=== PATIENT | female | born 1950 | race Caucasian/White ===

== ENCOUNTER 2016-04-26 07:40 | Outpatient (CLI) | payer MEDICARE, OTHER | END 2016-04-26 07:41 | disposition home or self-care (01) | DX: R07.89 Other chest pain (principal); M47.812 Spondylosis without myelopathy or radiculopathy, cervical region | CPT/HCPCS: 78306; A9503 ==

== ENCOUNTER 2016-05-29 10:11 | Outpatient (CLI) | payer MEDICARE, OTHER | END 2016-05-29 10:12 | disposition home or self-care (01) | DX: R19.7 Diarrhea, unspecified (principal) ==

== ENCOUNTER 2016-05-30 07:00 | Outpatient (CLI) | payer MEDICARE, OTHER | END 2016-05-30 07:01 | disposition home or self-care (01) | DX: R19.7 Diarrhea, unspecified (principal) ==

== ENCOUNTER 2016-06-13 08:33 | Outpatient (CLI) | payer MEDICARE, OTHER | END 2016-06-13 08:34 | disposition home or self-care (01) | DX: R55 Syncope and collapse (principal) ==

== ENCOUNTER 2016-06-29 07:10 | Outpatient (CLI) | payer MEDICARE, OTHER | END 2016-06-29 07:11 | disposition home or self-care (01) | DX: A04.7 Enterocolitis due to Clostridium difficile (principal) ==

== ENCOUNTER 2016-06-29 09:02 | Outpatient (CLI) | payer MEDICARE, OTHER | END 2016-06-29 09:03 | disposition home or self-care (01) | DX: R19.7 Diarrhea, unspecified (principal); E10.9 Type 1 diabetes mellitus without complications; E78.00 Pure hypercholesterolemia, unspecified; A04.7 Enterocolitis due to Clostridium difficile ==

== ENCOUNTER 2016-07-31 10:22 | Outpatient (CLI) | payer MEDICARE, OTHER | END 2016-07-31 10:23 | disposition home or self-care (01) | DX: E10.9 Type 1 diabetes mellitus without complications (principal) ==

== ENCOUNTER 2016-08-14 13:02 | Outpatient (CLI) | payer MEDICARE, OTHER | END 2016-08-14 13:03 | disposition home or self-care (01) | DX: N39.0 Urinary tract infection, site not specified (principal) ==

== ENCOUNTER 2016-11-09 10:55 | Outpatient (CLI) | payer MEDICARE, OTHER ==
[2016-11-09 19:03] LABS: CALCIUM 9.2 mg/dL (8.5-10.3); CREATININE 0.6 mg/dL (0.4-1.0); POTASSIUM 4.4 mmol/L (3.5-5.0)
[2016-11-09 19:15] LABS: HEMOGLOBIN A1C 0.75 g/dL
== END 2016-11-09 10:56 | disposition home or self-care (01) ==
LOC: LAB.F 10:55
PROVIDERS: ATTEND Internal Medicine
DX: E10.9 Type 1 diabetes mellitus without complications (principal)
CPT/HCPCS: 36415; 80048; 83036

== ENCOUNTER 2016-12-14 12:38 | Outpatient (CLI) | payer MEDICARE, OTHER ==
[2016-12-14 18:00] LABS: BILIRUBIN,URINE NEGATIVE (NEGATIVE)
== END 2016-12-14 12:39 | disposition home or self-care (01) ==
LOC: LAB.F 12:38
PROVIDERS: ATTEND Internal Medicine
DX: R30.0 Dysuria (principal)
CPT/HCPCS: 81001; 87086

== ENCOUNTER 2017-02-20 10:39 | Outpatient (CLI) | payer MEDICARE, OTHER ==
[2017-02-20 17:29] LABS: BASOPHILS % (AUTO) 0.5 %; EOSINOPHILS # (AUTO) 0.1 10^3/uL (0.0-0.7); HCT - HEMATOCRIT 41.3 % (37.0-47.0); HGB - HEMOGLOBIN 13.6 g/dL (12.0-16.0); LYMPHOCYTES # (AUTO) 0.9 10^3/uL (1.5-3.5); LYMPHOCYTES % (AUTO) 11.3 %; MEAN CORPUSCULAR HEMOGLOBIN 31.7 pg (27.0-31.0); MEAN CORPUSCULAR VOLUME 96.1 fL (81.0-99.0); MEAN PLATELET VOLUME 10.8 fL (7.9-10.8); MONOCYTES # (AUTO) 0.7 10^3/uL (0.0-1.0); MONOCYTES % (AUTO) 9.1 %; NEUTROPHILS # (AUTO) 5.9 10^3/uL (1.5-6.6); NEUTROPHILS % (AUTO) 78.1 %; NUCLEATED RED BLOOD CELLS AUTO 0.1 /100WBC; RED CELL DISTRIBUTION WIDTH 13.9 % (12.0-15.0); UNCORRECTED WHITE BLOOD COUNT 7.6 x10^3/uL; WHITE BLOOD COUNT 7.6 x10^3/uL (4.8-10.8)
[2017-02-20 17:54] LABS: BILIRUBIN,TOTAL 0.5 mg/dL (0.2-1.0); CALCIUM 9.3 mg/dL (8.5-10.3); CREATININE 0.7 mg/dL (0.4-1.0); POTASSIUM 4.3 mmol/L (3.5-5.0); TOTAL PROTEIN 6.9 g/dL (6.7-8.2)
== END 2017-02-20 10:40 | disposition home or self-care (01) ==
LOC: LAB.F 10:39
PROVIDERS: ATTEND Family Medicine
DX: R19.7 Diarrhea, unspecified (principal); A04.72 Enterocolitis due to Clostridium difficile, not specified as recurrent
CPT/HCPCS: 36415; 80053; 85025

== ENCOUNTER 2017-02-21 14:46 | Outpatient (CLI) | payer MEDICARE, OTHER ==
[2017-02-22 20:07] LABS: TEST RESULT REPORT
== END 2017-02-21 14:47 | disposition home or self-care (01) ==
LOC: LAB.R 14:46
PROVIDERS: ATTEND Family Medicine
DX: R19.7 Diarrhea, unspecified (principal); A04.72 Enterocolitis due to Clostridium difficile, not specified as recurrent
CPT/HCPCS: 81599; 83630; 87045; 87046; 87177; 87209; 87329; 87493; 89055

== ENCOUNTER 2017-02-27 08:00 | Outpatient (CLI) | payer MEDICARE, OTHER | END 2017-02-27 23:59 | disposition home or self-care (01) | LOC: LAB.R 08:00 | PROVIDERS: ATTEND Physician Assistant Medical | DX: Z12.11 Encounter for screening for malignant neoplasm of colon (principal) | CPT/HCPCS: 82270 ==

== ENCOUNTER 2017-05-15 08:05 | Outpatient (CLI) | payer MEDICARE, OTHER ==
[2017-05-15 10:44] LABS: ALBUMIN 3.8 g/dL (3.2-5.5); ALBUMIN/GLOBULIN RATIO 1.2 (1.0-2.2); ALKALINE PHOSPHATASE 54 IU/L (42-121); ALT ALANINE AMINOTRANSFERASE 12 IU/L (10-60); AST ASPARTATE AMINOTRANSFERASE 24 IU/L (10-42); BILIRUBIN,TOTAL 0.5 mg/dL (0.2-1.0); BUN - BLOOD UREA NITROGEN 18 mg/dL (6-20); CALCIUM 8.9 mg/dL (8.5-10.3); CARBON DIOXIDE - CO2 26 mmol/L (21-32); CHLORIDE 100 mmol/L (101-111); CREATININE 0.6 mg/dL (0.4-1.0); GFR - MDRD 100 (>89); SODIUM 138 mmol/L (135-145)
[2017-05-15 10:45] LABS: GLUCOSE 43 mg/dL (70-100)
== END 2017-05-15 08:06 | disposition home or self-care (01) ==
LOC: LAB.F 08:05
PROVIDERS: ATTEND Family Medicine
DX: R19.7 Diarrhea, unspecified (principal); E10.9 Type 1 diabetes mellitus without complications
CPT/HCPCS: 36415; 80053; 84443; 87493

== ENCOUNTER 2017-08-17 07:29 | Outpatient (CLI) | payer MEDICARE, OTHER ==
[2017-08-17 11:53] LABS: BASOPHILS % (AUTO) 0.4 %; EOSINOPHILS # (AUTO) 0.1 10^3/uL (0.0-0.7); EOSINOPHILS % (AUTO) 1.2 %; HGB - HEMOGLOBIN 13.9 g/dL (12.0-16.0); LYMPHOCYTES # (AUTO) 1.3 10^3/uL (1.5-3.5); LYMPHOCYTES % (AUTO) 11.4 %; MEAN CORPUSCULAR HEMOGLOBIN 30.9 pg (27.0-31.0); MEAN CORPUSCULAR HGB CONC 32.8 g/dL (32.0-36.0); MEAN CORPUSCULAR VOLUME 94.3 fL (81.0-99.0); MEAN PLATELET VOLUME 10.8 fL (7.9-10.8); MONOCYTES # (AUTO) 0.7 10^3/uL (0.0-1.0); MONOCYTES % (AUTO) 6.1 %; NEUTROPHILS # (AUTO) 9.4 10^3/uL (1.5-6.6); NEUTROPHILS % (AUTO) 80.9 %; PLT - PLATELET COUNT 229 10^3/uL (130-450); RED BLOOD COUNT 4.48 10^6/uL (4.20-5.40); RED CELL DISTRIBUTION WIDTH 14.7 % (12.0-15.0); WHITE BLOOD COUNT 11.6 x10^3/uL (4.8-10.8)
[2017-08-17 12:19] LABS: ALBUMIN 3.9 g/dL (3.2-5.5); ALBUMIN/GLOBULIN RATIO 1.3 (1.0-2.2); ALKALINE PHOSPHATASE 57 IU/L (42-121); ALT ALANINE AMINOTRANSFERASE 11 IU/L (10-60); AST ASPARTATE AMINOTRANSFERASE 22 IU/L (10-42); BILIRUBIN,TOTAL 0.7 mg/dL (0.2-1.0); BUN - BLOOD UREA NITROGEN 19 mg/dL (6-20); CALCIUM 8.7 mg/dL (8.5-10.3); CARBON DIOXIDE - CO2 28 mmol/L (21-32); CHLORIDE 99 mmol/L (101-111); CHOL/HDL RATIO 1.7 (<4.4); CHOLESTEROL 187 mg/dL; CREATININE 0.6 mg/dL (0.4-1.0); GFR - MDRD 100 (>89); GLUCOSE 189 mg/dL (70-100); HDL CHOLESTEROL 107 mg/dL; LDL CHOLESTEROL,CALCULATED 68 mg/dL; LDL/HDL RATIO 0.6 (<4.4); SODIUM 135 mmol/L (135-145); TOTAL PROTEIN 6.9 g/dL (6.7-8.2); VLDL CHOLESTEROL 12 mg/dL
[2017-08-17 13:20] LABS: HB2 TOTAL 15.3 g/dL; HEMOGLOBIN A1C 0.79 g/dL; HEMOGLOBIN A1C % 6.9 % (4.6-6.2)
== END 2017-08-17 07:30 | disposition home or self-care (01) ==
LOC: LAB.F 07:29
PROVIDERS: ATTEND Family Medicine
DX: E10.9 Type 1 diabetes mellitus without complications (principal); I10 Essential (primary) hypertension; E78.00 Pure hypercholesterolemia, unspecified; Z79.4 Long term (current) use of insulin
CPT/HCPCS: 36415; 80053; 80061; 83036; 83721; 84443; 85025

== ENCOUNTER 2017-10-02 09:23 | Outpatient (CLI) | payer MEDICARE, OTHER | END 2017-10-02 09:24 | disposition home or self-care (01) | LOC: LAB.F 09:23 | PROVIDERS: ATTEND Urology | DX: N30.00 Acute cystitis without hematuria (principal) | CPT/HCPCS: 87086 ==

== ENCOUNTER 2017-11-26 09:13 | Outpatient (CLI) | payer MEDICARE, OTHER ==
--- NOTE | 2017-11-26 14:47 | DEXA Report ---
Procedure Date: 11/26/2017 Accession Number: [id number] / [id number] Procedure: DEX - Dexa Spine and/or Hip CPT Code: FULL RESULT: EXAM: Dexa Spine and/or Hip DATE: 11/26/2017 9:47 AM CLINICAL HISTORY: ASYMPTOMATIC MENOPAUSAL STATE TECHNIQUE: Dual energy x-ray absorptiometry (DXA) was performed on a [employer] System. Regions measured are the AP Spine, femoral neck, and if needed forearm. COMPARISON: None. In accordance with the International Society for Clinical Densitometry (ISCD) guidelines, data from previous exams may be reanalyzed using current recommendations and techniques. This is done to allow a more accurate basis for comparison with the current study. FINDINGS: The data for the lumbar spine is as follows: BMD (g/cm/cm) T-SCORE Z-SCORE REGION L1 1.309 1.5 3.6 L2 1.431 1.9 4.0 L3 1.544 2.9 4.9 L4 1.435 2.0 4.0 TOTAL 1.436 2.1 4.2 NOTE: All evaluable vertebrae are used for classification The data for the hip is as follows: BMD (g/cm/cm) T-SCORE Z-SCORE REGION Neck 0.973 -0.5 1.4 TOTAL 0.996 -0.1 1.6 NOTE: The femoral neck or total proximal femur, whichever is lowest, is used for classification. DXA RESULTS SUMMARY: Spine SCAN DATE AGE BMD CHANGE VS CHANGE VS PREVIOUS PREVIOUS % 11[age]26/2017 [age] 1.436 -0.046* -3.1* 10[birth year]26/2015 [age] 1[age]482 * Denotes significant change at the 95% confidence level. Denotes dissimilar scan types or analysis methods. DXA RESULTS SUMMARY: Hip SCAN DATE AGE BMD CHANGE VS CHANGE VS PREVIOUS PREVIOUS % 11[age]26/2017 67.6 0.996 -0.062* -5.9* 10[birth year]26/2015 [age] 1.058 * Denotes significant change at the 95% confidence level. Denotes dissimilar scan types or analysis methods. IMPRESSION: THE WHO CLASSIFICATION BASED ON THE INTERNATIONAL REFERENCE STANDARD IS NORMAL. THE FRACTURE RISK IS NOT INCREASED. RECOMMENDATION: Patients with diagnosis of osteoporosis or osteopenia should have regular bone mineral density assessment. For those eligible for Medicare, routine testing is allowed once every 2 years. Testing frequency can be increased for patients who have rapidly progressing disease or for those who are receiving medical therapy to restore bone mass. COMMENT: World Health Organization (WHO) definitions for osteoporosis and osteopenia: NORMAL BMD: T-score at -1.0 or higher, fracture risk is low OSTEOPENIA BMD: T-score between -1.0 and -2.5, fracture risk is increased. OSTEOPOROSIS BMD: T-score at -2.5 or lower, fracture risk is high. National Osteoporosis Foundation recommends: 1. Obtain adequate dietary calcium (at least 1200 mg per day) and vitamin D (400-800 international units per day). 2. Participate, as appropriate, in regular weightbearing and muscle-strengthening exercise. 3. Avoid tobacco use and reduce alcohol and caffeine intake. 4. For more detailed information see the website at www.NOF.org.
== END 2017-11-26 09:14 | disposition home or self-care (01) ==
LOC: DI 09:13
PROVIDERS: ATTEND Internal Medicine
DX: M85.89 Other specified disorders of bone density and structure, multiple sites (principal); Z78.0 Asymptomatic menopausal state
CPT/HCPCS: 77080

== ENCOUNTER 2018-01-08 13:10 | Outpatient (CLI) | payer MEDICARE, OTHER | END 2018-01-08 13:11 | disposition home or self-care (01) | LOC: LAB.R 13:10 | PROVIDERS: ATTEND Family Medicine | DX: R35.0 Frequency of micturition (principal) | CPT/HCPCS: 87086 ==

== ENCOUNTER 2018-02-14 07:13 | Outpatient (CLI) | payer MEDICARE, OTHER ==
[2018-02-14 10:47] LABS: ALT ALANINE AMINOTRANSFERASE 16 IU/L (10-60); AST ASPARTATE AMINOTRANSFERASE 23 IU/L (10-42); BUN - BLOOD UREA NITROGEN 23 mg/dL (6-20); CALCIUM 9.1 mg/dL (8.5-10.3); CARBON DIOXIDE - CO2 27 mmol/L (21-32); CHLORIDE 101 mmol/L (101-111); CHOL/HDL RATIO 1.6 (<4.4); CHOLESTEROL 207 mg/dL; CREATININE 0.4 mg/dL (0.4-1.0); GFR - MDRD 159 (>89); GLUCOSE 219 mg/dL (70-100); HDL CHOLESTEROL 132 mg/dL; LDL CHOLESTEROL,CALCULATED 61 mg/dL; LDL/HDL RATIO 0.5 (<4.4); SODIUM 138 mmol/L (135-145); VLDL CHOLESTEROL 14 mg/dL
[2018-02-14 11:05] LABS: HB2 TOTAL 14.9 g/dL; HEMOGLOBIN A1C 0.97 g/dL; HEMOGLOBIN A1C % 8.1 % (4.6-6.2)
== END 2018-02-14 07:14 | disposition home or self-care (01) ==
LOC: LAB.F 07:13
PROVIDERS: ATTEND Internal Medicine
DX: E11.9 Type 2 diabetes mellitus without complications (principal); E78.00 Pure hypercholesterolemia, unspecified
CPT/HCPCS: 36415; 80048; 80061; 82043; 83036; 83721; 84450; 84460

== ENCOUNTER 2018-05-16 08:26 | Outpatient (CLI) | payer MEDICARE, OTHER ==
[2018-05-16 16:40] LABS: CALCIUM 8.9 mg/dL (8.5-10.3); CARBON DIOXIDE - CO2 26 mmol/L (21-32); CHLORIDE 100 mmol/L (101-111); GLUCOSE 205 mg/dL (70-100); SODIUM 136 mmol/L (135-145)
[2018-05-16 17:20] LABS: ALBUMIN 3.8 g/dL (3.2-5.5); ALBUMIN/GLOBULIN RATIO 1.3 (1.0-2.2); ALKALINE PHOSPHATASE 55 IU/L (42-121); ALT ALANINE AMINOTRANSFERASE 13 IU/L (10-60); AST ASPARTATE AMINOTRANSFERASE 20 IU/L (10-42); BUN - BLOOD UREA NITROGEN 19 mg/dL (6-20); CHOL/HDL RATIO 1.8 (<4.4); CHOLESTEROL 197 mg/dL; CREATININE 0.7 mg/dL (0.4-1.0); GFR - MDRD 83 (>89); HDL CHOLESTEROL 112 mg/dL; LDL CHOLESTEROL,CALCULATED 73 mg/dL; LDL/HDL RATIO 0.7 (<4.4); TOTAL PROTEIN 6.8 g/dL (6.7-8.2); VLDL CHOLESTEROL 12 mg/dL
[2018-05-16 18:25] LABS: CREATININE,URINE 421.5 mg/dL; MICROALBUM/CREATININE RATIO,UR 14.2 ug/mg (<30.0)
[2018-05-16 19:28] LABS: HB2 TOTAL 14.6 g/dL; HEMOGLOBIN A1C 0.69 g/dL; HEMOGLOBIN A1C % 6.5 % (4.6-6.2)
== END 2018-05-16 08:27 | disposition home or self-care (01) ==
LOC: LAB.F 08:26
PROVIDERS: ATTEND Internal Medicine
DX: E11.9 Type 2 diabetes mellitus without complications (principal); Z79.4 Long term (current) use of insulin
CPT/HCPCS: 36415; 80053; 80061; 82043; 82570; 83036; 83721

== ENCOUNTER 2018-11-15 07:32 | Outpatient (CLI) | payer MEDICARE, OTHER ==
[2018-11-15 08:27] LABS: BUN - BLOOD UREA NITROGEN 14 mg/dL (6-20); CARBON DIOXIDE - CO2 24 mmol/L (21-32); CHLORIDE 100 mmol/L (101-111); SODIUM 138 mmol/L (135-145)
[2018-11-15 08:28] LABS: ALBUMIN 3.9 g/dL (3.2-5.5); ALBUMIN/GLOBULIN RATIO 1.1 (1.0-2.2); ALKALINE PHOSPHATASE 61 IU/L (42-121); ALT ALANINE AMINOTRANSFERASE 13 IU/L (10-60); AST ASPARTATE AMINOTRANSFERASE 25 IU/L (10-42); CALCIUM 9.3 mg/dL (8.5-10.3); CREATININE 0.8 mg/dL (0.4-1.0); GFR - MDRD 71 (>89); GLUCOSE 244 mg/dL (70-100); TOTAL PROTEIN 7.4 g/dL (6.7-8.2); VLDL CHOLESTEROL 11 mg/dL
[2018-11-15 08:29] LABS: CHOL/HDL RATIO 1.7 (<4.4); CHOLESTEROL 221 mg/dL; HDL CHOLESTEROL 128 mg/dL
[2018-11-15 08:31] LABS: LDL CHOLESTEROL,CALCULATED 86 mg/dL; LDL/HDL RATIO 0.7 (<4.4)
[2018-11-15 09:06] LABS: HB2 TOTAL 16.3 g/dL
[2018-11-15 09:07] LABS: HEMOGLOBIN A1C 0.84 g/dL; HEMOGLOBIN A1C % 6.9 % (4.6-6.2)
== END 2018-11-15 07:33 | disposition home or self-care (01) ==
LOC: LAB 07:32
PROVIDERS: ATTEND Internal Medicine
DX: E11.9 Type 2 diabetes mellitus without complications (principal); Z79.4 Long term (current) use of insulin
CPT/HCPCS: 36415; 80053; 80061; 83036; 83721

== ENCOUNTER 2018-11-27 13:39 | Outpatient (CLI) | payer MEDICARE, OTHER ==
--- NOTE | 2018-11-28 08:35 | Mammography Report ---
Reason: SCREENING MAMMOGRAM NEC Procedure Date: 11/27/2018 Accession Number: [id number] / [id number] Procedure: ELIAS - Screening Mammo w/Art CPT Code: FULL RESULT: EXAM: Screening Mammo w/Art DATE: 11/27/2018 2:20 PM CLINICAL HISTORY: Screening encounter. History of nulliparity. TECHNIQUE: (B) - Bilateral CC, laterally exaggerated CC, MLO views were obtained. COMPARISON: 09/09/2015 through 03/09/2011. PARENCHYMAL PATTERN: (D) - The breast(s) demonstrate(s) heterogeneously dense fibroglandular parenchyma. FINDINGS: There are coarse typically benign calcifications. There are no suspicious masses, calcifications, or areas of distortion. IMPRESSION: Benign findings. BI-RADS category 2. RECOMMENDATION: (ANNUAL) - Recommend routine annual screening mammography. BI-RADS CATEGORY: (2) - Benign Findings. STANDARD QUALIFYING STATEMENTS: 1. This examination was not reviewed with the aid of Computer-Aided Detection (CAD). 2. A negative or benign imaging report should not preclude biopsy if clinically suspicious findings are present. 3. Dense breasts may obscure an underlying neoplasm. 4. This examination was reviewed with the aid of 3D breast imaging (tomosynthesis).
== END 2018-11-27 13:40 | disposition home or self-care (01) ==
LOC: DI 13:39
PROVIDERS: ATTEND Internal Medicine
DX: Z12.31 Encounter for screening mammogram for malignant neoplasm of breast (principal)
CPT/HCPCS: 77063; 77067

== ENCOUNTER 2019-01-24 08:00 | Outpatient (CLI) | payer MEDICARE, OTHER | END 2019-01-24 23:59 | disposition home or self-care (01) | LOC: LAB.R 08:00 | PROVIDERS: ATTEND Nurse Practitioner Family | DX: R19.7 Diarrhea, unspecified (principal) | CPT/HCPCS: 87493 ==

== ENCOUNTER 2019-11-14 12:45 | Outpatient (CLI) | payer MEDICARE, OTHER ==
[2019-11-14 13:22] LABS: ALBUMIN 3.8 g/dL (3.2-5.5); ALBUMIN/GLOBULIN RATIO 1.2 (1.0-2.2); BILIRUBIN,TOTAL 0.6 mg/dL (0.2-1.0); CALCIUM 9.2 mg/dL (8.5-10.3); CREATININE 0.7 mg/dL (0.4-1.0); TOTAL PROTEIN 7.1 g/dL (6.7-8.2)
== END 2019-11-14 12:46 | disposition home or self-care (01) ==
LOC: LAB 12:45
PROVIDERS: ATTEND Registered Nurse
DX: E11.9 Type 2 diabetes mellitus without complications (principal); Z79.4 Long term (current) use of insulin; I10 Essential (primary) hypertension; E78.00 Pure hypercholesterolemia, unspecified; G47.33 Obstructive sleep apnea (adult) (pediatric)
CPT/HCPCS: 36415; 80053

== ENCOUNTER 2020-02-09 10:16 | Outpatient (CLI) | payer MEDICARE, OTHER ==
[2020-02-09 10:55] LABS: CALCIUM 9.4 mg/dL (8.5-10.3); CREATININE 0.7 mg/dL (0.4-1.0)
[2020-02-09 13:10] LABS: HEMOGLOBIN A1c% 7.1 % (4.27-6.07)
== END 2020-02-09 10:17 | disposition home or self-care (01) ==
LOC: LAB 10:16
PROVIDERS: ATTEND Nurse Practitioner
DX: E10.65 Type 1 diabetes mellitus with hyperglycemia (principal); E10.22 Type 1 diabetes mellitus with diabetic chronic kidney disease
CPT/HCPCS: 36415; 80048; 83036

== ENCOUNTER 2020-06-02 07:00 | Outpatient (CLI) | payer MEDICARE, OTHER ==
[2020-06-02 11:05] LABS: BASOPHILS # (AUTO) 0.1 10^3/uL (0.0-0.1); BASOPHILS % (AUTO) 0.5 %; EOSINOPHILS # (AUTO) 0.1 10^3/uL (0.0-0.7); EOSINOPHILS % (AUTO) 1.4 %; HGB - HEMOGLOBIN 14.1 g/dL (12.0-16.0); LYMPHOCYTES # (AUTO) 1.5 10^3/uL (1.5-3.5); LYMPHOCYTES % (AUTO) 14.4 %; MEAN CORPUSCULAR HGB CONC 32.4 g/dL (32.0-36.0); MEAN CORPUSCULAR VOLUME 98.6 fL (81.0-99.0); MONOCYTES % (AUTO) 9.6 %; NEUTROPHILS # (AUTO) 7.5 10^3/uL (1.5-6.6); NEUTROPHILS % (AUTO) 73.7 %; PLT - PLATELET COUNT 285 10^3/uL (130-450); RED BLOOD COUNT 4.41 10^6/uL (4.20-5.40); RED CELL DISTRIBUTION WIDTH 14.5 % (12.0-15.0); WHITE BLOOD COUNT 10.1 x10^3/uL (4.8-10.8)
[2020-06-02 11:23] LABS: ALBUMIN/GLOBULIN RATIO 1.1 (1.0-2.2); ALKALINE PHOSPHATASE 104 IU/L (42-121); ALT ALANINE AMINOTRANSFERASE 14 IU/L (10-60); AST ASPARTATE AMINOTRANSFERASE 24 IU/L (10-42); BILIRUBIN,TOTAL 0.7 mg/dL (0.2-1.0); BUN - BLOOD UREA NITROGEN 27 mg/dL (6-20); CARBON DIOXIDE - CO2 27 mmol/L (21-32); CHLORIDE 101 mmol/L (101-111); CHOL/HDL RATIO 1.9 (<4.4); CHOLESTEROL 219 mg/dL; CREATININE 0.7 mg/dL (0.4-1.0); GLUCOSE 115 mg/dL (70-100); HDL CHOLESTEROL 114 mg/dL; LDL CHOLESTEROL,CALCULATED 91 mg/dL; LDL/HDL RATIO 0.8 (<4.4); TOTAL PROTEIN 7.5 g/dL (6.7-8.2); VLDL CHOLESTEROL 14 mg/dL
[2020-06-02 14:17] LABS: HEMOGLOBIN A1c% 6.6 % (4.27-6.07)
== END 2020-06-02 23:59 | disposition home or self-care (01) ==
LOC: LAB 07:00
PROVIDERS: ATTEND Internal Medicine
DX: I10 Essential (primary) hypertension (principal); E11.9 Type 2 diabetes mellitus without complications; G47.33 Obstructive sleep apnea (adult) (pediatric); E78.00 Pure hypercholesterolemia, unspecified; Z79.4 Long term (current) use of insulin
CPT/HCPCS: 36415; 80053; 80061; 82043; 83036; 83721; 84443; 85025

== ENCOUNTER 2020-08-26 15:42 | Emergency (ER) | payer MEDICARE, OTHER ==
[2020-08-26] MEDS ORDERED: IOPAMIDOL-300 100 ML VIAL ONE (15:51)
[2020-08-26] MEDS ORDERED: ONDANSETRON 4 MG/2 ML VIAL IVP STA (16:02)
[2020-08-26] MEDS ORDERED: HYDROmorphone 1 MG/ML CARPUJECT IVP STA (16:02)
--- NOTE | 2020-08-26 16:02 | ED Physician Documentation ---
PD HPI ABD PAIN - Stated complaint Stated Complaint: ABD PX - Chief complaint Chief Complaint: Abd Pain - History obtained from History obtained from: Patient - Additional information Additional information: 70-year-old woman with history of Diabetes, total hysterectomy, microscopic colitis who only takes occasional budesonide has had 5 days of right lower quadrant pain associated with vomiting and diarrhea. She is also had chills and weakness with it. She denies known fevers. Review of Systems Ten Systems: 10 systems reviewed and negative Constitutional: reports: Chills, Fatigue GI: reports: Abdominal Pain, Nausea, Diarrhea PD PAST MEDICAL HISTORY - Present Medications Home Medications: Ambulatory Orders Medication Instructions Recorded Confirmed Aspirin [Aspirin EC] 325 mg PO DAILY 08/26/20 08/26/20 Atorvastatin [Lipitor] 20 mg PO DAILY PM 08/26/20 08/26/20 Diltiazem HCl [Diltiazem 12Hr ER] 120 mg PO DAILY 08/26/20 08/26/20 Gabapentin [Neurontin] 100 mg PO BID 08/26/20 08/26/20 Insulin Glargine [Lantus Solostar] 10 unit SQ HS 08/26/20 08/26/20 Insulin Lispro [Humalog] 1 unit SQ TID 08/26/20 08/26/20 Lactobacillus Acidophilus 1 tab PO DAILY 08/26/20 08/26/20 [Probiotic Acidophilus] Losartan Potassium [Cozaar] 100 mg PO DAILY 08/26/20 08/26/20 Multivitamin 1 tab PO DAILY PM 08/26/20 08/26/20 PARoxetine [Paxil] 10 mg PO DAILY 08/26/20 08/26/20 - Allergies Allergies/Adverse Reactions: Allergies Allergy/AdvReac Type Severity Reaction Status Date / Time No Known Drug Allergies Allergy Verified 08/26/20 15:47 PD ED PE NORMAL - Vitals Vital signs reviewed: Yes - General General: Alert 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, No acute distress - HEENT HEENT: PERRL, EOMI - Neck Neck: Supple, no meningeal sign, No bony TTP - Cardiac Cardiac: RRR, No murmur - Respiratory Respiratory: No respiratory distress, Clear bilaterally - Abdomen Abdomen: Other (Mild tenderness in the right lower quadrant without surgical signs, no diffuse tenderness.) - Back Back: No CVA TTP, No spinal TTP - Derm Derm: Normal color, Warm and dry, Other (vitiligo) - Extremities Extremities: No edema, No calf tenderness / cord - Neuro Neuro: Alert 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, Normal speech Results - Vitals Vitals: Vital Signs - 24 hr 08/26/20 08/26/20 08/26/20 15:47 18:00 18:35 Temperature 36.8 C 37 C 37 C Heart Rate 87 79 71 Respiratory 16 16 16 Rate Blood Pressure 110/56 L 123/79 130/62 O2 Saturation 96 98 98 08/26/20 08/26/20 08/26/20 19:05 19:35 20:00 Temperature 36.9 C 37.0 C 36.3 C L Heart Rate 74 70 74 Respiratory 16 14 16 Rate Blood Pressure 120/70 116/60 115/70 O2 Saturation 96 95 95 Oxygen O2 Source Room air - Labs Labs: Laboratory Tests 08/26/20 08/26/20 08/26/20 16:18 16:18 17:54 WBC 17.0 H RBC 3.82 L Hgb 12.1 Hct 33.9 L MCV 88.7 MCH 31.7 H MCHC 35.7 RDW 14.1 Plt Count 136 MPV 12.9 H Neut # (Auto) 13.4 H Lymph # (Auto) 0.4 L [place] # (Auto) 2.5 H Eos # (Auto) 0.0 Baso # (Auto) 0.2 H Absolute Nucleated RBC 0.00 Band Neuts % (Manual) Not Reportable Abnorm Lymph % (Manual) Not Reportable Nucleated RBC % 0.0 Neutrophils # (Manual) Not Reportable Lymphocytes # (Manual) Not Reportable Monocytes # (Manual) Not Reportable Eosinophils # (Manual) Not Reportable Basophils # (Manual) Not Reportable Differential Comment MANUAL=AUTO DIFF Platelet Estimate NORMAL (130-450,000) Platelet Morphology 1+ GIANT PLATELETS RBC Morph Micro Appear NORMAL APPEARANCE Sodium 127 L Potassium 3.9 Chloride 91 L Carbon Dioxide 21 Anion Gap 15.0 H BUN 68 H Creatinine 2.4 H Estimated GFR (MDRD) 20 L Glucose 248 H Lactic Acid Calcium 8.5 Total Bilirubin 1.4 H AST 56 H ALT 30 Alkaline Phosphatase 147 H Total Protein 6.5 L Albumin 2.6 L Globulin 3.9 Albumin/Globulin Ratio 0.7 L Lipase 16 L Urine Color YELLOW Urine Clarity CLOUDY Urine pH 5.5 Ur Specific [place] 1.025 Urine Protein 30 H Urine Glucose (UA) 250 H Urine Ketones 15 H Urine Occult Blood SMALL H Urine Nitrite NEGATIVE Urine Bilirubin NEGATIVE Urine Urobilinogen 0.2 (NORMAL) Ur Leukocyte Esterase TRACE H Urine RBC 0-5 Urine WBC >25 H Ur Squamous Epith Cells FEW Squamous Urine Bacteria Moderate H Ur Microscopic Review INDICATED Urine Culture Comments INDICATED Nasal Adenovirus (PCR) Nasal B. parapertussis DNA (PCR) Nasal Coronavir 229E PCR Nasal Coronavir HKU1 PCR Nasal Coronavir NL63 PCR Nasal Coronavir OC43 PCR Nasal Enterovir/Rhinovir PCR Nasal Influenza B PCR Nasal Influenza A PCR Nasal Parainfluen 1 PCR Nasal Parainfluen 2 PCR Nasal Parainfluen 3 PCR Nasal Parainfluen 4 PCR Nasal RSV (PCR) Nasal B.pertussis DNA PCR Nasal C.pneumoniae (PCR) Jayson Human Metapneumo PCR Nasal M.pneumoniae (PCR) Nasal SARS-CoV-2 (PCR) 08/26/20 08/26/20 08/26/20 18:43 18:44 18:47 WBC RBC Hgb Hct MCV MCH MCHC RDW Plt Count MPV Neut # (Auto) Lymph # (Auto) [place] # (Auto) Eos # (Auto) Baso # (Auto) Absolute Nucleated RBC Band Neuts % (Manual) Abnorm Lymph % (Manual) Nucleated RBC % Neutrophils # (Manual) Lymphocytes # (Manual) Monocytes # (Manual) Eosinophils # (Manual) Basophils # (Manual) Differential Comment Platelet Estimate Platelet Morphology RBC Morph Micro Appear Sodium 129 L Potassium 4.1 Chloride 95 L Carbon Dioxide 21 Anion Gap 13.0 BUN 62 H Creatinine 2.3 H Estimated GFR (MDRD) 21 L Glucose 251 H Lactic Acid 0.6 Calcium 8.2 L Total Bilirubin 1.2 H AST 43 H ALT 29 Alkaline Phosphatase 138 H Total Protein 5.9 L Albumin 2.4 L Globulin 3.5 Albumin/Globulin Ratio 0.7 L Lipase Urine Color Urine Clarity Urine pH Ur Specific [place] Urine Protein Urine Glucose (UA) Urine Ketones Urine Occult Blood Urine Nitrite Urine Bilirubin Urine Urobilinogen Ur Leukocyte Esterase Urine RBC Urine WBC Ur Squamous Epith Cells Urine Bacteria Ur Microscopic Review Urine Culture Comments Nasal Adenovirus (PCR) NOT DETECTED Nasal B. parapertussis DNA (PCR) NOT DETECTED Nasal Coronavir 229E PCR NOT DETECTED Nasal Coronavir HKU1 PCR NOT DETECTED Nasal Coronavir NL63 PCR NOT DETECTED Nasal Coronavir OC43 PCR NOT DETECTED Nasal Enterovir/Rhinovir PCR NOT DETECTED Nasal Influenza B PCR NOT DETECTED Nasal Influenza A PCR NOT DETECTED Nasal Parainfluen 1 PCR NOT DETECTED Nasal Parainfluen 2 PCR NOT DETECTED Nasal Parainfluen 3 PCR NOT DETECTED Nasal Parainfluen 4 PCR NOT DETECTED Nasal RSV (PCR) NOT DETECTED Nasal B.pertussis DNA PCR NOT DETECTED Nasal C.pneumoniae (PCR) NOT DETECTED Jayson Human Metapneumo PCR NOT DETECTED Nasal M.pneumoniae (PCR) NOT DETECTED Nasal SARS-CoV-2 (PCR) NOT DETECTED - Rads (name of study) CT KUB Radiology: EMP read contemporaneously (Right mid ureteral calculus 7mm, nonobstructing right nephrolith) PD MEDICAL DECISION MAKING - ED course ED course: 70-year-old woman with history of diabetes who presents with right lower quadrant pain and chills. She is found to have acute kidney injury, today her creatinine is 2.4, her usual is 0.7. It is a prerenal pattern with significant hyponatremia at 127, her usual sodium level is right around 140. CT shows an obstructing ureterolith on the right and an infected appearing urine. Blood cultures were drawn and she was administered cefepime. [facility] was called for transfer she will need urologic consultation. After a little over an hour's delay we were notified that [facility] did not have a bed, after discussion with the patient [facility] was called at 8 PM for potential transfer. Accepted to [facility] by Dr. Moses at about 8:20 PM. She requests we speak with the urologist prior to transport and I did discuss the case with Marc Berg, the urologist on-call and requests that we keep her n.p.o. and plans to do retrieval with stent tomorrow Departure - Departure Disposition: 02 Transfer Acute Care Hosp Clinical Impression: Pyelonephritis, Ureterolithiasis, DIDI (acute kidney injury) Condition: Serious
[2020-08-26 16:34] LABS: BASOPHILS # (AUTO) 0.2 10^3/uL (0.0-0.1); BASOPHILS % (AUTO) 0.9 %; EOSINOPHILS % (AUTO) 0.1 %; HCT - HEMATOCRIT 33.9 % (37.0-47.0); HGB - HEMOGLOBIN 12.1 g/dL (12.0-16.0); LYMPHOCYTES # (AUTO) 0.4 10^3/uL (1.5-3.5); LYMPHOCYTES % (AUTO) 2.6 %; MEAN CORPUSCULAR HEMOGLOBIN 31.7 pg (27.0-31.0); MEAN CORPUSCULAR HGB CONC 35.7 g/dL (32.0-36.0); MEAN CORPUSCULAR VOLUME 88.7 fL (81.0-99.0); MEAN PLATELET VOLUME 12.9 fL (7.9-10.8); MONOCYTES # (AUTO) 2.5 10^3/uL (0.0-1.0); MONOCYTES % (AUTO) 14.9 %; NEUTROPHILS # (AUTO) 13.4 10^3/uL (1.5-6.6); PLT - PLATELET COUNT 136 10^3/uL (130-450); RED BLOOD COUNT 3.82 10^6/uL (4.20-5.40); RED CELL DISTRIBUTION WIDTH 14.1 % (12.0-15.0)
[2020-08-26 16:46] LABS: ALBUMIN 2.6 g/dL (3.2-5.5); ALBUMIN/GLOBULIN RATIO 0.7 (1.0-2.2); BILIRUBIN,TOTAL 1.4 mg/dL (0.2-1.0); CALCIUM 8.5 mg/dL (8.5-10.3); CREATININE 2.4 mg/dL (0.4-1.0); POTASSIUM 3.9 mmol/L (3.5-5.0); TOTAL PROTEIN 6.5 g/dL (6.7-8.2)
[2020-08-26] MEDS ORDERED: SODIUM CHLORIDE 0.9% 1,000 ML IV STA ×2 (16:56)
[2020-08-26 17:17] LABS: DIFFERENTIAL COMMENT MANUAL=AUTO DIFF; PLATELET ESTIMATE, MANUAL NORMAL (130-450,000) (NORMAL); PLATELET MORPHOLOGY 1+ GIANT PLATELETS (NORMAL); RBC MORPHOLOGY (MULTIPLE) NORMAL APPEARANCE (NORMAL)
--- NOTE | 2020-08-26 17:38 | CT Report ---
PROCEDURE: Abdomen/Pelvis WO INDICATIONS: abdominal pain with arf TECHNIQUE: Noncontrast 5 mm thick sections acquired from the diaphragms to the symphysis. 5 mm coronal and sagi ttal reformats were then performed. For radiation dose reduction, the following was used: automated exposure control, adjustment of mA and/or kV according to patient size. COMPARISON: None. FINDINGS: Image quality: Excellent. ABDOMEN: Lung bases: Lung bases are clear. Heart size is normal. Solid organs: Liver and spleen are normal in size. Gallbladder is within normal limits on noncontra st imaging Pancreas is normal in contours. Calcification within the pancreatic body/tail junction. No adrenal nodules. Right kidney is enlarged and demonstrates mild surrounding fat stranding. Left ki dney is normal in size. There is a nonobstructing 3 mm calculus within the inferior pole right kidney . No left nephrolithiasis. Mild right hydronephrosis and proximal right ureteral dilatation. Within t he right mid ureter, there is a 7 mm diameter calculus. No left hydronephrosis nor left ureteral dila tation/calcification. Peritoneum and bowel: Small hiatal hernia. Unenhanced bowel loops demonstrate normal wall thickness and caliber. No free fluid or air. Nodes and vessels: No retroperitoneal or mesenteric adenopathy by size criteria. Aorta and inferior vena cava are normal in caliber. Miscellaneous: No ventral hernias. PELVIS: Genitourinary: Urinary bladder is decompressed. Miscellaneous: No inguinal hernias or adenopathy. Bones: No suspicious bony lesions. No vertebral body compression fractures. IMPRESSION: 1. Right mid ureteral calculus causing mild right hydronephrosis. 2. No obstructing right inferior pole renal calculus. Reviewed by: Scar Monson MD on 08/26/2020 5:37 PM PDT Approved by: Scar Monson MD on 08/26/2020 5:37 PM PDT Station ID: [id number]
[2020-08-26 18:15] LABS: GLUCOSE, URINE (UA) 250 mg/dL (NEGATIVE); KETONES,URINE (UA) 15 mg/dL (NEGATIVE); LEUKOCYTE ESTERASE, URINE TRACE (NEGATIVE); NITRITE,URINE NEGATIVE (NEGATIVE); OCCULT BLOOD,URINE SMALL (NEGATIVE); PH,URINE 5.5 PH (5.0-7.5); PROTEIN,URINE 30 mg/dL (NEGATIVE); UROBILINOGEN,URINE 0.2 (NORMAL) E.U./dL (NORMAL)
[2020-08-26 18:16] LABS: CLARITY,URINE CLOUDY (CLEAR)
[2020-08-26 18:23] LABS: BILIRUBIN,URINE NEGATIVE (NEGATIVE); ICTOTEST,URINE NEGATIVE
[2020-08-26 18:26] LABS: BACTERIA,URINE Moderate /HPF (None Seen); RBC,URINE 0-5 /HPF (0-5); SQUAMOUS EPITHELIAL CELL,UR FEW Squamous (<= Few); WBC,URINE >25 /HPF (0-5)
[2020-08-26] MEDS ORDERED: CEFEPIME 2 GM in SODIUM CHLORIDE 0.9% MINIBAG 100 ML IV STA (18:35)
[2020-08-26 19:08] LABS: ALBUMIN 2.4 g/dL (3.2-5.5); ALBUMIN/GLOBULIN RATIO 0.7 (1.0-2.2); BILIRUBIN,TOTAL 1.2 mg/dL (0.2-1.0); CALCIUM 8.2 mg/dL (8.5-10.3); CREATININE 2.3 mg/dL (0.4-1.0); POTASSIUM 4.1 mmol/L (3.5-5.0); TOTAL PROTEIN 5.9 g/dL (6.7-8.2)
[2020-08-26 19:47] LABS: B. PARAPERTUSSIS- RESP PCR PAN NOT DETECTED; B. PERTUSSIS- RESP PCR PANEL NOT DETECTED; C. PNEUMONIAE- RESP PCR PANEL NOT DETECTED; CORONAVIRUS 229E-RESP PCR NOT DETECTED; CORONAVIRUS HKU1-RESP PCR NOT DETECTED; CORONAVIRUS NL63-RESP PCR NOT DETECTED; CORONAVIRUS OC43-RESP PCR NOT DETECTED; HUMAN METAPNEUMOVIRUS NOT DETECTED; INFLUENZA A- RESP PCR PANEL NOT DETECTED; INFLUENZA B - RESP PCR PANEL NOT DETECTED; M. PNEUMONIAE- RESP PCR PANEL NOT DETECTED; PARAINFLUENZA VIRUS 1 NOT DETECTED; PARAINFLUENZA VIRUS 2 NOT DETECTED; PARAINFLUENZA VIRUS 3 NOT DETECTED; PARAINFLUENZA VIRUS 4 NOT DETECTED; RHINOVIRUS/ENTEROVIRUS NOT DETECTED; RSV- RESP PCR PANEL NOT DETECTED; SARS-CoV-2 -RESP PCR PANEL NOT DETECTED
[2020-08-26 21:33] VITALS: BP 139/72
== END 2020-08-26 22:13 | disposition short-term general hospital (02) ==
LOC: ED 15:42
DX: N17.9 Acute kidney failure, unspecified (principal); N13.2 Hydronephrosis with renal and ureteral calculous obstruction; E87.1 Hypo-osmolality and hyponatremia; Z20.822 Contact with and (suspected) exposure to COVID-19
CPT/HCPCS: 36415; 74176; 80053; 81001; 83605; 83690; 85025; 87040; 87086; 87150; 87181; 87631; 96365; 96375; 99283; 99284; J1170; 0202U; 81003

== ENCOUNTER 2020-08-26 21:57 | Outpatient (CLI) | payer MEDICARE, OTHER | END 2020-08-26 21:58 | disposition short-term general hospital (02) | LOC: EMS 21:57 | PROVIDERS: ATTEND Emergency Medicine | DX: N20.1 Calculus of ureter (principal) | CPT/HCPCS: A0425; A0428 ==

== ENCOUNTER 2020-10-12 08:31 | Outpatient (CLI) | payer MEDICARE, OTHER ==
[2020-10-12 09:07] LABS: BUN - BLOOD UREA NITROGEN 22 mg/dL (6-20); CALCIUM 9.1 mg/dL (8.5-10.3); CARBON DIOXIDE - CO2 22 mmol/L (21-32); CHLORIDE 99 mmol/L (101-111); CHOL/HDL RATIO 2.2 (<4.4); CHOLESTEROL 195 mg/dL; CREATININE 1.1 mg/dL (0.4-1.0); GFR - MDRD 49 (>89); GLUCOSE 276 mg/dL (70-100); HDL CHOLESTEROL 87 mg/dL; LDL CHOLESTEROL,CALCULATED 94 mg/dL; LDL/HDL RATIO 1.1 (<4.4); POTASSIUM 5.1 mmol/L (3.5-5.0); SODIUM 133 mmol/L (135-145); TRIGLYCERIDES 70 mg/dL; VLDL CHOLESTEROL 14 mg/dL
[2020-10-12 09:10] LABS: CREATININE,URINE 180.7 mg/dL; MICROALBUM/CREATININE RATIO,UR 360.3 ug/mg (<30.0); MICROALBUMIN,URINE 65.1 mg/dL (0-300.0)
[2020-10-12 09:37] LABS: ESTIMATED AVERAGE GLUCOSE 169 mg/dL (70-100); HEMOGLOBIN A1c% 7.5 % (4.27-6.07)
== END 2020-10-12 08:32 | disposition home or self-care (01) ==
LOC: LAB 08:31
PROVIDERS: ATTEND Nurse Practitioner
DX: E10.65 Type 1 diabetes mellitus with hyperglycemia (principal)
CPT/HCPCS: 36415; 80048; 80061; 82043; 82570; 83036; 83721

== ENCOUNTER 2020-11-30 14:46 | Outpatient (CLI) | payer MEDICARE, OTHER ==
--- NOTE | 2020-11-30 16:00 | Ultrasound Report ---
PROCEDURE: Retroperitoneal INDICATIONS: RIGHT URETERAL CALCULUS TECHNIQUE: Real-time scanning was performed of the retroperitoneal organs, with image documentation. COMPARISON: CT abdomen and pelvis without contrast dated 08/26/2020. FINDINGS: Kidneys: Kidneys are normal in size. Right kidney measures 9.9 cm long; left kidney measures 10.3 c m long. Right renal cortical thickness is 1.6 cm; left renal cortical thickness is 2.0 cm. No left- sided solid masses, hydronephrosis, or nephrolithiasis. There is a 4 mm inferior pole echogenic focu s in the right kidney compatible with previously seen nonobstructive renal stone. There is no right-s ided hydronephrosis. Suggestion of mild inferior right renal caliectasis. No dilatation of the right renal pelvis. No suspicious right-sided renal mass lesions. Urinary bladder: Urinary bladder is incompletely distended at the time of examination. Prevoid bladde r volume measured 46 mL with post void residual volume of 3 mL. Bilateral ureteral jets were visualiz ed. Miscellaneous: No free abdominal fluid. IMPRESSION: 1. Interval resolution of previously seen right-sided hydroureteronephrosis with minimal persistent c aliectasis of the right inferior pole. There is a nonobstructing 4 mm inferior right renal calculus. 2. Normal appearance of the left kidney. 3. Incompletely distended urinary bladder. No definite abnormality seen. Reviewed by: Tha Krishna MD on 11/30/2020 3:58 PM PDT Approved by: Tha Krishna MD on 11/30/2020 3:58 PM PDT Station ID: [id number]
== END 2020-11-30 14:47 | disposition home or self-care (01) ==
LOC: DI 14:46
PROVIDERS: ATTEND Urology
DX: N20.0 Calculus of kidney (principal); N28.89 Other specified disorders of kidney and ureter

== ENCOUNTER 2020-12-09 12:59 | Outpatient (CLI) | payer MEDICARE, OTHER ==
--- NOTE | 2020-12-10 13:11 | Mammography Report ---
BILATERAL DIGITAL SCREENING MAMMOGRAM 3D/2D: 12/09/2020 CLINICAL: Routine screening. Comparison is made to exams dated: 11/27/2018 mammogram, 09/09/2015 mammogram, 05/09/2014 mammogram, mammogram, and 03/09/2011 mammogram - [facility]. The tissue of both breas ts is heterogeneously dense. This may lower the sensitivity of mammography. There is a stable benign mass in the left breast. There also are stable benign calcifications in bot h breasts. No significant masses, calcifications, or other findings are seen in either breast. There has been no significant interval change. IMPRESSION: BENIGN There is no mammographic evidence of malignancy. A 1 year screening mammogram is recommended. This exam was interpreted at Station ID: [id number]. NOTE: For mammograms, a report in lay terms will be sent to the patient. Approximately 15% of breast malignancies will not be visualized mammographically. In the management of a palpable breast mass, a negative mammogram must not discourage biopsy of a clinically suspicious lesion. Electronically Signed By: Johnnie Mcintyre M.D. ddp/penrad:12/09/2020 13:53:42 ACR BI-RADS Category 2: Benign Finding(s) 3342F PARENCHYMAL PATTERN: (D) - The breast(s) demonstrate(s) heterogeneously dense fibroglandular daniella catherine. BI-RADS CATEGORY: (2) - 2 RECOMMENDATION: (ANNUAL) - Recommend routine annual screening mammography. [id number] 1 year screening LATERALITY: (B)
== END 2020-12-09 13:00 | disposition home or self-care (01) ==
LOC: DI 12:59
DX: Z12.31 Encounter for screening mammogram for malignant neoplasm of breast (principal)

== ENCOUNTER 2021-01-27 13:03 | Outpatient (CLI) | payer MEDICARE, OTHER ==
[2021-01-27 13:27] LABS: CALCIUM 9.1 mg/dL (8.5-10.3); POTASSIUM 4.1 mmol/L (3.5-5.0)
[2021-01-27 13:28] LABS: ESTIMATED AVERAGE GLUCOSE 160 mg/dL (70-100); HEMOGLOBIN A1c% 7.2 % (4.27-6.07)
== END 2021-01-27 13:04 | disposition home or self-care (01) ==
LOC: LAB 13:03
PROVIDERS: ATTEND Nurse Practitioner
DX: E10.65 Type 1 diabetes mellitus with hyperglycemia (principal)
CPT/HCPCS: 36415; 80048; 83036

== ENCOUNTER 2021-03-04 02:45 | Outpatient (CLI) | payer MEDICARE, OTHER | END 2021-03-04 02:46 | disposition critical access hospital (66) | LOC: EMS 02:45 | DX: R55 Syncope and collapse (principal); R07.89 Other chest pain | CPT/HCPCS: A0425; A0427 ==

== ENCOUNTER 2021-03-04 03:03 | Inpatient (IN) | payer MEDICARE, OTHER ==
[2021-03-04] MEDS ORDERED: SODIUM CHLORIDE 0.9% 1,000 ML IV STA (03:13)
--- NOTE | 2021-03-04 03:17 | ED Physician Documentation ---
History of Present Illness - Stated complaint Stated Complaint: SYNCOPE - Chief complaint Chief Complaint: General - History obtained from History obtained from: Patient, EMS - Additonal information Additional information: Patient is brought to the emergency department for chief complaint of syncopal episode and fall. The patient states she is frequently lightheaded, and thinks she fainted last week after getting up. Patient thinks she has been drinking enough water, but she is not sure. She states that tonight, she went to get up from the bed, she thinks to go to the bathroom. Patient does not remember falling, but medics state that patient's told them the patient collapsed shortly after getting up. She fell to the ground and patient states that when she awakened, she had a pain in her left lateral chest which medics state has moved toward the patient's back. Medics state that patient's told him the patient was unconscious for about 1 minute. She has been alert and oriented in route. Blood sugar was around 200 per medics. The patient denies feeling sick recently. No chest pain prior to the incident. Patient states she has not felt short of breath anymore than usual. She has a chronic cough which is unchanged. The patient is a smoker. She denies any formal diagnosis of COPD previously, but medics do note that the patient's oxygen saturation was right around 90% when they picked her up. Patient denies pain anywhere else and does not feel as though she was injured in any other way. No other complaints at this time. Review of Systems Ten Systems: 10 systems reviewed and negative Constitutional: reports: Reviewed and negative Eyes: reports: Reviewed and negative Ears: reports: Reviewed and negative Nose: reports: Reviewed and negative Throat: reports: Reviewed and negative Cardiac: reports: Chest pain / pressure Respiratory: reports: Dyspnea, Cough GI: reports: Reviewed and negative : reports: Reviewed and negative Skin: reports: Reviewed and negative Musculoskeletal: reports: Reviewed and negative Neurologic: reports: Syncope. 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 - Present Medications Home Medications: Ambulatory Orders Medication Instructions Recorded Confirmed Aspirin [Aspirin EC] 325 mg PO DAILY 08/26/20 08/26/20 Atorvastatin [Lipitor] 20 mg PO DAILY PM 08/26/20 08/26/20 Diltiazem HCl [Diltiazem 12Hr ER] 120 mg PO DAILY 08/26/20 08/26/20 Gabapentin [Neurontin] 100 mg PO BID 08/26/20 08/26/20 Insulin Glargine [Lantus Solostar] 10 unit SQ HS 08/26/20 08/26/20 Insulin Lispro [Humalog] 1 unit SQ TID 08/26/20 08/26/20 Lactobacillus Acidophilus 1 tab PO DAILY 08/26/20 08/26/20 [Probiotic Acidophilus] Losartan Potassium [Cozaar] 100 mg PO DAILY 08/26/20 08/26/20 Multivitamin 1 tab PO DAILY PM 08/26/20 08/26/20 PARoxetine [Paxil] 10 mg PO DAILY 08/26/20 08/26/20 - Allergies Allergies/Adverse Reactions: Allergies Allergy/AdvReac Type Severity Reaction Status Date / Time No Known Drug Allergies Allergy Verified 08/26/20 15:47 - Social History Does the pt smoke?: Yes Smoking Status: Current every day smoker Does the pt drink ETOH?: Yes Does the pt have substance abuse?: No PD ED PE NORMAL - Vitals Vital signs reviewed: Yes - General General: Alert 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, No acute distress, Well developed/nourished - HEENT HEENT: Atraumatic, PERRL, EOMI, Moist mucous membranes - Neck Neck: Supple, no meningeal sign - Cardiac Cardiac: RRR, No murmur, Strong equal pulses - Respiratory Respiratory: No respiratory distress, Clear bilaterally - Abdomen Abdomen: Soft, Non tender, Non distended - Derm Derm: Warm and dry - Extremities Extremities: No deformity - Neuro Neuro: Alert 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 - Psych Psych: Normal mood, Normal affect Results - Vitals Vitals: Vital Signs - 24 hr 03/04/21 03/04/21 03/04/21 03:07 03:30 03:53 Temperature 37.2 C Heart Rate 83 86 81 Respiratory 22 25 H 26 H Rate Blood Pressure 132/95 H 143/67 H 147/72 H O2 Saturation 98 100 100 03/04/21 03/04/21 03/04/21 04:00 04:10 04:35 Temperature 37.3 C Heart Rate 78 82 82 Respiratory 22 21 23 Rate Blood Pressure 129/73 123/72 144/64 H O2 Saturation 100 100 100 Oxygen O2 Source Nasal cannula Oxygen Flow Rate 2 - EKG (time done) 0322 Rate: Rate (enter#) (76) Rhythm: NSR Hiko: Normal Intervals: Normal RI QRS: Normal Ischemia: ST elevation c/w repol (Minimal) Compare to prior EKG: Old EKG unavailable Computer interpretation: Agree with computer - Labs Labs: Laboratory Tests 03/04/21 03/04/21 03/04/21 03:15 03:22 03:22 WBC 18.2 H RBC 3.77 L Hgb 12.0 Hct 36.5 L MCV 96.8 MCH 31.8 H MCHC 32.9 RDW 15.0 Plt Count 268 MPV 10.8 Neut # (Auto) 15.7 H Lymph # (Auto) 1.0 L [place] # (Auto) 1.2 H Eos # (Auto) 0.1 Baso # (Auto) 0.1 Absolute Nucleated RBC 0.00 Nucleated RBC % 0.0 PT INR Sodium 130 L Potassium 4.9 Chloride 94 L Carbon Dioxide 25 Anion Gap 11.0 BUN 18 Creatinine 0.9 Estimated GFR (MDRD) 62 L Glucose 272 H Calcium 8.6 Total Bilirubin 0.7 AST 32 ALT 12 Alkaline Phosphatase 80 Troponin I High Sens Total Protein 6.7 Albumin 3.6 Globulin 3.1 Albumin/Globulin Ratio 1.2 Lipase 24 Urine Color YELLOW Urine Clarity CLEAR Urine pH 5.5 Ur Specific [place] 1.025 Urine Protein NEGATIVE Urine Glucose (UA) 500 H Urine Ketones NEGATIVE Urine Occult Blood NEGATIVE Urine Nitrite NEGATIVE Urine Bilirubin NEGATIVE Urine Urobilinogen 0.2 (NORMAL) Ur Leukocyte Esterase NEGATIVE Ur Microscopic Review NOT INDICATED Urine Culture Comments NOT INDICATED 03/04/21 03/04/21 03:22 03:22 WBC RBC Hgb Hct MCV MCH MCHC RDW Plt Count MPV Neut # (Auto) Lymph # (Auto) [place] # (Auto) Eos # (Auto) Baso # (Auto) Absolute Nucleated RBC Nucleated RBC % PT 10.5 INR 0.9 Sodium Potassium Chloride Carbon Dioxide Anion Gap BUN Creatinine Estimated GFR (MDRD) Glucose Calcium Total Bilirubin AST ALT Alkaline Phosphatase Troponin I High Sens 11.6 Total Protein Albumin Globulin Albumin/Globulin Ratio Lipase Urine Color Urine Clarity Urine pH Ur Specific [place] Urine Protein Urine Glucose (UA) Urine Ketones Urine Occult Blood Urine Nitrite Urine Bilirubin Urine Urobilinogen Ur Leukocyte Esterase Ur Microscopic Review Urine Culture Comments - Rads (name of study) Chest x-ray Radiology: Final report received, EMP read indepedently, See rad report (Minimally displaced fractures of L ribs 4 through 6 posteriorly, with approximately 15% pneumothorax and subcutaneous air throughout the left chest and neck.) chest XR Radiology: Final report received, EMP read indepedently, See rad report (Interval placement of chest tube, with unchanged small pneumothorax) Procedures - Chest Tube (location) left other other Chest tube preparation: Consent obtained, Sterile prep and drape Chest tube location: Left, Intercostal space - enter (2), Other (Midclavicular line) Chest tube anesthesia: Lidocaine Chest tube size: 14 Chest tube return: Air Chest tube after care: Confirmed with xray, Pt tolerated well, Other (Chest tube valve box affixed with self-contained adhesive pads.) PD MEDICAL DECISION MAKING - ED course Complexity details: reviewed results, re-evaluated patient, considered differential, d/w patient ED course: The patient remained stable throughout her stay in the emergency department. She was initially placed on 100% oxygen after subcutaneous emphysema was detected on exam, as I did suspect a pneumothorax. X-ray confirmed this. Elijah stone was worked up with laboratory studies, and chest x-rays were performed and chest tube was placed as above. I discussed the case with Dr. Berkowitz, who excepted the patient for admission, given the paucity of transfer beds. Departure - Departure Disposition: [facility] DC/Xfer Clinical Impression: Multiple rib fractures Qualifiers: Encounter type: initial encounter Fracture type: closed Laterality: left Qualified Code(s): S22.42XA - Multiple fractures of ribs, left side, initial encounter for closed fracture Pneumothorax Qualifiers: Pneumothorax type: traumatic Encounter type: initial encounter Qualified Code(s): S27.0XXA - Traumatic pneumothorax, initial encounter Condition: Serious Discharge Date/Time: 03/04/21 06:00
[2021-03-04 03:27] LABS: BASOPHILS # (AUTO) 0.1 10^3/uL (0.0-0.1); BASOPHILS % (AUTO) 0.3 %; EOSINOPHILS # (AUTO) 0.1 10^3/uL (0.0-0.7); EOSINOPHILS % (AUTO) 0.3 %; HCT - HEMATOCRIT 36.5 % (37.0-47.0); LYMPHOCYTES % (AUTO) 5.6 %; MEAN CORPUSCULAR HEMOGLOBIN 31.8 pg (27.0-31.0); MEAN CORPUSCULAR HGB CONC 32.9 g/dL (32.0-36.0); MEAN CORPUSCULAR VOLUME 96.8 fL (81.0-99.0); MEAN PLATELET VOLUME 10.8 fL (7.9-10.8); MONOCYTES # (AUTO) 1.2 10^3/uL (0.0-1.0); MONOCYTES % (AUTO) 6.8 %; NEUTROPHILS # (AUTO) 15.7 10^3/uL (1.5-6.6); NEUTROPHILS % (AUTO) 86.5 %; PLT - PLATELET COUNT 268 10^3/uL (130-450); RED BLOOD COUNT 3.77 10^6/uL (4.20-5.40); WHITE BLOOD COUNT 18.2 x10^3/uL (4.8-10.8)
[2021-03-04 03:34] LABS: INR 0.9 (0.8-1.2); PT - PROTHROMBIN TIME 10.5 secs (9.9-12.6)
[2021-03-04] MEDS ORDERED: BUFFERED LIDOCAINE 10 ML SYRINGE IU ONE (03:34)
[2021-03-04] MEDS ORDERED: HYDROmorphone 1 MG/ML CARPUJECT IVP STA (03:37)
[2021-03-04 03:41] LABS: ALBUMIN 3.6 g/dL (3.2-5.5); ALBUMIN/GLOBULIN RATIO 1.2 (1.0-2.2); BILIRUBIN,TOTAL 0.7 mg/dL (0.2-1.0); CALCIUM 8.6 mg/dL (8.5-10.3); CREATININE 0.9 mg/dL (0.4-1.0); POTASSIUM 4.9 mmol/L (3.5-5.0); TOTAL PROTEIN 6.7 g/dL (6.7-8.2)
[2021-03-04 03:41] LABS: BILIRUBIN,URINE NEGATIVE (NEGATIVE); CLARITY,URINE CLEAR (CLEAR); GLUCOSE, URINE (UA) 500 mg/dL (NEGATIVE); KETONES,URINE (UA) NEGATIVE (NEGATIVE); LEUKOCYTE ESTERASE, URINE NEGATIVE (NEGATIVE); NITRITE,URINE NEGATIVE (NEGATIVE); OCCULT BLOOD,URINE NEGATIVE (NEGATIVE); PH,URINE 5.5 PH (5.0-7.5); PROTEIN,URINE NEGATIVE (NEGATIVE); UROBILINOGEN,URINE 0.2 (NORMAL) E.U./dL (NORMAL)
[2021-03-04] MEDS ORDERED: ONDANSETRON ODT 4 MG TABLET TL PRN (04:40)
[2021-03-04] MEDS ORDERED: ONDANSETRON 4 MG/2 ML VIAL IVP PRN (04:40)
[2021-03-04] MEDS ORDERED: SODIUM CHLORIDE FLUSH 0.9% 10 ML SYRINGE IVP PRN (04:40)
[2021-03-04 05:43] LABS: B. PARAPERTUSSIS- RESP PCR PAN NOT DETECTED; B. PERTUSSIS- RESP PCR PANEL NOT DETECTED; C. PNEUMONIAE- RESP PCR PANEL NOT DETECTED; CORONAVIRUS 229E-RESP PCR NOT DETECTED; CORONAVIRUS HKU1-RESP PCR NOT DETECTED; CORONAVIRUS NL63-RESP PCR NOT DETECTED; CORONAVIRUS OC43-RESP PCR NOT DETECTED; HUMAN METAPNEUMOVIRUS NOT DETECTED; INFLUENZA A- RESP PCR PANEL NOT DETECTED; INFLUENZA B - RESP PCR PANEL NOT DETECTED; M. PNEUMONIAE- RESP PCR PANEL NOT DETECTED; PARAINFLUENZA VIRUS 1 NOT DETECTED; PARAINFLUENZA VIRUS 2 NOT DETECTED; PARAINFLUENZA VIRUS 3 NOT DETECTED; PARAINFLUENZA VIRUS 4 NOT DETECTED; RHINOVIRUS/ENTEROVIRUS NOT DETECTED; RSV- RESP PCR PANEL NOT DETECTED; SARS-CoV-2 -RESP PCR PANEL NOT DETECTED
[2021-03-04] MEDS: INSULIN REGULAR HUMAN 300 UNIT/3 ML VIAL SUBQ SCH ×2 (06:30→13:10)
[2021-03-04] MEDS: HYDROmorphone 0.5 MG/0.5 ML SYRINGE IVP PRN ×2 (06:30→12:10)
[2021-03-04] MEDS: D5.45NS W/20 MEQ KCL 1,000 ML IV SCH ×2 (06:31→20:18)
--- NOTE | 2021-03-04 08:03 | XRAY Report ---
PROCEDURE: Chest 1 View X-Ray INDICATIONS: chest pain TECHNIQUE: One view of the chest was acquired. COMPARISON: None FINDINGS: Surgical changes and devices: None. Lungs and pleura: Small left pneumothorax. Patchy left basilar atelectasis. Mediastinum: Mediastinal contours appear normal. Heart size is normal. Bones and chest wall: Multiple displaced left rib fractures, including the fourth, fifth, and sixth r ibs. Subcutaneous emphysema. IMPRESSION: Multiple left rib fractures, small left pneumothorax, minimal left basilar atelectasis. Findings are concordant with preliminary interpretation provided by [facility]. Reviewed by: Jaun Garcia MD on 03/04/2021 8:01 AM PST Approved by: Jaun Garcia MD on 03/04/2021 8:01 AM PST Station ID: [id number]
--- NOTE | 2021-03-04 08:05 | XRAY Report ---
PROCEDURE: Chest 1 View X-Ray INDICATIONS: chest tube placement TECHNIQUE: One view of the chest was acquired. COMPARISON: Earlier on the same date FINDINGS: Surgical changes and devices: Small caliber thoracostomy tube has been placed since the previous stud y on the left. Lungs and pleura: Continued small left apical pneumothorax. Patchy left basilar atelectasis. Mediastinum: Mediastinal contours appear normal. Heart size is normal. Bones and chest wall: Multiple displaced left rib fractures, as before. Left chest subcutaneous emphy sema. IMPRESSION: Interval placement of left chest tube. Continued small left apical pneumothorax. Multiple displaced left rib fractures. Findings are concordant with preliminary interpretation provided by [facility]. Reviewed by: Jaun Garcia MD on 03/04/2021 8:03 AM PST Approved by: Jaun Garcia MD on 03/04/2021 8:03 AM PST Station ID: [id number]
--- NOTE | 2021-03-04 08:09 | HISTORY & PHYSICAL EXAMINATION ---
Chief Complaint - Chief Complaint Chief Complaint: fall and left chest wall pain History of Present Illness - Admitted From Admitted From:: ED - History Obtained From Records Reviewed: yes History obtained from: ER MD Exam Limitations: She currently is resting soundly. - History of Present Illness HPI Comment/Other: Ground level fall at home. She is . was present. 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 Meds/Allgy - Home Medications Home Medications: Ambulatory Orders Medication Instructions Recorded Confirmed Aspirin [Aspirin EC] 325 mg PO DAILY 08/26/20 08/26/20 Atorvastatin [Lipitor] 20 mg PO DAILY PM 08/26/20 08/26/20 Diltiazem HCl [Diltiazem 12Hr ER] 120 mg PO DAILY 08/26/20 08/26/20 Gabapentin [Neurontin] 100 mg PO BID 08/26/20 08/26/20 Insulin Glargine [Lantus Solostar] 10 unit SQ HS 08/26/20 08/26/20 Insulin Lispro [Humalog] 1 unit SQ TID 08/26/20 08/26/20 Lactobacillus Acidophilus 1 tab PO DAILY 08/26/20 08/26/20 [Probiotic Acidophilus] Losartan Potassium [Cozaar] 100 mg PO DAILY 08/26/20 08/26/20 Multivitamin 1 tab PO DAILY PM 08/26/20 08/26/20 PARoxetine [Paxil] 10 mg PO DAILY 08/26/20 08/26/20 - Allergies Allergies/Adverse Reactions: Allergies Allergy/AdvReac Type Severity Reaction Status Date / Time No Known Drug Allergies Allergy Verified 08/26/20 15:47 Review of Systems - Other Findings Other Findings: 10 pt ros as above otherwise unremarkable Exam - Vital Signs Reviewed Vital Signs: Yes Vital Signs: Vital Signs x48h Temp Pulse Pulse Resp BP BP Pulse Ox 03/04/21 06:12 37.6 C 79 18 145/72 H 96 03/04/21 05:00 79 21 131/64 H 100 03/04/21 04:35 37.3 C 82 23 144/64 H 100 03/04/21 04:10 82 21 123/72 100 03/04/21 04:00 78 22 129/73 100 03/04/21 03:53 81 26 H 147/72 H 100 03/04/21 03:30 86 25 H 143/67 H 100 03/04/21 03:07 37.2 C 83 22 132/95 H 98 - Physical Exam General Appearance: positive: No acute distress, Other (resting comfortably. taking good breaths) ENT: positive: No signs of dehydration Neck: positive: No JVD Respiratory: positive: No respiratory distress Cardiovascular: positive: Regular rate & rhythm Abdomen: positive: No distention Skin: positive: Other (sores bilateral buttock. inflammatory not ecchymosis) Conclusion/Plan - Problem List (1) Pneumothorax Conclusion/Plan: Multiple left rib fractures present. Some broken in 2 places putting her at significant pulmonary risk, ie flail chest. Discussed with ED MD ideally she should be transferred to higher level of care. ED MD did not think this would be possible given current bed situation. Plan admit [place]. Qualifiers: Pneumothorax type: traumatic Encounter type: initial encounter Qualified Code(s): S27.0XXA - Traumatic pneumothorax, initial encounter - Lab Results Fish Bones: 03/04/21 03:22 03/04/21 03:22
[2021-03-04] MEDS: ethyl alcohoL 62% SWAB AMPULE NAS SCH ×2 (11:09→20:22)
[2021-03-04] MEDS: GABAPENTIN 300 MG CAPSULE PO PRN ×2 (11:09→20:20)
[2021-03-04] MEDS: KETOROLAC 15 MG/ML VIAL IVP PRN ×2 (11:10→20:20)
[2021-03-04] MEDS: ACETAMINOPHEN 325 MG TABLET PO PRN ×3 (11:10→20:20)
[2021-03-04] MEDS: SODIUM CHLORIDE FLUSH 0.9% 10 ML SYRINGE IVP SCH ×3 (11:11→21:59)
[2021-03-04] MEDS: HYDROmorphone PCA 20MG/100ML IV PRN (12:54)
[2021-03-04] MEDS: ceFAZolin 2 GM in SODIUM CHLORIDE 0.9% 100ML 100 ML IV SCH ×2 (13:30→21:39)
[2021-03-04] MEDS: NICOTINE 14 MG PATCH TOP SCH (18:08)
[2021-03-04] MEDS: INSULIN ASPART 300 UNIT/3 ML PEN SUBQ SCH ×2 (18:14→20:32)
[2021-03-04] MEDS: FAMOTIDINE 20 MG TABLET PO SCH (20:19)
[2021-03-04] MEDS: ATORVASTATIN 40 MG TABLET PO SCH (20:19)
[2021-03-04] MEDS ORDERED: D5.45NS W/20 MEQ KCL 1,000 ML IV SCH (20:54)
[2021-03-04] MEDS ORDERED: INSULIN GLARGINE 300 UNIT/3 ML PEN SUBQ SCH (21:00)
[2021-03-04] MEDS: diltiaZEM 30 MG TABLET PO SCH ×2 (21:39→21:40)
[2021-03-05] MEDS: KETOROLAC 15 MG/ML VIAL IVP PRN ×3 (04:20→14:58)
[2021-03-05] MEDS: ACETAMINOPHEN 325 MG TABLET PO PRN ×3 (04:21→20:23)
[2021-03-05] MEDS: GABAPENTIN 300 MG CAPSULE PO PRN ×3 (04:21→20:23)
[2021-03-05] MEDS: ceFAZolin 2 GM in SODIUM CHLORIDE 0.9% 100ML 100 ML IV SCH ×3 (05:21→21:53)
[2021-03-05] MEDS: diltiaZEM 30 MG TABLET PO SCH ×2 (05:26→12:36)
[2021-03-05 06:54] LABS: HCT - HEMATOCRIT 34.8 % (37.0-47.0); HGB - HEMOGLOBIN 11.3 g/dL (12.0-16.0); MEAN CORPUSCULAR HEMOGLOBIN 31.7 pg (27.0-31.0); MEAN CORPUSCULAR HGB CONC 32.5 g/dL (32.0-36.0); MEAN CORPUSCULAR VOLUME 97.8 fL (81.0-99.0); MEAN PLATELET VOLUME 11.1 fL (7.9-10.8); RED BLOOD COUNT 3.56 10^6/uL (4.20-5.40); RED CELL DISTRIBUTION WIDTH 14.8 % (12.0-15.0); WHITE BLOOD COUNT 10.8 x10^3/uL (4.8-10.8)
[2021-03-05 07:03] LABS: CALCIUM 8.2 mg/dL (8.5-10.3); CREATININE 0.9 mg/dL (0.4-1.0); POTASSIUM 4.5 mmol/L (3.5-5.0)
[2021-03-05] MEDS: INSULIN ASPART 300 UNIT/3 ML PEN SUBQ SCH ×4 (08:23→20:30)
[2021-03-05] MEDS: INSULIN GLARGINE 300 UNIT/3 ML PEN SUBQ SCH ×2 (08:24→20:30)
--- NOTE | 2021-03-05 09:00 | PHARMACY PROGRESS NOTE ---
- Best Possible Medication History Admit Date and Time: 03/04/21 0440 Processed by: Pharmacy Medication History completed: Yes Patient Interview: Completed Secondary Source(s): Pharmacy records, Insurance records As the person ultimately responsible for medication therapy, providers are able to order a medication from an existing home medication list in [facility] via the "Reconcile Routine" prior to Confirmation of that medication by technician support engineer. Such practice is discouraged except when the physician, in their clinical judgment, deems that a medical need exists for a medication without regard to previous use.
[2021-03-05] MEDS: ethyl alcohoL 62% SWAB AMPULE NAS SCH ×2 (10:08→20:23)
[2021-03-05] MEDS: NICOTINE 14 MG PATCH TOP SCH (10:10)
[2021-03-05] MEDS: FAMOTIDINE 20 MG TABLET PO SCH ×2 (10:10→20:23)
[2021-03-05] MEDS: PARoxetine 10 MG TABLET PO SCH (10:11)
[2021-03-05] MEDS: oxyCODONE 5 MG TABLET PO PRN (12:37)
[2021-03-05] MEDS: SODIUM CHLORIDE FLUSH 0.9% 10 ML SYRINGE IVP SCH ×3 (12:37→23:09)
--- NOTE | 2021-03-05 13:52 | PROVIDER PROGRESS NOTE ---
Subjective - General Admit Date: 03/04/21 Procedure Date: 03/04/21 Post Op Days: 1 Procedure Performed: Left anteror chest 14 fr chest tube placed by ER physician - Review of Systems Wound/Incisions: positive: Dressing dry and intact Objective - Patient Data Reviewed Vital Signs: Yes Vital Signs: Vital Signs x48h Temp Pulse Resp BP BP Pulse Ox 03/05/21 13:21 62 10 L 140/61 H 97 03/05/21 12:58 14 03/05/21 12:36 128/102 H 03/05/21 12:00 80 21 128/102 H 96 03/05/21 11:57 37.2 C 03/05/21 11:00 72 17 141/74 H 92 03/05/21 10:00 67 20 133/66 H 97 03/05/21 09:00 18 03/05/21 08:00 37.3 C 56 L 16 143/72 H 96 Weight: Weight 03/03/21 03/04/21 03/05/21 23:59 23:59 23:59 Weight (kg) 59 kg Intake & Output: Intake and Output Totals x24h 03/03/21 03/04/21 03/05/21 23:59 23:59 23:59 Intake Total 3279.25 1115 Output Total 935 414 Balance 2344.25 701 - Lab Results Lab Results: 03/05/21 06:41 03/05/21 06:41 Other Lab Results: Lab Results x24hrs 03/05/21 03/05/21 Range/Units 06:41 06:41 WBC 10.8 (4.8-10.8) x10^3/uL RBC 3.56 L (4.20-5.40) 10^6/uL Hgb 11.3 L (12.0-16.0) g/dL Hct 34.8 L (37.0-47.0) % MCV 97.8 (81.0-99.0) fL MCH 31.7 H (27.0-31.0) pg MCHC 32.5 (32.0-36.0) g/dL RDW 14.8 (12.0-15.0) % Plt Count 194 (130-450) 10^3/uL MPV 11.1 H (7.9-10.8) fL Sodium 129 L (135-145) mmol/L Potassium 4.5 (3.5-5.0) mmol/L Chloride 98 L (101-111) mmol/L Carbon Dioxide 24 (21-32) mmol/L Anion Gap 7.0 (6-13) BUN 15 (6-20) mg/dL Creatinine 0.9 (0.4-1.0) mg/dL Estimated GFR (MDRD) 62 L (>89) Glucose 258 H (70-100) mg/dL Calcium 8.2 L (8.5-10.3) mg/dL - Current Medications Current Medications: Current Medications Generic Name Dose Route Start Last Admin Trade Name Freq PRN Reason Stop Dose Admin Acetaminophen 650 mg 03/04/21 04:40 03/05/21 10:11 Acetaminophen 325 Mg Tablet PO 650 mg Q4HR PRN Administration Pain 1 to 4 Alcohol 1 amp 03/04/21 10:00 03/05/21 10:08 Ethyl Alcohol 62% Swab Ampule BINDU 1 amp BID GENET Administration Atorvastatin Calcium 20 mg 03/04/21 21:00 03/04/21 20:19 Atorvastatin 40 Mg Tablet PO 20 mg QPM GENET Administration Famotidine 20 mg 03/04/21 21:00 03/05/21 10:10 Famotidine 20 Mg Tablet PO 20 mg BID GENET Administration Gabapentin 300 mg 03/04/21 04:47 03/05/21 12:37 Gabapentin 300 Mg Capsule PO 300 mg Q8HR PRN Administration PAIN Hydromorphone HCl 0.5 mg 03/04/21 04:40 03/04/21 12:10 Hydromorphone 0.5 Mg/0.5 Ml Syringe IVP 0.2 mg Q2H PRN Administration Pain 8 to 10 Hydromorphone HCl 0 mg 03/04/21 09:52 03/04/21 12:54 Hydromorphone Clinical Operations Leader 20mg/100ml IV 20 mg PRN PRN Administration PAIN 5-7 Protocol Cefazolin Sodium 2 gm/ Sodium 100 mls @ 200 mls/hr 03/04/21 13:30 03/05/21 05:51 Chloride IV Infused Q8HR GENET Infusion Insulin Glargine 6 unit 03/05/21 09:00 03/05/21 08:24 Insulin Glargine 300 Unit/3 Ml Pen SUBQ 6 unit DAILY GENET Administration Ketorolac Tromethamine 15 mg 03/04/21 09:54 03/05/21 04:20 Ketorolac 15 Mg/Ml Vial IVP 03/09/21 09:53 15 mg Q6HR PRN Administration PAIN Nicotine 1 patch 03/04/21 17:30 03/05/21 10:10 Nicotine 14 Mg Patch TOP 1 patch DAILY GENET Administration Oxycodone HCl 5 mg 03/04/21 04:40 03/05/21 12:37 Oxycodone 5 Mg Tablet PO 5 mg Q4HR PRN Administration Pain 5 to 7 Paroxetine HCl 10 mg 03/05/21 09:00 03/05/21 10:11 Paroxetine 10 Mg Tablet PO 10 mg DAILY GENET Administration Sodium Chloride 10 ml 03/04/21 09:00 03/05/21 12:37 Sodium Chloride Flush 0.9% 10 Ml Syringe IVP Not Given 0100,0900,1700 [facility] - Physical Exam Wound/Incisions: positive: Dressing dry and intact General Appearance: positive: No acute distress Respiratory: positive: No respiratory distress, Other (occasional cough) Cardiovascular: positive: Regular rate & rhythm Abdomen: positive: Non-tender, No distention. 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 Small anterior tube placed by ER for 15% PTX. Patient resting comfortably at present. Had a brief run of SVT last night and apparently given diltiazem. Blood sugars have beenelevated on current insulin dosing. Patient also has reddened area lateral to right labia, not fluctuant or tender. On Ancef. CXR today does not show any increase in PTX, but some increased haziness at left lung base suggests possible effusion/hemothorax. Plan: 1- Consult Hospitalist to assist with management of Diabetes and evaluate incident of SVT, need for antiarrhythmic 2- Continue current chest tube, follow CXR daily to watch for pleural effusion/hermilo 3- Ancef for prophylaxis with chest tube and also to treat possible soft tissue infection lateral to right labia 4- Physical therapy consult to assist with ambulation, evaluate need for home walker or other device to prevent falls 5- Follow H/H, serum chemistries daily
[2021-03-05] MEDS ORDERED: SODIUM CHLORIDE 0.9% 1,000 ML IV SCH (14:00)
[2021-03-05] MEDS ORDERED: diltiaZEM CD 120 MG CAPSULE PO SCH (14:00)
--- NOTE | 2021-03-05 14:20 | CONSULTATION NOTE ---
Referring Provider Name of Referring Provider:: Dr. Goetz Consult Date: 03/05/21 Chief Complaint - Chief Complaint Chief Complaint: fall History of Present Illness - Admitted From Admitted From:: ICU room 2302 - History Obtained From Records Reviewed: [employer] History obtained from: pt and [employer] Exam Limitations: no - History of Present Illness HPI Comment/Other: This is a 70-yrs old female with a past medical history of HTN, arrhythmia, COPD, DM2 who was already admitted at hospital ICU for evaluation of her fall. pt was found to have multiple left rib fractures, small left pneumothorax in her CXR. Medical team is consulted for medical management of insulin dependent diabetes and episode of SVT. Pt is comfortable resting at bed, no complaints now. she report drinking a cup of wine alcohol daily but she denies she has hx of alcohol withdrawal. she did report after she drink wine then she had the fall, also she report she was loss of Consciousness at the time. She report she had hx of arrhythmia on medication Cardizem. she report her last A1C was 7.2. She used Lantus for her long acting insulin and Humalog for short acting one before every meal. She denies chest pain, palpitation. she denies she has any symptoms on short term of SVT reported last night. 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 Meds/Allgy - Home Medications Home Medications: Ambulatory Orders Medication Instructions Recorded Confirmed Aspirin [Aspirin EC] 325 mg PO DAILY 08/26/20 03/04/21 Atorvastatin [Lipitor] 20 mg PO QPM 08/26/20 03/04/21 Diltiazem HCl [Diltiazem 12Hr ER] 120 mg PO DAILY 08/26/20 03/04/21 Insulin Glargine [Lantus Solostar] 6 unit SQ DAILY 08/26/20 03/05/21 Insulin Lispro [Humalog] 5 - 10 unit SQ TIDWM 08/26/20 03/05/21 Lactobacillus Acidophilus 1 tab PO DAILY 08/26/20 03/04/21 [Probiotic Acidophilus] Multivitamin 1 tab PO QPM 08/26/20 03/04/21 PARoxetine [Paxil] 10 mg PO DAILY 08/26/20 03/04/21 Gabapentin [Neurontin] 300 mg PO TID 03/04/21 03/04/21 Losartan [Cozaar] 50 mg PO DAILY 03/04/21 03/04/21 Insulin Glargine [Lantus Solostar] 5 unit SUBQ QPM 03/05/21 03/05/21 - Allergies Allergies/Adverse Reactions: Allergies Allergy/AdvReac Type Severity Reaction Status Date / Time Penicillins Allergy Unknown Verified 03/04/21 12:52 Sulfa (Sulfonamide Allergy Unknown Verified 03/04/21 12:52 Antibiotics) lisinopril AdvReac Unknown Verified 03/04/21 12:52 Review of Systems - Constitutional Constitutional: denies: Fever, Chills - Eyes Eyes: denies: Pain - Ears, Nose & Throat Ears, Nose & Throat: denies: Ear pain - Cardiovascular Cariovascular: reports: Syncope. denies: Palpitations, Chest pain - Respiratory Respiratory: denies: Cough, Sputum production, SOB at rest - Gastrointestinal Gastrointestinal: denies: Abdominal pain, Nausea, Vomiting - Genitourinary Genitourinary: denies: Dysuria - Musculoskeletal Musculoskeletal: denies: Muscle pain - Neurological Neurological: denies: Focal weakness, Numbness, Slurred speech Exam - Vital Signs Vital Signs: Vital Signs x48h Temp Pulse Resp BP BP Pulse Ox 03/05/21 13:21 62 10 L 140/61 H 97 03/05/21 12:58 14 03/05/21 12:36 128/102 H 03/05/21 12:00 80 21 128/102 H 96 03/05/21 11:57 37.2 C 03/05/21 11:00 72 17 141/74 H 92 03/05/21 10:00 67 20 133/66 H 97 03/05/21 09:00 18 03/05/21 08:00 37.3 C 56 L 16 143/72 H 96 - Physical Exam General Appearance: positive: No acute distress, Alert. negative: Lethargic Eyes Bilateral: positive: Normal inspection, PERRL, No lid inflammation ENT: positive: ENT inspection nml, No signs of dehydration. negative: Purulent nasal drainage Neck: positive: Nml inspection, Trachea midline. negative: Thyromegaly, Tracheal deviation Respiratory: positive: Chest non-tender, No respiratory distress, Other (mild reduced lung sound at left anterior middle lobe) Cardiovascular: positive: Regular rate & rhythm, No murmur. negative: Tachycardia, Bradycardia, Systolic murmur, Diastolic murmur Peripheral Pulses: positive: 2+ Abdomen: positive: Non-tender, Nml bowel sounds, No distention. negative: Tenderness Back: positive: Nml inspection Skin: positive: Warm, Dry. negative: Cyanosis, Diaphoresis Extremities: positive: Non-tender, Nml appearance Neurologic/Psychiatric: positive: Oriented x3, Sensation nml, Mood/affect nml. negative: Weakness, Sensory loss, Facial droop, Slurred/abnml speech, Depressed mood/affect Conclusion/Plan - Problem List (1) Uncontrolled diabetes mellitus Conclusion/Plan: pt has hyperglycemia, glucose level is around 250-270. she report her previous A1C was 7.2. we will hold IVF of D5 since pt ate and tolerated her diet, slightly increase her Lantus intake to 8 units from 5 units on night, keep day time Lantus, and keep slide scale, continue hypoglycemia protocol, [facility] glucose check, check A1C. (2) SVT (supraventricular tachycardia) Conclusion/Plan: pt had 17 beats SVT on last night but pt was asymptomatic. she denies chest pain or palpitation. now pt has no any distress with benign at examination. pt has hx of arrhythmia. order EKG, order tele monitor, resume home Cardizem DC (3) Multiple rib fractures Conclusion/Plan: pt had fall with multiple fractures and small left pneumothorax. surgeon is on the board, we will followup. continue pain control, and PT is consulted. Qualifiers: Encounter type: initial encounter Fracture type: closed Laterality: left Qualified Code(s): S22.42XA - Multiple fractures of ribs, left side, initial encounter for closed fracture (4) Syncope Conclusion/Plan: pt report syncope and loss of Consciousness when she had fall. she denies chest pain, and pt is already at hospital for two days. order ECHO, EKG, and tele monitor (5) Cellulitis Conclusion/Plan: pt has cellulitis on her groin area, nurse already took the picture. surgeon already assessed the lesion, and put antibiotics Ancef for pt. pt's WBC became normal arrange on today. pt had lower degree fever on yesterday, today pt has no fever. order probiotics, blood culture on today, continue antibiotics. (6) Alcohol abuse Conclusion/Plan: pt report she drink alcohol on daily base but she denies she had hx of alcohol withdrawal. add and vitamin B1. pt did not show alcohol withdrawal symptoms now. - Lab Results Fish Bones: 03/05/21 06:41 03/05/21 06:41
[2021-03-05 14:22] LABS: ESTIMATED AVERAGE GLUCOSE 148 mg/dL (70-100); HEMOGLOBIN A1c% 6.8 % (4.27-6.07)
[2021-03-05] MEDS ORDERED: ceFAZolin 1 GM VIAL ONE (14:31)
[2021-03-05] MEDS: SACCHAROMYCES BOULARDII 250 MG CAPSULE PO SCH ×2 (14:34→17:43)
[2021-03-05] MEDS: THIAMINE 100 MG TABLET PO SCH (15:40)
[2021-03-05] MEDS: HYDROmorphone PCA 20MG/100ML IV PRN (15:58)
--- NOTE | 2021-03-05 17:10 | XRAY Report ---
PROCEDURE: Chest 1 View X-Ray INDICATIONS: rib fractures, pneumothorax TECHNIQUE: One view of the chest was acquired. COMPARISON: 03/04/2021 FINDINGS: Surgical changes and devices: Left-sided stomach chest tube in good position. Lungs and pleura: Continued improvement of left apical pneumothorax now measures 1 cm to the thoracic apex. Mediastinum: Mediastinal contours appear normal. Heart size is normal. Bones and chest wall: No left-sided rib fractures remain unchanged. Right lung and pleural space jacqui r. IMPRESSION: Improving left pneumothorax status post left Heimlich chest tube placement. Stable left-sided rib fractures and subcutaneous chest wall soft tissue air Reviewed by: Preston Corea MD on 03/05/2021 4:09 PM [place] Approved by: Preston Corea MD on 03/05/2021 4:09 PM [facility] [[email or web address]] Station ID: [id number]
[2021-03-05] MEDS: diltiaZEM CD 120 MG CAPSULE PO SCH (18:48)
[2021-03-05] MEDS: ATORVASTATIN 40 MG TABLET PO SCH (20:23)
[2021-03-05] MEDS ORDERED: INSULIN GLARGINE 300 UNIT/3 ML PEN SUBQ SCH (21:00)
[2021-03-06] MEDS: ceFAZolin 2 GM in SODIUM CHLORIDE 0.9% 100ML 100 ML IV SCH ×3 (05:03→21:13)
[2021-03-06 05:30] LABS: BASOPHILS % (AUTO) 0.3 %; EOSINOPHILS # (AUTO) 0.2 10^3/uL (0.0-0.7); EOSINOPHILS % (AUTO) 1.6 %; HCT - HEMATOCRIT 33.4 % (37.0-47.0); HGB - HEMOGLOBIN 10.7 g/dL (12.0-16.0); LYMPHOCYTES % (AUTO) 10.7 %; MEAN CORPUSCULAR HEMOGLOBIN 31.4 pg (27.0-31.0); MEAN CORPUSCULAR VOLUME 97.9 fL (81.0-99.0); MEAN PLATELET VOLUME 11.8 fL (7.9-10.8); MONOCYTES # (AUTO) 1.1 10^3/uL (0.0-1.0); MONOCYTES % (AUTO) 11.7 %; NEUTROPHILS % (AUTO) 75.3 %; PLT - PLATELET COUNT 200 10^3/uL (130-450); RED BLOOD COUNT 3.41 10^6/uL (4.20-5.40); RED CELL DISTRIBUTION WIDTH 14.4 % (12.0-15.0); WHITE BLOOD COUNT 9.3 x10^3/uL (4.8-10.8)
[2021-03-06 05:40] LABS: CALCIUM 8.4 mg/dL (8.5-10.3); CREATININE 0.7 mg/dL (0.4-1.0); POTASSIUM 4.1 mmol/L (3.5-5.0)
[2021-03-06] MEDS ORDERED: PNEUMOCOCCAL 13-VALENT CONJ 0.5 ML SYRINGE IM ONE (07:05)
--- NOTE | 2021-03-06 07:47 | PROVIDER PROGRESS NOTE ---
Subjective - Prog Note Date Prog Note Date: 03/06/21 Prog Note Time: 07:44 - Subjective Subjective: We spoke a bit about her lightheadedness and syncope. She had been hospitalized for a kidney infection early this summer. With that hospitalization she was noted to be severely hypertensive so her losartan was increased from 50 mg to 100 mg. She got out of the hospital and she started having episodes of hypotension where her blood pressure would drop to 80. But then it would bounce back. So she stopped taking her blood pressure medicines completely. She then followed up with her primary care provider, Dr. Angel, who stated that she really needed to be on 50 mg a day and she went back to that. However, she still has days where her blood pressure will drop into the 80s systolic. She will get pretty lightheaded with that and almost pass out. She thinks that is what happened when she passed out this time. She just remembers getting flush ed, lightheaded, and that is all she remembers until she was in the emergency room. When she passed out she thinks she fell along the méndez wood railings of her bed. Current Medications - Current Medications Current Medications: Active Medications Acetaminophen (Acetaminophen 325 Mg Tablet) 650 mg PO Q4HR PRN PRN Reason: Pain 1 to 4 Last Admin: 03/05/21 20:23 Dose: 650 mg Documented by: Alcohol (Ethyl Alcohol 62% Swab Ampule) 1 amp BINDU BID [facility] Last Admin: 03/06/21 09:05 Dose: 1 amp Documented by: Atorvastatin Calcium (Atorvastatin 40 Mg Tablet) 20 mg PO QPM [facility] Last Admin: 03/05/21 20:23 Dose: 20 mg Documented by: Diltiazem HCl (Diltiazem Cd 120 Mg Capsule) 120 mg PO DAILY [facility] Last Admin: 03/06/21 08:42 Dose: 120 mg Documented by: Docusate Sodium (Docusate Sodium 250 Mg Capsule) 250 - 500 mg PO DAILY [facility] Last Admin: 03/06/21 08:42 Dose: Not Given Documented by: Enoxaparin Sodium (Enoxaparin 40 Mg/0.4 Ml Syringe) 40 mg SUBQ DAILY [facility] Last Admin: 03/06/21 09:04 Dose: 40 mg Documented by: Famotidine (Famotidine 20 Mg Tablet) 20 mg PO BID [facility] Last Admin: 03/06/21 08:42 Dose: 20 mg Documented by: Gabapentin (Gabapentin 300 Mg Capsule) 300 mg PO Q8HR PRN PRN Reason: PAIN Last Admin: 03/05/21 20:23 Dose: 300 mg Documented by: Hydromorphone HCl (Hydromorphone 0.5 Mg/0.5 Ml Syringe) 0.5 mg IVP Q2H PRN PRN Reason: Pain 8 to 10 Last Admin: 03/04/21 12:10 Dose: 0.2 mg Documented by: Hydromorphone HCl (Hydromorphone Talent Assistant 20mg/100ml) 0 mg IV PRN PRN; Protocol PRN Reason: PAIN 5-7 Last Admin: 03/05/21 15:58 Dose: 20 mg Documented by: Cefazolin Sodium 2 gm/ Sodium (Chloride) 100 mls @ 200 mls/hr IV Q8HR [facility] Last Infusion: 03/06/21 05:35 Dose: Infused Documented by: Insulin Aspart (Insulin Aspart 300 Unit/3 Ml Pen) 3 - 11 unit SUBQ 0800,1200,1700,2100 [facility]; Protocol Last Admin: 03/06/21 08:39 Dose: Not Given Documented by: Insulin Glargine (Insulin Glargine 300 Unit/3 Ml Pen) 6 unit SUBQ DAILY [facility] Last Admin: 03/06/21 09:03 Dose: 6 unit Documented by: Insulin Glargine (Insulin Glargine 300 Unit/3 Ml Pen) 5 unit SUBQ QPM [facility] Last Admin: 03/05/21 20:30 Dose: 5 unit Documented by: Ketorolac Tromethamine (Ketorolac 15 Mg/Ml Vial) 15 mg IVP Q6HR PRN PRN Reason: PAIN Stop: 03/09/21 09:53 Last Admin: 03/05/21 14:58 Dose: 15 mg Documented by: Nicotine (Nicotine 14 Mg Patch) 1 patch TOP DAILY [facility] Last Admin: 03/06/21 08:42 Dose: 1 patch Documented by: Ondansetron HCl (Ondansetron Odt 4 Mg Tablet) 4 mg TL Q6HR PRN PRN Reason: Nausea / Vomiting Ondansetron HCl (Ondansetron 4 Mg/2 Ml Vial) 4 mg IVP Q6HR PRN PRN Reason: Nausea / Vomiting Oxycodone HCl (Oxycodone 5 Mg Tablet) 5 mg PO Q4HR PRN PRN Reason: Pain 5 to 7 Last Admin: 03/05/21 12:37 Dose: 5 mg Documented by: Paroxetine HCl (Paroxetine 10 Mg Tablet) 10 mg PO DAILY [facility] Last Admin: 03/06/21 08:42 Dose: 10 mg Documented by: Polyethylene Glycol (Polyethylene Glycol 3350 17 Gm Packet) 17 gm PO DAILY [facility] Multivit/Folic Acid/Iron ( Vitamin Tablet) 1 tab PO DAILYWM [facility] Last Admin: 03/06/21 08:41 Dose: 1 tab Documented by: Saccharomyces Boulardii (Saccharomyces Boulardii 250 Mg Capsule) 250 mg PO BIDWM [facility] Last Admin: 03/06/21 08:41 Dose: 250 mg Documented by: Senna (Senna 8.6 Mg Tablet) 8.6 - 17.2 mg PO DAILY [facility] Sodium Chloride (Sodium Chloride Flush 0.9% 10 Ml Syringe) 10 ml IVP PRN PRN PRN Reason: NEEDED PER PROVIDER ORDERS Sodium Chloride (Sodium Chloride Flush 0.9% 10 Ml Syringe) 10 ml IVP 0100,0900,1700 [facility] Last Admin: 03/06/21 09:05 Dose: 10 ml Documented by: Thiamine HCl (Thiamine 100 Mg Tablet) 100 mg PO DAILY [facility] Last Admin: 03/06/21 08:41 Dose: 100 mg Documented by: Aspirin [Aspirin EC] 325 mg PO DAILY 08/26/20 Atorvastatin [Lipitor] 20 mg PO QPM 08/26/20 Diltiazem HCl [Diltiazem 12Hr ER] 120 mg PO DAILY 08/26/20 Insulin Glargine [Lantus Solostar] 6 unit SQ DAILY 08/26/20 Insulin Lispro [Humalog] 5 - 10 unit SQ TIDWM 08/26/20 Lactobacillus Acidophilus [Probiotic Acidophilus] 1 tab PO DAILY 08/26/20 Multivitamin 1 tab PO QPM 08/26/20 PARoxetine [Paxil] 10 mg PO DAILY 08/26/20 Gabapentin [Neurontin] 300 mg PO TID 03/04/21 Losartan [Cozaar] 50 mg PO DAILY 03/04/21 Insulin Glargine [Lantus Solostar] 5 unit SUBQ QPM 03/05/21 Objective - Vital Signs/Intake & Output Reviewed Vital Signs: Yes Vital Signs: Vital Signs x48h Temp Pulse Resp BP Pulse Ox 03/06/21 05:03 15 03/06/21 04:00 36.3 C L 69 17 138/79 H 93 03/06/21 03:05 16 03/06/21 00:33 15 03/06/21 00:00 37.0 C 68 15 144/67 H 95 Intake & Output: Intake & Output 03/03/21 03/04/21 03/05/21 03/06/21 23:59 23:59 23:59 23:59 Intake Total 3279.25 2319.5 782.5 Output Total 935 908 825 Balance 2344.25 1411.5 -42.5 - Objective General Appearance: positive: Alert, Mild distress (from her pain along her left ribs), Other (70-year-old female, sitting upright in chair, does not want to move very much, slow shallow respirations.) Eyes Bilateral: positive: PERRL, EOMI ENT: positive: No signs of dehydration Neck: positive: No JVD. negative: Stiff neck Respiratory: positive: Other (Goals both bases. Splinting shallow respiration. No subcutaneous bullae felt on skin. No cough.) Cardiovascular: positive: Regular rate & rhythm, Systolic murmur. negative: Gallop/S4, Friction rub Abdomen: positive: Non-tender, No organomegaly, Nml bowel sounds, No distention Skin: positive: Warm, Dry Extremities: positive: Full ROM, No pedal edema Neurologic/Psychiatric: positive: Oriented x3, CN's nml (2-12), Motor nml - Lab Results Fish Bones: 03/06/21 04:52 03/06/21 04:52 Other Labs: Lab Results x24hrs 03/06/21 03/06/21 03/05/21 Range/Units 04:52 04:52 06:41 WBC 9.3 (4.8-10.8) x10^3/uL RBC 3.41 L (4.20-5.40) 10^6/uL Hgb 10.7 L (12.0-16.0) g/dL Hct 33.4 L (37.0-47.0) % MCV 97.9 (81.0-99.0) fL MCH 31.4 H (27.0-31.0) pg MCHC 32.0 (32.0-36.0) g/dL RDW 14.4 (12.0-15.0) % Plt Count 200 (130-450) 10^3/uL MPV 11.8 H (7.9-10.8) fL Neut # (Auto) 7.0 H (1.5-6.6) 10^3/uL Lymph # (Auto) 1.0 L (1.5-3.5) 10^3/uL Jewell # (Auto) 1.1 H (0.0-1.0) 10^3/uL Eos # (Auto) 0.2 (0.0-0.7) 10^3/uL Baso # (Auto) 0.0 (0.0-0.1) 10^3/uL Absolute Nucleated RBC 0.00 x10^3/uL Nucleated RBC % 0.0 /100WBC Sodium 137 (135-145) mmol/L Potassium 4.1 (3.5-5.0) mmol/L Chloride 105 (101-111) mmol/L Carbon Dioxide 25 (21-32) mmol/L Anion Gap 7.0 (6-13) BUN 12 (6-20) mg/dL Creatinine 0.7 (0.4-1.0) mg/dL Estimated GFR (MDRD) 83 L (>89) Glucose 122 H (70-100) mg/dL Estimat Average Glucose 148 H (70-100) mg/dL Hemoglobin A1c % 6.8 H (4.27-6.07) % Calcium 8.4 L (8.5-10.3) mg/dL Assessment/Plan - Problem List (1) Uncontrolled diabetes mellitus Impression: pt had hyperglycemia, glucose level were around 250-270. she reported her previous A1C was 7.2. we stopped her D5 since she was eating well and slightly increased her pm Lantus intake to 8 units from 5 units , kept day time Lantus dose the same, and kept slide scale, continue hypoglycemia protocol, ACHS glucose check, check A1C. Yesterday glucose was 258, 242, 151, 169. This morning her glucose is 122 Plan: NO change of managment (2) SVT (supraventricular tachycardia) Conclusion/Plan: pt had 17 beats SVT on evening of 03/04 but pt was asymptomatic. she denied chest pain or palpitations. She has hx of arrhythmia for which she takes Cardizem. That was resumed. EKG was sinus and no acute ST changes Continued tele monitor (3) Multiple rib fractures Conclusion/Plan: pt had fall due to syncope with multiple fractures and small left pneumothorax. surgeon is on the board, we will followup. continue pain control, and PT is consulted. Qualifiers: Encounter type: initial encounter Fracture type: closed Laterality: left Qualified Code(s): S22.42XA - Multiple fractures of ribs, left side, initial encounter for closed fracture (4) Syncope Conclusion/Plan: pt reported syncope and loss of Consciousness when she fell. she denies chest pain, and pt has already at hospital for two days. we have ordered ECHO, EKG, and tele monitor (5) Cellulitis Conclusion/Plan: She was identified as having cellulitis in her groin. She was started on Ancef per general surgery. White cell count has responded by coming down to normal as of March 05. Low degree fever has not recurred since March 04. Probiotics were added March 06. Blood cultures ordered March 05 and those are pending. Plan: At this time no new changes in management (6) Alcohol abuse Conclusion/Plan: She drinks alcohol on a daily basis and denies a history of alcohol withdrawal in the past. vitamins, B1 were started March 05. So far she has not had any symptoms of withdrawal. We'll continue to monitor
--- NOTE | 2021-03-06 08:08 | XRAY Report ---
PROCEDURE: Chest 1 View X-Ray INDICATIONS: rib fx, pneumothorax TECHNIQUE: One view of the chest was acquired. COMPARISON: 03/05/2021 FINDINGS: Surgical changes and devices: Left-sided Heimlich chest tube remains unchanged from the prior. Lungs and pleura: Left apical pneumothorax is no longer visible. Improving left chest wall subcutaneo us air. The right lung and pleural space clear. Left basilar pleural effusion with atelectasis and or infiltrate has slightly increased in the interval. Mediastinum: Mediastinal contours appear normal. Heart size is normal. Bones and chest wall: Stable multiple overlapping left-sided rib fractures. IMPRESSION: Left-sided Heimlich chest tube and resolved left apical pneumothorax. Improving left chest wall subcutaneous air Left basilar pleural effusion with atelectasis and or infiltrate, slightly increased Stable multiple left-sided overlapping rib fractures Reviewed by: Preston Corea MD on 03/06/2021 7:06 AM [facility] Approved by: Preston Corea MD on 03/06/2021 7:06 AM [facility] Station ID: [id number]
[2021-03-06] MEDS: INSULIN ASPART 300 UNIT/3 ML PEN SUBQ SCH ×4 (08:39→20:03)
[2021-03-06] MEDS: THIAMINE 100 MG TABLET PO SCH (08:41)
[2021-03-06] MEDS: PRENATAL VITAMIN TABLET PO SCH (08:41)
[2021-03-06] MEDS: SACCHAROMYCES BOULARDII 250 MG CAPSULE PO SCH ×2 (08:41→17:04)
[2021-03-06] MEDS: DOCUSATE SODIUM 250 MG CAPSULE PO SCH (08:42)
[2021-03-06] MEDS: PARoxetine 10 MG TABLET PO SCH (08:42)
[2021-03-06] MEDS: FAMOTIDINE 20 MG TABLET PO SCH ×2 (08:42→20:02)
[2021-03-06] MEDS: NICOTINE 14 MG PATCH TOP SCH (08:42)
[2021-03-06] MEDS: diltiaZEM CD 120 MG CAPSULE PO SCH (08:42)
[2021-03-06] MEDS: INSULIN GLARGINE 300 UNIT/3 ML PEN SUBQ SCH ×2 (09:03→20:03)
[2021-03-06] MEDS: ENOXAPARIN 40 MG/0.4 ML SYRINGE SUBQ SCH (09:04)
[2021-03-06] MEDS: SODIUM CHLORIDE FLUSH 0.9% 10 ML SYRINGE IVP SCH ×3 (09:05→23:52)
[2021-03-06] MEDS: ethyl alcohoL 62% SWAB AMPULE NAS SCH ×2 (09:05→20:01)
[2021-03-06] MEDS: SENNA 8.6 MG TABLET PO SCH (10:21)
[2021-03-06] MEDS: polyethylene glycoL 3350 17 GM PACKET PO SCH (10:21)
[2021-03-06] MEDS: KETOROLAC 15 MG/ML VIAL IVP PRN (10:28)
[2021-03-06] MEDS: GABAPENTIN 300 MG CAPSULE PO PRN ×2 (10:29→20:01)
--- NOTE | 2021-03-06 11:28 | PROVIDER PROGRESS NOTE ---
Subjective - General Admit Date: 03/04/21 Procedure Date: 03/04/21 Post Op Days: 2 Procedure Performed: Left anteror chest 14 fr chest tube placed by ER physician - Review of Systems Wound/Incisions: positive: Dressing dry and intact Drain Type: Thora-Vent Drain Output Description: serosanguinous- 20 ml removed sterilely with syringe General: positive: Other (Pain in left posterior chest wall at rib fracture site. On [employer]. Ambulated well in hallways today with PT and OK for discharge when ready.) Objective - Patient Data Vital Signs: Vital Signs x48h Temp Pulse Resp BP Pulse Ox 03/06/21 09:00 16 03/06/21 07:54 37.2 C 77 21 156/67 H 97 03/06/21 05:03 15 03/06/21 04:00 36.3 C L 69 17 138/79 H 93 Weight: Weight 03/04/21 03/05/21 03/06/21 23:59 23:59 23:59 Weight (kg) 59 kg Intake & Output: Intake and Output Totals x24h 03/04/21 03/05/21 03/06/21 23:59 23:59 23:59 Intake Total 3279.25 2319.5 932.5 Output Total 487 293 0264 Balance 2344.25 1411.5 -167.5 - Lab Results Lab Results: 03/06/21 04:52 03/06/21 04:52 Other Lab Results: Lab Results x24hrs 03/06/21 03/06/21 03/05/21 Range/Units 04:52 04:52 06:41 WBC 9.3 (4.8-10.8) x10^3/uL RBC 3.41 L (4.20-5.40) 10^6/uL Hgb 10.7 L (12.0-16.0) g/dL Hct 33.4 L (37.0-47.0) % MCV 97.9 (81.0-99.0) fL MCH 31.4 H (27.0-31.0) pg MCHC 32.0 (32.0-36.0) g/dL RDW 14.4 (12.0-15.0) % Plt Count 200 (130-450) 10^3/uL MPV 11.8 H (7.9-10.8) fL Neut # (Auto) 7.0 H (1.5-6.6) 10^3/uL Lymph # (Auto) 1.0 L (1.5-3.5) 10^3/uL [place] # (Auto) 1.1 H (0.0-1.0) 10^3/uL Eos # (Auto) 0.2 (0.0-0.7) 10^3/uL Baso # (Auto) 0.0 (0.0-0.1) 10^3/uL Absolute Nucleated RBC 0.00 x10^3/uL Nucleated RBC % 0.0 /100WBC Sodium 137 (135-145) mmol/L Potassium 4.1 (3.5-5.0) mmol/L Chloride 105 (101-111) mmol/L Carbon Dioxide 25 (21-32) mmol/L Anion Gap 7.0 (6-13) BUN 12 (6-20) mg/dL Creatinine 0.7 (0.4-1.0) mg/dL Estimated GFR (MDRD) 83 L (>89) Glucose 122 H (70-100) mg/dL Estimat Average Glucose 148 H (70-100) mg/dL Hemoglobin A1c % 6.8 H (4.27-6.07) % Calcium 8.4 L (8.5-10.3) mg/dL - Current Medications Current Medications: Current Medications Generic Name Dose Route Start Last Admin Trade Name Freq PRN Reason Stop Dose Admin Acetaminophen 650 mg 03/04/21 04:40 03/05/21 20:23 Acetaminophen 325 Mg Tablet PO 650 mg Q4HR PRN Administration Pain 1 to 4 Alcohol 1 amp 03/04/21 10:00 03/06/21 09:05 Ethyl Alcohol 62% Swab Ampule BINDU 1 amp BID GENET Administration Atorvastatin Calcium 20 mg 03/04/21 21:00 03/05/21 20:23 Atorvastatin 40 Mg Tablet PO 20 mg QPM GENET Administration Diltiazem HCl 120 mg 03/05/21 19:00 03/06/21 08:42 Diltiazem Cd 120 Mg Capsule PO 120 mg DAILY GENET Administration Docusate Sodium 250 - 500 mg 03/06/21 09:00 03/06/21 08:42 Docusate Sodium 250 Mg Capsule PO Not Given DAILY GENET Enoxaparin Sodium 40 mg 03/06/21 09:00 03/06/21 09:04 Enoxaparin 40 Mg/0.4 Ml Syringe SUBQ 40 mg DAILY GENET Administration Famotidine 20 mg 03/04/21 21:00 03/06/21 08:42 Famotidine 20 Mg Tablet PO 20 mg BID GENET Administration Gabapentin 300 mg 03/04/21 04:47 03/06/21 10:29 Gabapentin 300 Mg Capsule PO 300 mg Q8HR PRN Administration PAIN Hydromorphone HCl 0.5 mg 03/04/21 04:40 03/04/21 12:10 Hydromorphone 0.5 Mg/0.5 Ml Syringe IVP 0.2 mg Q2H PRN Administration Pain 8 to 10 Hydromorphone HCl 0 mg 03/04/21 09:52 03/05/21 15:58 Hydromorphone Cement Rubber 20mg/100ml IV 20 mg PRN PRN Administration PAIN 5-7 Protocol Cefazolin Sodium 2 gm/ Sodium 100 mls @ 200 mls/hr 03/04/21 13:30 03/06/21 05:35 Chloride IV Infused Q8HR [facility] Infusion Insulin Aspart 3 - 11 unit 03/05/21 17:00 03/06/21 08:39 Insulin Aspart 300 Unit/3 Ml Pen SUBQ Not Given 0800,1200,1700,2100 [facility] Protocol Insulin Glargine 6 unit 03/05/21 09:00 03/06/21 09:03 Insulin Glargine 300 Unit/3 Ml Pen SUBQ 6 unit DAILY [facility] Administration Insulin Glargine 5 unit 03/05/21 21:00 03/05/21 20:30 Insulin Glargine 300 Unit/3 Ml Pen SUBQ 5 unit QPM [facility] Administration Ketorolac Tromethamine 15 mg 03/04/21 09:54 03/06/21 10:28 Ketorolac 15 Mg/Ml Vial IVP 03/09/21 09:53 15 mg Q6HR PRN Administration PAIN Nicotine 1 patch 03/04/21 17:30 03/06/21 08:42 Nicotine 14 Mg Patch TOP 1 patch DAILY GENET Administration Oxycodone HCl 5 mg 03/04/21 04:40 03/05/21 12:37 Oxycodone 5 Mg Tablet PO 5 mg Q4HR PRN Administration Pain 5 to 7 Paroxetine HCl 10 mg 03/05/21 09:00 03/06/21 08:42 Paroxetine 10 Mg Tablet PO 10 mg DAILY GENET Administration Polyethylene Glycol 17 gm 03/06/21 09:00 03/06/21 10:21 Polyethylene Glycol 3350 17 Gm Packet PO Not Given DAILY GENET Multivit/Folic Acid/Iron 1 tab 03/06/21 08:00 03/06/21 08:41 Vitamin Tablet PO 1 tab DAILYWM GENET Administration Saccharomyces Boulardii 250 mg 03/05/21 13:36 03/06/21 08:41 Saccharomyces Boulardii 250 Mg Capsule PO 250 mg BIDWM GENET Administration Senna 8.6 - 17.2 mg 03/06/21 09:00 03/06/21 10:21 Senna 8.6 Mg Tablet PO Not Given DAILY GENET Sodium Chloride 10 ml 03/04/21 09:00 03/06/21 09:05 Sodium Chloride Flush 0.9% 10 Ml Syringe IVP 10 ml 0100,0900,1700 GENET Administration Thiamine HCl 100 mg 03/05/21 15:09 03/06/21 08:41 Thiamine 100 Mg Tablet PO 100 mg DAILY GENET Administration - Physical Exam Wound/Incisions: positive: Dressing dry and intact General Appearance: positive: No acute distress Respiratory: positive: No respiratory distress Abdomen: positive: Non-tender Skin: positive: Other (right groin erythema resolved, nontender) Impression/Plan - Problem List Problem List: Hospital day #3 s/p fall with left posterior rib fractures and small PTX treated with Thora-Vent. CXRs show slight increase in left pleural effusion which may need drainage by IR tomorrow. PTX has completely resolved. H/H stable and blood sugars are much improved. Dr Fitzgerald's assistance appreciated. Plan: Repeat CXR and labs in AM. Will discuss DANN lopez of left pleural effusion with Dr Berkowitz tomorrow.
[2021-03-06] MEDS ORDERED: ceFAZolin 1 GM VIAL ONE (13:29)
[2021-03-06] MEDS: ATORVASTATIN 40 MG TABLET PO SCH (20:02)
[2021-03-06] MEDS: ACETAMINOPHEN 325 MG TABLET PO PRN (20:02)
[2021-03-07] MEDS: HYDROmorphone PCA 20MG/100ML IV PRN (04:16)
[2021-03-07 05:10] LABS: BASOPHILS % (AUTO) 0.4 %; EOSINOPHILS # (AUTO) 0.2 10^3/uL (0.0-0.7); HCT - HEMATOCRIT 33.5 % (37.0-47.0); HGB - HEMOGLOBIN 10.7 g/dL (12.0-16.0); LYMPHOCYTES # (AUTO) 1.2 10^3/uL (1.5-3.5); LYMPHOCYTES % (AUTO) 14.4 %; MEAN CORPUSCULAR HEMOGLOBIN 31.7 pg (27.0-31.0); MEAN CORPUSCULAR HGB CONC 31.9 g/dL (32.0-36.0); MEAN CORPUSCULAR VOLUME 99.1 fL (81.0-99.0); MEAN PLATELET VOLUME 11.6 fL (7.9-10.8); MONOCYTES # (AUTO) 1.1 10^3/uL (0.0-1.0); MONOCYTES % (AUTO) 13.2 %; NEUTROPHILS # (AUTO) 5.8 10^3/uL (1.5-6.6); NEUTROPHILS % (AUTO) 69.8 %; PLT - PLATELET COUNT 221 10^3/uL (130-450); RED BLOOD COUNT 3.38 10^6/uL (4.20-5.40); RED CELL DISTRIBUTION WIDTH 14.5 % (12.0-15.0); WHITE BLOOD COUNT 8.3 x10^3/uL (4.8-10.8)
[2021-03-07] MEDS: ceFAZolin 2 GM in SODIUM CHLORIDE 0.9% 100ML 100 ML IV SCH ×3 (05:11→22:05)
[2021-03-07 05:22] LABS: CALCIUM 8.5 mg/dL (8.5-10.3); CREATININE 0.8 mg/dL (0.4-1.0); POTASSIUM 4.1 mmol/L (3.5-5.0)
--- NOTE | 2021-03-07 08:05 | XRAY Report ---
PROCEDURE: Chest 1 View X-Ray INDICATIONS: rib fx, pneumothorax TECHNIQUE: One view of the chest was acquired. COMPARISON: 02/03/2021 at 0713 hours. FINDINGS: Surgical changes and devices: Left sided Heimlich tube is stable. Lungs and pleura: No pneumothorax. Left-sided pleural fluid collection and left basilar consolidatio n stable. Mediastinum: Mediastinal contours appear normal. Heart size is normal. Bones and chest wall: Multiple, acute, displaced left-sided rib fractures are stable. No suspicious bony lesions. Overlying soft tissues appear unremarkable. Left chest wall subcutaneous air. IMPRESSION: No pneumothorax. Stable examination compared to 03/06/2021 0713 hours. Reviewed by: Stephanie French MD, PhD on 03/07/2021 8:03 AM PST Approved by: Stephanie French MD, PhD on 03/07/2021 8:03 AM PST Station ID: [id number]
[2021-03-07] MEDS: INSULIN ASPART 300 UNIT/3 ML PEN SUBQ SCH ×4 (08:15→20:33)
[2021-03-07] MEDS: INSULIN GLARGINE 300 UNIT/3 ML PEN SUBQ SCH ×2 (08:16→20:33)
[2021-03-07] MEDS: PRENATAL VITAMIN TABLET PO SCH (08:31)
[2021-03-07] MEDS: DOCUSATE SODIUM 250 MG CAPSULE PO SCH (08:31)
[2021-03-07] MEDS: GABAPENTIN 300 MG CAPSULE PO PRN ×3 (08:32→20:25)
[2021-03-07] MEDS: PARoxetine 10 MG TABLET PO SCH (08:32)
[2021-03-07] MEDS: THIAMINE 100 MG TABLET PO SCH (08:32)
[2021-03-07] MEDS: diltiaZEM CD 120 MG CAPSULE PO SCH (08:32)
[2021-03-07] MEDS: SACCHAROMYCES BOULARDII 250 MG CAPSULE PO SCH ×2 (08:32→17:37)
[2021-03-07] MEDS: ethyl alcohoL 62% SWAB AMPULE NAS SCH ×2 (08:32→20:23)
[2021-03-07] MEDS: FAMOTIDINE 20 MG TABLET PO SCH ×2 (08:32→20:25)
[2021-03-07] MEDS: ENOXAPARIN 40 MG/0.4 ML SYRINGE SUBQ SCH (08:33)
[2021-03-07] MEDS: NICOTINE 14 MG PATCH TOP SCH (09:22)
[2021-03-07] MEDS: SENNA 8.6 MG TABLET PO SCH (09:22)
[2021-03-07] MEDS: polyethylene glycoL 3350 17 GM PACKET PO SCH (09:22)
[2021-03-07] MEDS: SODIUM CHLORIDE FLUSH 0.9% 10 ML SYRINGE IVP SCH ×2 (09:23→17:37)
[2021-03-07] MEDS: oxyCODONE 5 MG TABLET PO PRN ×3 (12:27→20:25)
[2021-03-07] MEDS ORDERED: PNEUMOCOCCAL 13-VALENT CONJ 0.5 ML SYRINGE IM ONE (13:00)
--- NOTE | 2021-03-07 14:21 | PROVIDER PROGRESS NOTE ---
Subjective - Prog Note Date Prog Note Date: 03/07/21 - Subjective Pt reports feeling: Improved (pain improving) Objective - Vital Signs/Intake & Output Reviewed Vital Signs: Yes Vital Signs: Vital Signs x48h Temp Pulse Resp BP Pulse Ox 03/07/21 11:39 37.2 C 65 14 146/72 H 94 03/07/21 09:00 15 03/07/21 07:45 37.3 C 61 14 167/75 H 96 Intake & Output: Intake & Output 03/04/21 03/05/21 03/06/21 03/07/21 23:59 23:59 23:59 23:59 Intake Total 3279.25 2319.5 1372.5 700 Output Total 759 725 4435 600 Balance 2344.25 1411.5 -547.5 100 - Objective General Appearance: positive: No acute distress, Alert Eyes Bilateral: positive: PERRL, EOMI ENT: positive: No signs of dehydration Neck: positive: No JVD Respiratory: positive: No respiratory distress Abdomen: positive: No distention Neurologic/Psychiatric: positive: Oriented x3 - Lab Results Fish Bones: 03/07/21 04:47 03/07/21 04:47 Other Labs: Lab Results x24hrs 03/07/21 03/07/21 Range/Units 04:47 04:47 WBC 8.3 (4.8-10.8) x10^3/uL RBC 3.38 L (4.20-5.40) 10^6/uL Hgb 10.7 L (12.0-16.0) g/dL Hct 33.5 L (37.0-47.0) % MCV 99.1 H (81.0-99.0) fL MCH 31.7 H (27.0-31.0) pg MCHC 31.9 L (32.0-36.0) g/dL RDW 14.5 (12.0-15.0) % Plt Count 221 (130-450) 10^3/uL MPV 11.6 H (7.9-10.8) fL Neut # (Auto) 5.8 (1.5-6.6) 10^3/uL Lymph # (Auto) 1.2 L (1.5-3.5) 10^3/uL Leslie # (Auto) 1.1 H (0.0-1.0) 10^3/uL Eos # (Auto) 0.2 (0.0-0.7) 10^3/uL Baso # (Auto) 0.0 (0.0-0.1) 10^3/uL Absolute Nucleated RBC 0.00 x10^3/uL Nucleated RBC % 0.0 /100WBC Sodium 134 L (135-145) mmol/L Potassium 4.1 (3.5-5.0) mmol/L Chloride 100 L (101-111) mmol/L Carbon Dioxide 26 (21-32) mmol/L Anion Gap 8.0 (6-13) BUN 11 (6-20) mg/dL Creatinine 0.8 (0.4-1.0) mg/dL Estimated GFR (MDRD) 71 L (>89) Glucose 156 H (70-100) mg/dL Calcium 8.5 (8.5-10.3) mg/dL Assessment/Plan - Problem List (1) Pneumothorax Impression: doing well. pain improving. chest tube removed follow up cxr in am 03/08 and likely home 03/08/2021 Qualifiers: Pneumothorax type: traumatic Encounter type: initial encounter Qualified Code(s): S27.0XXA - Traumatic pneumothorax, initial encounter
--- NOTE | 2021-03-07 15:50 | PROVIDER PROGRESS NOTE ---
Progress Note March 07, 2021 3:45 PM Pain is still a problem when she tries to get up. Still on a LATIN DANCER pump. But she worked with physical therapy yesterday and she did very, very well. They do not think she is going need to require any longterm facility rehab and probably be able to go home with help. She is happy about that. Other than the rib cage pain, she denies worse shortness of breath or chest pain. Still the same. Yesterday she had 20 cc out her chest tube drain as described by general surgery. Her chest x-ray shows slight increase in left pleural effusion and he is going to speak to interventional radiology today to see about drainage. Medications: Tylenol, nose and, Lipitor, Ancef, Cardizem CD, Colace, Lovenox, Pepcid, Neurontin, Dilaudid LATIN DANCER, NovoLog sliding scale insulin, Lantus twice daily, nicotine patch, Zofran, Roxicodone as needed, Paxil, MiraLAX as needed, vitamin, Florastor, thiamine p.o. Temperature is 37.2. Heart rate 65. Blood pressure 146/72. Respirations 14. 94% on room air. She is 5 8 inches tall. 59 kg. She appears slightly fatigued but is alert, oriented, lucid speech, accurate his leni. No confusion. Neck is supple. She is splinting. Hurts to take a deep breath and does not want to do it. Crackles and rhonchi intermittent. Left lung. Regular rate and rhythm. Abdomen is soft, nontender, nondistended with normal bowel sounds Legs are with SCDs, no clubbing or cyanosis. Neurologically she is alert and oriented to person place and time, able to carefully get out of the bed and walk with physical therapy without any ataxia. Sodium 134. Potassium 4.1. BUN 11. Creatinine 0.8. Glucose 156 White cell count 8.3. Hemoglobin 10.7. Hematocrit 33.5. Today's chest x-ray is without pneumothorax. Stable examination compared to March 06. Left-sided pleural effusion and collection with left basilar consolidation is stable. Multiple acute displaced left-sided rib fracture stable. Assessment/plan 1. Uncontrolled type 2 diabetes mellitus. Glucose March 06 was 139, 158, 182, 125. Today she is 153 and 132. Continue twice daily Lantus and sliding scale. 2. SVT. She is being monitored by telemetry. She is only had 1 episodes of 17 beats in the evening and March 04. No symptoms. 3. Multiple rib fractures. Being followed by general surgery. Complication of pneumothorax has resolved. Now with left pleural effusion that they are considering doing a thoracentesis with. 4. Syncope evaluation. Over the weekend echocardiogram is not available. Today she had an echo which shows ejection fraction 50 to 55%. Right ventricle normal size and function. Mild to moderate increase in left atrial volume index. Right atrial size normal. Mitral, aortic, tricuspid valves have mild regurgitation but no significant disease. Telemetry showed SVT. So right now syncope may be due to orthostatic syncope, intoxication, but no arrhythmia, stroke, or valvular heart disease has been identified. 5. Groin cellulitis. On Ancef. On probiotics. White cell count was 18.2 on admission. Has been steadily coming down and today she is 8.3. No fever.
[2021-03-07] MEDS: HYDROmorphone 0.5 MG/0.5 ML SYRINGE IVP PRN (18:26)
[2021-03-07] MEDS: ATORVASTATIN 40 MG TABLET PO SCH (20:23)
[2021-03-08] MEDS: SODIUM CHLORIDE FLUSH 0.9% 10 ML SYRINGE IVP SCH ×3 (00:02→16:55)
[2021-03-08] MEDS: oxyCODONE 5 MG TABLET PO PRN ×6 (00:08→20:39)
[2021-03-08] MEDS: ACETAMINOPHEN 325 MG TABLET PO PRN ×3 (00:08→20:36)
[2021-03-08 05:43] LABS: BASOPHILS % (AUTO) 0.4 %; EOSINOPHILS # (AUTO) 0.2 10^3/uL (0.0-0.7); EOSINOPHILS % (AUTO) 2.6 %; HCT - HEMATOCRIT 33.3 % (37.0-47.0); LYMPHOCYTES # (AUTO) 1.2 10^3/uL (1.5-3.5); MEAN CORPUSCULAR HEMOGLOBIN 32.2 pg (27.0-31.0); MEAN CORPUSCULAR VOLUME 97.4 fL (81.0-99.0); MEAN PLATELET VOLUME 11.7 fL (7.9-10.8); MONOCYTES # (AUTO) 1.1 10^3/uL (0.0-1.0); MONOCYTES % (AUTO) 14.5 %; NEUTROPHILS # (AUTO) 5.2 10^3/uL (1.5-6.6); NEUTROPHILS % (AUTO) 67.1 %; PLT - PLATELET COUNT 244 10^3/uL (130-450); RED BLOOD COUNT 3.42 10^6/uL (4.20-5.40); RED CELL DISTRIBUTION WIDTH 13.7 % (12.0-15.0); WHITE BLOOD COUNT 7.7 x10^3/uL (4.8-10.8)
[2021-03-08 05:52] LABS: CALCIUM 8.4 mg/dL (8.5-10.3); CREATININE 0.8 mg/dL (0.4-1.0); POTASSIUM 3.9 mmol/L (3.5-5.0)
[2021-03-08] MEDS: ceFAZolin 2 GM in SODIUM CHLORIDE 0.9% 100ML 100 ML IV SCH ×2 (05:53→13:20)
--- NOTE | 2021-03-08 08:18 | XRAY Report ---
PROCEDURE: Chest 1 View X-Ray INDICATIONS: follow up ptx TECHNIQUE: One view of the chest was acquired. COMPARISON: 03/05/2021 FINDINGS: Surgical changes and devices: There is interval removal of left-sided chest tube.. Lungs and pleura: Small to moderate left pleural effusion and left basilar atelectasis is seen. Under lying infiltrate cannot be excluded. No obvious pneumothorax is noted on the current study. Mediastinum: Mediastinal contours appear normal. Heart size is normal. Bones and chest wall: Multiple left posterior upper rib fractures are again seen. Subcutaneous emphys olimpia along left lateral chest wall is again seen. IMPRESSION: Interval removal of left-sided chest tube. No obvious pneumothorax is seen. Persistent small to moder ate left pleural effusion and left basilar atelectasis. Reviewed by: Jesse Soto MD on 03/08/2021 8:16 AM PST Approved by: Jesse Soto MD on 03/08/2021 8:16 AM PST Station ID: [id number]
[2021-03-08] MEDS: HYDROmorphone 0.5 MG/0.5 ML SYRINGE IVP PRN ×2 (08:30→13:12)
[2021-03-08] MEDS: FAMOTIDINE 20 MG TABLET PO SCH ×2 (08:33→20:36)
[2021-03-08] MEDS: SACCHAROMYCES BOULARDII 250 MG CAPSULE PO SCH ×2 (08:34→16:35)
[2021-03-08] MEDS: ethyl alcohoL 62% SWAB AMPULE NAS SCH ×2 (08:34→20:36)
[2021-03-08] MEDS: PRENATAL VITAMIN TABLET PO SCH (08:34)
[2021-03-08] MEDS: PARoxetine 10 MG TABLET PO SCH (08:34)
[2021-03-08] MEDS: diltiaZEM CD 120 MG CAPSULE PO SCH (08:34)
[2021-03-08] MEDS: ENOXAPARIN 40 MG/0.4 ML SYRINGE SUBQ SCH (08:34)
[2021-03-08] MEDS: DOCUSATE SODIUM 250 MG CAPSULE PO SCH (08:34)
[2021-03-08] MEDS: GABAPENTIN 300 MG CAPSULE PO PRN (08:34)
[2021-03-08] MEDS: THIAMINE 100 MG TABLET PO SCH (08:34)
[2021-03-08] MEDS: INSULIN ASPART 300 UNIT/3 ML PEN SUBQ SCH ×4 (08:36→21:35)
[2021-03-08] MEDS: INSULIN GLARGINE 300 UNIT/3 ML PEN SUBQ SCH ×2 (08:36→21:35)
[2021-03-08] MEDS: NICOTINE 14 MG PATCH TOP SCH (08:38)
[2021-03-08] MEDS ORDERED: PNEUMOCOCCAL 13-VALENT CONJ 0.5 ML SYRINGE IM ONE (09:00)
[2021-03-08] MEDS: LOSARTAN 50 MG TABLET PO SCH (09:54)
--- NOTE | 2021-03-08 11:23 | PROVIDER PROGRESS NOTE ---
Assessment/Plan - Problem List (1) Uncontrolled diabetes mellitus Assessment/Plan: 03/08, pt's glucose is controlled, her glucose is 155, continue slide scale, glucose check, hypoglycemia protocol. Thank the consult to take car of this pt, we will sign off now. we will captain assistant care for pt if further need pt has hyperglycemia, glucose level is around 250-270. she report her previous A1C was 7.2. we will hold IVF of D5 since pt ate and tolerated her diet, slightly increase her Lantus intake to 8 units from 5 units on night, keep day time Lantus, and keep slide scale, continue hypoglycemia protocol, ACHS glucose check, check A1C. (2) SVT (supraventricular tachycardia) Conclusion/Plan: 03/08, pt's HR is control, no more SVT, Patient is hemodynamically stable, continue home Cardizem DC. we will sign off now. we will captain assistant care for pt if further need pt had 17 beats SVT on last night but pt was asymptomatic. she denies chest pain or palpitation. now pt has no any distress with benign at examination. pt has hx of arrhythmia. order EKG, order tele monitor, resume home Cardizem DC (3) Multiple rib fractures Conclusion/Plan: 02/26 surgeon is taking care of pt about this. pt had fall with multiple fractures and small left pneumothorax. surgeon is on the board, we will followup. continue pain control, and PT is consulted. (4) Cellulitis Conclusion/Plan: 02/26 pt was given antibiotics, surgeon is taking care of this. pt's Blood culture was negative for bacteremia, patient has no fever, patient WBC become normal range. pt has cellulitis on her groin area, nurse already took the picture. surgeon already assessed the lesion, and put antibiotics Ancef for pt. pt's WBC became normal arrange on today. pt had lower degree fever on yesterday, today pt has no fever. order probiotics, blood culture on today, continue antibiotics. (3) Multiple rib fractures Qualifiers: Encounter type: initial encounter Fracture type: closed Laterality: left Qualified Code(s): S22.42XA - Multiple fractures of ribs, left side, initial encounter for closed fracture - Current Meds Current Meds: Current Medications Generic Name Dose Route Start Last Admin Trade Name Freq PRN Reason Stop Dose Admin Acetaminophen 650 mg 03/04/21 04:40 03/08/21 05:07 Acetaminophen 325 Mg Tablet PO 650 mg Q4HR PRN Administration Pain 1 to 4 Alcohol 1 amp 03/04/21 10:00 03/08/21 08:34 Ethyl Alcohol 62% Swab Ampule BINDU 1 amp BID GENET Administration Atorvastatin Calcium 20 mg 03/04/21 21:00 03/07/21 20:23 Atorvastatin 40 Mg Tablet PO 20 mg QPM GENET Administration Diltiazem HCl 120 mg 03/05/21 19:00 03/08/21 08:34 Diltiazem Cd 120 Mg Capsule PO 120 mg DAILY GENET Administration Docusate Sodium 250 - 500 mg 03/06/21 09:00 03/08/21 08:34 Docusate Sodium 250 Mg Capsule PO 250 mg DAILY GENET Administration Enoxaparin Sodium 40 mg 03/06/21 09:00 03/08/21 08:34 Enoxaparin 40 Mg/0.4 Ml Syringe SUBQ 40 mg DAILY GENET Administration Famotidine 20 mg 03/04/21 21:00 03/08/21 08:33 Famotidine 20 Mg Tablet PO 20 mg BID GENET Administration Gabapentin 300 mg 03/04/21 04:47 03/08/21 08:34 Gabapentin 300 Mg Capsule PO 300 mg Q8HR PRN Administration PAIN Hydromorphone HCl 0.5 mg 03/04/21 04:40 03/08/21 08:30 Hydromorphone 0.5 Mg/0.5 Ml Syringe IVP 0.5 mg Q2H PRN Administration Pain 8 to 10 Hydromorphone HCl 0 mg 03/04/21 09:52 03/07/21 04:16 Hydromorphone Dormitory Supervisor 20mg/100ml IV 20 mg PRN PRN Administration PAIN 5-7 Protocol Cefazolin Sodium 2 gm/ Sodium 100 mls @ 200 mls/hr 03/04/21 13:30 03/08/21 07:00 Chloride IV Infused Q8HR [facility] Infusion Insulin Aspart 3 - 11 unit 03/05/21 17:00 03/08/21 08:36 Insulin Aspart 300 Unit/3 Ml Pen SUBQ 3 unit 0800,1200,1700,2100 GENET Administration Protocol Insulin Glargine 6 unit 03/05/21 09:00 03/08/21 08:36 Insulin Glargine 300 Unit/3 Ml Pen SUBQ 6 unit DAILY GENET Administration Insulin Glargine 5 unit 03/05/21 21:00 03/07/21 20:33 Insulin Glargine 300 Unit/3 Ml Pen SUBQ 5 unit QPM GENET Administration Losartan Potassium 50 mg 03/08/21 09:00 03/08/21 09:54 Losartan 50 Mg Tablet PO 50 mg DAILY GENET Administration Nicotine 1 patch 03/04/21 17:30 03/08/21 08:38 Nicotine 14 Mg Patch TOP 1 patch DAILY GENET Administration Oxycodone HCl 5 mg 03/04/21 04:40 03/08/21 08:30 Oxycodone 5 Mg Tablet PO 5 mg Q4HR PRN Administration Pain 5 to 7 Paroxetine HCl 10 mg 03/05/21 09:00 03/08/21 08:34 Paroxetine 10 Mg Tablet PO 10 mg DAILY GENET Administration Polyethylene Glycol 17 gm 03/06/21 09:00 03/07/21 09:22 Polyethylene Glycol 3350 17 Gm Packet PO Not Given DAILY GENET Multivit/Folic Acid/Iron 1 tab 03/06/21 08:00 03/08/21 08:34 Vitamin Tablet PO 1 tab DAILYWM GENET Administration Saccharomyces Boulardii 250 mg 03/05/21 13:36 03/08/21 08:34 Saccharomyces Boulardii 250 Mg Capsule PO 250 mg BIDWM GENET Administration Senna 8.6 - 17.2 mg 03/06/21 09:00 03/07/21 09:22 Senna 8.6 Mg Tablet PO Not Given DAILY GENET Sodium Chloride 10 ml 03/04/21 09:00 03/08/21 09:59 Sodium Chloride Flush 0.9% 10 Ml Syringe IVP 10 ml 0100,0900,1700 GENET Administration Thiamine HCl 100 mg 03/05/21 15:09 03/08/21 08:34 Thiamine 100 Mg Tablet PO 100 mg DAILY GENET Administration - Lab Result Fish Bone Diagrams: 03/08/21 04:49 03/08/21 04:49 - Additional Planning My Orders: My Active Orders 03/07/21 14:09 Echo Transthoracic Complete [ECHO] Routine 03/08/21 09:00 Losartan [Cozaar] 50 mg PO DAILY 03/09/21 05:00 BMP - BASIC METABOLIC PANEL [CHEM] DAILYLAB CBC - COMP BLD CT W/AUTO DIFF [HEME] DAILYLAB 03/10/21 05:00 BMP - BASIC METABOLIC PANEL [CHEM] DAILYLAB CBC - COMP BLD CT W/AUTO DIFF [HEME] DAILYLAB Subjective - Subjective Patient Reports: Resting Comfortably Objective Vital Signs: Vital Signs - 24 hr 03/07/21 03/07/21 03/07/21 11:39 16:00 20:00 Temperature 37.2 C 36.9 C 36.8 C Heart Rate [ 65 91 98 Monitoring electrodes] Respiratory 14 22 34 H Rate Blood Pressure 146/72 H 146/78 H 175/86 H [Left Brachial artery] O2 Saturation 94 93 79 L 03/08/21 03/08/21 03/08/21 00:00 04:00 07:45 Temperature 36.8 C 36.7 C 36.9 C Heart Rate [ 77 92 93 Monitoring electrodes] Respiratory 17 20 23 Rate Blood Pressure 156/88 H 173/70 H 172/62 H [Left Brachial artery] O2 Saturation 92 91 L 94 Oxygen O2 Source Room air Oxygen Flow Rate 2 I&O (Last 24 Hrs): Intake and Output Totals x24h 03/06/21 03/07/21 03/08/21 23:59 23:59 23:59 Intake Total 1372.5 1200 620 Output Total 1920 1700 750 Balance -547.5 -500 -130 General: Alert, Oriented x3, Cooperative, No acute distress HEENT: Atraumatic Neck: Supple Lymphatic: no adenopathy Neuro: Alert, Non Focal, Oriented Times 3 Cardiovascular: Regular rate, Normal S1, Normal S2 Respiratory: Chest non-tender, No respiratory distress Abdomen: Normal bowel sounds, Soft Extremities: Normal pulses - Results Results: Laboratory Results WBC 7.7 x10^3/uL (4.8-10.8) 03/08/21 04:49 RBC 3.42 10^6/uL (4.20-5.40) L 03/08/21 04:49 Hgb 11.0 g/dL (12.0-16.0) L 03/08/21 04:49 Hct 33.3 % (37.0-47.0) L 03/08/21 04:49 MCV 97.4 fL (81.0-99.0) 03/08/21 04:49 MCH 32.2 pg (27.0-31.0) H 03/08/21 04:49 MCHC 33.0 g/dL (32.0-36.0) 03/08/21 04:49 RDW 13.7 % (12.0-15.0) 03/08/21 04:49 Plt Count 244 10^3/uL (130-450) 03/08/21 04:49 MPV 11.7 fL (7.9-10.8) H 03/08/21 04:49 Neut # (Auto) 5.2 10^3/uL (1.5-6.6) 03/08/21 04:49 Lymph # (Auto) 1.2 10^3/uL (1.5-3.5) L 03/08/21 04:49 [place] # (Auto) 1.1 10^3/uL (0.0-1.0) H 03/08/21 04:49 Eos # (Auto) 0.2 10^3/uL (0.0-0.7) 03/08/21 04:49 Baso # (Auto) 0.0 10^3/uL (0.0-0.1) 03/08/21 04:49 Absolute Nucleated RBC 0.00 x10^3/uL 03/08/21 04:49 Nucleated RBC % 0.0 /100WBC 03/08/21 04:49 PT 10.5 secs (9.9-12.6) 03/04/21 03:22 INR 0.9 (0.8-1.2) 03/04/21 03:22 Sodium 135 mmol/L (135-145) 03/08/21 04:49 Potassium 3.9 mmol/L (3.5-5.0) 03/08/21 04:49 Chloride 100 mmol/L (101-111) L 03/08/21 04:49 Carbon Dioxide 25 mmol/L (21-32) 03/08/21 04:49 Anion Gap 10.0 (6-13) 03/08/21 04:49 BUN 12 mg/dL (6-20) 03/08/21 04:49 Creatinine 0.8 mg/dL (0.4-1.0) 03/08/21 04:49 Estimated GFR (MDRD) 71 (>89) L 03/08/21 04:49 Glucose 155 mg/dL (70-100) H 03/08/21 04:49 Estimat Average Glucose 148 mg/dL (70-100) H 03/05/21 06:41 Hemoglobin A1c % 6.8 % (4.27-6.07) H 03/05/21 06:41 Calcium 8.4 mg/dL (8.5-10.3) L 03/08/21 04:49 Total Bilirubin 0.7 mg/dL (0.2-1.0) 03/04/21 03:22 AST 32 IU/L (10-42) 03/04/21 03:22 ALT 12 IU/L (10-60) 03/04/21 03:22 Alkaline Phosphatase 80 IU/L (42-121) 03/04/21 03:22 Troponin I High Sens 11.6 ng/L (2.3-14.8) 03/04/21 03:22 Total Protein 6.7 g/dL (6.7-8.2) 03/04/21 03:22 Albumin 3.6 g/dL (3.2-5.5) 03/04/21 03:22 Globulin 3.1 g/dL (2.1-4.2) 03/04/21 03:22 Albumin/Globulin Ratio 1.2 (1.0-2.2) 03/04/21 03:22 Lipase 24 U/L (22-51) 03/04/21 03:22 Urine Color YELLOW 03/04/21 03:15 Urine Clarity CLEAR (CLEAR) 03/04/21 03:15 Urine pH 5.5 PH (5.0-7.5) 03/04/21 03:15 Ur Specific [place] 1.025 (1.002-1.030) 03/04/21 03:15 Urine Protein NEGATIVE mg/dL (NEGATIVE) 03/04/21 03:15 Urine Glucose (UA) 500 mg/dL (NEGATIVE) H 03/04/21 03:15 Urine Ketones NEGATIVE mg/dL (NEGATIVE) 03/04/21 03:15 Urine Occult Blood NEGATIVE (NEGATIVE) 03/04/21 03:15 Urine Nitrite NEGATIVE (NEGATIVE) 03/04/21 03:15 Urine Bilirubin NEGATIVE (NEGATIVE) 03/04/21 03:15 Urine Urobilinogen 0.2 (NORMAL) E.U./dL (NORMAL) 03/04/21 03:15 Ur Leukocyte Esterase NEGATIVE (NEGATIVE) 03/04/21 03:15 Ur Microscopic Review NOT INDICATED 03/04/21 03:15 Urine Culture Comments NOT INDICATED 03/04/21 03:15 Nasal Adenovirus (PCR) NOT DETECTED 03/04/21 04:48 Nasal B. parapertussis DNA (PCR) NOT DETECTED 03/04/21 04:48 Nasal Coronavir 229E PCR NOT DETECTED 03/04/21 04:48 Nasal Coronavir HKU1 PCR NOT DETECTED 03/04/21 04:48 Nasal Coronavir NL63 PCR NOT DETECTED 03/04/21 04:48 Nasal Coronavir OC43 PCR NOT DETECTED 03/04/21 04:48 Nasal Enterovir/Rhinovir PCR NOT DETECTED 03/04/21 04:48 Nasal Influenza B PCR NOT DETECTED 03/04/21 04:48 Nasal Influenza A PCR NOT DETECTED 03/04/21 04:48 Nasal Parainfluen 1 PCR NOT DETECTED 03/04/21 04:48 Nasal Parainfluen 2 PCR NOT DETECTED 03/04/21 04:48 Nasal Parainfluen 3 PCR NOT DETECTED 03/04/21 04:48 Nasal Parainfluen 4 PCR NOT DETECTED 03/04/21 04:48 Nasal RSV (PCR) NOT DETECTED 03/04/21 04:48 Nasal Screen MRSA (PCR) POSITIVE (NEGATIVE) A* 03/04/21 06:00 Nasal B.pertussis DNA PCR NOT DETECTED 03/04/21 04:48 Nasal C.pneumoniae (PCR) NOT DETECTED 03/04/21 04:48 Bindu Human Metapneumo PCR NOT DETECTED 03/04/21 04:48 Nasal M.pneumoniae (PCR) NOT DETECTED 03/04/21 04:48 Nasal SARS-CoV-2 (PCR) NOT DETECTED 03/04/21 04:48 ABX Reporting Has patient been on IV antibiotics over the past 48 hours?: Yes Current Medications - Current Medications Current Medications: Active Medications Acetaminophen (Acetaminophen 325 Mg Tablet) 650 mg PO Q4HR PRN PRN Reason: Pain 1 to 4 Last Admin: 03/08/21 05:07 Dose: 650 mg Documented by: Alcohol (Ethyl Alcohol 62% Swab Ampule) 1 amp BINDU BID [facility] Last Admin: 03/08/21 08:34 Dose: 1 amp Documented by: Atorvastatin Calcium (Atorvastatin 40 Mg Tablet) 20 mg PO QPM [facility] Last Admin: 03/07/21 20:23 Dose: 20 mg Documented by: Diltiazem HCl (Diltiazem Cd 120 Mg Capsule) 120 mg PO DAILY [facility] Last Admin: 03/08/21 08:34 Dose: 120 mg Documented by: Docusate Sodium (Docusate Sodium 250 Mg Capsule) 250 - 500 mg PO DAILY [facility] Last Admin: 03/08/21 08:34 Dose: 250 mg Documented by: Enoxaparin Sodium (Enoxaparin 40 Mg/0.4 Ml Syringe) 40 mg SUBQ DAILY [facility] Last Admin: 03/08/21 08:34 Dose: 40 mg Documented by: Famotidine (Famotidine 20 Mg Tablet) 20 mg PO BID [facility] Last Admin: 03/08/21 08:33 Dose: 20 mg Documented by: Gabapentin (Gabapentin 300 Mg Capsule) 300 mg PO Q8HR PRN PRN Reason: PAIN Last Admin: 03/08/21 08:34 Dose: 300 mg Documented by: Hydromorphone HCl (Hydromorphone 0.5 Mg/0.5 Ml Syringe) 0.5 mg IVP Q2H PRN PRN Reason: Pain 8 to 10 Last Admin: 03/08/21 08:30 Dose: 0.5 mg Documented by: Hydromorphone HCl (Hydromorphone Dormitory Supervisor 20mg/100ml) 0 mg IV PRN PRN; Protocol PRN Reason: PAIN 5-7 Last Admin: 03/07/21 04:16 Dose: 20 mg Documented by: Cefazolin Sodium 2 gm/ Sodium (Chloride) 100 mls @ 200 mls/hr IV Q8HR [facility] Last Infusion: 03/08/21 07:00 Dose: Infused Documented by: Insulin Aspart (Insulin Aspart 300 Unit/3 Ml Pen) 3 - 11 unit SUBQ 0800,1200,1700,2100 [facility]; Protocol Last Admin: 03/08/21 08:36 Dose: 3 unit Documented by: Insulin Glargine (Insulin Glargine 300 Unit/3 Ml Pen) 6 unit SUBQ DAILY [facility] Last Admin: 03/08/21 08:36 Dose: 6 unit Documented by: Insulin Glargine (Insulin Glargine 300 Unit/3 Ml Pen) 5 unit SUBQ QPM [facility] Last Admin: 03/07/21 20:33 Dose: 5 unit Documented by: Losartan Potassium (Losartan 50 Mg Tablet) 50 mg PO DAILY [facility] Last Admin: 03/08/21 09:54 Dose: 50 mg Documented by: Nicotine (Nicotine 14 Mg Patch) 1 patch TOP DAILY [facility] Last Admin: 03/08/21 08:38 Dose: 1 patch Documented by: Ondansetron HCl (Ondansetron Odt 4 Mg Tablet) 4 mg TL Q6HR PRN PRN Reason: Nausea / Vomiting Ondansetron HCl (Ondansetron 4 Mg/2 Ml Vial) 4 mg IVP Q6HR PRN PRN Reason: Nausea / Vomiting Oxycodone HCl (Oxycodone 5 Mg Tablet) 5 mg PO Q4HR PRN PRN Reason: Pain 5 to 7 Last Admin: 03/08/21 08:30 Dose: 5 mg Documented by: Paroxetine HCl (Paroxetine 10 Mg Tablet) 10 mg PO DAILY [facility] Last Admin: 03/08/21 08:34 Dose: 10 mg Documented by: Polyethylene Glycol (Polyethylene Glycol 3350 17 Gm Packet) 17 gm PO DAILY [facility] Last Admin: 03/07/21 09:22 Dose: Not Given Documented by: Multivit/Folic Acid/Iron ( Vitamin Tablet) 1 tab PO DAILYWM [facility] Last Admin: 03/08/21 08:34 Dose: 1 tab Documented by: Saccharomyces Boulardii (Saccharomyces Boulardii 250 Mg Capsule) 250 mg PO BIDWM [facility] Last Admin: 03/08/21 08:34 Dose: 250 mg Documented by: Senna (Senna 8.6 Mg Tablet) 8.6 - 17.2 mg PO DAILY [facility] Last Admin: 03/07/21 09:22 Dose: Not Given Documented by: Sodium Chloride (Sodium Chloride Flush 0.9% 10 Ml Syringe) 10 ml IVP PRN PRN PRN Reason: NEEDED PER PROVIDER ORDERS Sodium Chloride (Sodium Chloride Flush 0.9% 10 Ml Syringe) 10 ml IVP 0100,0900,1700 [facility] Last Admin: 03/08/21 09:59 Dose: 10 ml Documented by: Thiamine HCl (Thiamine 100 Mg Tablet) 100 mg PO DAILY [facility] Last Admin: 03/08/21 08:34 Dose: 100 mg Documented by: Aspirin [Aspirin EC] 325 mg PO DAILY 08/26/20 Atorvastatin [Lipitor] 20 mg PO QPM 08/26/20 Diltiazem HCl [Diltiazem 12Hr ER] 120 mg PO DAILY 08/26/20 Insulin Glargine [Lantus Solostar] 6 unit SQ DAILY 08/26/20 Insulin Lispro [Humalog] 5 - 10 unit SQ TIDWM 08/26/20 Lactobacillus Acidophilus [Probiotic Acidophilus] 1 tab PO DAILY 08/26/20 Multivitamin 1 tab PO QPM 08/26/20 PARoxetine [Paxil] 10 mg PO DAILY 08/26/20 Gabapentin [Neurontin] 300 mg PO TID 03/04/21 Losartan [Cozaar] 50 mg PO DAILY 03/04/21 Insulin Glargine [Lantus Solostar] 5 unit SUBQ QPM 03/05/21
[2021-03-08] MEDS: polyethylene glycoL 3350 17 GM PACKET PO SCH (11:53)
[2021-03-08] MEDS: SENNA 8.6 MG TABLET PO SCH (11:53)
[2021-03-08] MEDS: CHOLECALCIFEROL 25 MCG TABLET PO SCH (12:34)
[2021-03-08] MEDS: CALCIUM CARBONATE CHEW 500 MG TABLET PO SCH (12:34)
--- NOTE | 2021-03-08 13:11 | PROVIDER PROGRESS NOTE ---
Subjective - Subjective Pt reports feeling: No change (poor pain control earlier with poor inspiration and increased rr) Objective - Vital Signs/Intake & Output Reviewed Vital Signs: Yes Vital Signs: Vital Signs x48h Temp Pulse Resp BP Pulse Ox 03/08/21 12:00 91 26 H 173/76 H 94 03/08/21 07:45 36.9 C 93 23 172/62 H 94 Intake & Output: Intake & Output 03/05/21 03/06/21 03/07/21 03/08/21 23:59 23:59 23:59 23:59 Intake Total 2319.5 1372.5 1200 620 Output Total 908 1920 1700 750 Balance 1411.5 -547.5 -500 -130 - Objective General Appearance: positive: No acute distress, Alert Eyes Bilateral: positive: PERRL Respiratory: positive: No respiratory distress Abdomen: positive: No distention Neurologic/Psychiatric: positive: Oriented x3 - Lab Results Fish Bones: 03/08/21 04:49 03/08/21 04:49 Other Labs: Lab Results x24hrs 03/08/21 03/08/21 Range/Units 04:49 04:49 WBC 7.7 (4.8-10.8) x10^3/uL RBC 3.42 L (4.20-5.40) 10^6/uL Hgb 11.0 L (12.0-16.0) g/dL Hct 33.3 L (37.0-47.0) % MCV 97.4 (81.0-99.0) fL MCH 32.2 H (27.0-31.0) pg MCHC 33.0 (32.0-36.0) g/dL RDW 13.7 (12.0-15.0) % Plt Count 244 (130-450) 10^3/uL MPV 11.7 H (7.9-10.8) fL Neut # (Auto) 5.2 (1.5-6.6) 10^3/uL Lymph # (Auto) 1.2 L (1.5-3.5) 10^3/uL [place] # (Auto) 1.1 H (0.0-1.0) 10^3/uL Eos # (Auto) 0.2 (0.0-0.7) 10^3/uL Baso # (Auto) 0.0 (0.0-0.1) 10^3/uL Absolute Nucleated RBC 0.00 x10^3/uL Nucleated RBC % 0.0 /100WBC Sodium 135 (135-145) mmol/L Potassium 3.9 (3.5-5.0) mmol/L Chloride 100 L (101-111) mmol/L Carbon Dioxide 25 (21-32) mmol/L Anion Gap 10.0 (6-13) BUN 12 (6-20) mg/dL Creatinine 0.8 (0.4-1.0) mg/dL Estimated GFR (MDRD) 71 L (>89) Glucose 155 H (70-100) mg/dL Calcium 8.4 L (8.5-10.3) mg/dL - Diagnostic Imaging Diagnostic Imaging Results: positive: Final report reviewed Assessment/Plan - Problem List (1) Pneumothorax Impression: painful this am with poor inspiration and 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 improved this afternoon. home when pain improved and able to take adequate breaths, perhaps tomorrow Qualifiers: Pneumothorax type: traumatic Encounter type: initial encounter Qualified Code(s): S27.0XXA - Traumatic pneumothorax, initial encounter
[2021-03-08] MEDS: ATORVASTATIN 40 MG TABLET PO SCH (20:35)
[2021-03-09] MEDS: ACETAMINOPHEN 325 MG TABLET PO PRN ×2 (00:14→13:00)
[2021-03-09] MEDS: oxyCODONE 5 MG TABLET PO PRN ×5 (00:15→13:05)
[2021-03-09] MEDS: ceFAZolin 2 GM in SODIUM CHLORIDE 0.9% 100ML 100 ML IV SCH ×3 (00:23→14:15)
[2021-03-09] MEDS: SODIUM CHLORIDE FLUSH 0.9% 10 ML SYRINGE IVP SCH ×2 (04:56→09:00)
[2021-03-09 05:54] LABS: BASOPHILS % (AUTO) 0.5 %; EOSINOPHILS # (AUTO) 0.2 10^3/uL (0.0-0.7); EOSINOPHILS % (AUTO) 2.6 %; HCT - HEMATOCRIT 32.4 % (37.0-47.0); HGB - HEMOGLOBIN 10.6 g/dL (12.0-16.0); LYMPHOCYTES # (AUTO) 1.1 10^3/uL (1.5-3.5); LYMPHOCYTES % (AUTO) 13.7 %; MEAN CORPUSCULAR HEMOGLOBIN 31.5 pg (27.0-31.0); MEAN CORPUSCULAR HGB CONC 32.7 g/dL (32.0-36.0); MEAN CORPUSCULAR VOLUME 96.1 fL (81.0-99.0); MEAN PLATELET VOLUME 11.2 fL (7.9-10.8); MONOCYTES # (AUTO) 1.2 10^3/uL (0.0-1.0); MONOCYTES % (AUTO) 13.9 %; NEUTROPHILS # (AUTO) 5.7 10^3/uL (1.5-6.6); NEUTROPHILS % (AUTO) 68.8 %; PLT - PLATELET COUNT 246 10^3/uL (130-450); RED BLOOD COUNT 3.37 10^6/uL (4.20-5.40); RED CELL DISTRIBUTION WIDTH 13.9 % (12.0-15.0); WHITE BLOOD COUNT 8.3 x10^3/uL (4.8-10.8)
[2021-03-09 06:03] LABS: CALCIUM 8.3 mg/dL (8.5-10.3); CREATININE 0.7 mg/dL (0.4-1.0); POTASSIUM 3.7 mmol/L (3.5-5.0)
[2021-03-09 07:34] LABS: CALCIUM, IONIZED 1.1 mmol/L (1.15-1.33); VBG PH 7.414 (7.31-7.41)
--- NOTE | 2021-03-09 08:21 | PROVIDER PROGRESS NOTE ---
Subjective - Prog Note Date Prog Note Date: 03/09/21 - Subjective Pt reports feeling: No change (still painfull, needing iv pain meds in addtion to oral) Objective - Vital Signs/Intake & Output Reviewed Vital Signs: Yes Vital Signs: Vital Signs x48h Temp Pulse Resp BP Pulse Ox 03/09/21 05:34 161/82 H 03/09/21 04:00 36.7 C 72 14 90 L Intake & Output: Intake & Output 03/06/21 03/07/21 03/08/21 03/09/21 23:59 23:59 23:59 23:59 Intake Total 1372.5 1200 1020 100 Output Total 1920 1700 1610 700 Balance -547.5 -500 -590 -600 - Objective General Appearance: positive: No acute distress, Alert Eyes Bilateral: positive: PERRL, EOMI ENT: positive: No signs of dehydration Neck: positive: No JVD Respiratory: positive: No respiratory distress Abdomen: positive: No distention Neurologic/Psychiatric: positive: Oriented x3 - Lab Results Fish Bones: 03/09/21 05:18 03/09/21 05:18 Other Labs: Lab Results x24hrs 03/09/21 03/09/21 03/09/21 Range/Units 07:21 05:18 05:18 WBC 8.3 (4.8-10.8) x10^3/uL RBC 3.37 L (4.20-5.40) 10^6/uL Hgb 10.6 L (12.0-16.0) g/dL Hct 32.4 L (37.0-47.0) % MCV 96.1 (81.0-99.0) fL MCH 31.5 H (27.0-31.0) pg MCHC 32.7 (32.0-36.0) g/dL RDW 13.9 (12.0-15.0) % Plt Count 246 (130-450) 10^3/uL MPV 11.2 H (7.9-10.8) fL Neut # (Auto) 5.7 (1.5-6.6) 10^3/uL Lymph # (Auto) 1.1 L (1.5-3.5) 10^3/uL [place] # (Auto) 1.2 H (0.0-1.0) 10^3/uL Eos # (Auto) 0.2 (0.0-0.7) 10^3/uL Baso # (Auto) 0.0 (0.0-0.1) 10^3/uL Absolute Nucleated RBC 0.00 x10^3/uL Nucleated RBC % 0.0 /100WBC VBG pH 7.414 H (7.31-7.41) Ionized Calcium 1.10 L (1.15-1.33) mmol/L Sodium 133 L (135-145) mmol/L Potassium 3.7 (3.5-5.0) mmol/L Chloride 98 L (101-111) mmol/L Carbon Dioxide 24 (21-32) mmol/L Anion Gap 11.0 (6-13) BUN 12 (6-20) mg/dL Creatinine 0.7 (0.4-1.0) mg/dL Estimated GFR (MDRD) 83 L (>89) Glucose 182 H (70-100) mg/dL Calcium 8.3 L (8.5-10.3) mg/dL Assessment/Plan - Problem List (1) Pneumothorax Impression: home when able to take adequate breaths on oral meds alone. Qualifiers: Pneumothorax type: traumatic Encounter type: initial encounter Qualified Code(s): S27.0XXA - Traumatic pneumothorax, initial encounter
[2021-03-09] MEDS: INSULIN GLARGINE 300 UNIT/3 ML PEN SUBQ SCH (09:00)
[2021-03-09] MEDS: SACCHAROMYCES BOULARDII 250 MG CAPSULE PO SCH (09:00)
[2021-03-09] MEDS: THIAMINE 100 MG TABLET PO SCH (09:00)
[2021-03-09] MEDS: SENNA 8.6 MG TABLET PO SCH (09:00)
[2021-03-09] MEDS: CHOLECALCIFEROL 25 MCG TABLET PO SCH (09:00)
[2021-03-09] MEDS: diltiaZEM CD 120 MG CAPSULE PO SCH (09:00)
[2021-03-09] MEDS: polyethylene glycoL 3350 17 GM PACKET PO SCH (09:00)
[2021-03-09] MEDS: INSULIN ASPART 300 UNIT/3 ML PEN SUBQ SCH ×2 (09:00→12:40)
[2021-03-09] MEDS: DOCUSATE SODIUM 250 MG CAPSULE PO SCH (09:00)
[2021-03-09] MEDS: PRENATAL VITAMIN TABLET PO SCH (09:00)
[2021-03-09] MEDS: FAMOTIDINE 20 MG TABLET PO SCH (09:15)
[2021-03-09] MEDS: LOSARTAN 50 MG TABLET PO SCH (09:15)
[2021-03-09] MEDS: PARoxetine 10 MG TABLET PO SCH (09:15)
[2021-03-09] MEDS: NICOTINE 14 MG PATCH TOP SCH (09:15)
[2021-03-09] MEDS: CALCIUM CARBONATE CHEW 500 MG TABLET PO SCH (09:18)
[2021-03-09] MEDS: ENOXAPARIN 40 MG/0.4 ML SYRINGE SUBQ SCH (09:41)
[2021-03-09] MEDS: ethyl alcohoL 62% SWAB AMPULE NAS SCH (09:42)
[2021-03-09] MEDS ORDERED: LOSARTAN 50 MG TABLET PO ONE (10:00)
--- NOTE | 2021-03-09 15:03 | Discharge Plan ---
Discharge Plan Problem Reviewed?: Yes Disposition: Home, Self Care Condition: Good Prescriptions: oxyCODONE/ACET 5/325 [Percocet 5 mg/325 mg] 1 each PO Q4-6H PRN #40 tablet PRN Reason: Pain Diet: Regular Activity Restrictions: Additional Comments (no flying for 6 weeks) Shower Restrictions: No Driving Restrictions: No Health Concerns: Fall with left rib fractures and pneumothorax. Cellulitis groin area Plan of Treatment: Treated with pain management, chest tube, pulmonary toilet, IV antibiotics for cellulitis. Assessment: Cellulitis resolved. Pneumothorax resolved and chest tube removed. Pain manageable on oral medication Additional Instructions or Follow Up instructions: Follow up surgery office as needed Call with any concerns [phone] No Smoking: If you smoke, Please STOP! Call for help.
--- NOTE | 2021-03-09 15:08 | DISCHARGE SUMMARY ---
"Discharge Summary Admit Date: 03/04/21 Discharge Date: 03/09/21 Discharging Provider: valentina vazquez md Code Status: Attempt Resuscitation Condition at Discharge: Good Discharge Disposition: 01 Home, Self Care Discharge Facility Name: [facility] - DIAGNOSES Admission Diagnoses: fall with left rib fractures and pneumothorax. cellulitis groin area Discharge Diagnoses with Status of Each Condition: home much improved and in good condition. - HPI History of Present Illness: Fall 03/04/2021 resulting in rib fractures and pneumothorax requiring chest tube and pain management. Progressive pain and redness groin area for 2 weeks prior to admission. - CONSULTS | PROCEDURES Procedures: chest tube placement and pain management for chest injury. iv antibiotics for cellulitis. - HOSPITAL COURSE Hospital Course: daily improvement. home 03/10/2021. chest tube out and pneumothorax resolved. cellulitis resolved. pain manageable on po meds. - ALLERGIES Allergies/Adverse Reactions: Allergies Allergy/AdvReac Type Severity Reaction Status Date / Time Penicillins Allergy Unknown Verified 03/04/21 12:52 Sulfa (Sulfonamide Allergy Unknown Verified 03/04/21 12:52 Antibiotics) lisinopril AdvReac Unknown Verified 03/04/21 12:52 - MEDICATIONS Home Medications: Ambulatory Orders Medication Instructions Recorded Confirmed Aspirin [Aspirin EC] 325 mg PO DAILY 08/26/20 03/04/21 Atorvastatin [Lipitor] 20 mg PO QPM 08/26/20 03/04/21 Diltiazem HCl [Diltiazem 12Hr ER] 120 mg PO DAILY 08/26/20 03/04/21 Insulin Glargine [Lantus Solostar] 6 unit SQ DAILY 08/26/20 03/05/21 Insulin Lispro [Humalog] 5 - 10 unit SQ TIDWM 08/26/20 03/05/21 Lactobacillus Acidophilus 1 tab PO DAILY 08/26/20 03/04/21 [Probiotic Acidophilus] Multivitamin 1 tab PO QPM 08/26/20 03/04/21 PARoxetine [Paxil] 10 mg PO DAILY 08/26/20 03/04/21 Gabapentin [Neurontin] 300 mg PO TID 03/04/21 03/04/21 Losartan [Cozaar] 50 mg PO DAILY 03/04/21 03/04/21 Insulin Glargine [Lantus Solostar] 5 unit SUBQ QPM 03/05/21 03/05/21 oxyCODONE/ACET 5/325 [Percocet 5 1 each PO Q4-6H PRN #40 tablet 03/09/21 mg/325 mg] - PHYSICAL EXAM AT DISCHARGE General Appearance: positive: No acute distress, Alert Eyes Bilateral: positive: PERRL, EOMI ENT: positive: No signs of dehydration Neck: positive: No JVD Respiratory: positive: No respiratory distress Abdomen: positive: No distention Neurologic/Psychiatric: positive: Oriented x3 - LABS Result Diagrams: 03/09/21 05:18 03/09/21 05:18 - DIAGNOSTIC IMAGING Diagnostic Imaging Results: Final report reviewed, Read independently - FOLLOW UP Follow Up: primary care provider follow up surgery office as needed. [phone]"
[2021-03-09 15:57] VITALS: BP 175/79
[2021-03-10] MEDS ORDERED: LOSARTAN 50 MG TABLET PO SCH (09:00)
== END 2021-03-09 16:15 | disposition home or self-care (01) | DRG 200 ==
LOC: EDUNIT# → ED 03:03 → ICU 04:40
PROVIDERS: ADMIT Surgery; ATTEND Surgery
DX: S27.0XXA Traumatic pneumothorax, initial encounter (principal); S22.42XA Multiple fractures of ribs, left side, initial encounter for closed fracture; I47.1 Supraventricular tachycardia; Z91.81 History of falling; Y92.9 Unspecified place or not applicable; L03.314 Cellulitis of groin; E11.9 Type 2 diabetes mellitus without complications; Z20.822 Contact with and (suspected) exposure to COVID-19; F17.200 Nicotine dependence, unspecified, uncomplicated; T79.7XXA Traumatic subcutaneous emphysema, initial encounter; J90 Pleural effusion, not elsewhere classified; W18.30XA Fall on same level, unspecified, initial encounter; Y92.009 Unspecified place in unspecified non-institutional (private) residence as the place of occurrence of the external cause; J44.9 Chronic obstructive pulmonary disease, unspecified; E11.65 Type 2 diabetes mellitus with hyperglycemia; Z79.4 Long term (current) use of insulin; I10 Essential (primary) hypertension; F32.9 Major depressive disorder, single episode, unspecified; F41.9 Anxiety disorder, unspecified; I49.9 Cardiac arrhythmia, unspecified; R55 Syncope and collapse; F10.10 Alcohol abuse, uncomplicated
CPT/HCPCS: 32551; 36415; 71045; 80048; 80053; 81003; 82330; 83036; 83690; 84484; 85025; 85027; 85610; 87040; 87150; 87631; 93005; 93306; 96374; 97161; 99284; 99285; A9270; J1170; J1650; J1815; 0202U; 81001; 87086; 90670

== ENCOUNTER 2021-06-09 08:17 | Outpatient (CLI) | payer MEDICARE, OTHER ==
[2021-06-09 08:34] LABS: BASOPHILS # (AUTO) 0.1 10^3/uL (0.0-0.1); BASOPHILS % (AUTO) 0.5 %; EOSINOPHILS # (AUTO) 0.2 10^3/uL (0.0-0.7); EOSINOPHILS % (AUTO) 1.8 %; HCT - HEMATOCRIT 42.2 % (37.0-47.0); HGB - HEMOGLOBIN 13.8 g/dL (12.0-16.0); LYMPHOCYTES # (AUTO) 1.6 10^3/uL (1.5-3.5); LYMPHOCYTES % (AUTO) 16.5 %; MEAN CORPUSCULAR HEMOGLOBIN 30.1 pg (27.0-31.0); MEAN CORPUSCULAR HGB CONC 32.7 g/dL (32.0-36.0); MEAN CORPUSCULAR VOLUME 91.9 fL (81.0-99.0); MONOCYTES # (AUTO) 0.8 10^3/uL (0.0-1.0); MONOCYTES % (AUTO) 8.1 %; NEUTROPHILS # (AUTO) 7.2 10^3/uL (1.5-6.6); NEUTROPHILS % (AUTO) 72.8 %; PLT - PLATELET COUNT 333 10^3/uL (130-450); RED BLOOD COUNT 4.59 10^6/uL (4.20-5.40); RED CELL DISTRIBUTION WIDTH 16.5 % (12.0-15.0); WHITE BLOOD COUNT 9.8 x10^3/uL (4.8-10.8)
[2021-06-09 12:58] LABS: ESTIMATED AVERAGE GLUCOSE 151 mg/dL (70-100); HEMOGLOBIN A1c% 6.9 % (4.27-6.07)
== END 2021-06-09 08:18 | disposition home or self-care (01) ==
LOC: LAB 08:17
PROVIDERS: ATTEND Nurse Practitioner
DX: E10.65 Type 1 diabetes mellitus with hyperglycemia (principal); Z79.899 Other long term (current) drug therapy
CPT/HCPCS: 36415; 83036; 85025

== ENCOUNTER 2021-06-18 10:30 | Outpatient (CLI) | payer MEDICARE, OTHER ==
[2021-06-18 15:15] LABS: BILIRUBIN,URINE NEGATIVE (NEGATIVE); GLUCOSE, URINE (UA) NEGATIVE (NEGATIVE); KETONES,URINE (UA) TRACE mg/dL (NEGATIVE); LEUKOCYTE ESTERASE, URINE MODERATE (NEGATIVE); NITRITE,URINE POSITIVE (NEGATIVE); OCCULT BLOOD,URINE NEGATIVE (NEGATIVE); PH,URINE 5.5 PH (5.0-7.5); PROTEIN,URINE TRACE mg/dL (NEGATIVE); UROBILINOGEN,URINE 1 (NORMAL) E.U./dL (NORMAL)
[2021-06-18 15:44] LABS: AMORPHOUS SEDIMENT,UR Rare /LPF; BACTERIA,URINE Many /HPF (None Seen); CLARITY,URINE HAZY (CLEAR); SQUAMOUS EPITHELIAL CELL,UR FEW Squamous (<= Few); WBC CLUMPS,URINE PRESENT; WBC,URINE >25 /HPF (0-5)
== END 2021-06-18 23:59 | disposition home or self-care (01) ==
LOC: LAB.S 10:30
PROVIDERS: ATTEND Registered Nurse
DX: R30.0 Dysuria (principal)
CPT/HCPCS: 81001; 87086; 87181

== ENCOUNTER 2021-10-09 17:39 | Outpatient (CLI) | payer MEDICARE, OTHER | END 2021-10-09 17:40 | disposition home or self-care (01) | LOC: LAB 17:39 | PROVIDERS: ATTEND Registered Nurse | DX: R30.0 Dysuria (principal) | CPT/HCPCS: 87077; 87086; 87181 ==

== ENCOUNTER 2022-01-10 09:49 | Outpatient (CLI) | payer MEDICARE, OTHER ==
[2022-01-10 13:24] LABS: ESTIMATED AVERAGE GLUCOSE 154 mg/dL (70-100)
== END 2022-01-10 09:50 | disposition home or self-care (01) ==
LOC: LAB 09:49
PROVIDERS: ATTEND Nurse Practitioner
DX: E10.65 Type 1 diabetes mellitus with hyperglycemia (principal)
CPT/HCPCS: 36415; 83036

== ENCOUNTER 2022-02-04 08:00 | Outpatient (CLI) | payer MEDICARE, OTHER | END 2022-02-04 23:59 | disposition home or self-care (01) | LOC: LAB 08:00 | PROVIDERS: ATTEND Physician Assistant Medical | DX: N39.0 Urinary tract infection, site not specified (principal) | CPT/HCPCS: 87077; 87086; 87181 ==

== ENCOUNTER 2022-02-23 04:35 | Outpatient (CLI) | payer MEDICARE, OTHER | END 2022-02-23 04:36 | disposition critical access hospital (66) | LOC: EMS 04:35 | DX: R40.20 Unspecified coma (principal); R06.89 Other abnormalities of breathing | CPT/HCPCS: A0425; A0427 ==

== ENCOUNTER 2022-02-23 05:22 | Emergency (ER) | payer MEDICARE, OTHER ==
[2022-02-23 05:50] LABS: BASOPHILS % (AUTO) 0.6 %; EOSINOPHILS # (AUTO) 0.1 10^3/uL (0.0-0.7); EOSINOPHILS % (AUTO) 1.6 %; HCT - HEMATOCRIT 37.8 % (37.0-47.0); HGB - HEMOGLOBIN 12.4 g/dL (12.0-16.0); LYMPHOCYTES # (AUTO) 1.4 10^3/uL (1.5-3.5); LYMPHOCYTES % (AUTO) 22.1 %; MEAN CORPUSCULAR HEMOGLOBIN 32.4 pg (27.0-31.0); MEAN CORPUSCULAR HGB CONC 32.8 g/dL (32.0-36.0); MEAN CORPUSCULAR VOLUME 98.7 fL (81.0-99.0); MEAN PLATELET VOLUME 10.8 fL (7.9-10.8); MONOCYTES # (AUTO) 0.6 10^3/uL (0.0-1.0); MONOCYTES % (AUTO) 9.5 %; NEUTROPHILS # (AUTO) 4.2 10^3/uL (1.5-6.6); NEUTROPHILS % (AUTO) 65.9 %; PLT - PLATELET COUNT 244 10^3/uL (130-450); RED BLOOD COUNT 3.83 10^6/uL (4.20-5.40); RED CELL DISTRIBUTION WIDTH 14.4 % (12.0-15.0); WHITE BLOOD COUNT 6.4 x10^3/uL (4.8-10.8)
--- NOTE | 2022-02-23 06:02 | ED Physician Documentation ---
History of Present Illness - Stated complaint Stated Complaint: AMS, ETOH - Chief complaint Chief Complaint: Neuro - History obtained from History obtained from: Patient, EMS - Additonal information Additional information: 71yF with pmh htn, hld, dm2, copd, +smoker, p/w unresponsive episode. patient was found unresponsive by , prompting him to call ems. on their arrival she was given 2mg IV narcan and underwent sternal rub with improvement in mental status. on arrival to ed patient is AOX3 but unaware of what happened overnight. Last thing she remembers is drinking a couple glasses of wine and taking several fireball shots. denies other drug use. 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: Hysterectomy - Present Medications Home Medications: Ambulatory Orders Medication Instructions Recorded Confirmed Aspirin [Aspirin EC] 325 mg PO DAILY 08/26/20 02/23/22 Atorvastatin [Lipitor] 20 mg PO QPM 08/26/20 02/23/22 Diltiazem HCl [Diltiazem 12Hr ER] 120 mg PO DAILY 08/26/20 02/23/22 Insulin Lispro [Humalog] 5 - 10 unit SQ TIDWM 08/26/20 03/05/21 Lactobacillus Acidophilus 1 tab PO DAILY 08/26/20 02/23/22 [Probiotic Acidophilus] Gabapentin [Neurontin] 300 mg PO TID 03/04/21 02/23/22 Losartan [Cozaar] 100 mg PO DAILY 03/04/21 02/23/22 Insulin Glargine [Lantus Solostar] 5 unit SUBQ QPM 03/05/21 03/05/21 - Allergies Allergies/Adverse Reactions: Allergies Allergy/AdvReac Type Severity Reaction Status Date / Time Penicillins Allergy Unknown Verified 02/23/22 05:30 Sulfa (Sulfonamide Allergy Unknown Verified 02/23/22 05:30 Antibiotics) lisinopril AdvReac Unknown Verified 02/23/22 05:30 - Social History Does the pt smoke?: Yes Smoking Status: Current every day smoker Does the pt drink ETOH?: Yes Does the pt have substance abuse?: No - Immunizations Immunizations are current?: No - POLST Patient has POLST: No PD ED PE NORMAL - Vitals Vital signs reviewed: Yes - General General: Alert 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, No acute distress, Other (elderly appearing) - HEENT HEENT: Atraumatic, PERRL, EOMI, Moist mucous membranes, Pharynx benign - Neck Neck: Supple, no meningeal sign - Cardiac Cardiac: RRR - Respiratory Respiratory: No respiratory distress, Clear bilaterally - Abdomen Abdomen: Non tender, Non distended - Derm Derm: Normal color, Warm and dry - Extremities Extremities: No deformity - Neuro Neuro: Alert 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, supervisor hand silvering 2-12 intact, No motor deficit, No sensory deficit, Normal speech Eye Opening: Spontaneous Motor: Obeys Commands Verbal: Oriented GCS Score: 15 - Psych Psych: Normal mood, Normal affect Results - Vitals Vitals: Vital Signs - 24 hr 02/23/22 02/23/22 02/23/22 05:27 05:32 05:56 Temperature 36.3 C L Heart Rate 83 75 79 Respiratory 16 14 15 Rate Blood Pressure 113/63 O2 Saturation 98 96 96 02/23/22 05:59 Temperature Heart Rate 63 Respiratory 14 Rate Blood Pressure 130/74 O2 Saturation 94 Oxygen O2 Source Room air - Labs Labs: Laboratory Tests 02/23/22 02/23/22 02/23/22 05:38 05:38 05:38 WBC 6.4 RBC 3.83 L Hgb 12.4 Hct 37.8 MCV 98.7 MCH 32.4 H MCHC 32.8 RDW 14.4 Plt Count 244 MPV 10.8 Neut # (Auto) 4.2 Lymph # (Auto) 1.4 L Floyd # (Auto) 0.6 Eos # (Auto) 0.1 Baso # (Auto) 0.0 Absolute Nucleated RBC 0.00 Nucleated RBC % 0.0 Sodium 129 L Potassium 4.1 Chloride 94 L Carbon Dioxide 24 Anion Gap 11.0 BUN 14 Creatinine 0.9 Estimated GFR (MDRD) 62 L Glucose 207 H Calcium 8.4 L Total Bilirubin 0.6 AST 54 H ALT 24 Alkaline Phosphatase 80 Total Protein 6.5 L Albumin 3.5 Globulin 3.0 Albumin/Globulin Ratio 1.2 Lipase 53 H TSH 2.41 Salicylates < 6.0 Acetaminophen < 10 L Ethyl Alcohol 120.4 PD MEDICAL DECISION MAKING - ED course ED course: 71yF presents s/p acute unresponsive episode. patient AOX3 in the ED. declining narcotic pain medication or drug use last night, stating she only had alcohol and her regular home meds including cbd and gabapentin. will continue to monitor. Patient with hyponatremia but when corrected for glucose it is 132. otherwise no significant lab derangements aside from elevated blood alcohol. Will endorse to daytime ED MD Dr. Guadalupe pending sobriety. Departure - Departure Clinical Impression: Alcohol abuse, Unresponsiveness Condition: Stable Instructions: Addiction Alcohol Signs Comments: You were seen in the ED for evaluation after being found unresponsive. Your alcohol level was elevated in the emergency department, indicating this may be responsible for your episode. Please drink responsibly. Follow up with your primary care provider and return to the ED if you have other concerns.
[2022-02-23 06:04] LABS: ACETAMINOPHEN < 10 ug/mL (10-30); ALBUMIN 3.5 g/dL (3.2-5.5); ALBUMIN/GLOBULIN RATIO 1.2 (1.0-2.2); ALKALINE PHOSPHATASE 80 IU/L (42-121); ALT ALANINE AMINOTRANSFERASE 24 IU/L (10-60); AST ASPARTATE AMINOTRANSFERASE 54 IU/L (10-42); BILIRUBIN,TOTAL 0.6 mg/dL (0.2-1.0); BUN - BLOOD UREA NITROGEN 14 mg/dL (6-20); CALCIUM 8.4 mg/dL (8.5-10.3); CARBON DIOXIDE - CO2 24 mmol/L (21-32); CHLORIDE 94 mmol/L (101-111); CREATININE 0.9 mg/dL (0.4-1.0); ETOH - ETHANOL 120.4 mg/dL; GFR - MDRD 62 (>89); GLUCOSE 207 mg/dL (70-100); LIPASE 53 U/L (22-51); POTASSIUM 4.1 mmol/L (3.5-5.0); SALICYLATE < 6.0 mg/dL; SODIUM 129 mmol/L (135-145); TOTAL PROTEIN 6.5 g/dL (6.7-8.2)
[2022-02-23] MEDS ORDERED: SODIUM CHLORIDE 0.9% 500 ML IV STA (06:20)
[2022-02-23 07:12] LABS: MUDS CUTOFF CONCENTRATIONS CUTOFF CONC BELOW:
[2022-02-23 07:15] LABS: BILIRUBIN,URINE NEGATIVE (NEGATIVE); GLUCOSE, URINE (UA) 100 mg/dL (NEGATIVE); KETONES,URINE (UA) NEGATIVE (NEGATIVE); LEUKOCYTE ESTERASE, URINE NEGATIVE (NEGATIVE); NITRITE,URINE NEGATIVE (NEGATIVE); OCCULT BLOOD,URINE NEGATIVE (NEGATIVE); PROTEIN,URINE NEGATIVE (NEGATIVE); UROBILINOGEN,URINE 0.2 (NORMAL) E.U./dL (NORMAL)
[2022-02-23 07:26] LABS: CLARITY,URINE CLEAR (CLEAR)
[2022-02-23 07:27] LABS: AMPHETAMINE SCREEN,URINE NEGATIVE (NEGATIVE); BARBITURATE SCREEN,UR NEGATIVE (NEGATIVE); BENZODIAZEPINES SCREEN, URINE NEGATIVE (NEGATIVE); COCAINE SCREEN URINE NEGATIVE (NEGATIVE); METHADONE SCREEN, URINE NEGATIVE (NEGATIVE); METHAMPHETAMINES SCREEN, URINE NEGATIVE (NEGATIVE); OPIATE SCREEN, URINE NEGATIVE (NEGATIVE); OXYCODONE SCREEN, URINE NEGATIVE (NEGATIVE); PROPOXYPHENE SCREEN, URINE NEGATIVE (NEGATIVE); THC CANNABINOID SCREEN, URINE NEGATIVE (NEGATIVE); TRICYCLIC ANTIDEPRESSANT,URINE NEGATIVE (NEGATIVE)
[2022-02-23 09:08] VITALS: BP 159/83
--- NOTE | 2022-03-31 07:20 | ED Physician Documentation ---
ED Addendum - Addendum Addendum: 03/31/22 07:17 72-year-old female seen by Dr. Giraldo overnight for an episode of unre sponsiveness related to alcohol intoxication. Patient's care was turned over to me in the a.m. while awaiting for the patient's to return to take her home. The patient sobered and was able to recall events from the evening prior indicating overindulgence. She was discharged to home in the care of her to follow-up with Jennifer Stevenson. Impression: Alcohol abuse, unresponsiveness. Plan: Patient discharged to home in care of her to follow-up with [facility]
== END 2022-02-23 11:45 | disposition home or self-care (01) ==
LOC: EDUNIT# → ED 05:22
DX: F10.10 Alcohol abuse, uncomplicated (principal); Y90.6 Blood alcohol level of 120-199 mg/100 ml; F17.200 Nicotine dependence, unspecified, uncomplicated
CPT/HCPCS: 36415; 80053; 80306; 80307; 81003; 83690; 84443; 85025; 93005; 99283; 99284; G0480; 80320; 80329; 81001; 87086

== ENCOUNTER 2022-02-26 12:57 | Outpatient (CLI) | payer MEDICARE, OTHER ==
--- NOTE | 2022-02-26 16:31 | CT Report ---
PROCEDURE: CHEST WO INDICATIONS: LUNG CA TECHNIQUE: Noncontrast 1mm axial images were acquired from the pulmonary apices to the posterior costophrenic an gles. Axial 5 mm soft tissue kernel reconstructions were performed as well as 8 mm axial MIP and cor onal and sagittal 5 mm reformations. For radiation dose reduction, the following was used: automate d exposure control, adjustment of mA and/or kV according to patient size. COMPARISON: 07/28/2021 FINDINGS: Image quality: Excellent. Lungs and pleura: Postoperative change can be seen, with partial left upper lobectomy. There is a mil d amount of thickening seen along the lateral aspect of the staple line, as on series 4 image 90. Multiple tiny poorly defined pulmonary nodules can be seen involving both lungs. The previously seen left-sided pleural effusion is no longer seen. Mediastinum: Heart size is normal. No pericardial effusion. No mediastinal adenopathy by size crit eria. Thoracic aorta and central pulmonary arteries are normal in size. Atherosclerotic calcificatio n is seen. Moderate coronary artery calcification can also be seen. Esophagus is normal in caliber. T here is a small hiatal hernia. Bones and chest wall: No suspicious bony lesions. No vertebral body compression fractures. Left po sterior rib fractures are seen, with partial healing. This is presumed to be post surgical. Age-appro priate degenerative changes are seen. No axillary or supraclavicular adenopathy by size criteria. The thyroid is normal in size and there are no incidental findings. Abdomen: Visualized upper abdominal solid organs and bowel loops appear normal in the absence of con trast. IMPRESSION: Postoperative change, with partial left upper lobectomy. There is mild thickening seen along the late ral aspect of the staple line, which is likely within postoperative limits. Numerous tiny poorly defined pulmonary nodules are seen, which are similar to the prior, likely relat ed to metastatic disease. Please consider follow-up in 3-6 months for further evaluation. The previously seen left-sided pleural effusion has resolved. Incidental note is made of: Moderate coronary artery calcification Small hiatal hernia Partially healed left posterior rib fractures, presumed to be postoperative Reviewed by: William Lopez MD on 02/26/2022 3:29 PM [place] Approved by: William Lopez MD on 02/26/2022 3:29 PM [place] Station ID: [id number]
== END 2022-02-26 12:58 | disposition home or self-care (01) ==
LOC: DI 12:57
PROVIDERS: ATTEND Physician Assistant Surgical
DX: C34.12 Malignant neoplasm of upper lobe, left bronchus or lung (principal); Z90.2 Acquired absence of lung [part of]

== ENCOUNTER 2022-05-09 14:08 | Outpatient (CLI) | payer MEDICARE, OTHER ==
[2022-05-09 20:59] LABS: ESTIMATED AVERAGE GLUCOSE 151 mg/dL (70-100); HEMOGLOBIN A1c% 6.9 % (4.27-6.07)
== END 2022-05-09 14:09 | disposition home or self-care (01) ==
LOC: LAB 14:08
PROVIDERS: ATTEND Nurse Practitioner
DX: E10.65 Type 1 diabetes mellitus with hyperglycemia (principal)
CPT/HCPCS: 36415; 83036

== ENCOUNTER 2022-05-11 08:00 | Outpatient (CLI) | payer MEDICARE, OTHER | END 2022-05-11 08:01 | disposition home or self-care (01) | LOC: LAB 08:00 | PROVIDERS: ATTEND Internal Medicine | DX: A31.9 Mycobacterial infection, unspecified (principal); R91.8 Other nonspecific abnormal finding of lung field | CPT/HCPCS: 81599 ==

== ENCOUNTER 2022-05-12 08:00 | Outpatient (CLI) | payer MEDICARE, OTHER | END 2022-05-12 08:01 | disposition home or self-care (01) | LOC: LAB 08:00 | PROVIDERS: ATTEND Internal Medicine | DX: A31.9 Mycobacterial infection, unspecified (principal); R91.8 Other nonspecific abnormal finding of lung field | CPT/HCPCS: 81599 ==

== ENCOUNTER 2022-05-13 08:00 | Outpatient (CLI) | payer MEDICARE, OTHER | END 2022-05-13 08:01 | disposition home or self-care (01) | LOC: LAB 08:00 | PROVIDERS: ATTEND Internal Medicine | DX: A31.9 Mycobacterial infection, unspecified (principal); R91.8 Other nonspecific abnormal finding of lung field | CPT/HCPCS: 81599 ==

== ENCOUNTER → 2022-06-15 | Outpatient (CLI) | payer MEDICARE, OTHER | LOC: LAB.R 08:00 | DX: A31.9 Mycobacterial infection, unspecified (principal); R91.8 Other nonspecific abnormal finding of lung field | CPT/HCPCS: 81599; 87015; 87116; 87206 ==

== ENCOUNTER 2022-09-06 16:00 | Inpatient (IN) | payer MEDICARE, OTHER ==
[2022-09-06 17:02] LABS: BASOPHILS % (AUTO) 0.3 %; EOSINOPHILS % (AUTO) 0.3 %; HCT - HEMATOCRIT 34.2 % (37.0-47.0); HGB - HEMOGLOBIN 11.9 g/dL (12.0-16.0); LYMPHOCYTES # (AUTO) 0.7 10^3/uL (1.5-3.5); LYMPHOCYTES % (AUTO) 9.3 %; MEAN CORPUSCULAR HEMOGLOBIN 33.4 pg (27.0-31.0); MEAN CORPUSCULAR HGB CONC 34.8 g/dL (32.0-36.0); MEAN CORPUSCULAR VOLUME 96.1 fL (81.0-99.0); MEAN PLATELET VOLUME 10.4 fL (7.9-10.8); MONOCYTES # (AUTO) 0.7 10^3/uL (0.0-1.0); MONOCYTES % (AUTO) 9.9 %; NEUTROPHILS # (AUTO) 5.7 10^3/uL (1.5-6.6); NEUTROPHILS % (AUTO) 79.9 %; PLT - PLATELET COUNT 295 10^3/uL (130-450); RED BLOOD COUNT 3.56 10^6/uL (4.20-5.40); RED CELL DISTRIBUTION WIDTH 13.6 % (12.0-15.0); WHITE BLOOD COUNT 7.1 x10^3/uL (4.8-10.8)
[2022-09-06 17:06] LABS: VBG PCO2 27.7 mmHg (41-51); VBG PH 7.532 (7.31-7.41)
--- NOTE | 2022-09-06 17:06 | XRAY Report ---
PROCEDURE: Chest 1 View X-Ray INDICATIONS: chest pain TECHNIQUE: One view of the chest was acquired. COMPARISON: 07/19/2021. Correlation is also made with chest CT, 02/26/2022. FINDINGS: Surgical changes and devices: None. Lungs and pleura: No pleural effusions or pneumothorax. Lungs are clear. Mediastinum: Mediastinal contours appear normal. Heart size is normal. Calcification is seen of t he aortic arch. Bones and chest wall: Remote left posterior rib fractures are seen. No suspicious bony lesions. Ove rlying soft tissues appear unremarkable. IMPRESSION: No acute abnormality is seen on this single view portable chest. Remote left posterior rib fractures noted. Reviewed by: William Lopez MD on 09/06/2022 4:05 PM [place] Approved by: William Lopez MD on 09/06/2022 4:05 PM [place] Station ID: [id number]
[2022-09-06 17:07] LABS: VBG BASE EXCESS 1.1 mmol/L (-2 - +2); VBG HCO3 22.7 mmol/L (23-28); VBG OXYGEN SATURATION 26.3 % (60-80); VBG PO2 16.6 mmHg (25-47); VBG TOTAL CO2 23.6 mmol/L (24-29)
--- OUTSIDE RECORDS SUMMARY | 2022-09-06 17:07 | EXTERNAL MEDICAL SUMMARY RPT | Continuity of Care Document ---
Author Name Unknown Address [address] [place] [address] Phone Organization [facility] Address [address] [place] [address] Phone Care Team Providers Care Rock Duster Name Role Phone Rosa Tijerina Unavailable Unavailable Medications date description facility 2022-06-12 00:00 insulin degludec [facility] 2022-06-14 00:00 insulin degludec [facility] 2022-06-28 00:00 insulin degludec [facility] 2022-08-03 00:00 insulin degludec [facility] 2022-06-12 00:00 insulin degludec [facility] 2022-06-14 00:00 insulin degludec [facility] 2022-06-28 00:00 insulin degludec [facility] 2022-08-03 00:00 insulin degludec [facility] 2022-06-12 00:00 insulin degludec [facility] 2022-06-14 00:00 insulin degludec [facility] 2022-06-28 00:00 insulin degludec [facility] 2022-08-03 00:00 insulin degludec [facility] 2022-06-12 00:00 d-mannose [facility] 2022-06-14 00:00 d-mannose [facility] 2022-06-28 00:00 d-mannose [facility] 2022-08-03 00:00 d-mannose [facility] 2022-06-12 00:00 insulin degludec [facility] 2022-06-14 00:00 insulin degludec [facility] 2022-06-28 00:00 insulin degludec [facility] 2022-08-03 00:00 insulin degludec [facility] 2022-06-12 00:00 atorvastatin [facility] 2022-06-12 00:00 atorvastatin [facility] 2022-06-12 00:00 atorvastatin [facility] 2022-06-12 00:00 atorvastatin [facility] 2022-06-12 00:00 d-mannose [facility] 2022-06-14 00:00 d-mannose [facility] 2022-06-28 00:00 d-mannose [facility] 2022-08-03 00:00 d-mannose [facility] 2022-06-12 00:00 d-mannose [facility] 2022-06-14 00:00 d-mannose [facility] 2022-06-28 00:00 d-mannose [facility] 2022-08-03 00:00 d-mannose [facility] Problems date description facility 2022-06-12 00:00 Diabetes mellitus wi thout mention of complication, type II or unspecified type, not stated as uncontrolled [facility] 2022-06-12 00:00 Diabetes mellitus wi th ophthalmic manifestations, type II or unspecified type, not stated as uncontrolled [facility] 2022-06-12 00:00 Diabetes mellitus wi th ophthalmic manifestations, type I [juvenile type], not stated as uncontrolled [facility] 2022-06-12 00:00 Diabetes mellitus [facility] 2022-06-12 00:00 Type 2 diabetes tabatha itus without complications [facility] 2022-06-14 00:00 Diabetes mellitus wi thout mention of complication, type II or unspecified type, not stated as uncontrolled [facility] 2022-06-14 00:00 Diabetes mellitus wi th ophthalmic manifestations, type II or unspecified type, not stated as uncontrolled [facility] 2022-06-14 00:00 Diabetes mellitus wi th ophthalmic manifestations, type I [juvenile type], not stated as uncontrolled [facility] 2022-06-14 00:00 Diabetes mellitus [facility] 2022-06-14 00:00 Type 2 diabetes tabatha itus without complications [facility] 2022-06-28 00:00 Diabetes mellitus wi thout mention of complication, type II or unspecified type, not stated as uncontrolled [facility] 2022-06-28 00:00 Diabetes mellitus wi th ophthalmic manifestations, type II or unspecified type, not stated as uncontrolled [facility] 2022-06-28 00:00 Diabetes mellitus wi th ophthalmic manifestations, type I [juvenile type], not stated as uncontrolled [facility] 2022-06-28 00:00 Diabetes mellitus [facility] 2022-06-28 00:00 Type 2 diabetes tabatha itus without complications [facility] 2022-08-03 00:00 Diabetes mellitus wi thout mention of complication, type II or unspecified type, not stated as uncontrolled [facility] 2022-08-03 00:00 Diabetes mellitus wi th ophthalmic manifestations, type II or unspecified type, not stated as uncontrolled [facility] 2022-08-03 00:00 Diabetes mellitus wi th ophthalmic manifestations, type I [juvenile type], not stated as uncontrolled [facility] 2022-08-03 00:00 Diabetes mellitus [facility] 2022-08-03 00:00 Type 2 diabetes tabatha itus without complications [facility]
[2022-09-06 17:13] LABS: KETONES, SERUM (ACETEST) NEGATIVE (NEGATIVE)
[2022-09-06 17:16] LABS: ALBUMIN 2.9 g/dL (3.2-5.5); ALBUMIN/GLOBULIN RATIO 0.9 (1.0-2.2); ALKALINE PHOSPHATASE 108 IU/L (42-121); ALT ALANINE AMINOTRANSFERASE 41 IU/L (10-60); AST ASPARTATE AMINOTRANSFERASE 103 IU/L (10-42); BILIRUBIN,TOTAL 0.8 mg/dL (0.2-1.0); BUN - BLOOD UREA NITROGEN 10 mg/dL (6-20); CALCIUM 8.5 mg/dL (8.5-10.3); CARBON DIOXIDE - CO2 23 mmol/L (21-32); CHLORIDE 94 mmol/L (101-111); GFR - MDRD 55 (>89); GLUCOSE 399 mg/dL (70-100); LIPASE 40 U/L (22-51); SODIUM 132 mmol/L (135-145)
[2022-09-06] MEDS ORDERED: SODIUM CHLORIDE 0.9% 1,000 ML IV STA (17:28)
[2022-09-06] MEDS ORDERED: THIAMINE INJ 100 MG in SODIUM CHLORIDE 0.9% 50 ML IV STA ×2 (17:42→21:01)
[2022-09-06] MEDS ORDERED: FOLIC ACID INJ 1 MG in SODIUM CHLORIDE 0.9% 1,000 ML IV STA (17:43)
[2022-09-06] MEDS ORDERED: PANTOPRAZOLE 40 MG VIAL IVP STA (17:43)
[2022-09-06] MEDS ORDERED: iohexoL-300 100 ML VIAL ONE (17:46)
--- NOTE | 2022-09-06 17:46 | ED Physician Documentation ---
History of Present Illness - Stated complaint Stated Complaint: DIABETIC/ HIGH JATINDER - Chief complaint Chief Complaint: Neuro - Additonal information Additional information: 72-year-old female who has a history of type 2 diabetes presents to the emergency department for evaluation after a drinking binge. She does appear intoxicated. Her reported that she has been drinking a lot every day. States that she has had decreased oral intake and black stools as well as diarrhea. Patient is noncontributory to history. When asked why she is here she states because I drink. I asked how much and she states a lot. I asked if she hurts anywhere she states I do not know. She does smell of alcohol. Appears older than stated age. Review of Systems Unable to obtain: Intoxicated PD PAST MEDICAL HISTORY - Past Medical History Cardiovascular: Hypertension, High cholesterol, Arrhythmia Respiratory: COPD, Shortness of breath Neuro: None Endocrine/Autoimmune: Type 2 diabetes GI: Other LIFE SCIENCE RESEARCH ASSISTANT: None : None HEENT: None Psych: Depression, Anxiety Musculoskeletal: Osteoarthritis Derm: None - Past Surgical History Past Surgical History: Yes /LIFE SCIENCE RESEARCH ASSISTANT: Hysterectomy - Present Medications Home Medications: Ambulatory Orders Medication Instructions Recorded Confirmed Aspirin [Aspirin EC] 325 mg PO DAILY 08/26/20 09/06/22 Atorvastatin [Lipitor] 20 mg PO QPM 08/26/20 09/06/22 Diltiazem HCl [Diltiazem 12Hr ER] 120 mg PO DAILY 08/26/20 09/06/22 Insulin Lispro [Humalog] 5 - 10 unit SQ TIDWM 08/26/20 09/06/22 Lactobacillus Acidophilus 1 tab PO DAILY 08/26/20 09/06/22 [Probiotic Acidophilus] Gabapentin [Neurontin] 300 mg PO TID 03/04/21 09/06/22 Losartan [Cozaar] 100 mg PO DAILY 03/04/21 09/06/22 Insulin Glargine [Lantus Solostar] 5 unit SUBQ QPM 03/05/21 03/05/21 Insulin Degludec [Tresiba 8 unit SUBQ DAILY 09/06/22 09/06/22 Flextouch U-100] - Allergies Allergies/Adverse Reactions: Allergies Allergy/AdvReac Type Severity Reaction Status Date / Time Penicillins Allergy Unknown Verified 02/23/22 05:30 Sulfa (Sulfonamide Allergy Unknown Verified 02/23/22 05:30 Antibiotics) lisinopril AdvReac Unknown Verified 02/23/22 05:30 - Social History Does the pt smoke?: Yes Smoking Status: Current every day smoker Does the pt drink ETOH?: Yes Does the pt have substance abuse?: No - Immunizations Immunizations are current?: No - POLST Patient has POLST: No PD ED PE EXPANDED - General General: Alert, Lethargic - Cardiac Cardiac: Regular Rate, Radial strong equal, Pedal strong equal, Cap refill < 2 sec. No: Murmur Present - Respiratory Respiratory: Clear to ausultation phuong. No: Distress, Labored - Abdomen Abdomen: Normal Bowel sounds, Tender to palpation (Generally tender to palpation but nonfocal and no guarding or rebound. Nonperitoneal.) - Rectal Rectal: Wiping Cloth Cutter present, Other (Digital rectal exam reveals green dark brown stool. Guaiac pending) - Derm Derm: Normal color, Warm and dry, Bruising (Bruises in multiple areas of the body in various stages of healing) - Neuro Neuro: Confused, CNII-XII intact - GCS Eye Opening: Spontaneous Motor: Obeys Commands Verbal: Confused Total: 14 Results - Vitals Vitals: Vital Signs - 24 hr 09/06/22 09/06/22 09/06/22 16:10 17:44 19:30 Temperature 36.3 C L Heart Rate 90 79 114 H Respiratory 22 20 18 Rate Blood Pressure 100/61 126/91 H 171/95 H O2 Saturation 100 100 99 09/06/22 09/06/22 20:12 20:39 Temperature Heart Rate 95 93 Respiratory 25 H 24 Rate Blood Pressure 169/88 H 162/77 H O2 Saturation 97 97 Oxygen O2 Source Room air - EKG (time done) 1911 EKG releavant findings:: EKG personally interpreted by author of this note. Relevant findings are: Rate: Rate (enter#) (87) Rhythm: NSR [place]: Normal Intervals: Normal [place]. No: Prolonged QT QRS: Normal Ischemia: Non specific changes Compare to prior EKG: Unchanged from prior EKG Computer interpretation: Agree with computer - Labs Labs: Microbiology 09/06/22 17:37 Occult Blood - Final Stool Laboratory Tests 09/06/22 09/06/22 09/06/22 16:55 16:55 16:55 WBC 7.1 RBC 3.56 L Hgb 11.9 L Hct 34.2 L MCV 96.1 MCH 33.4 H MCHC 34.8 RDW 13.6 Plt Count 295 MPV 10.4 Neut # (Auto) 5.7 Lymph # (Auto) 0.7 L [place] # (Auto) 0.7 Eos # (Auto) 0.0 Baso # (Auto) 0.0 Absolute Nucleated RBC 0.00 Nucleated RBC % 0.0 VBG pH 7.532 H VBG pCO2 27.7 L VBG pO2 16.6 L VBG HCO3 22.7 L VBG Total CO2 23.6 L VBG O2 Saturation 26.3 L VBG Base Excess 1.1 Sodium 132 L Potassium 4.0 Chloride 94 L Carbon Dioxide 23 Anion Gap 15.0 H BUN 10 Creatinine 1.0 Estimated GFR (MDRD) 55 L Glucose 399 H Lactic Acid Calcium 8.5 Total Bilirubin 0.8 AST 103 H ALT 41 Alkaline Phosphatase 108 B-Natriuretic Peptide Total Protein 6.0 L Albumin 2.9 L Globulin 3.1 Albumin/Globulin Ratio 0.9 L Lipase 40 Urine Color Urine Clarity Urine pH Ur Specific [place] Urine Protein Urine Glucose (UA) Urine Ketones Urine Occult Blood Urine Nitrite Urine Bilirubin Urine Urobilinogen Ur Leukocyte Esterase Urine RBC Urine WBC Ur Squamous Epith Cells Urine Bacteria Ur Microscopic Review Urine Culture Comments Ethyl Alcohol Serum Ketones NEGATIVE 09/06/22 09/06/22 09/06/22 16:55 16:55 16:55 WBC RBC Hgb Hct MCV MCH MCHC RDW Plt Count MPV Neut # (Auto) Lymph # (Auto) [place] # (Auto) Eos # (Auto) Baso # (Auto) Absolute Nucleated RBC Nucleated RBC % VBG pH VBG pCO2 VBG pO2 VBG HCO3 VBG Total CO2 VBG O2 Saturation VBG Base Excess Sodium Potassium Chloride Carbon Dioxide Anion Gap BUN Creatinine Estimated GFR (MDRD) Glucose Lactic Acid 4.0 H* Calcium Total Bilirubin AST ALT Alkaline Phosphatase B-Natriuretic Peptide 257 H Total Protein Albumin Globulin Albumin/Globulin Ratio Lipase Urine Color Urine Clarity Urine pH Ur Specific [place] Urine Protein Urine Glucose (UA) Urine Ketones Urine Occult Blood Urine Nitrite Urine Bilirubin Urine Urobilinogen Ur Leukocyte Esterase Urine RBC Urine WBC Ur Squamous Epith Cells Urine Bacteria Ur Microscopic Review Urine Culture Comments Ethyl Alcohol 195.7 Serum Ketones 09/06/22 09/06/22 17:49 19:37 WBC RBC Hgb Hct MCV MCH MCHC RDW Plt Count MPV Neut # (Auto) Lymph # (Auto) [place] # (Auto) Eos # (Auto) Baso # (Auto) Absolute Nucleated RBC Nucleated RBC % VBG pH VBG pCO2 VBG pO2 VBG HCO3 VBG Total CO2 VBG O2 Saturation VBG Base Excess Sodium Potassium Chloride Carbon Dioxide Anion Gap BUN Creatinine Estimated GFR (MDRD) Glucose Lactic Acid 3.5 H* Calcium Total Bilirubin AST ALT Alkaline Phosphatase B-Natriuretic Peptide Total Protein Albumin Globulin Albumin/Globulin Ratio Lipase Urine Color YELLOW Urine Clarity HAZY Urine pH 6.0 Ur Specific [place] 1.015 Urine Protein NEGATIVE Urine Glucose (UA) >=1000 H Urine Ketones NEGATIVE Urine Occult Blood SMALL H Urine Nitrite NEGATIVE Urine Bilirubin NEGATIVE Urine Urobilinogen 0.2 (NORMAL) Ur Leukocyte Esterase NEGATIVE Urine RBC 6-10 H Urine WBC 6-10 H Ur Squamous Epith Cells RARE Squamous Urine Bacteria Many H Ur Microscopic Review INDICATED Urine Culture Comments NOT INDICATED Ethyl Alcohol Serum Ketones - Rads (name of study) cxr Relevant Findings:: Final report received (No acute cardiopulmonary process. Remote left posterior rib fractures are seen. No suspicious bony lesions.) CT head Relevant Findings:: Final report received (No acute intracranial abnormality.) CT abd Relevant Findings:: Final report received (Limited evaluation of bowel secondary to lack of oral contrast diffuse thickening versus suboptimal distention of the colon which could indicate ischemia, infection or inflammation. Small hiatal hernia. Chronic pancreatitis sequelae. Appendix not seen. Nonobstructing right renal calculus) PD Medical Decision Making - ED course Complexity details: reviewed results, re-evaluated patient, considered differential ED course: 72-year-old female presents to the emergency department for evaluation of what appears to be intoxication. She is essentially noncontributory to the history states simply she is here because she drinks a lot. reports that she has been on a binge recently. She stopped eating and drinking. He is also reported that she is having melanic stools and diarrhea. No fevers. Nursing staff was initially concerned that she could have DKA given a blood glucose of nearly 400 Therefore on presentation DKA labs were obtained including 2 sets of blood cultures. On presentation the patient appears intoxicated and does smell of alcohol. She is only able to tell me that she drinks a lot. She presents without fever or tachycardia or hypotension. Her abdominal exam was rather benign. She had some generalized tenderness though nonperitoneal and nonfocal. We did obtain CBC, electrolytes, VBG, serum ketones as well as urinalysis. Per my interpretation no worrisome anemia or leukocytosis. She is not thrombocytopenic given the history of alcohol use. Her electrolytes show mildly low sodium of 134. She has preserved renal function. She does have a mild AST ALT elevation of a 2:1 ratio consistent with a history of alcoholic hepatitis. Her initial lactate was 4. Urinalysis which was an in and out catheterization was consistent with acute cystitis. Clinically the patient does not present with DKA. In order to address the elevated lactate the patient was given 2 L of crystalloid 1 of which included IV thiamine and folate. She was given a gram of ceftriaxone for her acute cystitis. I did obtain a CT scan of the head that showed no acute intracranial abnormalities. CT of the belly showed diffuse thickening versus a suboptimal distention of the colon which could be indicative of ischemia, infection or inflammation. There were Several incidental findings that included small hiatal hernia, chronic pancreatitis sequelae and a nonobstru cting right renal calculus. The patient's partner had told nursing staff the patient had melena. I did do a digital rectal exam and found dark green/brown stool in the vault. It was guaiac negative. Given concern for possible alcoholic gastritis the patient was administered 40 mg of Protonix here in the emergency department. She presented intoxicated with initial blood alcohol of nearly 200 after several hours in the emergency department she began to have tremors and her CIWA score was 18 indicating moderate withdrawal. I did give the patient 30 mg of phenobarbital orally as well as some IV Zofran. I had planned to initiate an admission to the ICU for alcohol withdrawal. Initially when I spoke with admitting hospitalist Dr. Slater He was concerned that with the findings of thickening of the colon and an elevated lactate that this could be indicative of an ischemic colitis. He requested a repeat lactate as well as consultation with surgery before admitting the patient. Subsequently repeat lactate was obtained and was downtrending after IV fluids and was 3.5. I briefly discussed the case with Dr. Wilson's office surgeon on-call. Based on what I had indicated to him of the clinical exam as well as laboratory findings he felt it was unlikely that the patient had an ischemic colitis. He would be happy to consult and evaluate the patient should she have a clinical deterioration however. Following this I did speak again with the telehospitalist via phone and he agrees to bring the patient in for further evaluation and management of her colitis, alcohol withdrawal and further management of her diabetes. Departure - Departure Disposition: 66 [facility] DC/Xfer Clinical Impression: Alcohol abuse, Elevated lactic acid level, Colitis Acute cystitis Qualifiers: Hematuria presence: without hematuria Qualified Code(s): N30.00 - Acute cystitis without hematuria Condition: Poor
[2022-09-06] MEDS ORDERED: FOLIC ACID INJ 1 MG, THIAMINE INJ 100 MG in SODIUM CHLORIDE 0.9% 1,000 ML IV STA (17:48)
[2022-09-06 17:54] LABS: BILIRUBIN,URINE NEGATIVE (NEGATIVE); GLUCOSE, URINE (UA) >=1000 mg/dL (NEGATIVE); KETONES,URINE (UA) NEGATIVE (NEGATIVE); LEUKOCYTE ESTERASE, URINE NEGATIVE (NEGATIVE); NITRITE,URINE NEGATIVE (NEGATIVE); OCCULT BLOOD,URINE SMALL (NEGATIVE); PROTEIN,URINE NEGATIVE (NEGATIVE); UROBILINOGEN,URINE 0.2 (NORMAL) E.U./dL (NORMAL)
[2022-09-06 17:55] LABS: CLARITY,URINE HAZY (CLEAR)
[2022-09-06 18:03] LABS: BACTERIA,URINE Many /HPF (None Seen); SQUAMOUS EPITHELIAL CELL,UR RARE Squamous (<= Few)
[2022-09-06] MEDS ORDERED: cefTRIAXone 1 GM VIAL IVP STA (18:17)
[2022-09-06] MEDS ORDERED: iohexoL-300 100 ML VIAL IVP ONE (18:28)
--- NOTE | 2022-09-06 18:33 | CT Report ---
PROCEDURE: HEAD WO INDICATIONS: ams TECHNIQUE: Noncontrast 4.5 mm thick angled axial sections acquired from the foramen magnum to the vertex. For r adiation dose reduction, the following was used: automated exposure control, adjustment of mA and/or kV according to patient size. COMPARISON: None. FINDINGS: Image quality: Excellent. CSF spaces: Basal cisterns are patent. No extra-axial fluid collections. Ventricles are normal in size and shape. Brain: No midline shift. No intracranial masses or hemorrhage. [place]-white matter interface is norm al. Skull and face: Calvarium and visualized facial bones are intact, without suspicious lesions. Sinuses: Visualized sinuses and mastoids are clear. IMPRESSION: No acute intracranial abnormality. Reviewed by: Scar Monson MD on 09/06/2022 6:31 PM PDT Approved by: Scar Monson MD on 09/06/2022 6:31 PM PDT Station ID: [id number]
--- NOTE | 2022-09-06 18:36 | CT Report ---
PROCEDURE: ABDOMEN/PELVIS W INDICATIONS: elevated lactate CONTRAST: 100mL Omni 300 TECHNIQUE: After the administration of intravenous contrast, 5 mm thick sections acquired from the diaphragms to the symphysis. 5 mm thick coronal and sagittal reformats were acquired. For radiation dose reducti on, the following was used: automated exposure control, adjustment of mA and/or kV according to raudel ent size. COMPARISON: Chest CT dated 02/26/2022 FINDINGS: Image quality: Excellent. Lung bases and heart: 4 mm nodule within the right medial lung base, as before. Liver: No solid mass. Gallbladder and biliary tree: Gallbladder is within normal limits. No biliary ductal dilatation. Spleen: No splenomegaly. Pancreas: No pancreatic ductal dilation. Calcification within the pancreatic body/tail junction. Adrenals: No adrenal nodule. Kidneys and ureters: No hydronephrosis. No renal cystic lesion which requires follow up. No solid mas s. Nonobstructing 4 mm calcification within the inferior pole right kidney. Mild right renal atrophy. Bowel and peritoneum: Limited evaluation secondary to lack of oral contrast. Small hiatal hernia. No bowel distension. No pathologic free fluid. There is mild diffuse thickening versus suboptimal disten tion of the colon. Appendix not seen. No evidence of appendicitis. Lymph nodes: No central or retroperitoneal adenopathy. Vessels: No infrarenal aortic aneurysm. PELVIS Reproductive organs: Unremarkable. Bladder: No abnormal wall thickening, accounting for underdistension. Pelvic lymph nodes: No pelvic adenopathy by size criteria. Bones: No aggressive osseous abnormality. Other: No significant ventral or inguinal hernia. IMPRESSION: 1. Limited evaluation of the bowel secondary to lack of oral contrast. Next and 2. Diffuse thickening versus suboptimal distention of the colon, which could indicate ischemia, infec tion, or inflammation. 2. Small hiatal hernia. 3. Chronic pancreatitis sequelae. 4. Appendix not seen. No evidence of appendicitis. 5. Nonobstructing right renal calculus. Reviewed by: Scar Monson MD on 09/06/2022 6:35 PM PDT Approved by: Scar Monson MD on 09/06/2022 6:35 PM PDT Station ID: [id number]
[2022-09-06] MEDS ORDERED: PHENobarbitaL 32.4 MG TABLET PO STA ×2 (19:15→19:50)
[2022-09-06] MEDS ORDERED: LORazepam 2 MG/ML VIAL IVP STA (19:22)
--- NOTE | 2022-09-06 20:30 | HISTORY & PHYSICAL EXAMINATION ---
Chief Complaint - Chief Complaint Chief Complaint: not eating History of Present Illness - Admitted From Admitted From:: home - History of Present Illness HPI Comment/Other: 72-year-old female was brought into the emergency department because the found her to be not eating or drinking patient appear intoxicated on upon presentation the also reported that the patient has been drinking heavily on a daily basis in the emergency room she was found to have elevated the glucose and lactic acid however the ketones were negative further investigation included a CTS can of the abdomen which was concerning for diffuse mucosal thickening but the city scan was done without overall contrast patient herself is a poor historian and she only complains that she drinks too much History - Past Medical History Cardiovascular: reports: High cholesterol, Arrhythmia Respiratory: reports: COPD, Shortness of breath Neuro: reports: None Endocrine/Autoimmune: reports: Type 2 diabetes GI: reports: Other SPECIALIZED LANGUAGE INSTRUCTOR: reports: None : reports: None HEENT: reports: None Psych: reports: Depression, Anxiety Musculoskeletal: reports: Osteoarthritis Derm: reports: None MRSA Hx?: No - Past Surgical History /SPECIALIZED LANGUAGE INSTRUCTOR: reports: Hysterectomy - Substance History Use: Uses substance without health or social issues: Alcohol (daily heavily binge drinking recently) - POLST Patient has POLST: No Meds/Allgy - Home Medications Home Medications: Ambulatory Orders Medication Instructions Recorded Confirmed Aspirin [Aspirin EC] 325 mg PO DAILY 08/26/20 09/06/22 Atorvastatin [Lipitor] 20 mg PO QPM 08/26/20 09/06/22 Diltiazem HCl [Diltiazem 12Hr ER] 120 mg PO DAILY 08/26/20 09/06/22 Insulin Lispro [Humalog] 5 - 10 unit SQ TIDWM 08/26/20 09/06/22 Lactobacillus Acidophilus 1 tab PO DAILY 08/26/20 09/06/22 [Probiotic Acidophilus] Gabapentin [Neurontin] 300 mg PO TID 03/04/21 09/06/22 Losartan [Cozaar] 100 mg PO DAILY 03/04/21 09/06/22 Insulin Glargine [Lantus Solostar] 5 unit SUBQ QPM 03/05/21 03/05/21 Insulin Degludec [Tresiba 8 unit SUBQ DAILY 09/06/22 09/06/22 Flextouch U-100] - Allergies Allergies/Adverse Reactions: Allergies Allergy/AdvReac Type Severity Reaction Status Date / Time Penicillins Allergy Unknown Verified 02/23/22 05:30 Sulfa (Sulfonamide Allergy Unknown Verified 02/23/22 05:30 Antibiotics) lisinopril AdvReac Unknown Verified 02/23/22 05:30 Review of Systems - Gastrointestinal Gastrointestinal: reports: Diarrhea - Neurological Neurological: reports: General weakness - All Other Systems All Other Systems: reports: Reviewed and negative Exam - Vital Signs Vital Signs: Vital Signs x48h Temp Pulse Resp BP Pulse Ox 09/06/22 20:12 95 25 H 169/88 H 97 09/06/22 19:30 114 H 18 171/95 H 99 09/06/22 17:44 79 20 126/91 H 100 09/06/22 16:10 36.3 C L 90 22 100/61 100 - Physical Exam General Appearance: positive: Alert, Moderate distress Eyes Bilateral: positive: Normal inspection Neck: positive: Nml inspection Respiratory: positive: No respiratory distress Cardiovascular: positive: Regular rate & rhythm Peripheral Pulses: positive: 1+ Abdomen: positive: Tenderness (mild generalized tenderness with no guarding or reboound) Rectal: positive: Stool - heme NEG (OB negative brown /green stool), Stool - heme POS, Control positive Extremities: positive: Non-tender Neurologic/Psychiatric: positive: Weakness (no foca deficcits but some tremor) Conclusion/Plan - Lab Results Fish Bones: 09/06/22 16:55 09/06/22 16:55 Core Measures - Issues Hospital Issues and Management Plan: 72-year-old female with 1. possible sepsis with source of UTI versus colitis patient will be admitted to icu and covered with the broad Spectrum antibiotics and IV fluids and we will recheck the lactic acid. 2. [place] for ischemic colitis Per ED provider stool not red/back and OB negative and pt did not have rebound tenderness in exm and location on CT does not correspod with watershed area for IC. Also, the case has been discussed with the general surgery who had a low suspicion of ischemic colitis at this time we will admit to ICU and cover the patient with broad Spectrum antibiotics and order culture the stool to rule of infectious disease. 3. diabetes and hyperglycemia patient will receive normal saline IV fluids and will be on SSI 4. alcohol use and withdrawal patient will be on CIWAl protocol and admitted to Intensive Care Unit I will start the patient on Librium in view of history of heavy alcohol drinking. Pt will be providd with supplements. 5. code status: discussed with the patient codestatus full at this time 6. history of hypertension we will hold off on anti-hypertensive at this time in view of the patient sepsis 7. possible UTI patient will be covered with antibiotics and IV fluids follow up on urine culture and blood culture 8. DVT prophylaxis with SCD boots Telemedicine Consult Details - Provider Location & Consult Time List names and roles of persons who participated in consult:: me pt and nurse Telemedicine provider location:: [facility] Time Telemedicine consult began:: 20:06 Time Telemedicine consult completed:: 20:37
[2022-09-06] MEDS ORDERED: ONDANSETRON 4 MG/2 ML VIAL IVP PRN (20:39)
[2022-09-06 21:07] LABS: BASOPHILS % (AUTO) 0.3 %; HCT - HEMATOCRIT 31.3 % (37.0-47.0); HGB - HEMOGLOBIN 10.5 g/dL (12.0-16.0); LYMPHOCYTES # (AUTO) 0.6 10^3/uL (1.5-3.5); LYMPHOCYTES % (AUTO) 8.1 %; MEAN CORPUSCULAR HEMOGLOBIN 32.7 pg (27.0-31.0); MEAN CORPUSCULAR HGB CONC 33.5 g/dL (32.0-36.0); MEAN CORPUSCULAR VOLUME 97.5 fL (81.0-99.0); MEAN PLATELET VOLUME 10.5 fL (7.9-10.8); MONOCYTES # (AUTO) 0.8 10^3/uL (0.0-1.0); MONOCYTES % (AUTO) 10.8 %; NEUTROPHILS # (AUTO) 5.7 10^3/uL (1.5-6.6); NEUTROPHILS % (AUTO) 80.4 %; PLT - PLATELET COUNT 240 10^3/uL (130-450); RED BLOOD COUNT 3.21 10^6/uL (4.20-5.40); RED CELL DISTRIBUTION WIDTH 13.8 % (12.0-15.0); WHITE BLOOD COUNT 7.1 x10^3/uL (4.8-10.8)
[2022-09-06 21:14] LABS: INR 1.1 (0.8-1.2); PT - PROTHROMBIN TIME 12.6 secs (9.9-12.6)
[2022-09-06 21:20] LABS: ALBUMIN 2.4 g/dL (3.2-5.5); ALBUMIN/GLOBULIN RATIO 0.9 (1.0-2.2); BILIRUBIN,TOTAL 0.5 mg/dL (0.2-1.0); CALCIUM 7.2 mg/dL (8.5-10.3); CREATININE 0.8 mg/dL (0.4-1.0); TOTAL PROTEIN 5.1 g/dL (6.7-8.2)
--- NOTE | 2022-09-06 21:21 | PROVIDER PROGRESS NOTE ---
Incoming Inspector Note - Incoming Inspector Note Incoming Inspector Note: pt received phenoparb in the ED and withdrawal symtoms improved will hold off on librium at this time continue with prn iv ativan based on ciwa consider adding longeracting BZD if withdrawal symtoms worsen again continue icu close monitoring
[2022-09-06] MEDS: metroNIDAZOLE 500 MG/100 ML 500 MG/100 ML BAG IV SCH (22:28)
[2022-09-06] MEDS ORDERED: THIAMINE 100 MG/1 ML 2 ML MDV ONE (22:51)
[2022-09-06] MEDS: INSULIN REGULAR HUMAN 300 UNIT/3 ML VIAL SUBQ SCH (23:13)
[2022-09-06] MEDS: NS W/20 MEQ KCL 1,000 ML IV SCH (23:30)
[2022-09-06] MEDS: SODIUM CHLORIDE FLUSH 0.9% 10 ML SYRINGE IVP SCH (23:59)
[2022-09-07 00:23] LABS: CALCIUM 7.4 mg/dL (8.5-10.3); CREATININE 0.8 mg/dL (0.4-1.0); MAGNESIUM 1.5 mg/dL (1.7-2.8); POTASSIUM 3.4 mmol/L (3.5-5.0)
[2022-09-07] MEDS ORDERED: MAGNESIUM SULFATE 2 GRAM 2 GM/50 ML BAG IV ONE (00:35)
[2022-09-07] MEDS: POTASSIUM CHLOR 10 MEQ/100 ML 10 MEQ/100 ML BAG IV SCH ×4 (01:20→07:38)
[2022-09-07] MEDS: LORazepam 2 MG/ML VIAL IVP PRN ×3 (05:00→22:35)
[2022-09-07] MEDS: INSULIN REGULAR HUMAN 300 UNIT/3 ML VIAL SUBQ SCH (06:26)
[2022-09-07] MEDS: metroNIDAZOLE 500 MG/100 ML 500 MG/100 ML BAG IV SCH ×3 (06:42→21:15)
[2022-09-07 06:56] LABS: MUDS CUTOFF CONCENTRATIONS CUTOFF CONC BELOW:
[2022-09-07 07:08] LABS: BARBITURATE SCREEN,UR POSITIVE (NEGATIVE); BENZODIAZEPINES SCREEN, URINE POSITIVE (NEGATIVE)
[2022-09-07 07:09] LABS: AMPHETAMINE SCREEN,URINE NEGATIVE (NEGATIVE); COCAINE SCREEN URINE NEGATIVE (NEGATIVE); METHADONE SCREEN, URINE NEGATIVE (NEGATIVE); METHAMPHETAMINES SCREEN, URINE NEGATIVE (NEGATIVE); OPIATE SCREEN, URINE NEGATIVE (NEGATIVE); OXYCODONE SCREEN, URINE NEGATIVE (NEGATIVE); PROPOXYPHENE SCREEN, URINE NEGATIVE (NEGATIVE); THC CANNABINOID SCREEN, URINE NEGATIVE (NEGATIVE); TRICYCLIC ANTIDEPRESSANT,URINE NEGATIVE (NEGATIVE)
[2022-09-07 07:47] LABS: BASOPHILS % (AUTO) 0.3 %; EOSINOPHILS % (AUTO) 0.1 %; HGB - HEMOGLOBIN 10.4 g/dL (12.0-16.0); LYMPHOCYTES # (AUTO) 0.8 10^3/uL (1.5-3.5); LYMPHOCYTES % (AUTO) 8.4 %; MEAN CORPUSCULAR HEMOGLOBIN 33.9 pg (27.0-31.0); MEAN CORPUSCULAR HGB CONC 34.7 g/dL (32.0-36.0); MEAN CORPUSCULAR VOLUME 97.7 fL (81.0-99.0); MEAN PLATELET VOLUME 10.8 fL (7.9-10.8); MONOCYTES # (AUTO) 1.2 10^3/uL (0.0-1.0); MONOCYTES % (AUTO) 12.1 %; NEUTROPHILS # (AUTO) 7.6 10^3/uL (1.5-6.6); NEUTROPHILS % (AUTO) 78.7 %; PLT - PLATELET COUNT 254 10^3/uL (130-450); RED BLOOD COUNT 3.07 10^6/uL (4.20-5.40); WHITE BLOOD COUNT 9.7 x10^3/uL (4.8-10.8)
[2022-09-07 08:13] LABS: ALBUMIN 2.5 g/dL (3.2-5.5); BILIRUBIN,DIRECT 0.3 mg/dL (0.1-0.5); BILIRUBIN,TOTAL 0.8 mg/dL (0.2-1.0); CALCIUM 7.7 mg/dL (8.5-10.3); CREATININE 0.8 mg/dL (0.4-1.0); PHOSPHORUS 2.5 mg/dL (2.5-4.6); POTASSIUM 4.4 mmol/L (3.5-5.0); TOTAL PROTEIN 5.2 g/dL (6.7-8.2)
[2022-09-07] MEDS: cefTRIAXone 1 GM in SODIUM CHLORIDE 0.9% MINIBAG 100 ML IV SCH (08:13)
[2022-09-07] MEDS: NS W/20 MEQ KCL 1,000 ML IV SCH ×2 (08:13→17:08)
[2022-09-07] MEDS: THIAMINE 100 MG TABLET PO SCH (08:14)
[2022-09-07] MEDS: LACTOBACILLUS RHAMNOSUS GG CAPSULE PO SCH (08:14)
[2022-09-07] MEDS: PRENATAL VITAMIN TABLET PO SCH (08:14)
[2022-09-07] MEDS: PANTOPRAZOLE 40 MG VIAL IVP SCH (08:14)
[2022-09-07] MEDS: ethyl alcohoL 62% SWAB AMPULE NAS SCH ×2 (08:14→21:14)
[2022-09-07] MEDS: SODIUM CHLORIDE FLUSH 0.9% 10 ML SYRINGE IVP SCH ×4 (08:14→22:35)
[2022-09-07 08:56] LABS: ABG HCO3 24.2 mmol/L (22.0-26.0); ABG PCO2 33 mmHg (34-45); ABG PH 7.49 (7.35-7.45); ABG PO2 79 mmHg (80-100)
[2022-09-07 08:57] LABS: ABG BASE EXCESS 1.3 mmol/L (-2.0-3.0); ABG OXYGEN SATURATION 96 % (94-98); ABG TCO2 25.2 MMOL/L (21.0-29.0); ALLEN TEST POSITIVE
[2022-09-07] MEDS: diltiaZEM CD 120 MG CAPSULE PO SCH (10:16)
[2022-09-07] MEDS: LOSARTAN 50 MG TABLET PO SCH (11:52)
[2022-09-07] MEDS: INSULIN LISPRO 300 UNIT/3 ML PEN SUBQ SCH ×3 (11:55→21:15)
[2022-09-07] MEDS: guaiFENesin/CODEINE 5 ML UDC PO PRN ×2 (12:15→22:35)
--- NOTE | 2022-09-07 12:47 | PHARMACY PROGRESS NOTE ---
- Best Possible Medication History Admit Date and Time: 09/06/222038 Processed by: Pharmacy Medication History completed: Yes Patient Interview: Completed Secondary Source(s): Insurance records As the person ultimately responsible for medication therapy, providers are able to order a medication from an existing home medication list in [facility] via the "Reconcile Routine" prior to Confirmation of that medication by it support manager. Such practice is discouraged except when the physician, in their clinical judgment, deems that a medical need exists for a medication without regard to previous use.
[2022-09-07] MEDS: GABAPENTIN 300 MG CAPSULE PO SCH ×2 (14:31→21:16)
--- NOTE | 2022-09-07 18:27 | PROVIDER PROGRESS NOTE ---
Subjective - Subjective Pt reports feeling: Improved (She reports feeling slightly better than yesterday at admission. RN reports that her CIWA scores have improved from 17 down to 7) Objective - Vital Signs/Intake & Output Vital Signs: Vital Signs Temp Pulse Resp BP Pulse Ox 09/07/22 18:00 95 21 133/73 H 96 09/07/22 17:00 100 23 150/96 H 96 09/07/22 16:00 36.8 C 104 H 29 H 169/96 H 94 09/07/22 15:00 96 32 H 178/100 H 97 Intake & Output: Intake & Output 09/04/22 09/05/22 09/06/22 09/07/22 23:59 23:59 23:59 23:59 Intake Total 2101.2 2664.334 Output Total 500 Balance 2101.2 2164.334 - Objective General Appearance: positive: Mild distress (She still has a resting tremor and she appears dehydrated on exam), Other (Disheveled.) Eyes Bilateral: positive: Other (wide set eyes) ENT: positive: ENT inspection nml, Dry mucous membranes Neck: positive: Nml inspection, No JVD Respiratory: positive: No respiratory distress, Breath sounds nml Cardiovascular: positive: Regular rate & rhythm, No murmur Abdomen: positive: Non-tender, Nml bowel sounds, No distention, Other (obese, cannot R/O ascites) Skin: positive: Warm, Dry Extremities: positive: Non-tender, No pedal edema Neurologic/Psychiatric: positive: Oriented x3, Other (Lethargic (from Ativan), is slow to answer but has normal speech, soft voice. Has bilateral fine resting tremor of her hands) - Lab Results Fish Bones: 09/07/22 07:40 09/07/22 07:40 Other Labs: Lab Results x24hrs 09/07/22 09/07/22 09/07/22 Range/Units 17:09 11:55 08:40 WBC (4.8-10.8) x10^3/uL RBC (4.20-5.40) 10^6/uL Hgb (12.0-16.0) g/dL Hct (37.0-47.0) % MCV (81.0-99.0) fL MCH (27.0-31.0) pg MCHC (32.0-36.0) g/dL RDW (12.0-15.0) % Plt Count (130-450) 10^3/uL MPV (7.9-10.8) fL Neut # (Auto) (1.5-6.6) 10^3/uL Lymph # (Auto) (1.5-3.5) 10^3/uL Vernon # (Auto) (0.0-1.0) 10^3/uL Eos # (Auto) (0.0-0.7) 10^3/uL Baso # (Auto) (0.0-0.1) 10^3/uL Absolute Nucleated RBC x10^3/uL Nucleated RBC % /100WBC PT (9.9-12.6) secs INR (0.8-1.2) Bld Gas Analysis Time 0855 Sample Site LEFT RADIAL ABG pH 7.49 H (7.35-7.45) ABG pCO2 33 L (34-45) mmHg ABG pO2 79 L (80-100) mmHg ABG HCO3 24.2 (22.0-26.0) mmol/L ABG Total CO2 25.2 (21.0-29.0) MMOL/L ABG O2 Saturation 96 (94-98) % ABG Base Excess 1.3 (-2.0-3.0) mmol/L Cornel Test POSITIVE Room Air YES Sodium (135-145) mmol/L Potassium (3.5-5.0) mmol/L Chloride (101-111) mmol/L Carbon Dioxide (21-32) mmol/L Anion Gap (6-13) BUN (6-20) mg/dL Creatinine (0.4-1.0) mg/dL Estimated GFR (MDRD) (>89) Glucose (70-100) mg/dL POC Whole Bld Glucose 177 H 160 H (70 - 100) mg/dL Lactic Acid (0.5-2.2) mmol/L Calcium (8.5-10.3) mg/dL Phosphorus (2.5-4.6) mg/dL Magnesium (1.7-2.8) mg/dL Total Bilirubin (0.2-1.0) mg/dL Direct Bilirubin (0.1-0.5) mg/dL AST (10-42) IU/L ALT (10-60) IU/L Alkaline Phosphatase (42-121) IU/L Lactate Dehydrogenase (91-225) IU/L Troponin I High Sens (2.3-14.8) ng/L Total Protein (6.7-8.2) g/dL Albumin (3.2-5.5) g/dL Globulin (2.1-4.2) g/dL Albumin/Globulin Ratio (1.0-2.2) TSH (0.34-5.60) uIU/mL Nasal Screen MRSA (PCR) (NEGATIVE) Urine Opiates Screen (NEGATIVE) Ur Oxycodone Screen (NEGATIVE) Urine Methadone Screen (NEGATIVE) Ur Propoxyphene Screen (NEGATIVE) Ur Barbiturates Screen (NEGATIVE) Ur Tricyclics Screen (NEGATIVE) Ur Phencyclidine Scrn (NEGATIVE) Ur Amphetamine Screen (NEGATIVE) U Methamphetamines Scrn (NEGATIVE) U Benzodiazepines Scrn (NEGATIVE) Urine Cocaine Screen (NEGATIVE) U Cannabinoids Screen (NEGATIVE) 09/07/22 09/07/22 09/07/22 Range/Units 07:40 07:40 07:40 WBC (4.8-10.8) x10^3/uL RBC (4.20-5.40) 10^6/uL Hgb (12.0-16.0) g/dL Hct (37.0-47.0) % MCV (81.0-99.0) fL MCH (27.0-31.0) pg MCHC (32.0-36.0) g/dL RDW (12.0-15.0) % Plt Count (130-450) 10^3/uL MPV (7.9-10.8) fL Neut # (Auto) (1.5-6.6) 10^3/uL Lymph # (Auto) (1.5-3.5) 10^3/uL Vernon # (Auto) (0.0-1.0) 10^3/uL Eos # (Auto) (0.0-0.7) 10^3/uL Baso # (Auto) (0.0-0.1) 10^3/uL Absolute Nucleated RBC x10^3/uL Nucleated RBC % /100WBC PT (9.9-12.6) secs INR (0.8-1.2) Bld Gas Analysis Time Sample Site ABG pH (7.35-7.45) ABG pCO2 (34-45) mmHg ABG pO2 (80-100) mmHg ABG HCO3 (22.0-26.0) mmol/L ABG Total CO2 (21.0-29.0) MMOL/L ABG O2 Saturation (94-98) % ABG Base Excess (-2.0-3.0) mmol/L Cornel Test Room Air Sodium (135-145) mmol/L Potassium (3.5-5.0) mmol/L Chloride (101-111) mmol/L Carbon Dioxide (21-32) mmol/L Anion Gap (6-13) BUN (6-20) mg/dL Creatinine (0.4-1.0) mg/dL Estimated GFR (MDRD) (>89) Glucose (70-100) mg/dL POC Whole Bld Glucose (70 - 100) mg/dL Lactic Acid (0.5-2.2) mmol/L Calcium (8.5-10.3) mg/dL Phosphorus (2.5-4.6) mg/dL Magnesium 2.3 (1.7-2.8) mg/dL Total Bilirubin (0.2-1.0) mg/dL Direct Bilirubin (0.1-0.5) mg/dL AST (10-42) IU/L ALT (10-60) IU/L Alkaline Phosphatase (42-121) IU/L Lactate Dehydrogenase (91-225) IU/L Troponin I High Sens 36.0 H* (2.3-14.8) ng/L Total Protein (6.7-8.2) g/dL Albumin (3.2-5.5) g/dL Globulin (2.1-4.2) g/dL Albumin/Globulin Ratio (1.0-2.2) TSH 1.29 (0.34-5.60) uIU/mL Nasal Screen MRSA (PCR) (NEGATIVE) Urine Opiates Screen (NEGATIVE) Ur Oxycodone Screen (NEGATIVE) Urine Methadone Screen (NEGATIVE) Ur Propoxyphene Screen (NEGATIVE) Ur Barbiturates Screen (NEGATIVE) Ur Tricyclics Screen (NEGATIVE) Ur Phencyclidine Scrn (NEGATIVE) Ur Amphetamine Screen (NEGATIVE) U Methamphetamines Scrn (NEGATIVE) U Benzodiazepines Scrn (NEGATIVE) Urine Cocaine Screen (NEGATIVE) U Cannabinoids Screen (NEGATIVE) 09/07/22 09/07/22 09/07/22 Range/Units 07:40 07:40 07:40 WBC (4.8-10.8) x10^3/uL RBC (4.20-5.40) 10^6/uL Hgb (12.0-16.0) g/dL Hct (37.0-47.0) % MCV (81.0-99.0) fL MCH (27.0-31.0) pg MCHC (32.0-36.0) g/dL RDW (12.0-15.0) % Plt Count (130-450) 10^3/uL MPV (7.9-10.8) fL Neut # (Auto) (1.5-6.6) 10^3/uL Lymph # (Auto) (1.5-3.5) 10^3/uL Vernon # (Auto) (0.0-1.0) 10^3/uL Eos # (Auto) (0.0-0.7) 10^3/uL Baso # (Auto) (0.0-0.1) 10^3/uL Absolute Nucleated RBC x10^3/uL Nucleated RBC % /100WBC PT (9.9-12.6) secs INR (0.8-1.2) Bld Gas Analysis Time Sample Site ABG pH (7.35-7.45) ABG pCO2 (34-45) mmHg ABG pO2 (80-100) mmHg ABG HCO3 (22.0-26.0) mmol/L ABG Total CO2 (21.0-29.0) MMOL/L ABG O2 Saturation (94-98) % ABG Base Excess (-2.0-3.0) mmol/L Cornel Test Room Air Sodium (135-145) mmol/L Potassium (3.5-5.0) mmol/L Chloride (101-111) mmol/L Carbon Dioxide (21-32) mmol/L Anion Gap (6-13) BUN (6-20) mg/dL Creatinine (0.4-1.0) mg/dL Estimated GFR (MDRD) (>89) Glucose (70-100) mg/dL POC Whole Bld Glucose (70 - 100) mg/dL Lactic Acid 1.0 (0.5-2.2) mmol/L Calcium (8.5-10.3) mg/dL Phosphorus 2.5 (2.5-4.6) mg/dL Magnesium (1.7-2.8) mg/dL Total Bilirubin (0.2-1.0) mg/dL Direct Bilirubin (0.1-0.5) mg/dL AST (10-42) IU/L ALT (10-60) IU/L Alkaline Phosphatase (42-121) IU/L Lactate Dehydrogenase 217 (91-225) IU/L Troponin I High Sens (2.3-14.8) ng/L Total Protein (6.7-8.2) g/dL Albumin (3.2-5.5) g/dL Globulin (2.1-4.2) g/dL Albumin/Globulin Ratio (1.0-2.2) TSH (0.34-5.60) uIU/mL Nasal Screen MRSA (PCR) (NEGATIVE) Urine Opiates Screen (NEGATIVE) Ur Oxycodone Screen (NEGATIVE) Urine Methadone Screen (NEGATIVE) Ur Propoxyphene Screen (NEGATIVE) Ur Barbiturates Screen (NEGATIVE) Ur Tricyclics Screen (NEGATIVE) Ur Phencyclidine Scrn (NEGATIVE) Ur Amphetamine Screen (NEGATIVE) U Methamphetamines Scrn (NEGATIVE) U Benzodiazepines Scrn (NEGATIVE) Urine Cocaine Screen (NEGATIVE) U Cannabinoids Screen (NEGATIVE) 09/07/22 09/07/22 09/07/22 Range/Units 07:40 07:40 06:38 WBC 9.7 (4.8-10.8) x10^3/uL RBC 3.07 L (4.20-5.40) 10^6/uL Hgb 10.4 L (12.0-16.0) g/dL Hct 30.0 L (37.0-47.0) % MCV 97.7 (81.0-99.0) fL MCH 33.9 H (27.0-31.0) pg MCHC 34.7 (32.0-36.0) g/dL RDW 14.0 (12.0-15.0) % Plt Count 254 (130-450) 10^3/uL MPV 10.8 (7.9-10.8) fL Neut # (Auto) 7.6 H (1.5-6.6) 10^3/uL Lymph # (Auto) 0.8 L (1.5-3.5) 10^3/uL Vernon # (Auto) 1.2 H (0.0-1.0) 10^3/uL Eos # (Auto) 0.0 (0.0-0.7) 10^3/uL Baso # (Auto) 0.0 (0.0-0.1) 10^3/uL Absolute Nucleated RBC 0.00 x10^3/uL Nucleated RBC % 0.0 /100WBC PT (9.9-12.6) secs INR (0.8-1.2) Bld Gas Analysis Time Sample Site ABG pH (7.35-7.45) ABG pCO2 (34-45) mmHg ABG pO2 (80-100) mmHg ABG HCO3 (22.0-26.0) mmol/L ABG Total CO2 (21.0-29.0) MMOL/L ABG O2 Saturation (94-98) % ABG Base Excess (-2.0-3.0) mmol/L Cornel Test Room Air Sodium 137 (135-145) mmol/L Potassium 4.4 (3.5-5.0) mmol/L Chloride 103 (101-111) mmol/L Carbon Dioxide 26 (21-32) mmol/L Anion Gap 8.0 (6-13) BUN 10 (6-20) mg/dL Creatinine 0.8 (0.4-1.0) mg/dL Estimated GFR (MDRD) 71 L (>89) Glucose 197 H (70-100) mg/dL POC Whole Bld Glucose (70 - 100) mg/dL Lactic Acid (0.5-2.2) mmol/L Calcium 7.7 L (8.5-10.3) mg/dL Phosphorus 2.5 (2.5-4.6) mg/dL Magnesium (1.7-2.8) mg/dL Total Bilirubin 0.8 (0.2-1.0) mg/dL Direct Bilirubin 0.3 (0.1-0.5) mg/dL AST 84 H (10-42) IU/L ALT 34 (10-60) IU/L Alkaline Phosphatase 91 (42-121) IU/L Lactate Dehydrogenase (91-225) IU/L Troponin I High Sens (2.3-14.8) ng/L Total Protein 5.2 L (6.7-8.2) g/dL Albumin 2.5 L (3.2-5.5) g/dL Globulin 2.7 (2.1-4.2) g/dL Albumin/Globulin Ratio (1.0-2.2) TSH (0.34-5.60) uIU/mL Nasal Screen MRSA (PCR) (NEGATIVE) Urine Opiates Screen NEGATIVE (NEGATIVE) Ur Oxycodone Screen NEGATIVE (NEGATIVE) Urine Methadone Screen NEGATIVE (NEGATIVE) Ur Propoxyphene Screen NEGATIVE (NEGATIVE) Ur Barbiturates Screen POSITIVE H (NEGATIVE) Ur Tricyclics Screen NEGATIVE (NEGATIVE) Ur Phencyclidine Scrn NEGATIVE (NEGATIVE) Ur Amphetamine Screen NEGATIVE (NEGATIVE) U Methamphetamines Scrn NEGATIVE (NEGATIVE) U Benzodiazepines Scrn POSITIVE H (NEGATIVE) Urine Cocaine Screen NEGATIVE (NEGATIVE) U Cannabinoids Screen NEGATIVE (NEGATIVE) 09/07/22 09/06/22 09/06/22 Range/Units 06:21 23:56 22:38 WBC (4.8-10.8) x10^3/uL RBC (4.20-5.40) 10^6/uL Hgb (12.0-16.0) g/dL Hct (37.0-47.0) % MCV (81.0-99.0) fL MCH (27.0-31.0) pg MCHC (32.0-36.0) g/dL RDW (12.0-15.0) % Plt Count (130-450) 10^3/uL MPV (7.9-10.8) fL Neut # (Auto) (1.5-6.6) 10^3/uL Lymph # (Auto) (1.5-3.5) 10^3/uL Vernon # (Auto) (0.0-1.0) 10^3/uL Eos # (Auto) (0.0-0.7) 10^3/uL Baso # (Auto) (0.0-0.1) 10^3/uL Absolute Nucleated RBC x10^3/uL Nucleated RBC % /100WBC PT (9.9-12.6) secs INR (0.8-1.2) Bld Gas Analysis Time Sample Site ABG pH (7.35-7.45) ABG pCO2 (34-45) mmHg ABG pO2 (80-100) mmHg ABG HCO3 (22.0-26.0) mmol/L ABG Total CO2 (21.0-29.0) MMOL/L ABG O2 Saturation (94-98) % ABG Base Excess (-2.0-3.0) mmol/L Cornel Test Room Air Sodium 137 (135-145) mmol/L Potassium 3.4 L (3.5-5.0) mmol/L Chloride 103 (101-111) mmol/L Carbon Dioxide 21 (21-32) mmol/L Anion Gap 13.0 (6-13) BUN 10 (6-20) mg/dL Creatinine 0.8 (0.4-1.0) mg/dL Estimated GFR (MDRD) 71 L (>89) Glucose 284 H (70-100) mg/dL POC Whole Bld Glucose 220 H 280 H (70 - 100) mg/dL Lactic Acid (0.5-2.2) mmol/L Calcium 7.4 L (8.5-10.3) mg/dL Phosphorus (2.5-4.6) mg/dL Magnesium 1.5 L (1.7-2.8) mg/dL Total Bilirubin (0.2-1.0) mg/dL Direct Bilirubin (0.1-0.5) mg/dL AST (10-42) IU/L ALT (10-60) IU/L Alkaline Phosphatase (42-121) IU/L Lactate Dehydrogenase (91-225) IU/L Troponin I High Sens (2.3-14.8) ng/L Total Protein (6.7-8.2) g/dL Albumin (3.2-5.5) g/dL Globulin (2.1-4.2) g/dL Albumin/Globulin Ratio (1.0-2.2) TSH (0.34-5.60) uIU/mL Nasal Screen MRSA (PCR) (NEGATIVE) Urine Opiates Screen (NEGATIVE) Ur Oxycodone Screen (NEGATIVE) Urine Methadone Screen (NEGATIVE) Ur Propoxyphene Screen (NEGATIVE) Ur Barbiturates Screen (NEGATIVE) Ur Tricyclics Screen (NEGATIVE) Ur Phencyclidine Scrn (NEGATIVE) Ur Amphetamine Screen (NEGATIVE) U Methamphetamines Scrn (NEGATIVE) U Benzodiazepines Scrn (NEGATIVE) Urine Cocaine Screen (NEGATIVE) U Cannabinoids Screen (NEGATIVE) 09/06/22 09/06/22 09/06/22 Range/Units 22:00 21:02 21:02 WBC (4.8-10.8) x10^3/uL RBC (4.20-5.40) 10^6/uL Hgb (12.0-16.0) g/dL Hct (37.0-47.0) % MCV (81.0-99.0) fL MCH (27.0-31.0) pg MCHC (32.0-36.0) g/dL RDW (12.0-15.0) % Plt Count (130-450) 10^3/uL MPV (7.9-10.8) fL Neut # (Auto) (1.5-6.6) 10^3/uL Lymph # (Auto) (1.5-3.5) 10^3/uL Vernon # (Auto) (0.0-1.0) 10^3/uL Eos # (Auto) (0.0-0.7) 10^3/uL Baso # (Auto) (0.0-0.1) 10^3/uL Absolute Nucleated RBC x10^3/uL Nucleated RBC % /100WBC PT 12.6 (9.9-12.6) secs INR 1.1 (0.8-1.2) Bld Gas Analysis Time Sample Site ABG pH (7.35-7.45) ABG pCO2 (34-45) mmHg ABG pO2 (80-100) mmHg ABG HCO3 (22.0-26.0) mmol/L ABG Total CO2 (21.0-29.0) MMOL/L ABG O2 Saturation (94-98) % ABG Base Excess (-2.0-3.0) mmol/L Cornel Test Room Air Sodium 136 (135-145) mmol/L Potassium 4.0 (3.5-5.0) mmol/L Chloride 102 (101-111) mmol/L Carbon Dioxide 23 (21-32) mmol/L Anion Gap 11.0 (6-13) BUN 9 (6-20) mg/dL Creatinine 0.8 (0.4-1.0) mg/dL Estimated GFR (MDRD) 71 L (>89) Glucose 304 H (70-100) mg/dL POC Whole Bld Glucose (70 - 100) mg/dL Lactic Acid (0.5-2.2) mmol/L Calcium 7.2 L (8.5-10.3) mg/dL Phosphorus (2.5-4.6) mg/dL Magnesium (1.7-2.8) mg/dL Total Bilirubin 0.5 (0.2-1.0) mg/dL Direct Bilirubin (0.1-0.5) mg/dL AST 80 H (10-42) IU/L ALT 34 (10-60) IU/L Alkaline Phosphatase 89 (42-121) IU/L Lactate Dehydrogenase (91-225) IU/L Troponin I High Sens (2.3-14.8) ng/L Total Protein 5.1 L (6.7-8.2) g/dL Albumin 2.4 L (3.2-5.5) g/dL Globulin 2.7 (2.1-4.2) g/dL Albumin/Globulin Ratio 0.9 L (1.0-2.2) TSH (0.34-5.60) uIU/mL Nasal Screen MRSA (PCR) POSITIVE A* (NEGATIVE) Urine Opiates Screen (NEGATIVE) Ur Oxycodone Screen (NEGATIVE) Urine Methadone Screen (NEGATIVE) Ur Propoxyphene Screen (NEGATIVE) Ur Barbiturates Screen (NEGATIVE) Ur Tricyclics Screen (NEGATIVE) Ur Phencyclidine Scrn (NEGATIVE) Ur Amphetamine Screen (NEGATIVE) U Methamphetamines Scrn (NEGATIVE) U Benzodiazepines Scrn (NEGATIVE) Urine Cocaine Screen (NEGATIVE) U Cannabinoids Screen (NEGATIVE) 09/06/22 09/06/22 09/06/22 Range/Units 21:02 21:02 19:37 WBC 7.1 (4.8-10.8) x10^3/uL RBC 3.21 L (4.20-5.40) 10^6/uL Hgb 10.5 L (12.0-16.0) g/dL Hct 31.3 L (37.0-47.0) % MCV 97.5 (81.0-99.0) fL MCH 32.7 H (27.0-31.0) pg MCHC 33.5 (32.0-36.0) g/dL RDW 13.8 (12.0-15.0) % Plt Count 240 (130-450) 10^3/uL MPV 10.5 (7.9-10.8) fL Neut # (Auto) 5.7 (1.5-6.6) 10^3/uL Lymph # (Auto) 0.6 L (1.5-3.5) 10^3/uL Vernon # (Auto) 0.8 (0.0-1.0) 10^3/uL Eos # (Auto) 0.0 (0.0-0.7) 10^3/uL Baso # (Auto) 0.0 (0.0-0.1) 10^3/uL Absolute Nucleated RBC 0.00 x10^3/uL Nucleated RBC % 0.0 /100WBC PT (9.9-12.6) secs INR (0.8-1.2) Bld Gas Analysis Time Sample Site ABG pH (7.35-7.45) ABG pCO2 (34-45) mmHg ABG pO2 (80-100) mmHg ABG HCO3 (22.0-26.0) mmol/L ABG Total CO2 (21.0-29.0) MMOL/L ABG O2 Saturation (94-98) % ABG Base Excess (-2.0-3.0) mmol/L Cornel Test Room Air Sodium (135-145) mmol/L Potassium (3.5-5.0) mmol/L Chloride (101-111) mmol/L Carbon Dioxide (21-32) mmol/L Anion Gap (6-13) BUN (6-20) mg/dL Creatinine (0.4-1.0) mg/dL Estimated GFR (MDRD) (>89) Glucose (70-100) mg/dL POC Whole Bld Glucose (70 - 100) mg/dL Lactic Acid 3.5 H* (0.5-2.2) mmol/L Calcium (8.5-10.3) mg/dL Phosphorus (2.5-4.6) mg/dL Magnesium (1.7-2.8) mg/dL Total Bilirubin (0.2-1.0) mg/dL Direct Bilirubin (0.1-0.5) mg/dL AST (10-42) IU/L ALT (10-60) IU/L Alkaline Phosphatase (42-121) IU/L Lactate Dehydrogenase (91-225) IU/L Troponin I High Sens 30.3 H* (2.3-14.8) ng/L Total Protein (6.7-8.2) g/dL Albumin (3.2-5.5) g/dL Globulin (2.1-4.2) g/dL Albumin/Globulin Ratio (1.0-2.2) TSH (0.34-5.60) uIU/mL Nasal Screen MRSA (PCR) (NEGATIVE) Urine Opiates Screen (NEGATIVE) Ur Oxycodone Screen (NEGATIVE) Urine Methadone Screen (NEGATIVE) Ur Propoxyphene Screen (NEGATIVE) Ur Barbiturates Screen (NEGATIVE) Ur Tricyclics Screen (NEGATIVE) Ur Phencyclidine Scrn (NEGATIVE) Ur Amphetamine Screen (NEGATIVE) U Methamphetamines Scrn (NEGATIVE) U Benzodiazepines Scrn (NEGATIVE) Urine Cocaine Screen (NEGATIVE) U Cannabinoids Screen (NEGATIVE) Assessment/Plan - Problem List (1) Sepsis Impression: The patient met several criteria for sepsis: Tachycardia, AMS, elevated Lactic acid level, abnormal findings on UA, abnormal findings from the colon. Plan: Remain in the ICU Continue with empiric IV antibiotics, broad-spectrum Continue with IV fluids, especially since the patient is not yet adequately hydrating orally 2. UTI Urine and blood cultures are negative to date Plan: Continue with empiric IV antibiotics, broad-spectrum Continue with IV fluids, especially since the patient is not yet adequately hydrating orally Await final urine and blood culture results totailor antibx 3. Colitis Patient denies nausea or abdominal pain but says she has no appetite. She is taking just sips of liquids and only bites of jello Plan: Continue with clear liquid diet Continue with empiric IV antibiotics Continue with IV fluids, especially since the patient is not yet adequately hydrating orally 4. Alcohol abuse and withdrawal Patient scored 17-18 on admission from her alcohol withdrawal. She is visibly lethargic from receiving benzodiazepines. Today her CIWA score is around 7. Labs were reviewed. Her AST remains elevated greater than AST. Bilirubin is normal and she is not icteric on exam Patient revealed to me today that the reason for alcohol binging was the of her sister which made her depressed. The sister in November. She admitted she has been drinking this heavily for 9 months, not just 1 to 2 weeks. She does realize she needs to quit and is interested in getting resources for the Plan: Cont on CIWA protocol and remain in the Intensive Care Unit Continue on Librium in view of history of heavy alcohol drinking. Cont with MOV and Thiamine supplements. Follow BMP daily and LFTs intermittently We will request a social work consult for alcohol abuse resources to quit 5. PSVT Patient is having multiple episodes of PSVT, lasting up to 5 minutes, she is asymptomatic with them. Blood pressure does not drop with them. Her home medications include Cardizem, possibly she takes Cardizem for PSVT as well as for hypertension Plan: We will resume her oral med Cardizem Continue to monitor on telemetry 6. DM type 2 Plan: Continue with IV fluids, especially since the patient is not yet adequately hydrating orally We will start before meals and at bedtime fingerstick checks and sliding scale insulin coverage, hypoglycemia protocol and check her A1c 7. Hypertension Plan: Awaiting a reconciled med list, to resume blood pressure meds i 8. Hypomagnesemia Likely from her poor nutrition Plan: Replace magnesium Follow Mg level daily 9. Tobacco use Plan: Will order nicotine patch 10. MRSA carrier She tested positive for MRSA on nasal swab, upon admission to ICU Plan: Will order nasal ethanol twice daily treatments
[2022-09-07] MEDS: ATORVASTATIN 10 MG TABLET PO SCH (21:14)
[2022-09-07] MEDS: INSULIN GLARGINE-YFGN 300 UNIT/3 ML PEN SUBQ SCH (21:16)
[2022-09-08] MEDS: NS W/20 MEQ KCL 1,000 ML IV SCH (01:16)
[2022-09-08] MEDS: metroNIDAZOLE 500 MG/100 ML 500 MG/100 ML BAG IV SCH ×3 (04:40→20:56)
[2022-09-08 04:54] LABS: BASOPHILS % (AUTO) 0.4 %; EOSINOPHILS # (AUTO) 0.1 10^3/uL (0.0-0.7); EOSINOPHILS % (AUTO) 0.8 %; HCT - HEMATOCRIT 32.2 % (37.0-47.0); HGB - HEMOGLOBIN 10.6 g/dL (12.0-16.0); LYMPHOCYTES # (AUTO) 1.1 10^3/uL (1.5-3.5); LYMPHOCYTES % (AUTO) 12.4 %; MEAN CORPUSCULAR HEMOGLOBIN 33.3 pg (27.0-31.0); MEAN CORPUSCULAR HGB CONC 32.9 g/dL (32.0-36.0); MEAN CORPUSCULAR VOLUME 101.3 fL (81.0-99.0); MEAN PLATELET VOLUME 10.7 fL (7.9-10.8); MONOCYTES # (AUTO) 0.9 10^3/uL (0.0-1.0); MONOCYTES % (AUTO) 10.3 %; NEUTROPHILS # (AUTO) 6.4 10^3/uL (1.5-6.6); NEUTROPHILS % (AUTO) 75.6 %; PLT - PLATELET COUNT 210 10^3/uL (130-450); RED BLOOD COUNT 3.18 10^6/uL (4.20-5.40); WHITE BLOOD COUNT 8.5 x10^3/uL (4.8-10.8)
[2022-09-08 05:04] LABS: CALCIUM 7.7 mg/dL (8.5-10.3); CREATININE 0.6 mg/dL (0.4-1.0); MAGNESIUM 1.9 mg/dL (1.7-2.8); POTASSIUM 4.2 mmol/L (3.5-5.0)
[2022-09-08] MEDS: PANTOPRAZOLE 40 MG VIAL IVP SCH (06:09)
[2022-09-08] MEDS: GABAPENTIN 300 MG CAPSULE PO SCH ×3 (06:09→21:05)
[2022-09-08] MEDS: SODIUM CHLORIDE FLUSH 0.9% 10 ML SYRINGE IVP PRN (06:09)
[2022-09-08] MEDS: guaiFENesin/CODEINE 5 ML UDC PO PRN (06:23)
[2022-09-08 07:03] LABS: CALCIUM, IONIZED 1.09 mmol/L (1.15-1.33); VBG PH 7.381 (7.31-7.41)
[2022-09-08] MEDS: CALCIUM CARBONATE CHEW 500 MG TABLET PO SCH ×2 (07:23→11:26)
[2022-09-08] MEDS: THIAMINE 100 MG TABLET PO SCH (07:25)
[2022-09-08] MEDS: diltiaZEM CD 120 MG CAPSULE PO SCH (07:25)
[2022-09-08] MEDS: LACTOBACILLUS RHAMNOSUS GG CAPSULE PO SCH (07:25)
[2022-09-08] MEDS: SODIUM CHLORIDE FLUSH 0.9% 10 ML SYRINGE IVP SCH ×3 (07:25→21:20)
[2022-09-08] MEDS: LOSARTAN 50 MG TABLET PO SCH (07:25)
[2022-09-08] MEDS: PRENATAL VITAMIN TABLET PO SCH (07:25)
[2022-09-08] MEDS: ethyl alcohoL 62% SWAB AMPULE NAS SCH ×2 (07:28→20:56)
[2022-09-08] MEDS ORDERED: diltiaZEM INJ 5 MG/ML VIAL IVP ONE ×2 (07:45→16:54)
--- NOTE | 2022-09-08 07:49 | PROVIDER PROGRESS NOTE ---
Subjective - Subjective Pt reports feeling: No change (Has no appetite, but denies abdominal pain nausea or vomiting. She did not remember that she got up out of bed and was sitting in a chair to) Objective - Vital Signs/Intake & Output Reviewed Vital Signs: Yes Vital Signs: Vital Signs Temp Pulse Resp BP Pulse Ox O2 Flow Rate 09/08/22 07:00 105 H 26 H 169/101 H 100 1 09/08/22 06:00 94 22 175/85 H 97 1 09/08/22 05:00 92 23 153/94 H 94 1 09/08/22 04:00 36.4 C L 90 21 163/93 H 96 1 Intake & Output: Intake & Output 09/05/22 09/06/22 09/07/22 09/08/22 23:59 23:59 23:59 23:59 Intake Total 2101.2 3051.001 1121.667 Output Total 600 550 Balance 2101.2 2451.001 571.667 - Objective General Appearance: positive: Lethargic (from Ativan), Other (Poorly kempt) Eyes Bilateral: positive: Other (Upper eyelids are ptotic, after getting Ativan. Despite Ativan, she still has a lip tremor and hand tremor) Neck: positive: Nml inspection, No JVD Respiratory: positive: No respiratory distress, Breath sounds nml Cardiovascular: positive: Regular rate & rhythm, No murmur Skin: positive: Warm, Dry, Other (bruises noted on extrem) Extremities: positive: Non-tender, No pedal edema Neurologic/Psychiatric: positive: Oriented x3, Other (Lethargic. Upper eyelids are ptotic, after getting Ativan. Despite Ativan, she still has a lip tremor and hand tremor. Poss asterixis present) - Lab Results Fish Bones: 09/08/22 04:33 09/08/22 04:33 Other Labs: Lab Results x24hrs 09/08/22 09/08/22 09/08/22 Range/Units 07:37 06:44 04:33 WBC (4.8-10.8) x10^3/uL RBC (4.20-5.40) 10^6/uL Hgb (12.0-16.0) g/dL Hct (37.0-47.0) % MCV (81.0-99.0) fL MCH (27.0-31.0) pg MCHC (32.0-36.0) g/dL RDW (12.0-15.0) % Plt Count (130-450) 10^3/uL MPV (7.9-10.8) fL Neut # (Auto) (1.5-6.6) 10^3/uL Lymph # (Auto) (1.5-3.5) 10^3/uL Terrell # (Auto) (0.0-1.0) 10^3/uL Eos # (Auto) (0.0-0.7) 10^3/uL Baso # (Auto) (0.0-0.1) 10^3/uL Absolute Nucleated RBC x10^3/uL Nucleated RBC % /100WBC Bld Gas Analysis Time Sample Site ABG pH (7.35-7.45) ABG pCO2 (34-45) mmHg ABG pO2 (80-100) mmHg ABG HCO3 (22.0-26.0) mmol/L ABG Total CO2 (21.0-29.0) MMOL/L ABG O2 Saturation (94-98) % ABG Base Excess (-2.0-3.0) mmol/L Cornel Test VBG pH 7.381 (7.31-7.41) Ionized Calcium 1.09 L (1.15-1.33) mmol/L Room Air Sodium (135-145) mmol/L Potassium (3.5-5.0) mmol/L Chloride (101-111) mmol/L Carbon Dioxide (21-32) mmol/L Anion Gap (6-13) BUN (6-20) mg/dL Creatinine (0.4-1.0) mg/dL Estimated GFR (MDRD) (>89) Glucose (70-100) mg/dL POC Whole Bld Glucose 167 H (70 - 100) mg/dL Lactic Acid (0.5-2.2) mmol/L Calcium (8.5-10.3) mg/dL Phosphorus 2.3 L (2.5-4.6) mg/dL Magnesium (1.7-2.8) mg/dL Total Bilirubin (0.2-1.0) mg/dL Direct Bilirubin (0.1-0.5) mg/dL AST (10-42) IU/L ALT (10-60) IU/L Alkaline Phosphatase (42-121) IU/L Lactate Dehydrogenase (91-225) IU/L Troponin I High Sens (2.3-14.8) ng/L Total Protein (6.7-8.2) g/dL Albumin (3.2-5.5) g/dL Globulin (2.1-4.2) g/dL TSH (0.34-5.60) uIU/mL 09/08/22 09/08/22 09/07/22 Range/Units 04:33 04:33 21:09 WBC 8.5 (4.8-10.8) x10^3/uL RBC 3.18 L (4.20-5.40) 10^6/uL Hgb 10.6 L (12.0-16.0) g/dL Hct 32.2 L (37.0-47.0) % MCV 101.3 H (81.0-99.0) fL MCH 33.3 H (27.0-31.0) pg MCHC 32.9 (32.0-36.0) g/dL RDW 14.0 (12.0-15.0) % Plt Count 210 (130-450) 10^3/uL MPV 10.7 (7.9-10.8) fL Neut # (Auto) 6.4 (1.5-6.6) 10^3/uL Lymph # (Auto) 1.1 L (1.5-3.5) 10^3/uL Terrell # (Auto) 0.9 (0.0-1.0) 10^3/uL Eos # (Auto) 0.1 (0.0-0.7) 10^3/uL Baso # (Auto) 0.0 (0.0-0.1) 10^3/uL Absolute Nucleated RBC 0.00 x10^3/uL Nucleated RBC % 0.0 /100WBC Bld Gas Analysis Time Sample Site ABG pH (7.35-7.45) ABG pCO2 (34-45) mmHg ABG pO2 (80-100) mmHg ABG HCO3 (22.0-26.0) mmol/L ABG Total CO2 (21.0-29.0) MMOL/L ABG O2 Saturation (94-98) % ABG Base Excess (-2.0-3.0) mmol/L Cornel Test VBG pH (7.31-7.41) Ionized Calcium (1.15-1.33) mmol/L Room Air Sodium 137 (135-145) mmol/L Potassium 4.2 (3.5-5.0) mmol/L Chloride 106 (101-111) mmol/L Carbon Dioxide 21 (21-32) mmol/L Anion Gap 10.0 (6-13) BUN 12 (6-20) mg/dL Creatinine 0.6 (0.4-1.0) mg/dL Estimated GFR (MDRD) 98 (>89) Glucose 173 H (70-100) mg/dL POC Whole Bld Glucose 155 H (70 - 100) mg/dL Lactic Acid (0.5-2.2) mmol/L Calcium 7.7 L (8.5-10.3) mg/dL Phosphorus (2.5-4.6) mg/dL Magnesium 1.9 (1.7-2.8) mg/dL Total Bilirubin (0.2-1.0) mg/dL Direct Bilirubin (0.1-0.5) mg/dL AST (10-42) IU/L ALT (10-60) IU/L Alkaline Phosphatase (42-121) IU/L Lactate Dehydrogenase (91-225) IU/L Troponin I High Sens (2.3-14.8) ng/L Total Protein (6.7-8.2) g/dL Albumin (3.2-5.5) g/dL Globulin (2.1-4.2) g/dL TSH (0.34-5.60) uIU/mL 09/07/22 09/07/22 09/07/22 Range/Units 17:09 11:55 08:40 WBC (4.8-10.8) x10^3/uL RBC (4.20-5.40) 10^6/uL Hgb (12.0-16.0) g/dL Hct (37.0-47.0) % MCV (81.0-99.0) fL MCH (27.0-31.0) pg MCHC (32.0-36.0) g/dL RDW (12.0-15.0) % Plt Count (130-450) 10^3/uL MPV (7.9-10.8) fL Neut # (Auto) (1.5-6.6) 10^3/uL Lymph # (Auto) (1.5-3.5) 10^3/uL Terrell # (Auto) (0.0-1.0) 10^3/uL Eos # (Auto) (0.0-0.7) 10^3/uL Baso # (Auto) (0.0-0.1) 10^3/uL Absolute Nucleated RBC x10^3/uL Nucleated RBC % /100WBC Bld Gas Analysis Time 0855 Sample Site LEFT RADIAL ABG pH 7.49 H (7.35-7.45) ABG pCO2 33 L (34-45) mmHg ABG pO2 79 L (80-100) mmHg ABG HCO3 24.2 (22.0-26.0) mmol/L ABG Total CO2 25.2 (21.0-29.0) MMOL/L ABG O2 Saturation 96 (94-98) % ABG Base Excess 1.3 (-2.0-3.0) mmol/L Cornel Test POSITIVE VBG pH (7.31-7.41) Ionized Calcium (1.15-1.33) mmol/L Room Air YES Sodium (135-145) mmol/L Potassium (3.5-5.0) mmol/L Chloride (101-111) mmol/L Carbon Dioxide (21-32) mmol/L Anion Gap (6-13) BUN (6-20) mg/dL Creatinine (0.4-1.0) mg/dL Estimated GFR (MDRD) (>89) Glucose (70-100) mg/dL POC Whole Bld Glucose 177 H 160 H (70 - 100) mg/dL Lactic Acid (0.5-2.2) mmol/L Calcium (8.5-10.3) mg/dL Phosphorus (2.5-4.6) mg/dL Magnesium (1.7-2.8) mg/dL Total Bilirubin (0.2-1.0) mg/dL Direct Bilirubin (0.1-0.5) mg/dL AST (10-42) IU/L ALT (10-60) IU/L Alkaline Phosphatase (42-121) IU/L Lactate Dehydrogenase (91-225) IU/L Troponin I High Sens (2.3-14.8) ng/L Total Protein (6.7-8.2) g/dL Albumin (3.2-5.5) g/dL Globulin (2.1-4.2) g/dL TSH (0.34-5.60) uIU/mL 09/07/22 09/07/22 09/07/22 Range/Units 07:40 07:40 07:40 WBC (4.8-10.8) x10^3/uL RBC (4.20-5.40) 10^6/uL Hgb (12.0-16.0) g/dL Hct (37.0-47.0) % MCV (81.0-99.0) fL MCH (27.0-31.0) pg MCHC (32.0-36.0) g/dL RDW (12.0-15.0) % Plt Count (130-450) 10^3/uL MPV (7.9-10.8) fL Neut # (Auto) (1.5-6.6) 10^3/uL Lymph # (Auto) (1.5-3.5) 10^3/uL Terrell # (Auto) (0.0-1.0) 10^3/uL Eos # (Auto) (0.0-0.7) 10^3/uL Baso # (Auto) (0.0-0.1) 10^3/uL Absolute Nucleated RBC x10^3/uL Nucleated RBC % /100WBC Bld Gas Analysis Time Sample Site ABG pH (7.35-7.45) ABG pCO2 (34-45) mmHg ABG pO2 (80-100) mmHg ABG HCO3 (22.0-26.0) mmol/L ABG Total CO2 (21.0-29.0) MMOL/L ABG O2 Saturation (94-98) % ABG Base Excess (-2.0-3.0) mmol/L Cornel Test VBG pH (7.31-7.41) Ionized Calcium (1.15-1.33) mmol/L Room Air Sodium (135-145) mmol/L Potassium (3.5-5.0) mmol/L Chloride (101-111) mmol/L Carbon Dioxide (21-32) mmol/L Anion Gap (6-13) BUN (6-20) mg/dL Creatinine (0.4-1.0) mg/dL Estimated GFR (MDRD) (>89) Glucose (70-100) mg/dL POC Whole Bld Glucose (70 - 100) mg/dL Lactic Acid (0.5-2.2) mmol/L Calcium (8.5-10.3) mg/dL Phosphorus (2.5-4.6) mg/dL Magnesium 2.3 (1.7-2.8) mg/dL Total Bilirubin (0.2-1.0) mg/dL Direct Bilirubin (0.1-0.5) mg/dL AST (10-42) IU/L ALT (10-60) IU/L Alkaline Phosphatase (42-121) IU/L Lactate Dehydrogenase (91-225) IU/L Troponin I High Sens 36.0 H* (2.3-14.8) ng/L Total Protein (6.7-8.2) g/dL Albumin (3.2-5.5) g/dL Globulin (2.1-4.2) g/dL TSH 1.29 (0.34-5.60) uIU/mL 09/07/22 09/07/22 09/07/22 Range/Units 07:40 07:40 07:40 WBC (4.8-10.8) x10^3/uL RBC (4.20-5.40) 10^6/uL Hgb (12.0-16.0) g/dL Hct (37.0-47.0) % MCV (81.0-99.0) fL MCH (27.0-31.0) pg MCHC (32.0-36.0) g/dL RDW (12.0-15.0) % Plt Count (130-450) 10^3/uL MPV (7.9-10.8) fL Neut # (Auto) (1.5-6.6) 10^3/uL Lymph # (Auto) (1.5-3.5) 10^3/uL Terrell # (Auto) (0.0-1.0) 10^3/uL Eos # (Auto) (0.0-0.7) 10^3/uL Baso # (Auto) (0.0-0.1) 10^3/uL Absolute Nucleated RBC x10^3/uL Nucleated RBC % /100WBC Bld Gas Analysis Time Sample Site ABG pH (7.35-7.45) ABG pCO2 (34-45) mmHg ABG pO2 (80-100) mmHg ABG HCO3 (22.0-26.0) mmol/L ABG Total CO2 (21.0-29.0) MMOL/L ABG O2 Saturation (94-98) % ABG Base Excess (-2.0-3.0) mmol/L Cornel Test VBG pH (7.31-7.41) Ionized Calcium (1.15-1.33) mmol/L Room Air Sodium (135-145) mmol/L Potassium (3.5-5.0) mmol/L Chloride (101-111) mmol/L Carbon Dioxide (21-32) mmol/L Anion Gap (6-13) BUN (6-20) mg/dL Creatinine (0.4-1.0) mg/dL Estimated GFR (MDRD) (>89) Glucose (70-100) mg/dL POC Whole Bld Glucose (70 - 100) mg/dL Lactic Acid 1.0 (0.5-2.2) mmol/L Calcium (8.5-10.3) mg/dL Phosphorus 2.5 (2.5-4.6) mg/dL Magnesium (1.7-2.8) mg/dL Total Bilirubin (0.2-1.0) mg/dL Direct Bilirubin (0.1-0.5) mg/dL AST (10-42) IU/L ALT (10-60) IU/L Alkaline Phosphatase (42-121) IU/L Lactate Dehydrogenase 217 (91-225) IU/L Troponin I High Sens (2.3-14.8) ng/L Total Protein (6.7-8.2) g/dL Albumin (3.2-5.5) g/dL Globulin (2.1-4.2) g/dL TSH (0.34-5.60) uIU/mL 09/07/22 09/07/22 Range/Units 07:40 07:40 WBC 9.7 (4.8-10.8) x10^3/uL RBC 3.07 L (4.20-5.40) 10^6/uL Hgb 10.4 L (12.0-16.0) g/dL Hct 30.0 L (37.0-47.0) % MCV 97.7 (81.0-99.0) fL MCH 33.9 H (27.0-31.0) pg MCHC 34.7 (32.0-36.0) g/dL RDW 14.0 (12.0-15.0) % Plt Count 254 (130-450) 10^3/uL MPV 10.8 (7.9-10.8) fL Neut # (Auto) 7.6 H (1.5-6.6) 10^3/uL Lymph # (Auto) 0.8 L (1.5-3.5) 10^3/uL Terrell # (Auto) 1.2 H (0.0-1.0) 10^3/uL Eos # (Auto) 0.0 (0.0-0.7) 10^3/uL Baso # (Auto) 0.0 (0.0-0.1) 10^3/uL Absolute Nucleated RBC 0.00 x10^3/uL Nucleated RBC % 0.0 /100WBC Bld Gas Analysis Time Sample Site ABG pH (7.35-7.45) ABG pCO2 (34-45) mmHg ABG pO2 (80-100) mmHg ABG HCO3 (22.0-26.0) mmol/L ABG Total CO2 (21.0-29.0) MMOL/L ABG O2 Saturation (94-98) % ABG Base Excess (-2.0-3.0) mmol/L Cornel Test VBG pH (7.31-7.41) Ionized Calcium (1.15-1.33) mmol/L Room Air Sodium 137 (135-145) mmol/L Potassium 4.4 (3.5-5.0) mmol/L Chloride 103 (101-111) mmol/L Carbon Dioxide 26 (21-32) mmol/L Anion Gap 8.0 (6-13) BUN 10 (6-20) mg/dL Creatinine 0.8 (0.4-1.0) mg/dL Estimated GFR (MDRD) 71 L (>89) Glucose 197 H (70-100) mg/dL POC Whole Bld Glucose (70 - 100) mg/dL Lactic Acid (0.5-2.2) mmol/L Calcium 7.7 L (8.5-10.3) mg/dL Phosphorus 2.5 (2.5-4.6) mg/dL Magnesium (1.7-2.8) mg/dL Total Bilirubin 0.8 (0.2-1.0) mg/dL Direct Bilirubin 0.3 (0.1-0.5) mg/dL AST 84 H (10-42) IU/L ALT 34 (10-60) IU/L Alkaline Phosphatase 91 (42-121) IU/L Lactate Dehydrogenase (91-225) IU/L Troponin I High Sens (2.3-14.8) ng/L Total Protein 5.2 L (6.7-8.2) g/dL Albumin 2.5 L (3.2-5.5) g/dL Globulin 2.7 (2.1-4.2) g/dL TSH (0.34-5.60) uIU/mL Assessment/Plan - Problem List (1) Alcohol abuse with withdrawal Impression: Patient scored 17-18 on admission from her alcohol withdrawal. She is visibly lethargic from receiving benzodiazepines. Today her CIWA score is around 7. Labs were reviewed. Her AST remains minimally elevated and is greater than her AST. Bilirubin is normal and she is not icteric on exam, INR and plts are normal. (All labs were reviewed) Patient revealed to me that the reason for alcohol binging was the of her sister which made her depressed. The sister in November. She admitted she has been drinking this heavily for 9 months, not just 1 to 2 weeks. She does realize she needs to quit and is interested in getting resources for the Plan: Cont on CIWA protocol and remain in the Intensive Care Unit Continue on Librium in view of history of heavy alcohol drinking. Cont with MOV and Thiamine supplements. Follow BMP daily and LFTs intermittently We will request a social work consult for alcohol abuse resources to quit 2. PSVT Patient is still having multiple episodes of PSVT, rates as high as 140, lasting up to 4 minutes, she feels palpitations with them. Blood pressure does not drop with them. Her home medications include Cardizem, possibly she takes Cardizem for PSVT as well as for hypertension. Cardizem CD 120 mg daily has been restarted Plan: We will increase the oral med Cardizem CD from daily to BID She may need additional Cardizem IV push of 10 mg today. I discussed plan with her EQUITY STRUCTURER, Jose. Continue to monitor on telemetry 3. UTI Urine and blood cultures are negative to date Plan: Continue with empiric IV antibiotics, broad-spectrum Continue with IV fluids, especially since the patient is not yet adequately hyd rating orally Await final urine and blood culture results totailor antibx 4. Colitis Patient denies nausea or abdominal pain but says she has no appetite. She is taking just sips of liquids and asks for popsicles The told the patient's RN that the patient has "chronic colitis". She confirmed this. She says she has to "watch what she eats". I asked her what she has to avoid and she could not Plan: Continue with clear liquid diet. Discussed with dietitian Elisa. Will add Ensure clear so she gets some nutrition Continue with empiric IV antibiotics Continue with IV fluids, especially since the patient is not yet adequately hydrating orally, but will decrease the rate from 100 to 60 cc/hr due to rhonchi on exam 5. Hypertension Her blood pressure is quite elevated (167/100), vital signs were all reviewed. This is possibly from ongoing alcohol withdrawal. It is also from not being on her typical home medications Plan: Continue blood pressure meds and increase the Diltiazem po to BID 6. DM type 2 Plan: Continue with IV fluids, especially since the patient is not yet adequately hydrating orally We will start before meals and at bedtime fingerstick checks and sliding scale insulin coverage, hypoglycemia protocol and check her A1c 7. Hypomagnesemia Improved w/ replacement Likely from her poor nutrition Plan: Replace magnesium Follow Mg level daily 8. Tobacco use Plan: Will order nicotine patch 9. MRSA carrier She tested positive for MRSA on nasal swab, upon admission to ICU Plan: Will order nasal ethanol twice daily treatments 10. Sepsis Impression: Improved The patient met several criteria for sepsis: Tachycardia, AMS, elevated Lactic acid level, abnormal findings on UA, abnormal findings from the colon. Plan: Remain in the ICU Continue with empiric IV antibiotics, broad-spectrum Continue with IV fluids, especially since the patient is not yet adequately hydrating orally
[2022-09-08] MEDS ORDERED: SODIUM PHOSPHATE 15 MMOL in SODIUM CHLORIDE 0.9% 250 ML IV ONE (08:00)
[2022-09-08] MEDS: INSULIN LISPRO 300 UNIT/3 ML PEN SUBQ SCH ×4 (08:07→21:03)
[2022-09-08] MEDS: cefTRIAXone 1 GM in SODIUM CHLORIDE 0.9% MINIBAG 100 ML IV SCH (08:07)
[2022-09-08] MEDS ORDERED: diltiaZEM CD 120 MG CAPSULE PO SCH (09:00)
[2022-09-08] MEDS: ASPIRIN EC 325 MG TABLET PO SCH (09:27)
[2022-09-08] MEDS: PARoxetine 10 MG TABLET PO SCH (09:27)
[2022-09-08] MEDS ORDERED: NS W/20 MEQ KCL 1,000 ML IV SCH (10:22)
[2022-09-08 11:23] LABS: ESTIMATED AVERAGE GLUCOSE 146 mg/dL (70-100); HEMOGLOBIN A1c% 6.7 % (4.27-6.07)
[2022-09-08] MEDS: LORazepam 2 MG/ML VIAL IVP PRN ×2 (11:26→17:37)
--- NOTE | 2022-09-08 18:36 | XRAY Report ---
PROCEDURE: Chest 1 View X-Ray INDICATIONS: Cough, rhonchi, new onset A-fib TECHNIQUE: One view of the chest was acquired. COMPARISON: 09/06/2022 FINDINGS: Surgical changes and devices: None. Lungs and pleura: No pleural effusions or pneumothorax. Mild generalized interstitial prominence is seen. Mediastinum: Mediastinal contours appear normal. Heart size is normal. Bones and chest wall: Remote left rib fractures are seen. No suspicious bony lesions. Overlying soft tissues appear unremarkable. IMPRESSION: Mild generalized interstitial prominence can be seen. The heart size is at the upper limits of normal . Please consider early heart failure. Left-sided rib fractures are again seen. Reviewed by: William Lopez MD on 09/08/2022 5:35 PM [email or web address] Approved by: William Lopez MD on 09/08/2022 5:35 PM [email or web address] Station ID: [id number]
[2022-09-08] MEDS: diltiaZEM INJ 125 MG in DEXTROSE 5% 100 ML IV SCH (18:55)
[2022-09-08] MEDS: ATORVASTATIN 10 MG TABLET PO SCH (20:56)
[2022-09-08] MEDS: chlordiazePOXIDE 5 MG CAPSULE PO SCH (20:56)
[2022-09-08] MEDS: INSULIN GLARGINE-YFGN 300 UNIT/3 ML PEN SUBQ SCH (21:03)
[2022-09-09] MEDS: diltiaZEM INJ 125 MG in DEXTROSE 5% 100 ML IV SCH ×2 (04:21→11:03)
[2022-09-09] MEDS: metroNIDAZOLE 500 MG/100 ML 500 MG/100 ML BAG IV SCH ×2 (04:44→12:15)
[2022-09-09 04:58] LABS: CALCIUM, IONIZED 1.05 mmol/L (1.15-1.33); VBG PH 7.478 (7.31-7.41)
[2022-09-09 05:05] LABS: BASOPHILS % (AUTO) 0.4 %; EOSINOPHILS # (AUTO) 0.2 10^3/uL (0.0-0.7); EOSINOPHILS % (AUTO) 2.6 %; HCT - HEMATOCRIT 32.9 % (37.0-47.0); HGB - HEMOGLOBIN 10.9 g/dL (12.0-16.0); LYMPHOCYTES # (AUTO) 0.9 10^3/uL (1.5-3.5); LYMPHOCYTES % (AUTO) 10.7 %; MEAN CORPUSCULAR HEMOGLOBIN 33.5 pg (27.0-31.0); MEAN CORPUSCULAR HGB CONC 33.1 g/dL (32.0-36.0); MEAN CORPUSCULAR VOLUME 101.2 fL (81.0-99.0); MEAN PLATELET VOLUME 10.5 fL (7.9-10.8); MONOCYTES # (AUTO) 0.8 10^3/uL (0.0-1.0); MONOCYTES % (AUTO) 9.1 %; NEUTROPHILS # (AUTO) 6.3 10^3/uL (1.5-6.6); NEUTROPHILS % (AUTO) 76.8 %; PLT - PLATELET COUNT 200 10^3/uL (130-450); RED BLOOD COUNT 3.25 10^6/uL (4.20-5.40); RED CELL DISTRIBUTION WIDTH 13.9 % (12.0-15.0); WHITE BLOOD COUNT 8.2 x10^3/uL (4.8-10.8)
[2022-09-09 05:11] LABS: CALCIUM 7.5 mg/dL (8.5-10.3); CREATININE 0.6 mg/dL (0.4-1.0); MAGNESIUM 1.5 mg/dL (1.7-2.8); PHOSPHORUS 2.8 mg/dL (2.5-4.6); POTASSIUM 3.3 mmol/L (3.5-5.0)
[2022-09-09] MEDS: GABAPENTIN 300 MG CAPSULE PO SCH ×3 (06:06→21:11)
[2022-09-09] MEDS: PANTOPRAZOLE 40 MG VIAL IVP SCH (06:06)
[2022-09-09] MEDS: SODIUM CHLORIDE FLUSH 0.9% 10 ML SYRINGE IVP PRN (06:06)
[2022-09-09] MEDS: CALCIUM CARBONATE CHEW 500 MG TABLET PO SCH ×5 (08:32→23:54)
[2022-09-09] MEDS: cefTRIAXone 1 GM in SODIUM CHLORIDE 0.9% MINIBAG 100 ML IV SCH (08:32)
[2022-09-09] MEDS: ethyl alcohoL 62% SWAB AMPULE NAS SCH ×2 (08:32→21:11)
[2022-09-09] MEDS: PARoxetine 10 MG TABLET PO SCH (08:32)
[2022-09-09] MEDS: LOSARTAN 50 MG TABLET PO SCH (08:33)
[2022-09-09] MEDS: THIAMINE 100 MG TABLET PO SCH (08:33)
[2022-09-09] MEDS: LACTOBACILLUS RHAMNOSUS GG CAPSULE PO SCH ×2 (08:33→16:33)
[2022-09-09] MEDS: POTASSIUM CHLORIDE 20 MEQ TABLET PO SCH ×2 (08:33→10:34)
[2022-09-09] MEDS: PRENATAL VITAMIN TABLET PO SCH (08:33)
[2022-09-09] MEDS: ASPIRIN EC 325 MG TABLET PO SCH (08:33)
[2022-09-09] MEDS: chlordiazePOXIDE 5 MG CAPSULE PO SCH ×2 (08:33→21:11)
[2022-09-09] MEDS: SODIUM CHLORIDE FLUSH 0.9% 10 ML SYRINGE IVP SCH ×3 (08:34→23:55)
[2022-09-09] MEDS: NS W/20 MEQ KCL 1,000 ML IV SCH (08:38)
[2022-09-09] MEDS: INSULIN LISPRO 300 UNIT/3 ML PEN SUBQ SCH ×4 (08:38→21:11)
[2022-09-09] MEDS ORDERED: MAGNESIUM OXIDE 400 MG TABLET PO ONE ×2 (09:00→16:00)
[2022-09-09] MEDS: LORazepam 2 MG/ML VIAL IVP PRN ×2 (10:34→17:47)
--- NOTE | 2022-09-09 13:40 | PROVIDER PROGRESS NOTE ---
Subjective - Subjective Pt reports feeling: No change (Still lethargic from being on benzos, still has a mild tremor of her hands and lower lip) Objective - Vital Signs/Intake & Output Reviewed Vital Signs: Yes Vital Signs: Vital Signs Temp Pulse Resp BP Pulse Ox 09/09/22 13:00 102 H 25 H 123/80 100 09/09/22 12:00 36.9 C 101 H 22 131/88 H 99 09/09/22 11:00 93 32 H 138/82 H 99 09/09/22 10:00 109 H 32 H 150/73 H 96 Intake & Output: Intake & Output 09/06/22 09/07/22 09/08/22 09/09/22 23:59 23:59 23:59 23:59 Intake Total 2101.2 3051.001 3344.251 1219.75 Output Total 600 1500 350 Balance 2101.2 2451.001 1844.251 869.75 - Objective General Appearance: positive: Lethargic, Other (Disheveled) Eyes Bilateral: positive: Other (Upper eyelids are ptotic or she has mild edema of upper lid) ENT: positive: No signs of dehydration Neck: positive: Nml inspection, No JVD Respiratory: positive: Rhonchi Cardiovascular: positive: Regular rate & rhythm, No murmur Abdomen: positive: Non-tender, No distention Skin: positive: Warm, Dry Extremities: positive: Non-tender, No pedal edema Neurologic/Psychiatric: positive: Other (Lethargic (is on benzos), has fine tremor of the lower lip and both hands, Answers quietly and slowly, has poor memory) - Lab Results Fish Bones: 09/09/22 04:28 09/09/22 04:28 Other Labs: Lab Results x24hrs 09/09/22 09/09/22 09/09/22 Range/Units 11:29 10:30 07:41 WBC (4.8-10.8) x10^3/uL RBC (4.20-5.40) 10^6/uL Hgb (12.0-16.0) g/dL Hct (37.0-47.0) % MCV (81.0-99.0) fL MCH (27.0-31.0) pg MCHC (32.0-36.0) g/dL RDW (12.0-15.0) % Plt Count (130-450) 10^3/uL MPV (7.9-10.8) fL Neut # (Auto) (1.5-6.6) 10^3/uL Lymph # (Auto) (1.5-3.5) 10^3/uL Grimes # (Auto) (0.0-1.0) 10^3/uL Eos # (Auto) (0.0-0.7) 10^3/uL Baso # (Auto) (0.0-0.1) 10^3/uL Absolute Nucleated RBC x10^3/uL Nucleated RBC % /100WBC D-Dimer (200.0-255.0) ng/mL VBG pH (7.31-7.41) Ionized Calcium (1.15-1.33) mmol/L Sodium (135-145) mmol/L Potassium (3.5-5.0) mmol/L Chloride (101-111) mmol/L Carbon Dioxide (21-32) mmol/L Anion Gap (6-13) BUN (6-20) mg/dL Creatinine (0.4-1.0) mg/dL Estimated GFR (MDRD) (>89) Glucose (70-100) mg/dL POC Whole Bld Glucose 327 H 170 H (70 - 100) mg/dL Calcium (8.5-10.3) mg/dL Phosphorus (2.5-4.6) mg/dL Magnesium (1.7-2.8) mg/dL Troponin I High Sens (2.3-14.8) ng/L B-Natriuretic Peptide (5-100) pg/mL Free T4 (0.58-1.64) ng/dL Stl C. diff Tox B Gene NEGATIVE (NEGATIVE) 09/09/22 09/09/22 09/09/22 Range/Units 04:28 04:28 04:28 WBC 8.2 (4.8-10.8) x10^3/uL RBC 3.25 L (4.20-5.40) 10^6/uL Hgb 10.9 L (12.0-16.0) g/dL Hct 32.9 L (37.0-47.0) % MCV 101.2 H (81.0-99.0) fL MCH 33.5 H (27.0-31.0) pg MCHC 33.1 (32.0-36.0) g/dL RDW 13.9 (12.0-15.0) % Plt Count 200 (130-450) 10^3/uL MPV 10.5 (7.9-10.8) fL Neut # (Auto) 6.3 (1.5-6.6) 10^3/uL Lymph # (Auto) 0.9 L (1.5-3.5) 10^3/uL Grimes # (Auto) 0.8 (0.0-1.0) 10^3/uL Eos # (Auto) 0.2 (0.0-0.7) 10^3/uL Baso # (Auto) 0.0 (0.0-0.1) 10^3/uL Absolute Nucleated RBC 0.00 x10^3/uL Nucleated RBC % 0.0 /100WBC D-Dimer (200.0-255.0) ng/mL VBG pH (7.31-7.41) Ionized Calcium (1.15-1.33) mmol/L Sodium (135-145) mmol/L Potassium (3.5-5.0) mmol/L Chloride (101-111) mmol/L Carbon Dioxide (21-32) mmol/L Anion Gap (6-13) BUN (6-20) mg/dL Creatinine (0.4-1.0) mg/dL Estimated GFR (MDRD) (>89) Glucose (70-100) mg/dL POC Whole Bld Glucose (70 - 100) mg/dL Calcium (8.5-10.3) mg/dL Phosphorus (2.5-4.6) mg/dL Magnesium (1.7-2.8) mg/dL Troponin I High Sens (2.3-14.8) ng/L B-Natriuretic Peptide 760 H (5-100) pg/mL Free T4 0.93 (0.58-1.64) ng/dL Stl C. diff Tox B Gene (NEGATIVE) 09/09/22 09/09/22 09/08/22 Range/Units 04:28 04:28 21:05 WBC (4.8-10.8) x10^3/uL RBC (4.20-5.40) 10^6/uL Hgb (12.0-16.0) g/dL Hct (37.0-47.0) % MCV (81.0-99.0) fL MCH (27.0-31.0) pg MCHC (32.0-36.0) g/dL RDW (12.0-15.0) % Plt Count (130-450) 10^3/uL MPV (7.9-10.8) fL Neut # (Auto) (1.5-6.6) 10^3/uL Lymph # (Auto) (1.5-3.5) 10^3/uL Grimes # (Auto) (0.0-1.0) 10^3/uL Eos # (Auto) (0.0-0.7) 10^3/uL Baso # (Auto) (0.0-0.1) 10^3/uL Absolute Nucleated RBC x10^3/uL Nucleated RBC % /100WBC D-Dimer (200.0-255.0) ng/mL VBG pH 7.478 H (7.31-7.41) Ionized Calcium 1.05 L (1.15-1.33) mmol/L Sodium 134 L (135-145) mmol/L Potassium 3.3 L (3.5-5.0) mmol/L Chloride 106 (101-111) mmol/L Carbon Dioxide 21 (21-32) mmol/L Anion Gap 7.0 (6-13) BUN 13 (6-20) mg/dL Creatinine 0.6 (0.4-1.0) mg/dL Estimated GFR (MDRD) 98 (>89) Glucose 161 H (70-100) mg/dL POC Whole Bld Glucose (70 - 100) mg/dL Calcium 7.5 L (8.5-10.3) mg/dL Phosphorus 2.8 3.0 (2.5-4.6) mg/dL Magnesium 1.5 L (1.7-2.8) mg/dL Troponin I High Sens (2.3-14.8) ng/L B-Natriuretic Peptide (5-100) pg/mL Free T4 (0.58-1.64) ng/dL Stl C. diff Tox B Gene (NEGATIVE) 09/08/22 09/08/22 09/08/22 Range/Units 21:05 21:02 18:34 WBC (4.8-10.8) x10^3/uL RBC (4.20-5.40) 10^6/uL Hgb (12.0-16.0) g/dL Hct (37.0-47.0) % MCV (81.0-99.0) fL MCH (27.0-31.0) pg MCHC (32.0-36.0) g/dL RDW (12.0-15.0) % Plt Count (130-450) 10^3/uL MPV (7.9-10.8) fL Neut # (Auto) (1.5-6.6) 10^3/uL Lymph # (Auto) (1.5-3.5) 10^3/uL Grimes # (Auto) (0.0-1.0) 10^3/uL Eos # (Auto) (0.0-0.7) 10^3/uL Baso # (Auto) (0.0-0.1) 10^3/uL Absolute Nucleated RBC x10^3/uL Nucleated RBC % /100WBC D-Dimer 870.1 H (200.0-255.0) ng/mL VBG pH (7.31-7.41) Ionized Calcium (1.15-1.33) mmol/L Sodium (135-145) mmol/L Potassium (3.5-5.0) mmol/L Chloride (101-111) mmol/L Carbon Dioxide (21-32) mmol/L Anion Gap (6-13) BUN (6-20) mg/dL Creatinine (0.4-1.0) mg/dL Estimated GFR (MDRD) (>89) Glucose (70-100) mg/dL POC Whole Bld Glucose 225 H (70 - 100) mg/dL Calcium (8.5-10.3) mg/dL Phosphorus (2.5-4.6) mg/dL Magnesium (1.7-2.8) mg/dL Troponin I High Sens 181.5 H* (2.3-14.8) ng/L B-Natriuretic Peptide (5-100) pg/mL Free T4 (0.58-1.64) ng/dL Stl C. diff Tox B Gene (NEGATIVE) 09/08/22 09/08/22 09/08/22 Range/Units 18:22 16:51 11:31 WBC (4.8-10.8) x10^3/uL RBC (4.20-5.40) 10^6/uL Hgb (12.0-16.0) g/dL Hct (37.0-47.0) % MCV (81.0-99.0) fL MCH (27.0-31.0) pg MCHC (32.0-36.0) g/dL RDW (12.0-15.0) % Plt Count (130-450) 10^3/uL MPV (7.9-10.8) fL Neut # (Auto) (1.5-6.6) 10^3/uL Lymph # (Auto) (1.5-3.5) 10^3/uL Grimes # (Auto) (0.0-1.0) 10^3/uL Eos # (Auto) (0.0-0.7) 10^3/uL Baso # (Auto) (0.0-0.1) 10^3/uL Absolute Nucleated RBC x10^3/uL Nucleated RBC % /100WBC D-Dimer (200.0-255.0) ng/mL VBG pH (7.31-7.41) Ionized Calcium (1.15-1.33) mmol/L Sodium (135-145) mmol/L Potassium (3.5-5.0) mmol/L Chloride (101-111) mmol/L Carbon Dioxide (21-32) mmol/L Anion Gap (6-13) BUN (6-20) mg/dL Creatinine (0.4-1.0) mg/dL Estimated GFR (MDRD) (>89) Glucose (70-100) mg/dL POC Whole Bld Glucose 324 H 235 H (70 - 100) mg/dL Calcium (8.5-10.3) mg/dL Phosphorus (2.5-4.6) mg/dL Magnesium (1.7-2.8) mg/dL Troponin I High Sens 198.8 H* (2.3-14.8) ng/L B-Natriuretic Peptide (5-100) pg/mL Free T4 (0.58-1.64) ng/dL Stl C. diff Tox B Gene (NEGATIVE) Assessment/Plan - Problem List (1) Atrial fibrillation with RVR Impression: Yesterday evening, the patient went into A-fib with RVR at a rate of 180. She said she can feel palpitations. We checked TFTs, recycled troponins and these were stable. Chest x-ray was done that showed CHF. IV fluids were decreased. She was put on a diltiazem drip, This is at 5 today and heart rate is in the 80s Plan: Will wean down the diltiazem drip and resume her twice daily oral Diltiazem Remain in the ICU Will order an Echo (However today is Sunday and we have no on site wastewater systems technician here until Sunday) 2. Alcohol abuse with withdrawal Impression: Patient scored 17-18 on admission from her alcohol withdrawal. She is visibly lethargic from receiving benzodiazepines. Her CIWA score is around 7. Labs were reviewed. Her AST remains minimally elevated and is greater than her AST. Bilirubin is normal and she is not icteric on exam, INR and plts are normal. (All labs were reviewed) Patient revealed to me that the reason for alcohol binging was the of her sister which made her depressed. The sister in November. She admitted she has been drinking this heavily for 9 months, not just 1 to 2 weeks. She does realize she needs to quit and is interested in getting resources for the Plan: Cont on CIWA protocol and remain in the Intensive Care Unit Continue on schedule po Librium 10 mg BID in view of history of heavy alcohol drinking. Cont with MOV and Thiamine supplements. Follow BMP daily and LFTs intermittently We will request a social work consult for alcohol abuse resources to quit, she is too somnolent from Benzos to talk with SW yet. 3. PSVT Impression: Patient is still having multiple episodes of PSVT, rates as high as 140, lasting up to 2 minutes, she occasionally feels palpitations with them. Blood pressure does not drop with them. Her home medications included Cardizem once a day, so possibly she takes Cardizem for PSVT as well as for hypertension. Cardizem CD 120 mg daily was increased already to BID, before the new Afib with RVR started on 09/08 Plan: We will wean off the Dilt drip and resume Cardizem CD BID Continue to monitor on telemetry 4. Colitis Impression: Her CT abdomen did show colitis Patient denies nausea or abdominal pain but says she has no appetite. She is taking just sips of liquids and asks for popsicles The told the patient's RN that the patient has "chronic colitis". She confirmed this. She says she has to "watch what she eats". I asked her what she has to avoid and she could not Plan: Continue with clear liquid diet and Ensure clear, so she gets some nutrition I will stop her bedtime statin medication, since she is not eating enough to need an anticholesterol med Will change her empiric IV antibiotics of Ceftriaxone and Flagyl, to po Flagyl today Continue Imodium prn. Will increase Florastor from daily to BID Continue with IV fluids, especially since the patient is not yet adequately hydrating orally, but will decrease the rate from 60 to 40 cc/hr due to rhonchi on exam and CXR yesterday that showed CHF. We will also be stopping the IV ceftriaxone and IV Flagyl today 5. Bacteriuria Impression: All labs and microbiology were reviewed. The Urine cx is final and no bacteria grew. Blood cultures are negative to date. Sepsis must have been from colitis not from a UTI Plan: We will stop the empiric IV ceftriaxone 6. Hypertension Her blood pressure is quite elevated (167/100), vital signs were all reviewed. This is possibly from ongoing alcohol withdrawal. It is also from not being on her typical home medications Plan: Continue blood pressure meds and the increased Diltiazem BID 7. DM type 2 Plan: Continue with IV fluids, especially since the patient is not yet adequately hydrating orally Cont Simglee 5U at hs Cont before meals and at bedtime fingerstick checks and sliding scale insulin coverage, hypoglycemia protocol and check her A1c 8. Hypomagnesemia Improved w/ replacement Likely from her poor nutrition Plan: Replace magnesium Follow Mg level daily 9. Tobacco use Plan: Cont nicotine patch 10. MRSA carrier She tested positive for MRSA on nasal swab, upon admission to ICU Plan: Cont nasal ethanol twice daily treatments 11. Sepsis Impression: Resolved The patient met several criteria for sepsis: Tachycardia, AMS, elevated Lactic acid level, abnormal findings on UA, abnormal findings from the colon. Sepsis must have been from colitis not from a UTI, as the urine cx grew no bacteria. Plan: Adjusting antibx today Continue with IV fluids, especially since the patient is not yet adequately hydrating orally
[2022-09-09 15:13] LABS: CALCIUM, IONIZED 1.07 mmol/L (1.15-1.33); VBG PH 7.455 (7.31-7.41)
[2022-09-09 15:22] LABS: MAGNESIUM 1.5 mg/dL (1.7-2.8)
[2022-09-09] MEDS: LOPERAMIDE 2 MG CAPSULE PO PRN (15:25)
[2022-09-09] MEDS: diltiaZEM CD 180 MG CAPSULE PO SCH (16:34)
[2022-09-09] MEDS: metroNIDAZOLE 250 MG TABLET PO SCH (16:34)
[2022-09-09] MEDS ORDERED: diltiaZEM CD 180 MG CAPSULE PO SCH (21:00)
[2022-09-09] MEDS: INSULIN GLARGINE-YFGN 300 UNIT/3 ML PEN SUBQ SCH (21:11)
[2022-09-10] MEDS: CALCIUM CARBONATE CHEW 500 MG TABLET PO SCH ×3 (04:14→12:11)
[2022-09-10 05:11] LABS: CALCIUM, IONIZED 1.11 mmol/L (1.15-1.33); VBG PH 7.39 (7.31-7.41)
[2022-09-10 05:23] LABS: CALCIUM 7.5 mg/dL (8.5-10.3); CREATININE 0.6 mg/dL (0.4-1.0); MAGNESIUM 1.7 mg/dL (1.7-2.8); PHOSPHORUS 3.4 mg/dL (2.5-4.6); POTASSIUM 3.8 mmol/L (3.5-5.0)
[2022-09-10] MEDS: SODIUM CHLORIDE FLUSH 0.9% 10 ML SYRINGE IVP PRN (06:19)
[2022-09-10] MEDS: GABAPENTIN 300 MG CAPSULE PO SCH ×3 (06:19→22:37)
[2022-09-10] MEDS: PANTOPRAZOLE 40 MG VIAL IVP SCH (06:19)
[2022-09-10] MEDS: ASPIRIN EC 325 MG TABLET PO SCH (07:50)
[2022-09-10] MEDS: NS W/20 MEQ KCL 1,000 ML IV SCH (07:50)
[2022-09-10] MEDS: LOSARTAN 50 MG TABLET PO SCH (07:50)
[2022-09-10] MEDS: LACTOBACILLUS RHAMNOSUS GG CAPSULE PO SCH ×2 (07:50→17:06)
[2022-09-10] MEDS: PRENATAL VITAMIN TABLET PO SCH (07:51)
[2022-09-10] MEDS: ethyl alcohoL 62% SWAB AMPULE NAS SCH ×2 (07:51→21:14)
[2022-09-10] MEDS: metroNIDAZOLE 250 MG TABLET PO SCH ×3 (07:51→17:06)
[2022-09-10] MEDS: chlordiazePOXIDE 5 MG CAPSULE PO SCH ×2 (07:51→20:00)
[2022-09-10] MEDS: diltiaZEM CD 180 MG CAPSULE PO SCH ×2 (07:51→17:06)
[2022-09-10] MEDS: LOPERAMIDE 2 MG CAPSULE PO PRN (07:51)
[2022-09-10] MEDS: THIAMINE 100 MG TABLET PO SCH (07:51)
[2022-09-10] MEDS: SODIUM CHLORIDE FLUSH 0.9% 10 ML SYRINGE IVP SCH ×3 (07:52→22:44)
[2022-09-10] MEDS: PARoxetine 10 MG TABLET PO SCH (07:59)
[2022-09-10] MEDS: INSULIN LISPRO 300 UNIT/3 ML PEN SUBQ SCH ×4 (07:59→22:41)
[2022-09-10] MEDS ORDERED: MAGNESIUM OXIDE 400 MG TABLET PO ONE (09:00)
[2022-09-10] MEDS ORDERED: POTASSIUM CHLORIDE 20 MEQ TABLET PO ONE (09:00)
[2022-09-10] MEDS: METOPROLOL SUCCINATE 25 MG TABLET PO SCH (12:11)
--- NOTE | 2022-09-10 12:59 | PROVIDER PROGRESS NOTE ---
Subjective - Subjective Pt reports feeling: Improved (More awake, less tremulous and has better appetite. RN reports fewer episodes of SVT and iv diltiazem drip has been off since yesterday.) Objective - Vital Signs/Intake & Output Vital Signs: Vital Signs Temp Pulse Resp BP Pulse Ox O2 Flow Rate 09/10/22 12:00 36.9 C 99 28 H 127/74 100 1 09/10/22 11:00 85 19 111/75 100 1 09/10/22 10:00 93 19 135/78 H 98 1 09/10/22 09:00 88 20 142/80 H 100 1 Intake & Output: Intake & Output 09/07/22 09/08/22 09/09/22 09/10/22 23:59 23:59 23:59 23:59 Intake Total 3051.001 3344.251 2134.501 733.333 Output Total 600 1500 650 600 Balance 2451.001 8043.656 8745.501 133.333 - Objective General Appearance: positive: No acute distress, Alert Eyes Bilateral: positive: Normal inspection ENT: positive: No signs of dehydration Neck: positive: Nml inspection, No JVD Respiratory: positive: Rhonchi Cardiovascular: positive: Regular rate & rhythm, No murmur Abdomen: positive: Non-tender, No distention Skin: positive: Warm, Dry, Pallor Extremities: positive: Non-tender, Other (Trace edema of feet and hands) Neurologic/Psychiatric: positive: Oriented x3, Other (She has ptosis (from benzos), still has fine tremor of lower lip and hands) - Lab Results Fish Bones: 09/09/22 04:28 09/10/22 04:37 Other Labs: Lab Results x24hrs 09/10/22 09/10/22 09/10/22 Range/Units 11:46 07:42 04:37 VBG pH 7.390 (7.31-7.41) Ionized Calcium 1.11 L (1.15-1.33) mmol/L Sodium (135-145) mmol/L Potassium (3.5-5.0) mmol/L Chloride (101-111) mmol/L Carbon Dioxide (21-32) mmol/L Anion Gap (6-13) BUN (6-20) mg/dL Creatinine (0.4-1.0) mg/dL Estimated GFR (MDRD) (>89) Glucose (70-100) mg/dL POC Whole Bld Glucose 187 H 176 H (70 - 100) mg/dL Calcium (8.5-10.3) mg/dL Phosphorus (2.5-4.6) mg/dL Magnesium (1.7-2.8) mg/dL 09/10/22 09/09/22 09/09/22 Range/Units 04:37 21:09 16:56 VBG pH (7.31-7.41) Ionized Calcium (1.15-1.33) mmol/L Sodium 135 (135-145) mmol/L Potassium 3.8 (3.5-5.0) mmol/L Chloride 103 (101-111) mmol/L Carbon Dioxide 20 L (21-32) mmol/L Anion Gap 12.0 (6-13) BUN 12 (6-20) mg/dL Creatinine 0.6 (0.4-1.0) mg/dL Estimated GFR (MDRD) 98 (>89) Glucose 176 H (70-100) mg/dL POC Whole Bld Glucose 204 H 197 H (70 - 100) mg/dL Calcium 7.5 L (8.5-10.3) mg/dL Phosphorus 3.4 (2.5-4.6) mg/dL Magnesium 1.7 (1.7-2.8) mg/dL 09/09/22 09/09/22 Range/Units 15:03 15:03 VBG pH 7.455 H (7.31-7.41) Ionized Calcium 1.07 L (1.15-1.33) mmol/L Sodium (135-145) mmol/L Potassium 4.0 (3.5-5.0) mmol/L Chloride (101-111) mmol/L Carbon Dioxide (21-32) mmol/L Anion Gap (6-13) BUN (6-20) mg/dL Creatinine (0.4-1.0) mg/dL Estimated GFR (MDRD) (>89) Glucose (70-100) mg/dL POC Whole Bld Glucose (70 - 100) mg/dL Calcium (8.5-10.3) mg/dL Phosphorus (2.5-4.6) mg/dL Magnesium 1.5 L (1.7-2.8) mg/dL Assessment/Plan - Problem List (1) Atrial fibrillation with RVR Impression: On 09/08, the patient went into A-fib with RVR at a rate of 180. She said she could feel palpitations. We checked TFTs, recycled troponins and these were stable. Chest x-ray was done that showed CHF. IV fluids were decreased. She was put on a diltiazem drip, then on 09/09, that was titrated down as we transitioned back to oral diltiazem. The oral diltiazem dose is higher than what she was on at home. Today she is still tachycardic at 100-150 but only with activity, not at rest Plan: Cont the oral Diltiazem, at the new 180mg dose and new BID dose, compared to home dose which was 120 mg daily. I will add Toprol-XL 25 mg daily, to give each day at noon. Remain in the ICU today, in case she needs diltiazem drip resumed. But if she has controlled rate, she can be moved out of the ICU to [facility] telemetry t omorrow. An Echo was ordered to eval cardiac structures, since this is new Afib for her (However today is Sunday and we have no commercial tire service technician here until Sunday) 2. Alcohol abuse with withdrawal Impression: Patient scored 17-18 on admission from her alcohol withdrawal. She is visibly lethargic from receiving benzodiazepines. Her CIWA score is around 7. Labs were reviewed. Her AST remains minimally elevated and is greater than her AST. Bilirubin is normal and she is not icteric on exam, INR and plts are normal. (All labs were reviewed) Patient revealed to me that the reason for alcohol binging was the of her sister which made her depressed. The sister in November. She admitted she has been drinking this heavily for 9 months, not just 1 to 2 weeks. She does realize she needs to quit and is interested in getting resources for the Plan: Cont on CIWA protocol Continue on the schedule po Librium 10 mg BID in view of history of heavy alc ohol drinking. Cont with MOV and Thiamine supplements. Follow BMP daily and LFTs intermittently We will request a social work consult for alcohol abuse resources to quit, she is too somnolent from Benzos to talk with SW yet. 3. CHF Impression: She is a smoker. She has rhonchi that developed 2 days ago. She has been getting IV fluids because of having diarrhea and poor oral intake. The chest x-ray showed CHF. I have decreased her IV rate daily over the last 3 days and stopped iv fluids today Plan: We will try a DuoNeb bronchodilator treatment, since possibly her rhonchi could be from smoking We will also give a dose of Lasix IV 4. Colitis Impression: Her CT abdomen did show colitis Patient denied nausea or abdominal pain but says she has no appetite. The told the patient's RN that the patient has "chronic colitis". She confirmed this. She says she has to "watch what she eats". I asked her what she has to avoid and she could not remember. The following day 09/09, I asked the when he visited, what she eats, and he described mostly a BRAT diet. I have changed her empiric IV antibiotics of Ceftriaxone and Flagyl, to po Flagyl and po Cipro Plan: Will advance the clear liquid diet and Ensure clear to minced and moist Remain off the bedtime statin medication, since she is not eating enough to need an anticholesterol med Continue Imodium prn and Florastor BID We will request Nutrition consult since she is still having 4 or more BMs a day 5. PSVT Impression: She had many episodes of PSVT, rates as high as 140, lasting up to 2 minutes, before she went into Afib with RVR on 09/08. Her home medications included Cardizem once a day, so possibly she took Cardizem for PSVT as well as for hypertension. Cardizem CD 120 mg daily was increased already to BID, before the new Afib with RVR started on 09/08 Plan: Cont the BID Cardizem CD Continue to monitor on telemetry 6. Hypertension Her blood pressure is quite elevated (167/100), vital signs were all reviewed. This is possibly from ongoing alcohol withdrawal. It is also from not being on her typical home medications Plan: Continue blood pressure meds and the increased Diltiazem BID 7. DM type 2 Plan: Cont Simglee 5U at hs Cont before meals and at bedtime fingerstick checks and sliding scale insulin coverage, hypoglycemia protocol and check her A1c We will request Nutrition consult since she has DMK and chronic colitis 8. Hypomagnesemia Improved w/ replacement Likely from her poor nutrition Plan: Replace magnesium Follow Mg level daily 9. Tobacco use Plan: Cont nicotine patch 10. MRSA carrier She tested positive for MRSA on nasal swab, upon admission to ICU Plan: Cont nasal ethanol twice daily treatments 11. Sepsis Impression: Resolved The patient met several criteria for sepsis: Tachycardia, AMS, elevated Lactic acid level, abnormal findings on UA, abnormal findings from the colon. Sepsis must have been from colitis not from a UTI, as the urine cx grew no bacteria. 12. Bacteriuria Impression: All labs and microbiology were reviewed. The Urine cx is final and no bacteria grew. Blood cultures are negative to date. Sepsis must have been from colitis not from a UTI Plan: We will stop the empiric IV ceftriaxone
[2022-09-10] MEDS ORDERED: IPRATROPIUM/ALBUTEROL 3 ML NEB INH PRN (13:48)
[2022-09-10] MEDS: guaiFENesin/CODEINE 5 ML UDC PO PRN (14:02)
[2022-09-10] MEDS ORDERED: FUROSEMIDE 20 MG/2 ML VIAL IVP STA (15:07)
[2022-09-10] MEDS: CIPROFLOXACIN 250 MG TABLET PO SCH (21:14)
[2022-09-10] MEDS: INSULIN GLARGINE-YFGN 300 UNIT/3 ML PEN SUBQ SCH (21:19)
[2022-09-10] MEDS: LORazepam 2 MG/ML VIAL IVP PRN (21:24)
[2022-09-11] MEDS: PANTOPRAZOLE 40 MG VIAL IVP SCH (06:30)
[2022-09-11] MEDS: GABAPENTIN 300 MG CAPSULE PO SCH ×3 (06:30→20:56)
[2022-09-11 06:52] LABS: CALCIUM 8.2 mg/dL (8.5-10.3); CREATININE 0.9 mg/dL (0.4-1.0); MAGNESIUM 1.6 mg/dL (1.7-2.8); POTASSIUM 4.1 mmol/L (3.5-5.0)
[2022-09-11] MEDS: INSULIN LISPRO 300 UNIT/3 ML PEN SUBQ SCH ×4 (08:00→20:53)
[2022-09-11] MEDS: ASPIRIN EC 325 MG TABLET PO SCH (08:51)
[2022-09-11] MEDS: LOSARTAN 50 MG TABLET PO SCH (08:51)
[2022-09-11] MEDS: metroNIDAZOLE 250 MG TABLET PO SCH ×3 (08:51→16:59)
[2022-09-11] MEDS: PRENATAL VITAMIN TABLET PO SCH (08:51)
[2022-09-11] MEDS: LACTOBACILLUS RHAMNOSUS GG CAPSULE PO SCH ×2 (08:52→16:59)
[2022-09-11] MEDS: PARoxetine 10 MG TABLET PO SCH (08:52)
[2022-09-11] MEDS: diltiaZEM CD 180 MG CAPSULE PO SCH ×2 (08:52→16:59)
[2022-09-11] MEDS: THIAMINE 100 MG TABLET PO SCH (08:52)
[2022-09-11] MEDS: MAGNESIUM OXIDE 400 MG TABLET PO SCH ×3 (08:54→19:05)
[2022-09-11] MEDS: ethyl alcohoL 62% SWAB AMPULE NAS SCH ×2 (08:54→20:47)
[2022-09-11] MEDS: SODIUM CHLORIDE FLUSH 0.9% 10 ML SYRINGE IVP SCH ×2 (08:54→17:00)
[2022-09-11] MEDS: LOPERAMIDE 2 MG CAPSULE PO PRN (08:55)
[2022-09-11] MEDS: chlordiazePOXIDE 5 MG CAPSULE PO SCH (10:12)
[2022-09-11] MEDS: METOPROLOL SUCCINATE 25 MG TABLET PO SCH (11:58)
[2022-09-11] MEDS: CIPROFLOXACIN 250 MG TABLET PO SCH ×2 (11:58→20:46)
[2022-09-11] MEDS: NICOTINE 7 MG PATCH TOP SCH (19:25)
[2022-09-11] MEDS: IBUPROFEN 600 MG TABLET PO PRN (20:46)
--- NOTE | 2022-09-11 20:48 | PROVIDER PROGRESS NOTE ---
Progress Note September 11, 2022 8:44 PM Patient seen earlier this evening. Main problem has been deconditioning after recovering from alcohol withdrawal and sepsis from colitis. She is also had intermittent SVT and has been off the diltiazem drip since the morning of September 09. She is in MedSurg status. She is very weak. No longer tremulous. Not having active symptoms of withdrawal. Exam: Temperature 37.1, heart rate 74, blood pressure 120/72. Respirations 22. 95% on 1 L. 68 kg. 5 foot 8 inches tall. Alert, oriented but fatigued female. No JVD Regular rate and rhythm Abdomen soft, nontender Extremities without edema. Neurologically she is tired, slightly slow, but no tremors, no agitation, no diaphoresis. Labs: Sodium 136, potassium 4.1, BUN 14, creatinine 0.9. Glucose today has been 223, 204, 231, (given Ensure) glucose went up to 423, and at 6 PM she is 366. On electrolyte protocol and calcium was 8.2, magnesium 1.6 White cell count 8.2, hemoglobin 10.9. Hemoglobin in February 2022 was 12.4. May 2021 she was-13.8. So she is anemic. Assessment/Plan - Problem List (1) Atrial fibrillation with RVR Impression: On 09/08, the patient went into A-fib with RVR at a rate of 180. She said she could feel palpitations. We checked TFTs, recycled troponins and these were stable. Chest x-ray was done that showed CHF. IV fluids were decreased. She was put on a diltiazem drip, then on 09/09, that was titrated down as we transitioned back to oral diltiazem. The oral diltiazem dose is higher than what she was on at home. She was continued to be tachycardic on September 10. But only with activity. Today her heart rate has stayed consistently in the 60s to the 80s on Cardizem CD 180 mg p.o. twice daily Plus the Toprol-XL 25 mg daily that was added yesterday. Plan: Cont the oral Diltiazem, at the new 180mg dose and new BID dose, compared to home dose which was 120 mg daily. I will continue the Toprol-XL 25 mg daily, to give each day at noon. Transfer to [facility] status on telemetry An Echo was ordered to eval cardiac structures, since this is new Afib for her . Echo was not available until September 12. 2. Alcohol abuse with withdrawal Impression: Patient scored 17-18 on admission from her alcohol withdrawal. She is visibly lethargic from receiving benzodiazepines. Her CIWA score is around 7. Her AST was elevated and is greater than her AST. Bilirubin is normal and she is not icteric on exam, INR and plts are normal. Patient revealed to hospitalist that the reason for alcohol binging was the of her sister which made her depressed. The sister in November. She admitted she has been drinking this heavily for 9 months, not just 1 to 2 weeks. She does realize she needs to quit and is interested in getting resources for the Plan: stop librium stop ciwa protocol Cont with MOV and Thiamine supplements. Follow BMP daily and LFTs intermittently social work consult for alcohol abuse resources to quit, she is too somnolent from Benzos to talk with SW yet. 3. CHF Impression: She is a smoker. She has rhonchi that developed 2 days ago. She has been getting IV fluids because of having diarrhea and poor oral intake. The chest x-ray showed CHF. Her IV fluids were decreased and IV fluids were discontinued completely September 10. Exam today does not show any CHF DuoNeb bronchodilator treatment, since possibly her rhonchi could be from smoking Lasix, a one-time dose, was given yesterday. Intake and output showed a -426 cc balance. She seems to improve with that. Plan: No further Lasix today and I will continue bronchodilators 4. Colitis Impression: Her CT abdomen did show colitis Patient denied nausea or abdominal pain but says she has no appetite. The told the patient's RN that the patient has "chronic colitis". She confirmed this. She says she has to "watch what she eats". Hospitalist confirmed with that she mainly eats a brat diet. Hospitalist changed her empiric IV antibiotics of Ceftriaxone and Flagyl, to po Flagyl and po Cipro. Diet was also advanced from clear liquid and Ensure clear to minced and moist. She has an Imodium as needed for diarrhea and Florastor twice daily for antibiotics. Nutrition services did see her today. Plan: Advancing diet to more palatable intake for her since she does not like the minced and moist 5. PSVT Impression: She had many episodes of PSVT, rates as high as 140, lasting up to 2 minutes, before she went into Afib with RVR on 09/08. Her home medications included Cardizem once a day, so possibly she took Cardizem for PSVT as well as for hypertension. Cardizem CD 120 mg daily was increased already to BID, before the new Afib with RVR started on 09/08. Toprol-XL was also added September 10. Plan: Transfer to [facility] but continue to monitor on telemetry 6. Hypertension Her blood pressure was elevated as high as 167/100 when she began with her withdrawal. But it has come down since then. Today it was even as low as 107/63. We attribute this to alcohol withdrawal now resolving and increasing diltiazem and adding Toprol. I will continue to monitor and adjust medications to avoid hypotension But have to balance the need of these medications for her PSVT 7. DM type 2 With increased p.o. intake, and Ensure this afternoon, glucose has been coming up. She takes Tresiba at home. Currently on Semglee 5 units and sliding scale. Today's glucose is high enough that I am adjusting her simply to 15 units tonight, and I have given her a single dose of 20 units with lunch for the glucose of over 400. 8. Hypomagnesemia Improved w/ replacement Likely from her poor nutrition Plan: Replace magnesium Follow Mg level daily 9. Tobacco use Plan: She had been declining the use of a nicotine patch. She asked today if she could have 1. As such have ordered 7 mg patch 10. MRSA carrier She tested positive for MRSA on nasal swab, upon admission to ICU Plan: Cont nasal ethanol twice daily treatments 11. Sepsis Impression: Resolved The patient met several criteria for sepsis: Tachycardia, AMS, elevated Lactic acid level, abnormal findings on UA, abnormal findings from the colon. Sepsis must have been from colitis not from a UTI, as the urine cx grew no bacteria. 12. Bacteriuria Impression: All labs and microbiology were reviewed. The Urine cx is final and no bacteria grew. Blood cultures are negative to date. Sepsis must have been from colitis not from a UTI Plan: We will stop the empiric IV ceftriaxone
[2022-09-11] MEDS: INSULIN GLARGINE-YFGN 300 UNIT/3 ML PEN SUBQ SCH ×2 (20:53→21:24)
[2022-09-12] MEDS: MAGNESIUM OXIDE 400 MG TABLET PO SCH (00:18)
[2022-09-12] MEDS: SODIUM CHLORIDE FLUSH 0.9% 10 ML SYRINGE IVP SCH ×4 (00:18→23:28)
[2022-09-12] MEDS: SODIUM CHLORIDE FLUSH 0.9% 10 ML SYRINGE IVP PRN ×2 (00:18→06:24)
[2022-09-12 05:11] LABS: CALCIUM, IONIZED 1.13 mmol/L (1.15-1.33); VBG PH 7.382 (7.31-7.41)
[2022-09-12 05:20] LABS: CALCIUM 8.1 mg/dL (8.5-10.3); CREATININE 0.8 mg/dL (0.4-1.0); MAGNESIUM 1.9 mg/dL (1.7-2.8); POTASSIUM 3.6 mmol/L (3.5-5.0)
[2022-09-12] MEDS: GABAPENTIN 300 MG CAPSULE PO SCH ×3 (06:24→21:00)
[2022-09-12] MEDS: PANTOPRAZOLE 40 MG VIAL IVP SCH (06:24)
[2022-09-12] MEDS: INSULIN LISPRO 300 UNIT/3 ML PEN SUBQ SCH ×4 (08:00→21:00)
[2022-09-12] MEDS: diltiaZEM CD 180 MG CAPSULE PO SCH ×2 (09:02→16:57)
[2022-09-12] MEDS: PARoxetine 10 MG TABLET PO SCH (09:02)
[2022-09-12] MEDS: CIPROFLOXACIN 250 MG TABLET PO SCH ×2 (09:03→21:00)
[2022-09-12] MEDS: LOSARTAN 50 MG TABLET PO SCH (09:03)
[2022-09-12] MEDS: THIAMINE 100 MG TABLET PO SCH (09:03)
[2022-09-12] MEDS: LACTOBACILLUS RHAMNOSUS GG CAPSULE PO SCH ×2 (09:03→16:57)
[2022-09-12] MEDS: ASPIRIN EC 325 MG TABLET PO SCH (09:03)
[2022-09-12] MEDS: PRENATAL VITAMIN TABLET PO SCH (09:03)
[2022-09-12] MEDS: metroNIDAZOLE 250 MG TABLET PO SCH ×3 (09:05→16:57)
[2022-09-12] MEDS: ethyl alcohoL 62% SWAB AMPULE NAS SCH ×2 (09:05→21:05)
[2022-09-12] MEDS: guaiFENesin/CODEINE 5 ML UDC PO PRN ×2 (09:07→21:05)
[2022-09-12] MEDS ORDERED: LEVALBUTEROL 1.25 MG/3 ML NEB INH PRN (11:00)
[2022-09-12] MEDS: LOPERAMIDE 2 MG CAPSULE PO PRN (11:26)
--- NOTE | 2022-09-12 11:40 | XRAY Report ---
PROCEDURE: Chest 1 View X-Ray INDICATIONS: cough, wheezing, TECHNIQUE: One view of the chest was acquired. COMPARISON: None. FINDINGS: Surgical changes and devices: None. Lungs and pleura: No pleural effusions or pneumothorax. Lungs are clear. Peribronchial cuffing. Mediastinum: Mediastinal contours appear normal. Heart size is normal. Bones and chest wall: No suspicious bony lesions. Overlying soft tissues appear unremarkable. IMPRESSION: Peribronchial cuffing, suggestive of infectious or inflammatory bronchitis. Reviewed by: Louis Washington on 09/12/2022 10:39 AM OLAYINKA Approved by: Louis Washington on 09/12/2022 10:39 AM OLAYINKA Station ID: [id number]
[2022-09-12] MEDS: NICOTINE 7 MG PATCH TOP SCH (11:48)
[2022-09-12] MEDS: METOPROLOL SUCCINATE 25 MG TABLET PO SCH (12:12)
--- NOTE | 2022-09-12 13:02 | PROVIDER PROGRESS NOTE ---
Progress Note September 13, 2019 12:52 PM She is off the CIWA protocol. She does live with her significant other. They live in about 5 acres where he does gardening. He also works at the [employer] and [employer] doing maintenance. He does all the work around the house with regards to cooking, cleaning. She does not need help with activities of daily living such as toileting and bathing but he does everything else around the house. Right now she is so weak that she does not even think she can get out of bed. But her goal today is to get out of bed. She has been eating. But nursing reports that after breakfast, she developed a coughing spasm. She coughed up quite a bit of what she just eaten. She has some wheezing and cough today. Alcohol abuse is due to grief at the loss of her sister. Her intention is to stop drinking when she leaves the hospital. Active Medications Albuterol/Ipratropium (Ipratropium/Albuterol 3 Ml Neb) 3 ml INH Q4HR PRN PRN Reason: Wheezing Last Admin: 09/10/22 14:55 Dose: 3 ml Alcohol (Ethyl Alcohol 62% Swab Ampule) 1 amp BINDU BID [facility] Last Admin: 09/12/22 09:05 Dose: 1 amp Aspirin (Aspirin Ec 325 Mg Tablet) 325 mg PO DAILY [facility] Last Admin: 09/12/22 09:03 Dose: 325 mg Ciprofloxacin (Ciprofloxacin 250 Mg Tablet) 250 mg PO BID [facility] Stop: 09/14/22 20:59 Last Admin: 09/12/22 09:03 Dose: 250 mg Diltiazem HCl (Diltiazem Cd 180 Mg Capsule) 180 mg PO BIDWM [facility] Last Admin: 09/12/22 09:02 Dose: 180 mg Gabapentin (Gabapentin 300 Mg Capsule) 300 mg PO TID [facility] Last Admin: 09/12/22 06:24 Dose: 300 mg Guaifenesin/Codeine Phosphate (Guaifenesin/Codeine 5 Ml Udc) 5 ml PO Q6HR PRN PRN Reason: Cough Last Admin: 09/12/22 09:07 Dose: 5 ml Ibuprofen (Ibuprofen 600 Mg Tablet) 600 mg PO Q6HR PRN PRN Reason: HEADACHE Last Admin: 09/11/22 20:46 Dose: 600 mg Insulin Glargine-yfgn (Insulin Glargine-Yfgn 300 Unit/3 Ml Pen) 15 unit SUBQ QPM [facility] Last Admin: 09/11/22 21:24 Dose: 10 unit Insulin Human Lispro (Insulin Lispro 300 Unit/3 Ml Pen) 2 - 10 unit SUBQ 0800,1200,1700,2100 [facility]; Protocol Last Admin: 09/12/22 11:43 Dose: 2 unit Lactobacillus Rhamnosus (Lactobacillus Rhamnosus Gg Capsule) 1 cap PO BIDWM [facility] Last Admin: 09/12/22 09:03 Dose: 1 cap Levalbuterol HCl (Levalbuterol 1.25 Mg/3 Ml Neb) 1.25 mg INH Q4H PRN PRN Reason: Shortness of Air/Wheezing Loperamide HCl (Loperamide 2 Mg Capsule) 2 mg PO QID PRN PRN Reason: Diarrhea Last Admin: 09/12/22 11:26 Dose: 2 mg Lorazepam (Lorazepam 2 Mg/Ml Vial) 2 mg IVP Q30M PRN; Protocol PRN Reason: CIWA >8 Last Admin: 09/10/22 21:24 Dose: 2 mg Losartan Potassium (Losartan 50 Mg Tablet) 100 mg PO DAILY [facility] Last Admin: 09/12/22 09:03 Dose: 100 mg Methylprednisolone (Methylprednisolone Succinate 40 Mg/Ml Vial) 40 mg IVP TID [facility] Stop: 09/13/22 06:01 Metoprolol Succinate (Metoprolol Succinate 25 Mg Tablet) 25 mg PO 1200 [facility] Last Admin: 09/12/22 12:12 Dose: Not Given Metronidazole (Metronidazole 250 Mg Tablet) 500 mg PO TIDWM [facility] Last Admin: 09/12/22 12:15 Dose: 500 mg Nicotine (Nicotine 7 Mg Patch) 1 patch TOP DAILY [facility] Last Admin: 09/12/22 11:48 Dose: 1 patch Ondansetron HCl (Ondansetron 4 Mg/2 Ml Vial) 4 mg IVP Q6HR PRN PRN Reason: Nausea / Vomiting Last Admin: 09/10/22 15:45 Dose: 4 mg Pantoprazole Sodium (Pantoprazole 40 Mg Tablet) 40 mg PO QDAC [facility] Paroxetine HCl (Paroxetine 10 Mg Tablet) 10 mg PO DAILY [facility] Last Admin: 09/12/22 09:02 Dose: 10 mg Multivit/Folic Acid/Iron ( Vitamin Tablet) 1 tab PO DAILY [facility] Last Admin: 09/12/22 09:03 Dose: 1 tab Sodium Chloride (Sodium Chloride Flush 0.9% 10 Ml Syringe) 10 ml IVP 0100,0900,1700 [facility] Last Admin: 09/12/22 09:24 Dose: 10 ml Sodium Chloride (Sodium Chloride Flush 0.9% 10 Ml Syringe) 10 ml IVP PRN PRN PRN Reason: NEEDED PER PROVIDER ORDERS Last Admin: 09/12/22 06:24 Dose: 10 ml Thiamine HCl (Thiamine 100 Mg Tablet) 100 mg PO DAILY [facility] Last Admin: 09/12/22 09:03 Dose: 100 mg Home Meds: Aspirin [Aspirin EC] 325 mg PO DAILY 08/26/20 Atorvastatin [Lipitor] 20 mg PO QPM 08/26/20 Diltiazem HCl [Diltiazem 12Hr ER] 120 mg PO DAILY 08/26/20 Insulin Lispro [Humalog] 5 - 10 unit SQ TIDWM 08/26/20 Lactobacillus Acidophilus [Probiotic Acidophilus] 1 tab PO DAILY 08/26/20 Gabapentin [Neurontin] 300 mg PO TID 03/04/21 Losartan [Cozaar] 50 mg PO DAILY 03/04/21 Insulin Degludec [Tresiba Flextouch U-100] 8 unit SUBQ DAILY 09/06/22 PARoxetine [Paxil] 10 mg PO DAILY 09/07/22 Exam: Temperature is 36.9, heart rate 74, blood pressure 142/59. Respirations 20. She is 97% saturated on 1 L. She has been consistently on 1 L of since admission. Occasionally she goes up to 2 L but has been on 1 L mainly. She appears weak, tired, slow to respond. But more alert than yesterday when she was still on Librium Neck is supple Lungs have coarse rhonchi with inspiration and exhalation. Occasional phlegmy cough where she is not bringing up much. But no respiratory distress, no use of accessory muscles. Regular rate and rhythm Abdomen has hypoactive bowel sounds, soft, nontender. Last bowel movement was September 10. She is incontinent of urine and has a brief or pad to catch the urine as well as a pure wick. Extremities have skin, especially on the arms, with ecchymosis from IVs and blood draws. No edema. Neurologically she is alert and oriented to that she is in the hospital. Not necessarily the date. She is hard of hearing. Lab: Sodium 137, potassium 3.6, BUN 13, creatinine 0.8 Glucose 82 before breakfast White cell count 8.2, hemoglobin 10.9, MCV 101, platelets 200 Micro from stool culture done September 11 has negative Salmonella Shigella, negative E. coli Shiga toxin. Campylobacter is pending. Assessment/Plan - Problem List (1) Atrial fibrillation with RVR Impression: PR was ruled out and troponins were cycled. Thyroid function studies were normal. Chest x-ray showed congestive heart failure. Treatment consisted of decreasing her IV fluids, putting her on a diltiazem drip which was stopped on the morning of September 09. She was then transition to oral diltiazem but the oral dose is higher than what she usually takes at home. Toprol-XL was also added. By September 10 she was tachycardic only when she tried to get out of bed. By September 11 heart rate was consistently in the 50s and 60s and high as the 80s. Echocardiogram was already done on September 07 and interpreted September 08 but not sent to us till today. She has an ejection fraction of 50 to 55%. Could not evaluate diastolic function. Right ventricle and systolic function normal. Mild increase in left atrial volume at 39 mils per meter squared. Mild right atrial enlargement. No significant valvular heart disease. RVSP at rest was 36 mmHg. As such, she would be a good candidate for cardioversion to sinus rhythm. Her [id number] score is 4 points because of her age, female status, hypertension history, and diabetes history. Stroke risk is 4.8 %/year and 6.7 risk of stroke/TIA/systemic embolism. At a score greater than 3 she is moderate high risk and should be an anticoagulation candidate. Plan: Continue current rate control with Cardizem CD 180 mg p.o. twice daily and metoprolol XL 25 mg a day. Monitor for bradycardia. Add Eliquis 10 mg p.o. twice daily 2. Alcohol abuse with withdrawal Impression: On admission she had a high CIWA score and was lethargic in response to benzodiazepines. Liver function studies were not severely elevated. AST was 80 on September 06 with an ALT of 34. Total bili 0.5. She is drinking heavily because her sister in November. She has been drinking for probably 9 months. By September 11, CIWA score was consistently low. Patient was sleeping due to Librium. And I stopped Librium and CIWA protocol. No significant tremors today. Plan: Continue multivitamin and thiamine. I emphasized to social work to make sure we give her resources for rehab so that she begins her work when she is discharged. She is very weak after this episode of withdrawal, and I have asked PT to eval evaluate her. And I have asked physical therapy to evaluate her. We will await their report. Depending on her strength, she may be able to go home tomorrow. But only if she can prove that she can get out of bed, ambulate to the toilet, and safely get off the toilet. If she cannot do that she may have to go to short-term rehab for strengthening. 3. Bronchitis in a smoker Impression: She developed new rhonchi on September 08. At that point in time she was getting IV fluids for diarrhea, poor oral intake,. She also has a history of smoking. Thinking that she may be in congestive heart failure, a chest x-ray was done and showed her to have mild generalized interstitial prominence. Heart was upper limits of normal. Differential diagnosis of her early heart failure suggested. As such her IV fluids were reduced, and then completely discontinued September 10. Today, I reviewed the echo report from September 07 echo shows an intact ventricle size. Unable to be interpreted for diastolic dysfunction due to her A-fib. Today cough appears slightly worse. More phlegm production. Slight scant wh eezing. No respiratory distress. And repeat chest x-ray shows peribronchial cuffing consistent with bronchitis. As such I do not think she has congestive heart failure. Plan: Treat cough and rhonchi as bronchitis. She is already on antibiotics. Because of her A-fib I want to avoid rate stimulation. So I will stop DuoNeb. Add Atrovent every 6 hours RT Add Xopenex every 6 hours RT Solu-Medrol 40 mg IV push 3 times daily for 3 doses only 4. Colitis Impression: I reviewed report for CT of the abdomen, and she has a stone in the inferior pole of the right kidney. Mild diffuse thickening versus suboptimal distention of the colon which could indicate ischemia, infection or inflammation. She has sequela of chronic pancreatitis in the pancreas. No evidence of appendicitis. Patient denied nausea or abdominal pain but says she has no appetite. The told the patient's RN that the patient has "chronic colitis". She confirmed this. She says she has to "watch what she eats". Hospitalist confirmed with that she mainly eats a brat diet. Hospitalist changed her empiric IV antibiotics of Ceftriaxone and Flagyl, to po Flagyl and po Cipro. Diet was also advanced from clear liquid and Ensure clear to minced and moist. She has an Imodium as needed for diarrhea and Florastor twice daily for antibiotics. Nutrition services did see her. Diet was advanced from a minced and moist diet on September 11 2 a regular diet to see if that would improve her appetite. Plan: Stop antibiotics after 7 days of Cipro and Flagyl. Pharmacy and I discu ssed this and that will be tomorrow. 5. PSVT Impression: She had many episodes of PSVT, rates as high as 140, lasting up to 2 minutes, before she went into Afib with RVR on 09/08. Her home medications included Cardizem once a day, so possibly she took Cardizem for PSVT as well as for hypertension. Cardizem CD 120 mg daily was increased already to 180 mg po BID, before the new Afib with RVR started on 09/08. Toprol-XL was also added September 10. I transitioned her to MedSur status on September 11. She is on telemetry. Plan: No change in medication today. Her rate appears to be controlled. 6. Hypertension Her blood pressure was elevated as high as 167/100 when she began with her withdrawal. But it has come down since then. Today her blood pressure has been 112/55, 142/59, 106/58. Pulse is stable. We attribute this to alcohol withdrawal now resolving and increasing diltiazem and adding Toprol. I will continue to monitor and adjust medications to avoid hypotension but have to balance the need of these medications for her PSVT 7. DM type 2 She takes Tresiba at home. For the most part her glucose had been controlled on symglee 5 units at hs plus SS insulin before meals. She was given Ensure in the afternoon of September 11. Glucose went above 400. As such I increased her long- acting insulin to 15 units last night. I Continued sliding scale. Today her glucose was 85 this morning, and 179 before lunch. I consider this excellent control. Plan: Continue to monitor for signs and symptoms of hypoglycemia. Continue current Lantus, with sliding scale insulin before each meal. 8. Hypomagnesemia Improved w/ replacement Likely from her poor nutrition Magnesium normal at 1.9 today. Plan: Replace magnesium as needed Follow Mg level daily 9. Tobacco use Plan: She had been declining the use of a nicotine patch. She asked RN on 09/11 if she could have one. As such I ordered 7 mg patch and she tells me that it is helping with the craving. Plan: no change in dose for now 10. MRSA carrier She tested positive for MRSA on nasal swab, upon admission to ICU Plan: Cont nasal ethanol twice daily treatments 11. Sepsis Impression: Resolved The patient met several criteria for sepsis: Tachycardia, AMS, elevated Lactic acid level, abnormal findings on UA, abnormal findings from the colon. Sepsis must have been from colitis not from a UTI, as the urine cx grew no bacteria. 12. Bacteriuria Impression: All labs and microbiology were reviewed. The Urine cx is final and no bacteria grew. Blood cultures are negative to date. Sepsis must have been from colitis not from a UTI Plan: We will stop the empiric IV ceftriaxone
[2022-09-12] MEDS: methylPREDNISolone SUCCINATE 40 MG/ML VIAL IVP SCH ×2 (14:01→21:00)
[2022-09-12] MEDS: INSULIN GLARGINE-YFGN 300 UNIT/3 ML PEN SUBQ SCH (21:01)
[2022-09-12] MEDS: IBUPROFEN 600 MG TABLET PO PRN (23:28)
[2022-09-13] MEDS: methylPREDNISolone SUCCINATE 40 MG/ML VIAL IVP SCH (06:03)
[2022-09-13] MEDS: GABAPENTIN 300 MG CAPSULE PO SCH ×2 (06:03→14:08)
[2022-09-13] MEDS ORDERED: PANTOPRAZOLE 40 MG TABLET PO SCH (07:00)
[2022-09-13] MEDS ORDERED: INSULIN GLARGINE-YFGN 300 UNIT/3 ML PEN SUBQ ONE (07:30)
[2022-09-13] MEDS ORDERED: CIPROFLOXACIN 250 MG TABLET PO SCH ×2 (07:51→08:06)
[2022-09-13] MEDS ORDERED: PRENATAL VITAMIN TABLET PO SCH (08:07)
[2022-09-13] MEDS: metroNIDAZOLE 250 MG TABLET PO SCH ×2 (08:11→11:36)
[2022-09-13] MEDS: LACTOBACILLUS RHAMNOSUS GG CAPSULE PO SCH (08:12)
[2022-09-13] MEDS: THIAMINE 100 MG TABLET PO SCH (08:12)
[2022-09-13] MEDS: SODIUM CHLORIDE FLUSH 0.9% 10 ML SYRINGE IVP SCH (08:12)
[2022-09-13] MEDS: LOSARTAN 50 MG TABLET PO SCH (08:12)
[2022-09-13] MEDS: NICOTINE 7 MG PATCH TOP SCH (08:12)
[2022-09-13] MEDS: ASPIRIN EC 325 MG TABLET PO SCH (08:12)
[2022-09-13 08:13] LABS: BASOPHILS % (AUTO) 0.1 %; HCT - HEMATOCRIT 31.9 % (37.0-47.0); HGB - HEMOGLOBIN 10.8 g/dL (12.0-16.0); LYMPHOCYTES # (AUTO) 0.3 10^3/uL (1.5-3.5); LYMPHOCYTES % (AUTO) 3.1 %; MEAN CORPUSCULAR HEMOGLOBIN 33.2 pg (27.0-31.0); MEAN CORPUSCULAR HGB CONC 33.9 g/dL (32.0-36.0); MEAN CORPUSCULAR VOLUME 98.2 fL (81.0-99.0); MONOCYTES # (AUTO) 0.2 10^3/uL (0.0-1.0); MONOCYTES % (AUTO) 2.2 %; NEUTROPHILS % (AUTO) 93.4 %; PLT - PLATELET COUNT 210 10^3/uL (130-450); RED BLOOD COUNT 3.25 10^6/uL (4.20-5.40); RED CELL DISTRIBUTION WIDTH 13.5 % (12.0-15.0); WHITE BLOOD COUNT 9.7 x10^3/uL (4.8-10.8)
[2022-09-13] MEDS: diltiaZEM CD 180 MG CAPSULE PO SCH (08:13)
[2022-09-13] MEDS: ethyl alcohoL 62% SWAB AMPULE NAS SCH (08:13)
[2022-09-13 08:15] LABS: CALCIUM 8.3 mg/dL (8.5-10.3); CREATININE 0.9 mg/dL (0.4-1.0); POTASSIUM 4.5 mmol/L (3.5-5.0)
[2022-09-13] MEDS: INSULIN LISPRO 300 UNIT/3 ML PEN SUBQ SCH ×2 (08:15→11:32)
[2022-09-13] MEDS ORDERED: PSYLLIUM PACKET PO SCH (09:00)
[2022-09-13] MEDS: PARoxetine 10 MG TABLET PO SCH (09:45)
[2022-09-13] MEDS: METOPROLOL SUCCINATE 25 MG TABLET PO SCH (11:36)
--- NOTE | 2022-09-13 11:55 | Discharge Plan ---
"Discharge Plan for SNF / [facility] - Discharge Plan And Transition Orders Problem Reviewed?: Yes Disposition: SNF DC/Xfer Condition: Fair Allergies and Adverse Reactions: Allergies Allergy/AdvReac Type Severity Reaction Status Date / Time Penicillins Allergy Unknown Verified 02/23/22 05:30 Sulfa (Sulfonamide Allergy Unknown Verified 02/23/22 05:30 Antibiotics) lisinopril AdvReac Unknown Verified 02/23/22 05:30 Health Concerns: This is a 72-year-old mildly obese female who lives in her own home with her partner. She is an alcoholic and lost her sister last November. She increased her alcohol abuse and has been sliding downhill according to her brother and sister who live in [place]. Her power of employee benefits attorney is not her partner. Her power of employee benefits attorney used to be her sister. She has not clearly delineated whether it is her sister or brother in [place] who are her DPOA. She was brought to our emergency room September 06 by her partner Davis. She had been heavily drinking for the last few weeks and had not been eating much. She was getting weaker and weaker. When he came home today and found her obtunded he brought her to the emergency room where she was found to be intoxicated, hyperglycemic, and with an elevated lactic acid from her alcohol abuse. She is a poor historian and in evaluating her for possible lactic acidosis from infection we looked at her for pneumonia, urine, or abdomen. CT of the abdomen showed diffuse mucosal thickening of the colon. But no reports of diarrhea. As such the patient was admitted for malnutrition, alcohol withdrawal, and colitis. She has improved from her overall medical problems and she is oriented, alert. But profoundly weak. Physical therapy is working with her and they find her to have to use a cane or a walker. She requires 2 standby mild to moderate assist to be able to get out of the bed, and walk 10 feet. She also has mild retropulsion where she wants to fall backwards. [facility] facility is recommended. For rehab. The patient initially refused to be transferred to a [facility] facility and plans were made for her to go home with home health PT and OT. But when I described her needs to her partner Davis, he said that he cannot take care of her. As such her brother and sister call from [place], and Davis spoke to her. They have all recommended and urged her to go to a jail for rehab and she has agreed to that. Plan of Treatment: We have encouraged her to go to alcohol rehab. Is an alcoholic she has a better chance of staying clean and sober if she can do a guided therapeutic program. She is not acknowledging she is an alcoholic so this may be a problem down the road. She will undergo physical rehab for improving mobility and strengthening. We are hoping that she can return to a status of being independent with bathing, toileting, light director of orthopedics. She would like to go home after rehab. She needs to see her primary care provider in follow-up when she is done with rehab. She sees DELICIA Reaves. As part of her nutritional supplements, because of alcoholism, she should stay on a vitamin, and thiamine 100 mg a day indefinitely. She is completed 7 days of antibiotics. These were on the day of discharge which was today. She has problems with arrhythmia and withdrawal. She develops paroxysmal supraventricular tachycardia. She is on increased Cardizem dosing for this. She is also on metoprolol. She has not had any arrhythmias for 3 days. Type 2 diabetes mellitus was controlled in the hospital with Lantus and sliding scale insulin. She will return to her usual medications of Tresiba and sliding scale insulin. Because of atrial fibrillation, a new medication has been added in the form of Eliquis. It will be up to the judgment of her primary care provider of this patient to stay on this or not. If she returns to alcohol abuse, this would be a dangerous drug for her to be using. Care Goals: Our care goals would be that she stay clean and sober for the rest of her life Her care goals are to return to live with her significant other after discharge. Assessment: Patient is alert, oriented to person place and time, making her own decisions - SNF / [facility] Transition Orders Admit to (Facility): [facility] Under the care of (Name): DELICIA Capellan Discharge Diagnosis: 1. Sepsis. 2. Diffuse colitis 3. Alcohol abuse with withdrawal 4. Atrial fibrillation with RVR 5. PSVT 6. Type 2 diabetes mellitus, controlled, without complications, on long-term insulin 7. Hypomagnesemia 8. Tobacco abuse 9. MRSA carrier 10. Bacteriuria, asymptomatic 11. Reactive depressive disorder Medicare Certification Statement: I certify that Post Hospital [facility] care is medically necessary on a continuing basis for any of the conditions for which she/he is receiving care during hospitalization. Notify PCP of admission and forward orders to primary provider for signature. Weight on admission and: Weekly Other Notification Orders: Call PCP immediately if patient develops dyspnea, chest pain/tightness or edema. House Bowel Program: Yes Additional Bowel Program Orders: If no BM after 2 days, nurse may give M.O.M. 30ml PO PRN and/or ducolax Supp 1 NE and/or SIXTO 250mg P.O., and/or senna 1-2 tabs PO. On day 3 nurse may give repeat above order until residents constipation is resolved. Annual Influenza Vaccine (between Dec 22 and July 21): Yes Two-step PPD per [facility] [id number] or approved exception documents: Yes Lab Tests or X-ray Orders: CMP and CBC on September 20 Medication Orders: PLEASE REFER TO THE DISCHARGE MEDICATION LIST. Insulin Orders?: Yes - Medications New Prescriptions: Pnv No.95/Ferrous Fum/Folic AC [ Tablet] 1 each PO DAILY #1 tablet - Diet Type: No added sugar Texture: Regular Liquids: Thin May have monthly special meal: Yes - Therapies | Activity Therapy: Evaluation | Treat if indicated: PT, OT Rehabilitation Potential: Return to independent living Activity: Activity as Tolerated Weight Bearing: Full Weight Assistance Devices: Walker Insulin Orders - SNF Basal | Correction | Custom Orders: Diagnosis: Diabetes Initiate hypo and hyperglycemia protocols for BG <70 and BG >375. May check BG PRN for signs/symptoms of dysglycemia. Frequency of BG checks: [AC/Meal/HS] Basal Insulin: [] Lantus 100 units / ml inject subq as follows: [] [X] Other: Tresiba 8 units SQ daily in am Correction Insulin: - Select the type of insulin below [Choose: Humalog]100 units /ml insulin inject subq per orders indicate below [x] LOW DOSE [] MODERATE DOSE [] MODERATE/HIGH DOSE [] HIGH DOSE GB UNITS GB UNITS GB UNITS GB UNITS 61-140 0 UNITS 61-140 0 UNITS 61-140 0 UNITS 61-140 0 UNITS 141-175 1 UNITS 141-175 1 UNITS 141-175 2 UNITS 141-175 3 UNITS 176-225 2 UNITS 176-225 3 UNITS 176-225 4 UNITS 176-225 5 UNITS 226-275 3 UNITS 226-275 5 UNITS 226-275 6 UNITS 226-275 7 UNITS 276-325 4 UNITS 276-325 7 UNITS 276-325 8 UNITS 276-325 9 UNITS 326-375 5 UNITS 326-375 9 UNITS 326-375 10 UNITS 326-375 11 UNITS >375 CONTACT MD >375 CONTACT MD >375 CONTACT MD >375 CONTACT MD Custom Dosing: [Choose: Novolog/Humalog] 100 units/ml Insulin inject subq as follows: GB Units 61-140 [] Units 141-175 [] Units 176-225 [] Units 226-275 [] Units 276-325 []Units 326-375 [] Units >375 Contact MD"
[2022-09-13] MEDS ORDERED: INSULIN LISPRO 300 UNIT/3 ML PEN SUBQ SCH (12:00)
--- NOTE | 2022-09-13 12:57 | DISCHARGE SUMMARY ---
Discharge Summary Admit Date: 09/06/22 Discharge Date: 09/13/22 Discharging Provider: Latrice Fitzgerald MD Primary Care Provider: DASHAWN Mosher Code Status: Attempt Resuscitation Condition at Discharge: Fair Discharge Disposition: 03 SNF DC/Xfer - DIAGNOSES Discharge Diagnoses with Status of Each Condition: 1. Sepsis. 2. Diffuse colitis 3. Alcohol abuse with withdrawal 4. Atrial fibrillation with RVR 5. PSVT 6. Type 2 diabetes mellitus, controlled, without complications, on long-term insulin 7. Hypomagnesemia 8. Tobacco abuse 9. MRSA carrier 10. Bacteriuria, asymptomatic 11. Reactive depressive disorder - HPI History of Present Illness: 72-year-old female was brought into the emergency department because the found her to be not eating or drinking patient appear intoxicated on upon prese ntation the also reported that the patient has been drinking heavily on a daily basis . Family reports that she is a long-term alcoholic, but her alcohol abuse escalated with the of her sister and confidant in November of last year. She has been steadily drinking for probably 8 to 9 months. in the emergency room she was found to have elevated the glucose and lactic acid however the ketones were negative further investigation included a CTS can of the abdomen which was concerning for diffuse mucosal thickening but the city scan was done without overall contrast patient herself is a poor historian and she only complains that she drinks too much - Past Medical History Cardiovascular: reports: High cholesterol, Arrhythmia Respiratory: reports: COPD, Shortness of breath Neuro: reports: None Endocrine/Autoimmune: reports: Type 2 diabetes GI: reports: Other MEDICAL OFFICE TECHNOLOGY INSTRUCTOR: reports: None : reports: None HEENT: reports: None Psych: reports: Depression, Anxiety Musculoskeletal: reports: Osteoarthritis Derm: reports: None MRSA Hx?: No - CONSULTS | PROCEDURES Procedures: Chest x-ray on admission had a remote left posterior rib fracture, and no acute abnormality. Repeat chest x-ray 2 days later after aggressive IV fluid treatment for possible sepsis had mild generalized interstitial prominence. Differential diagnosis was suggested of possible CHF. Third chest x-ray was done for coughing and chest congestion 2 days after the second x-ray and the generalized interstitial prominence and resolved and she now had peribronchial cuffing suggestive of inflammatory bronchitis. Abdomen pelvis CT head solid organs that were normal except for nonobstructing 4 mm calcification within the inferior pole of the right kidney. She had c alcification within the pancreatic body and tail junction indicating old pancreatitis. She had a small hiatal hernia, no bowel distention, but she did have mild diffuse thickening versus suboptimal distention of the colon. This was interpreted as "colitis". Head CT had no acute intracranial abnormality. Blood cultures from September 06 were without growth after 5 days Occult blood in her stool was negative on September 06 Urine culture from had no growth Stool culture from September 09 were all negative for Salmonella, Shigella, Campylobacter, and E. coli Shiga toxin - HOSPITAL COURSE Hospital Course: In speaking to her sister in [place], and brother, the patient has a long history of alcohol abuse. When her other sister and confidant last November, the patient increased her alcohol abuse and has been steadily drinking for probably 9 months. She has been failing with strength, and ability to take care of her self. We treated her sepsis criteria due to colitis with empiric antibiotics. In retrospect some of her lactic acidosis may have been due to the liver disease and dehydration than true infection. We treated her alcohol withdrawal with benzodiazepines, vitamins, thiamine. CIWA protocol was discontinued September 11. During her stay she had episodes of PSVT that finally deteriorated to coty A-fib. She was rate controlled with Cardizem drip in the ICU. She is already on Cardizem at home and that was increased from 120 mg adalgisa ly to 180 mg twice a day. Toprol-XL 25 mg a day was also added to control her heart rate. She has been stable the heart rate for several days now. Echocardiogram was done to evaluate chamber size and valves. Technically difficult study because of patient position and weight. She was uncooperative. Ejection fraction was 50 to 55%. Right ventricle normal and right ventricular systolic function normal. Left atrium volume was mildly increased at 39 mL/m. Mild right atrial enlargement. No significant valvular heart disease. RVSP at rest was 36 mmHg. She was on a diltiazem drip in the ICU and that was discontinued when she was changed over to oral medication. She converted to sinus rhythm. She does not need prolonged anticoagulation. 2 days before discharge she did develop some cough with congestion. Chest x-ray showed peribronchial Thickening compatible with bronchitis. There was a thought process that she may have congestive heart failure but in retrospect she may have just had A-fib with RVR causing fluid shifts with short-term shortness of breath. MRSA status was treated with nasal ethanol. Electrolyte abnormalities such as low magnesium potassium were treated with supplementation. Type 2 diabetes was treated with Lantus and short acting insulin. Upon transfer to the snf she will be resumed on Tresiba, her home medication, plus short acting insulin. Patient was initially to be discharged to home. Physical therapy and Occupational Therapy both felt that the patient should be transition to a senior care facility for continued rehabilitation. However the patient was adamant that she was going to go home to be taken care of by her partner Davis. We shared with her that we were dubious about that plan. She required quite a bit of care could not be left alone. And Davis works. She kept on insisting that he would take care of her, but I called him on the day of discharge. Davis was very adamant that he could not take care of her. He could take care of her when she was more independent with regards to toileting, bathing, and feeding but he was not can to be able to take care of her and take off from work. He then called the patient's sister and brother in [place]. All 3 of these people called the patient back and insisted that she go to a senior care facility for rehab and she reluctantly agreed. They also have told her that they feel that her alcoholism is completely out of control and that she needs to go to possible rehab for that after she finishes physical rehab. As such, the patient is transitioned to [facility] for strengthening and conditioning. Discharge exam had a 5 foot 8 inch female that looks fatigued and disheveled and was 68 kg. Temperature was 36.7. Heart rate 87 and sinus. Blood pressure 10 2-1 27 systolic. Respirations 18. 98% on room air. She has a regular rate and rhythm. A protuberant, soft, nontender abdomen with hypoactive bowel sounds. She had a bowel movement on the , and day of discharge. Extremities have no edema. She has generalized weakness. It takes 2 min to mod assists to get her to transition from supine to sitting to standing. And then moderate assist of 2 people to use her walker to walk 10 feet. She has a tendency to retropulse because of lack of balance and poor judgment. Greater than 30 minutes was spent coordinating discharge, speaking to family. This document was made in part using voice recognition software. While efforts are made to proofread this document, sound alike and grammatical errors may occur. - ALLERGIES Allergies/Adverse Reactions: Allergies Allergy/AdvReac Type Severity Reaction Status Date / Time Penicillins Allergy Unknown Verified 02/23/22 05:30 Sulfa (Sulfonamide Allergy Unknown Verified 02/23/22 05:30 Antibiotics) lisinopril AdvReac Unknown Verified 02/23/22 05:30 - MEDICATIONS Home Medications: Ambulatory Orders Medication Instructions Recorded Confirmed Atorvastatin [Lipitor] 20 mg PO QPM 08/26/20 09/07/22 Insulin Lispro [Humalog] 5 - 10 unit SQ TIDWM 08/26/20 09/07/22 Insulin Degludec [Tresiba 8 unit SUBQ DAILY 09/06/22 09/07/22 Flextouch U-100] Aspirin [Aspirin EC] 325 mg PO DAILY #0 09/13/22 09/07/22 Gabapentin [Neurontin] 300 mg PO TID #0 09/13/22 09/07/22 Ipratropium/Albuterol [Duoneb] 3 ml INH Q4HR PRN ml 09/13/22 Lactobacillus Acidophilus 1 tab PO DAILY #0 09/13/22 09/07/22 [Probiotic Acidophilus] Loperamide [Imodium] 2 mg PO QID PRN cap 09/13/22 Losartan [Cozaar] 25 mg PO DAILY #0 09/13/22 09/07/22 Metoprolol Succinate [Toprol Xl] 25 mg PO 1200 tab 09/13/22 Nicotine 7 mg Patch [Nicoderm] 1 patch TOP DAILY patch 09/13/22 PARoxetine [Paxil] 10 mg PO DAILY #0 09/13/22 09/07/22 Pnv No.95/Ferrous Fum/Folic AC 1 each PO DAILY #1 tablet 09/13/22 [ Tablet] Thiamine [Vitamin B-1] 100 mg PO DAILY tab 09/13/22 diltiaZEM CD [Cardizem Cd] 180 mg PO BIDWM cap 09/13/22 - LABS Result Diagrams: 09/13/22 07:58 09/13/22 07:58
[2022-09-13] MEDS: IBUPROFEN 600 MG TABLET PO PRN (14:42)
[2022-09-13 16:42] VITALS: BP 120/65
== END 2022-09-13 16:44 | DRG 872 ==
LOC: ED 16:00 → ICU 20:39 → MS2 09-12 14:57
PROVIDERS: ADMIT Hospitalist; ATTEND Specialist
DX: F10.129 Alcohol abuse with intoxication, unspecified (principal); F10.139 Alcohol abuse with withdrawal, unspecified; R74.02 Elevation of levels of lactic acid dehydrogenase [LDH]; A41.9 Sepsis, unspecified organism; Y90.7 Blood alcohol level of 200-239 mg/100 ml; E11.9 Type 2 diabetes mellitus without complications; F10.239 Alcohol dependence with withdrawal, unspecified; F32.A Depression, unspecified; I47.1 Supraventricular tachycardia; Z68.1 Body mass index [BMI] 19.9 or less, adult; K92.1 Melena; N30.00 Acute cystitis without hematuria; E46 Unspecified protein-calorie malnutrition; K52.9 Noninfective gastroenteritis and colitis, unspecified; F10.229 Alcohol dependence with intoxication, unspecified; I48.91 Unspecified atrial fibrillation; I10 Essential (primary) hypertension; E11.65 Type 2 diabetes mellitus with hyperglycemia; F17.200 Nicotine dependence, unspecified, uncomplicated; F32.9 Major depressive disorder, single episode, unspecified; E83.42 Hypomagnesemia; J44.9 Chronic obstructive pulmonary disease, unspecified; J40 Bronchitis, not specified as acute or chronic; K70.10 Alcoholic hepatitis without ascites; N20.0 Calculus of kidney; K86.89 Other specified diseases of pancreas; K44.9 Diaphragmatic hernia without obstruction or gangrene; E86.0 Dehydration; R53.1 Weakness; F41.9 Anxiety disorder, unspecified; Z22.322 Carrier or suspected carrier of Methicillin resistant Staphylococcus aureus; Z79.4 Long term (current) use of insulin
CPT/HCPCS: 36415; 36600; 70450; 71045; 74177; 80048; 80053; 80076; 80306; 81001; 82009; 82272; 82330; 82607; 82746; 82803; 83036; 83605; 83615; 83690; 83735; 83880; 84100; 84132; 84439; 84443; 84484; 85025; 85379; 85610; 87040; 87045; 87046; 87086; 87150; 87427; 87493; 93005; 93306; 94640; 96374; 96375; 97162; 97166; 97530; 97535; 99285; A9270; G0480; J1815; J2060; J3411; Q9967; 80320; 81003; 86850; 86900; 86901; 86920

== ENCOUNTER 2022-09-13 16:46 | Outpatient (CLI) | payer MEDICARE, OTHER | END 2022-09-13 16:47 | disposition home or self-care (01) | LOC: EMS 16:46 | PROVIDERS: ATTEND Specialist | DX: R53.1 Weakness (principal); I48.91 Unspecified atrial fibrillation; F10.139 Alcohol abuse with withdrawal, unspecified; K52.9 Noninfective gastroenteritis and colitis, unspecified; Z74.01 Bed confinement status | CPT/HCPCS: A0425; A0428 ==

== ENCOUNTER 2022-10-08 13:58 | Outpatient (CLI) | payer MEDICARE, OTHER ==
[2022-10-08] MEDS ORDERED: iohexoL-300 100 ML VIAL ONE (14:12)
[2022-10-08] MEDS ORDERED: iohexoL-300 100 ML VIAL IVP ONE (14:33)
--- NOTE | 2022-10-08 17:52 | CT Report ---
PROCEDURE: CT chest with contrast INDICATIONS: PRIMARY ADENOCA OF LUNG CONTRAST: 100ml omni 300 TECHNIQUE: After the administration of intravenous contrast, 1 mm axial images were acquired from the pulmonary apices through the posterior costophrenic angles. Axial 5 mm soft tissue kernel reconstructions were performed a well as 8 mm axial MIP and coronal and sagittal 5 mm reformations. For radiation dose r eduction, the following was used: automated exposure control, adjustment of mA and/or kV according t o patient size. COMPARISON: CT chest 02/26/2022 FINDINGS: Image quality: Excellent. Lungs and pleura: Linear partially calcified scar in the left upper lobe associated with posterior ri b thoracotomy changes consistent with prior surgical intervention. Irregular pleural thickening left lung apex is similar to the prior. Moderate underlying pulmonary emphysema. Several small subcentimet er pulmonary nodules throughout both lungs is again noted, similar the prior and pleural spaces are c lear Mediastinum: Heart size is normal. No pericardial effusion. No large vessel abnormality. No mediastin al adenopathy by size criteria. Chest wall and lower neck: Thyroid is unremarkable. No axillary or supraclavicular adenopathy by size . Bones: No aggressive osseous abnormality. Upper Abdomen: Irregular hypodensity in the right hepatic lobe measures 1 cm, reflect small hemangiom a. Simple cyst in the left hepatic lobe proximally 1 cm as well. Mild right renal atrophy. Hepatic fa tty infiltration IMPRESSION: 1. Stable left upper lobe scarring and irregular pleural thickening associated with partial lobectomy 2. Multiple bilateral pulmonary nodules are also stable. Consider additional 6 month follow-up Reviewed by: Preston Corea MD on 10/08/2022 4:51 PM AKMARY Approved by: Preston Corea MD on 10/08/2022 4:51 PM AKDT Station ID: [id number]
== END 2022-10-08 13:59 | disposition home or self-care (01) ==
LOC: DI 13:58
PROVIDERS: ATTEND Registered Nurse
DX: C34.90 Malignant neoplasm of unspecified part of unspecified bronchus or lung (principal); J98.4 Other disorders of lung; R91.8 Other nonspecific abnormal finding of lung field; Z90.2 Acquired absence of lung [part of]
CPT/HCPCS: 71260; Q9967

== ENCOUNTER 2023-04-06 22:59 | Outpatient (CLI) | payer MEDICARE, OTHER | END 2023-04-06 23:59 | disposition critical access hospital (66) | LOC: EMS 22:59 | DX: R53.1 Weakness (principal); R19.5 Other fecal abnormalities; R29.6 Repeated falls; R20.8 Other disturbances of skin sensation; F10.90 Alcohol use, unspecified, uncomplicated; S00.83XA Contusion of other part of head, initial encounter; W18.39XA Other fall on same level, initial encounter; Y92.009 Unspecified place in unspecified non-institutional (private) residence as the place of occurrence of the external cause | CPT/HCPCS: A0425; A0429 ==

== ENCOUNTER 2023-04-06 23:15 | Inpatient (IN) | payer MEDICARE, OTHER ==
[2023-04-06] MEDS ORDERED: THIAMINE INJ 100 MG, FOLIC ACID INJ 1 MG in SODIUM CHLORIDE 0.9% 1,000 ML IV STA (23:28)
[2023-04-06 23:38] LABS: BASOPHILS % (AUTO) 0.5 %; EOSINOPHILS # (AUTO) 0.1 10^3/uL (0.0-0.7); EOSINOPHILS % (AUTO) 0.9 %; HCT - HEMATOCRIT 39.6 % (37.0-47.0); HGB - HEMOGLOBIN 13.5 g/dL (12.0-16.0); LYMPHOCYTES # (AUTO) 1.3 10^3/uL (1.5-3.5); LYMPHOCYTES % (AUTO) 19.9 %; MEAN CORPUSCULAR HEMOGLOBIN 33.7 pg (27.0-31.0); MEAN CORPUSCULAR HGB CONC 34.1 g/dL (32.0-36.0); MEAN CORPUSCULAR VOLUME 98.8 fL (81.0-99.0); MEAN PLATELET VOLUME 11.7 fL (7.9-10.8); MONOCYTES # (AUTO) 0.9 10^3/uL (0.0-1.0); MONOCYTES % (AUTO) 13.6 %; NEUTROPHILS # (AUTO) 4.1 10^3/uL (1.5-6.6); NEUTROPHILS % (AUTO) 64.8 %; PLT - PLATELET COUNT 253 10^3/uL (130-450); RED BLOOD COUNT 4.01 10^6/uL (4.20-5.40); RED CELL DISTRIBUTION WIDTH 13.1 % (12.0-15.0); WHITE BLOOD COUNT 6.3 x10^3/uL (4.8-10.8)
--- NOTE | 2023-04-06 23:39 | ED Physician Documentation ---
History of Present Illness - Stated complaint Stated Complaint: FALL W/ NO INJURY/GEN. WEAKNESS - Chief complaint Chief Complaint: Abd Pain - Additonal information Additional information: Patient 73-year-old female presenting to the emergency department brought in by EMS for generalized weakness. She has past medical significant for insulin-dependent diabetes as well as longstanding alcohol abuse. Presents today reporting that she has been unable to get out of bed for the last several days. She has become incontinent of urine. Reports that she has had frequent falls at home but none for the last few days. Denies any episodes of significant head trauma. Attributes her falls at home to her alcohol abuse which she says is "heavy and every single day". Reports that she drinks "lots of fireball". Lives alongside her partner whose name is Davis. Currently denies any pain and states that she has not been having any chest or abdominal pain.Denies fever, chills, cough, congestion. Current home medications include Lipitor, Humalog, degludec, metoprolol, diltiazem Eliquis. Patient history of alcohol abuse, atrial fibrillation, uncontrolled diabetes, SVT Review of Systems Constitutional: reports: Fatigue. denies: Fever Eyes: denies: Loss of vision Ears: denies: Loss of hearing Nose: denies: Rhinorrhea / runny nose Throat: denies: Dental pain / toothache Cardiac: denies: Chest pain / pressure GI: denies: Abdominal Pain, Nausea, Vomiting, Constipation, Diarrhea : reports: Incontinent Skin: denies: Rash Neurologic: reports: Generalized weakness PD PAST MEDICAL HISTORY - Past Medical History Past Medical History: Yes Cardiovascular: Congestive heart failure, Hypertension, High cholesterol, Arrhythmia Respiratory: COPD, Shortness of breath Neuro: None Endocrine/Autoimmune: Type 2 diabetes GI: Other 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 FISHERY: None : None HEENT: Other Psych: Depression, Anxiety, Other Musculoskeletal: Osteoarthritis Derm: None Other Past Medical History: EKUK; Alcoholism - Past Surgical History Past Surgical History: Yes /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 FISHERY: Hysterectomy - Present Medications Home Medications: Ambulatory Orders Medication Instructions Recorded Confirmed Atorvastatin [Lipitor] 20 mg PO QPM 08/26/20 04/07/23 Insulin Lispro [Humalog] 5 - 10 unit SQ TIDWM 08/26/20 04/07/23 Insulin Degludec [Tresiba 8 unit SUBQ DAILY 09/06/22 04/07/23 Flextouch U-100] Gabapentin [Neurontin] 300 mg PO TID #0 09/13/22 04/07/23 PARoxetine [Paxil] 10 mg PO DAILY #0 09/13/22 04/07/23 Losartan [Cozaar] 50 mg PO DAILY 04/07/23 04/07/23 dilTIAZem HCL [Diltiazem 24Hr ER] 120 mg PO DAILY 04/07/23 04/07/23 - Allergies Allergies/Adverse Reactions: Allergies Allergy/AdvReac Type Severity Reaction Status Date / Time Penicillins Allergy Unknown Verified 04/06/23 23:20 Sulfa (Sulfonamide Allergy Unknown Verified 04/06/23 23:20 Antibiotics) lisinopril AdvReac Unknown Verified 04/06/23 23:20 - Social History Does the pt smoke?: Yes Smoking Status: Current every day smoker Does the pt drink ETOH?: Yes Does the pt have substance abuse?: No - Immunizations Immunizations are current?: No - POLST Patient has POLST: No PD ED PE NORMAL - Vitals Vital signs reviewed: Yes (WNL) - General General: Alert 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, No acute distress, Other (Patient answers questions appropriately although speech is somewhat slurred and slowed. 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 No clear focal or lateralizing neurologic deficit is appreciated.) Results - Vitals Vitals: Vital Signs - 24 hr 04/06/23 04/07/23 04/07/23 23:15 00:10 00:36 Temperature 37.0 C Heart Rate 70 74 Respiratory 12 22 Rate Blood Pressure 125/86 H 131/79 H 115/78 O2 Saturation 99 93 04/07/23 04/07/23 04/07/23 01:15 01:30 02:00 Temperature Heart Rate 71 70 72 Respiratory 18 18 20 Rate Blood Pressure 90/75 113/82 H 121/97 H O2 Saturation 94 97 98 04/07/23 04/07/23 04/07/23 02:30 03:00 03:30 Temperature Heart Rate 75 75 83 Respiratory 16 20 20 Rate Blood Pressure 119/65 129/74 O2 Saturation 100 97 96 04/07/23 04/07/23 04/07/23 04:00 04:30 05:00 Temperature Heart Rate 80 86 82 Respiratory 19 19 20 Rate Blood Pressure 133/80 H 143/89 H 138/92 H O2 Saturation 97 96 97 04/07/23 05:30 Temperature Heart Rate 93 Respiratory 19 Rate Blood Pressure 134/90 H O2 Saturation 98 Oxygen O2 Source Room air - EKG (time done) 2333 EKG releavant findings:: EKG personally interpreted by author of this note. Relevant findings are: Sinus rhythm with rate 70 bpm. Normal axis. Normal RI, QRS intervals. QTc is prolonged at [address] segment elevations. Nonspecific ST-T wave abnormalities noted in the precordial leads. QTc has prolonged and T wave inversions are new finding in comparison to previous EKG 09/06/2022. - Labs Labs: Laboratory Tests 04/06/23 04/06/23 04/06/23 23:24 23:24 23:24 WBC 6.3 RBC 4.01 L Hgb 13.5 Hct 39.6 MCV 98.8 MCH 33.7 H MCHC 34.1 RDW 13.1 Plt Count 253 MPV 11.7 H Neut # (Auto) 4.1 Lymph # (Auto) 1.3 L [place] # (Auto) 0.9 Eos # (Auto) 0.1 Baso # (Auto) 0.0 Absolute Nucleated RBC 0.00 Nucleated RBC % 0.0 PT 11.6 INR 1.1 VBG pH VBG pCO2 VBG pO2 VBG HCO3 VBG Total CO2 VBG O2 Saturation VBG Base Excess Sodium 134 L Potassium 3.0 L Chloride 95 L Carbon Dioxide 31 Anion Gap 8.0 BUN 7 Creatinine 0.8 Estimated GFR (MDRD) 70 L Glucose 161 H Lactic Acid Calcium 8.5 Magnesium 1.4 L Total Bilirubin 0.5 AST 115 H ALT 48 Alkaline Phosphatase 179 H Total Creatine Kinase 33 Troponin I High Sens Total Protein 5.7 L Albumin 2.8 L Globulin 2.9 Albumin/Globulin Ratio 1.0 Lipase 14 Urine Color Urine Clarity Urine pH Ur Specific [place] Urine Protein Urine Glucose (UA) Urine Ketones Urine Occult Blood Urine Nitrite Urine Bilirubin Urine Urobilinogen Ur Leukocyte Esterase Urine RBC Urine WBC Ur Squamous Epith Cells Urine Bacteria Ur Microscopic Review Urine Culture Comments Nasal Adenovirus (PCR) Nasal B. parapertussis DNA (PCR) Nasal Coronavir 229E PCR Nasal Coronavir HKU1 PCR Nasal Coronavir NL63 PCR Nasal Coronavir OC43 PCR Nasal Enterovir/Rhinovir PCR Nasal Influenza B PCR Nasal Influenza A PCR Nasal Parainfluen 1 PCR Nasal Parainfluen 2 PCR Nasal Parainfluen 3 PCR Nasal Parainfluen 4 PCR Nasal RSV (PCR) Nasal B.pertussis DNA PCR Nasal C.pneumoniae (PCR) Jayson Human Metapneumo PCR Nasal M.pneumoniae (PCR) Nasal SARS-CoV-2 (PCR) Ethyl Alcohol 259.6 Serum Ketones NEGATIVE Blood Type Blood Type Recheck Antibody Screen 04/06/23 04/06/23 04/06/23 23:24 23:24 23:24 WBC RBC Hgb Hct MCV MCH MCHC RDW Plt Count MPV Neut # (Auto) Lymph # (Auto) [place] # (Auto) Eos # (Auto) Baso # (Auto) Absolute Nucleated RBC Nucleated RBC % PT INR VBG pH VBG pCO2 VBG pO2 VBG HCO3 VBG Total CO2 VBG O2 Saturation VBG Base Excess Sodium Potassium Chloride Carbon Dioxide Anion Gap BUN Creatinine Estimated GFR (MDRD) Glucose Lactic Acid 3.3 H* Calcium Magnesium Total Bilirubin AST ALT Alkaline Phosphatase Total Creatine Kinase Troponin I High Sens 25.7 H* Total Protein Albumin Globulin Albumin/Globulin Ratio Lipase Urine Color Urine Clarity Urine pH Ur Specific [place] Urine Protein Urine Glucose (UA) Urine Ketones Urine Occult Blood Urine Nitrite Urine Bilirubin Urine Urobilinogen Ur Leukocyte Esterase Urine RBC Urine WBC Ur Squamous Epith Cells Urine Bacteria Ur Microscopic Review Urine Culture Comments Nasal Adenovirus (PCR) NOT DETECTED Nasal B. parapertussis DNA (PCR) NOT DETECTED Nasal Coronavir 229E PCR NOT DETECTED Nasal Coronavir HKU1 PCR NOT DETECTED Nasal Coronavir NL63 PCR NOT DETECTED Nasal Coronavir OC43 PCR NOT DETECTED Nasal Enterovir/Rhinovir PCR NOT DETECTED Nasal Influenza B PCR NOT DETECTED Nasal Influenza A PCR NOT DETECTED Nasal Parainfluen 1 PCR NOT DETECTED Nasal Parainfluen 2 PCR NOT DETECTED Nasal Parainfluen 3 PCR NOT DETECTED Nasal Parainfluen 4 PCR NOT DETECTED Nasal RSV (PCR) NOT DETECTED Nasal B.pertussis DNA PCR NOT DETECTED Nasal C.pneumoniae (PCR) NOT DETECTED Jayson Human Metapneumo PCR NOT DETECTED Nasal M.pneumoniae (PCR) NOT DETECTED Nasal SARS-CoV-2 (PCR) NOT DETECTED Ethyl Alcohol Serum Ketones Blood Type Blood Type Recheck Antibody Screen 04/06/23 04/06/23 04/07/23 23:48 23:48 00:46 WBC RBC Hgb Hct MCV MCH MCHC RDW Plt Count MPV Neut # (Auto) Lymph # (Auto) [place] # (Auto) Eos # (Auto) Baso # (Auto) Absolute Nucleated RBC Nucleated RBC % PT INR VBG pH 7.406 VBG pCO2 40.2 L VBG pO2 40.9 VBG HCO3 24.7 VBG Total CO2 25.9 VBG O2 Saturation 74.0 VBG Base Excess 0.0 Sodium Potassium Chloride Carbon Dioxide Anion Gap BUN Creatinine Estimated GFR (MDRD) Glucose Lactic Acid Calcium Magnesium Total Bilirubin AST ALT Alkaline Phosphatase Total Creatine Kinase Troponin I High Sens Total Protein Albumin Globulin Albumin/Globulin Ratio Lipase Urine Color Urine Clarity Urine pH Ur Specific [place] Urine Protein Urine Glucose (UA) Urine Ketones Urine Occult Blood Urine Nitrite Urine Bilirubin Urine Urobilinogen Ur Leukocyte Esterase Urine RBC Urine WBC Ur Squamous Epith Cells Urine Bacteria Ur Microscopic Review Urine Culture Comments Nasal Adenovirus (PCR) Nasal B. parapertussis DNA (PCR) Nasal Coronavir 229E PCR Nasal Coronavir HKU1 PCR Nasal Coronavir NL63 PCR Nasal Coronavir OC43 PCR Nasal Enterovir/Rhinovir PCR Nasal Influenza B PCR Nasal Influenza A PCR Nasal Parainfluen 1 PCR Nasal Parainfluen 2 PCR Nasal Parainfluen 3 PCR Nasal Parainfluen 4 PCR Nasal RSV (PCR) Nasal B.pertussis DNA PCR Nasal C.pneumoniae (PCR) Jayson Human Metapneumo PCR Nasal M.pneumoniae (PCR) Nasal SARS-CoV-2 (PCR) Ethyl Alcohol Serum Ketones Blood Type A POSITIVE Blood Type Recheck A POSITIVE Antibody Screen NEGATIVE 04/07/23 04/07/23 01:14 02:37 WBC RBC Hgb Hct MCV MCH MCHC RDW Plt Count MPV Neut # (Auto) Lymph # (Auto) [place] # (Auto) Eos # (Auto) Baso # (Auto) Absolute Nucleated RBC Nucleated RBC % PT INR VBG pH VBG pCO2 VBG pO2 VBG HCO3 VBG Total CO2 VBG O2 Saturation VBG Base Excess Sodium Potassium Chloride Carbon Dioxide Anion Gap BUN Creatinine Estimated GFR (MDRD) Glucose Lactic Acid Calcium Magnesium Total Bilirubin AST ALT Alkaline Phosphatase Total Creatine Kinase Troponin I High Sens 24.4 H* Total Protein Albumin Globulin Albumin/Globulin Ratio Lipase Urine Color YELLOW Urine Clarity CLEAR Urine pH 5.5 Ur Specific [place] <=1.005 Urine Protein NEGATIVE Urine Glucose (UA) NEGATIVE Urine Ketones NEGATIVE Urine Occult Blood SMALL H Urine Nitrite NEGATIVE Urine Bilirubin NEGATIVE Urine Urobilinogen 0.2 (NORMAL) Ur Leukocyte Esterase LARGE H Urine RBC 0-5 Urine WBC 11-25 H Ur Squamous Epith Cells FEW Squamous Urine Bacteria Many H Ur Microscopic Review INDICATED Urine Culture Comments INDICATED Nasal Adenovirus (PCR) Nasal B. parapertussis DNA (PCR) Nasal Coronavir 229E PCR Nasal Coronavir HKU1 PCR Nasal Coronavir NL63 PCR Nasal Coronavir OC43 PCR Nasal Enterovir/Rhinovir PCR Nasal Influenza B PCR Nasal Influenza A PCR Nasal Parainfluen 1 PCR Nasal Parainfluen 2 PCR Nasal Parainfluen 3 PCR Nasal Parainfluen 4 PCR Nasal RSV (PCR) Nasal B.pertussis DNA PCR Nasal C.pneumoniae (PCR) Jayson Human Metapneumo PCR Nasal M.pneumoniae (PCR) Nasal SARS-CoV-2 (PCR) Ethyl Alcohol Serum Ketones Blood Type Blood Type Recheck Antibody Screen PD Medical Decision Making - ED course Complexity details: reviewed old records, reviewed results, re-evaluated patient, considered differential, d/w patient ED course: Patient is a 73-year-old female presenting to the emergency department with generalized weakness. This is in the setting of known history of uncontrolled diabetes and longstanding alcohol abuse. On arrival to the emergency department the patient also endorsed 4 frequent falls at home. Specifically denied for any chest or abdominal pain. Did report episodes of urinary incontinence but denied any diarrhea, constipation, blood in stool or dark stools. CT head was obtained given patient's chronic anticoagulation and history of frequent although no recent falls. This was negative for acute intracranial pathology. Her EKG did demonstrate some nonspecific ST and T wave abnormalitiesOf note however her electrolyte panel was significant for as well as a worsening prolongation of her QTc interval. but she denied any chest pain, shortness of breath and did not have any signs of heart failure in the emergency room. She did have a minimal elevation in high-sensitivity troponin at 25.4 which down trended on the 2-hour repeat. Her electrolyte panel is significant for hypokalemia as well as hypomagnesemia and electrolyte repletion was initiated. Additionally she received IV fluid, thiamine and folate supplementation. Her urine analysis did have some indications of infection. She is allergic to penicillin and sulfa-based medications. She was treated with oral Macrobid. She continues to experience significant generalized weakness however did not demonstrate any significant Signs of alcohol withdrawal during my evaluation of her and her approximate 6-hour stay in the emergency room. I have placed a social work consultation as at this time she is generally too weak to stand or care for herself. I will be signing her out to the oncoming physician, please see their documentation for further detail. Departure - Departure Clinical Impression: Alcohol abuse, Generalized weakness, Frequent falls, Chronic anticoagulation, Hypokalemia, Hypomagnesemia, Elevated troponin Urinary tract infection Qualifiers: Urinary tract infection type: acute cystitis Hematuria presence: without hematuria Qualified Code(s): N30.00 - Acute cystitis without hematuria Forms: PCP List
[2023-04-06 23:45] LABS: KETONES, SERUM (ACETEST) NEGATIVE (NEGATIVE)
[2023-04-06] MEDS ORDERED: MAGNESIUM SULFATE 2 GRAM 2 GM/50 ML BAG IV ONE (23:45)
[2023-04-06] MEDS ORDERED: THIAMINE 100 MG/1 ML 2 ML MDV ONE (23:45)
[2023-04-06] MEDS ORDERED: SODIUM CHLORIDE 0.9% 1,000 ML ONE (23:49)
[2023-04-06 23:50] LABS: INR 1.1 (0.8-1.2); PT - PROTHROMBIN TIME 11.6 secs (9.9-12.6)
[2023-04-06 23:56] LABS: ALBUMIN 2.8 g/dL (3.2-5.5); ALKALINE PHOSPHATASE 179 IU/L (42-121); ALT ALANINE AMINOTRANSFERASE 48 IU/L (10-60); AST ASPARTATE AMINOTRANSFERASE 115 IU/L (10-42); BILIRUBIN,TOTAL 0.5 mg/dL (0.2-1.0); BUN - BLOOD UREA NITROGEN 7 mg/dL (6-20); CALCIUM 8.5 mg/dL (8.5-10.3); CARBON DIOXIDE - CO2 31 mmol/L (21-32); CHLORIDE 95 mmol/L (101-111); CK- CREATINE KINASE 33 IU/L (30-223); CREATININE 0.8 mg/dL (0.6-1.3); ETOH - ETHANOL 259.6 mg/dL; GFR - MDRD 70 (>89); GLUCOSE 161 mg/dL (74-104); LIPASE 14 U/L (11-82); MAGNESIUM 1.4 mg/dL (1.7-2.3); SODIUM 134 mmol/L (135-145); TOTAL PROTEIN 5.7 g/dL (6.4-8.9)
[2023-04-07 00:01] LABS: VBG HCO3 24.7 mmol/L (23-28); VBG PCO2 40.2 mmHg (41-51); VBG PH 7.406 (7.31-7.41); VBG PO2 40.9 mmHg (25-47); VBG TOTAL CO2 25.9 mmol/L (24-29)
[2023-04-07] MEDS ORDERED: POTASSIUM CHLOR 10 MEQ/100 ML 10 MEQ/100 ML BAG IV STA ×2 (00:10→13:45)
[2023-04-07] MEDS ORDERED: THIAMINE INJ 100 MG, MAGNESIUM SULFATE 2 GM, MULTIVITAMIN 10 ML, FOLIC ACID INJ 1 MG in... IV STA ×5 (00:28)
[2023-04-07] MEDS: SODIUM CHLORIDE 0.9% 1,000 ML IV STA ×2 (00:29→03:06)
[2023-04-07] MEDS ORDERED: FOLIC ACID 1 MG TABLET ONE (00:37)
[2023-04-07 00:39] LABS: B. PARAPERTUSSIS- RESP PCR PAN NOT DETECTED; B. PERTUSSIS- RESP PCR PANEL NOT DETECTED; CORONAVIRUS 229E-RESP PCR NOT DETECTED; CORONAVIRUS HKU1-RESP PCR NOT DETECTED; CORONAVIRUS NL63-RESP PCR NOT DETECTED; CORONAVIRUS OC43-RESP PCR NOT DETECTED; HUMAN METAPNEUMOVIRUS NOT DETECTED; INFLUENZA A- RESP PCR PANEL NOT DETECTED; INFLUENZA B - RESP PCR PANEL NOT DETECTED; PARAINFLUENZA VIRUS 1 NOT DETECTED; PARAINFLUENZA VIRUS 2 NOT DETECTED; PARAINFLUENZA VIRUS 3 NOT DETECTED; PARAINFLUENZA VIRUS 4 NOT DETECTED; RHINOVIRUS/ENTEROVIRUS NOT DETECTED; RSV- RESP PCR PANEL NOT DETECTED; SARS-CoV-2 -RESP PCR PANEL NOT DETECTED
[2023-04-07 00:40] LABS: C. PNEUMONIAE- RESP PCR PANEL NOT DETECTED; M. PNEUMONIAE- RESP PCR PANEL NOT DETECTED
[2023-04-07] MEDS ORDERED: MAGNESIUM SULFATE 1 GM/2 ML VIAL ONE (00:41)
[2023-04-07] MEDS ORDERED: THIAMINE 100 MG/1 ML 2 ML MDV ONE ×2 (00:41→19:06)
[2023-04-07] MEDS: FOLIC ACID 1 MG TABLET PO SCH ×2 (00:49→08:39)
[2023-04-07 01:24] LABS: BILIRUBIN,URINE NEGATIVE (NEGATIVE); GLUCOSE, URINE (UA) NEGATIVE (NEGATIVE); KETONES,URINE (UA) NEGATIVE (NEGATIVE); LEUKOCYTE ESTERASE, URINE LARGE (NEGATIVE); NITRITE,URINE NEGATIVE (NEGATIVE); OCCULT BLOOD,URINE SMALL (NEGATIVE); PH,URINE 5.5 PH (5.0-7.5); PROTEIN,URINE NEGATIVE (NEGATIVE); UROBILINOGEN,URINE 0.2 (NORMAL) E.U./dL (NORMAL)
--- NOTE | 2023-04-07 01:39 | CT Report ---
PROCEDURE: HEAD WO INDICATIONS: Frequent falls, generalized weakness. TECHNIQUE: Noncontrast 4.5 mm thick angled axial sections acquired from the foramen magnum to the vertex. For r adiation dose reduction, the following was used: automated exposure control, adjustment of mA and/or kV according to patient size. COMPARISON: 09/06/2022 FINDINGS: Image quality: Diagnostic. CSF spaces: Basal cisterns are patent. No extra-axial fluid collections. Ventricles are normal in size and shape. Brain: No midline shift. No intracranial masses or hemorrhage. No mass effect. [place]-white matter i nterface is normal. There cerebral volume loss for age with resultant ventricular and sulcal prominen ce. There are periventricular and deep white matter chronic small vessel ischemic changes. Atheroscle rotic calcifications are noted in the intracranial segments of the bilateral internal carotid arterie s. Skull and face: Calvarium and visualized facial bones are intact, without suspicious lesions. Redem onstration of chronic nasal bone fractures. Sinuses: Visualized sinuses and mastoids are clear. IMPRESSION: No acute intracranial pathology. Stable age-related senescent changes and sequela chronic small vesse l ischemic disease. Reviewed by: Tha Logan MD on 04/07/2023 1:38 AM PST Approved by: Tha Logan MD on 04/07/2023 1:38 AM PST Station ID: [id number]
[2023-04-07 01:46] LABS: CLARITY,URINE CLEAR (CLEAR)
[2023-04-07 01:47] LABS: BACTERIA,URINE Many /HPF (None Seen); RBC,URINE 0-5 /HPF (0-5); SQUAMOUS EPITHELIAL CELL,UR FEW Squamous (<= Few)
--- NOTE | 2023-04-07 08:08 | ED Physician Documentation ---
ED Addendum - Addendum Addendum: 04/07/23 08:06 73-year-old female with history of alcoholism presents to the emergency department last evening with alcohol intoxication and inability to stand. She has had a similar presentation in August of this year and that required a 6-day hospitalization followed by a 2-week rehabilitation in a detention facility. The patient feels that she is about the same as she was when she was admitted into the hospital in August. Here in the emergency department she has received banana bag x 2 and she is resting comfortably. Her blood alcohol was 259 and at 8:00 in the morning after 8 hours in the emergency department the patient has not started to go through alcohol withdrawal. She is feels it will be unlikely that she will be able to stand up and walk as this has happened to her previously. After another 6 hours the patient has barely begun to go through withdrawal and has a CIWA score of 5. She does not qualify for admission to the hospital. She does have a rapid heart rate up to 120 and I evaluated her IVC with POCUS and found she had a 7.3 mm vessel indicating a deficit of more than 2 L. I found this is a bit of a surprise as the patient had been given 2 L of fluid already. We are administering further IV fluid. despite additional fluid the patient remains tachycardic and now with elevated blood pressure and shortness of breath. I was not impressed with the level of alcohol withdrawal the patient was exhibiting but she continued to have unstable vital signs and developed exertional dyspnea trying to get out of bed. Lungs with diminished breath sounds but with air movement and no signs of failure. A D-dimer is added to the patients labs. despite the hydration the patient's lactic acid is still elevated. We added rocephin to the patients medications. She was placed on macrobid for UTI last night. Maybe this is sepsis with a normal white count. About this time she developes afib with RVR similar to what she had previously and we are medicating her with diltazem. This improved the heart rate but with standing the patient developed a heart rate of 150 and could only tolerate it for about 30 seconds. Her D-dimer is positive and a CT angio of the chest is performed. This study demonstrates a low clot burden but she does have peripheral pulmonary embolism. She also has a number of pulmonary nodules the newest of which the radiologist is recommending following as it is unlikely to be a neoplasm. More likely infectious in nature. Impression: Urinary tract infection, Pulmonary embolism, Pulmonary nodules, alcoholism, orthostasis, alochol withdrawal, general weakness, profound dehydration. Plan: patient admitted to CCU under the care of Dr. Isabel 04/07/23 13:36 04/07/23 15:02 04/07/23 15:04 04/07/23 15:06 04/07/23 15:08 04/07/23 16:39 04/07/23 17:25 04/07/23 17:33
[2023-04-07] MEDS: NITROFURANTOIN MACRO 100 MG CAPSULE PO SCH ×2 (08:39→21:38)
[2023-04-07] MEDS ORDERED: LOPERAMIDE 2 MG CAPSULE PO STA (12:14)
[2023-04-07] MEDS ORDERED: SODIUM CHLORIDE 0.9% 1,000 ML IV STA (13:32)
[2023-04-07] MEDS ORDERED: POTASSIUM CHLORIDE 20 MEQ TABLET PO STA (13:45)
[2023-04-07 14:21] LABS: BUN - BLOOD UREA NITROGEN 8 mg/dL (6-20); CALCIUM 8.1 mg/dL (8.5-10.3); CARBON DIOXIDE - CO2 24 mmol/L (21-32); CHLORIDE 98 mmol/L (101-111); CREATININE 0.9 mg/dL (0.6-1.3); ETOH - ETHANOL < 10.0 mg/dL; GFR - MDRD 61 (>89); GLUCOSE 238 mg/dL (74-104); SODIUM 131 mmol/L (135-145)
[2023-04-07] MEDS ORDERED: diltiaZEM INJ 5 MG/ML VIAL IVP STA ×2 (15:08→18:39)
[2023-04-07] MEDS ORDERED: cefTRIAXone 1 GM in SODIUM CHLORIDE 0.9% MINIBAG 100 ML IV STA (15:12)
[2023-04-07 15:19] LABS: AMPHETAMINE SCREEN,URINE NEGATIVE (NEGATIVE); BARBITURATE SCREEN,UR NEGATIVE (NEGATIVE); BENZODIAZEPINES SCREEN, URINE NEGATIVE (NEGATIVE); BUPRENORPHINE SCREEN, URINE NEGATIVE (NEGATIVE); COCAINE SCREEN URINE NEGATIVE (NEGATIVE); METHADONE SCREEN, URINE NEGATIVE (NEGATIVE); METHAMPHETAMINES SCREEN, URINE NEGATIVE (NEGATIVE); OPIATE SCREEN, URINE NEGATIVE (NEGATIVE); OXYCODONE SCREEN, URINE POSITIVE (NEGATIVE); THC CANNABINOID SCREEN, URINE NEGATIVE (NEGATIVE); TRICYCLIC ANTIDEPRESSANT,URINE NEGATIVE (NEGATIVE)
--- NOTE | 2023-04-07 15:28 | XRAY Report ---
PROCEDURE: Chest 1 View X-Ray INDICATIONS: soa TECHNIQUE: One view of the chest was acquired. COMPARISON: CT chest 10/08/2022. FINDINGS: Surgical changes and devices: Device projecting over the right upper abdomen. Lungs and pleura: No pleural effusions or pneumothorax. Lungs are clear. Mediastinum: Mediastinal contours appear normal. Heart size is normal. Bones and chest wall: No suspicious bony lesions. Prior inferior right-sided rib fractures. Overlyin g soft tissues appear unremarkable. IMPRESSION: No acute cardiopulmonary process. Reviewed by: Danny Garcia MD on 04/07/2023 3:26 PM PST Approved by: Danny Garcia MD on 04/07/2023 3:26 PM PST Station ID: [id number]
[2023-04-07] MEDS ORDERED: iohexoL-300 100 ML VIAL IVP ONE (16:51)
--- NOTE | 2023-04-07 17:25 | CT Report ---
PROCEDURE: ANGIO CHEST W/WO INDICATIONS: unstable vitals elevated d-dimer CONTRAST: Omni 300 80ml TECHNIQUE: After the administration of intravenous contrast, 2 mm axial images were acquired from the pulmonary apices to the posterior costophrenic angles during the arterial phase. In addition, 1 mm lung kernel and 5 mm soft tissue kernel reconstructions were performed. 3-dimensional coronal oblique maximum int ensity projection (MIP) reformats, 8 mm axial MIP, and 5 mm coronal and sagittal MPR reformats were t hen performed through the thorax. For radiation dose reduction, the following was used: automated exp osure control, adjustment of mA and/or kV according to patient size. COMPARISON: 10/08/2022. Correlation is made with the accompanying chest radiograph. FINDINGS: Image quality: Motion artifact is noted. Large vessels: The main pulmonary artery is mildly prominent, measuring 3.3 cm. There is a small natalie en of pulmonary embolism seen involving the proximal segmental right lower lobe pulmonary arteries, a s on series 3 image 86. No definite additional pulmonary embolism can be seen Lungs and pleura: Within the right upper lobe, there is a poorly defined nodule seen on series 4 imag e 79, measuring 4 mm, which appears similar to the prior. There is a right lower lobe pulmonary nodul e seen superiorly, as on series 4 image 129, measuring 11 x 8 mm, which is new compared to the 023 examination. Within the right middle lobe laterally, there is a 4 mm nodule seen, as on series 4 image 212, measuring 4 mm, which appears improved compared to the prior. Poorly defined opacity can be seen involving the left upper lobe laterally, as on series 4 image 92, measuring 11 x 6 mm. This is stable compared to the prior examination. Within the left upper lobe med ially, there is a 6 mm nodule on series 4 image 133, which is stable. Postoperative change is seen, with left partial laminectomy. Mild loss is seen on the left side. No pneumothorax or pleural effusion can be seen. Mediastinum: Heart size is normal. No pericardial effusion. No large vessel abnormality. No mediastin al adenopathy by size criteria. Chest wall and lower neck: Thyroid is unremarkable. No axillary or supraclavicular adenopathy by size . Bones: No aggressive osseous abnormality. Age-appropriate degenerative changes are seen. Upper Abdomen: Unremarkable. IMPRESSION: There is a small burden of pulmonary embolism seen involving the proximal segmental right lower lobe pulmonary arteries. Multiple pulmonary nodules are seen, which are largely stable, although there is a new nodule seen in the superior segment of the right lower lobe. Given its new appearance, this is most likely infectio us or inflammatory, although differential diagnosis includes neoplasm. - Please consider short-term follow-up noncontrast chest CT. Prior left partial pneumonectomy. Note: Case discussed by telephone with Dr. Guadalupe at 5:22 PM [place] time on 04/07/2023. Reviewed by: William Lopez MD on 04/07/2023 4:24 PM [place] Approved by: William Lopez MD on 04/07/2023 4:24 PM [facility] Station ID: [id number]
[2023-04-07] MEDS ORDERED: SODIUM CHLORIDE FLUSH 0.9% 10 ML SYRINGE IVP PRN (18:13)
[2023-04-07] MEDS ORDERED: LORazepam 2 MG/ML VIAL IVP PRN (18:17)
[2023-04-07] MEDS ORDERED: MULTIVITAMIN 10 ML, THIAMINE INJ 100 MG, FOLIC ACID INJ 1 MG in SODIUM CHLORIDE 0.9% 1,... IV SCH (18:17)
--- NOTE | 2023-04-07 18:23 | HISTORY & PHYSICAL EXAMINATION ---
Chief Complaint - Chief Complaint Chief Complaint: Falling, is intoxicated History of Present Illness - Admitted From Admitted From:: ED - History Obtained From History obtained from: ED provider ad the patient - History of Present Illness HPI Comment/Other: This is a 73-year-old female with a history of DM, paroxysmal Afib not on anticoagulants, and has alcohol abuse. She has been admitted here in Mat 2022 with alcohol withdrawal and rapid A-fib. She presented to the ER last night, brought in by EMS, after she fell several times and was intoxicated with a blood alcohol level of 259, AST 115, ALT 48, INR 1.1. She reported she "cannot stand". In the ER she was thought to be dehydrated and received several units of IV crystalloids. Despite that she had heart rates that were intermittently as high as 120, with standing 150. A repeat alcohol level was not measurable. After 3 L of saline she also complained of shortness of breath. Labs showed and elevated D-dimer and a lactic acid level of 3.5, on repeat down to 2.7 after IV fluids. Normal WBC but Urinalysis was very abnormal and she received Macrobid orally with plan to discharge her. She underwent a CTA after the D-dimer returned elevated. The CTA chest does show small clot burden in the pulmonary artery. She was given iv Ceftriaxone for her UTI and the ED provider spoke to me about this patient to bring her into the hospital. On CIWA score in the ER she was 28 and did not yet need Ativan. Her only complaint to me is that she has a headache. History - Past Medical History Cardiovascular: reports: Congestive heart failure, Hypertension, High cholesterol, Arrhythmia Respiratory: reports: COPD, Shortness of breath Neuro: reports: None Endocrine/Autoimmune: reports: Type 2 diabetes GI: reports: Other DOCK OPERATOR: reports: None : reports: None HEENT: reports: Other Psych: reports: Depression, Anxiety, Other Musculoskeletal: reports: Osteoarthritis Derm: reports: None MRSA Hx?: Yes Other Past Medical History: MORONGO; Alcoholism - Past Surgical History /DOCK OPERATOR: reports: Hysterectomy - Family & Social History Living arrangement: At home Living Situation: With spouse/s.o. Social History Notes: She is a smoker on she drinks daily. Started drinking heavily after the of her sister in 2021. - Substance History Dependence: Experiences withdrawal or developed tolerances: Tobacco, Alcohol - POLST Patient has POLST: No Meds/Allgy - Home Medications Home Medications: Ambulatory Orders Medication Instructions Recorded Confirmed Atorvastatin [Lipitor] 20 mg PO QPM 08/26/20 04/07/23 Insulin Lispro [Humalog] 5 - 10 unit SQ TIDWM 08/26/20 04/07/23 Insulin Degludec [Tresiba 8 unit SUBQ DAILY 09/06/22 04/07/23 Flextouch U-100] Gabapentin [Neurontin] 300 mg PO TID #0 09/13/22 04/07/23 PARoxetine [Paxil] 10 mg PO DAILY #0 09/13/22 04/07/23 Losartan [Cozaar] 50 mg PO DAILY 04/07/23 04/07/23 dilTIAZem HCL [Diltiazem 24Hr ER] 120 mg PO DAILY 04/07/23 04/07/23 - Allergies Allergies/Adverse Reactions: Allergies Allergy/AdvReac Type Severity Reaction Status Date / Time Penicillins Allergy Unknown Verified 04/06/23 23:20 Sulfa (Sulfonamide Allergy Unknown Verified 04/06/23 23:20 Antibiotics) lisinopril AdvReac Unknown Verified 04/06/23 23:20 Review of Systems - Constitutional Constitutional: reports: Weakness, Other (Headache) - Cardiovascular Cariovascular: reports: Lightheadedness - Respiratory Respiratory: reports: SOB at rest - All Other Systems All Other Systems: reports: Reviewed and negative Exam - Vital Signs Vital Signs: Vital Signs x48h Pulse Resp BP Pulse Ox 04/07/23 18:00 105 H 27 H 116/80 96 04/07/23 17:30 96 22 119/84 H 98 04/07/23 17:00 111 H 25 H 133/86 H 95 04/07/23 16:35 155 H 04/07/23 16:30 139 H 29 H 150/86 H 93 04/07/23 16:00 108 H 23 148/88 H 95 04/07/23 15:40 122 H 28 H 165/102 H 95 04/07/23 15:24 101 H 28 H 130/83 H 98 04/07/23 15:19 108 H 32 H 118/75 99 04/07/23 15:14 116 H 29 H 168/111 H 97 04/07/23 14:53 112 H 18 140/107 H 96 04/07/23 14:30 98 20 160/104 H 98 04/07/23 14:00 98 22 160/104 H 94 04/07/23 13:48 85 24 160/104 H 95 04/07/23 13:00 96 22 140/86 H 96 04/07/23 12:30 109 H 21 97 04/07/23 12:00 127 H 18 133/112 H 98 04/07/23 11:41 119 H 24 133/112 H 96 04/07/23 10:35 106 H 16 130/90 H 97 04/07/23 10:27 115 H 17 112/90 H - Physical Exam General Appearance: positive: No acute distress, Alert Eyes Bilateral: positive: EOMI, No lid inflammation, Other (No nystagmus, no icterus) ENT: positive: ENT inspection nml, No signs of dehydration Neck: positive: Nml inspection, No JVD Respiratory: positive: No respiratory distress, Wheezes Cardiovascular: positive: Regular rate & rhythm, No murmur Abdomen: positive: Non-tender, Nml bowel sounds, No distention Skin: positive: Warm, Dry, Other (No jaundice) Extremities: positive: Non-tender, No pedal edema Neurologic/Psychiatric: positive: Oriented x3, Motor nml, Other (Mild tremor of hands) Conclusion/Plan - Problem List (1) Acute pulmonary embolism Conclusion/Plan: Patient became tachypneic after presenting to the ER. Her D-dimer was then checked and returned very elevated and she underwent CT angiogram of the chest. This did reveal the presence of a small burden of pulmonary emboli Plan: Placed the patient in Observation status, on telemetry, to start her medications Patient was to be taking Eliquis for A-fib and now we will increase the Eliquis dose to 10 mg po BID for 1 week for proper management of a PE, then down to 5 mg po BID Monitor O2 sats, target sat 88% and above in a patient who is a smoker and likely COPD-er. Will search for a provoked reason for PE (2) Atrial fibrillation with RVR Conclusion/Plan: She is in paroxysmal Afib on telem in ER with brief HRs up to 140-150 when she is in distress and when standing. I suspect that she was not taking her meds, which used to include Cardizem and a B-silvana, now just Cardizem Plan: Since part of the tachycardia is from volume depletion, will continue iv fluids Will give po Cardizem and iv Cardizem pushes for rate control Monitor on telemetry Await med list to be reconciled and resume meds Will check her TSH to R/O hyperthyroidism (3) Alcohol abuse Conclusion/Plan: As per Hx. She started heavy use 16 mos ago after her sister's . She went thru withdrawal admitted here in August of this year. She presented to the ER last night and was intoxicated. Today her serum alcohol level is not measurable, so at risk of withdrawal. her CIWA score in ER was 5-8. Plan: Start iv fluids using a Banana bag Eventual po Thiamine daily CIWA protocol and prn Ativan ordered Start scheduled Librium po TID to prevent withdrawal. SW to see re: abstinence (4) Frequent falls Conclusion/Plan: Likely from intoxication plus volume depletion causing orthostasis. Head CT was done while in ER and showed no bleed or other trauma Plan: iv fluids CIWA protocol Will adjust meds and fluids based on orthostatic VS checks If not for the finding of PE, we may have not used Eliquis (for Afib stroke prevention) Will order PT eval, poss she has ataxia from her alcohol abuse (5) Urinary tract infection Conclusion/Plan: Her U/A is abnormal and she was first put on Macrobid po, in anticipation of DCH from ER. Then she wa staerted on iv Ceftriaxone, while still in ER. Plan: Cont empiric iv Ceftriaxone Await urine cx resukts to tailor antibx Qualifiers: Urinary tract infection type: acute cystitis Hematuria presence: without hematuria Qualified Code(s): N30.00 - Acute cystitis without hematuria (6) DM type 2 (diabetes mellitus, type 2) Conclusion/Plan: She uses Insulin and another agent Plan: Will order ss Insulin, fingferstick checks, A1c w/ a.m. labs, hypoglycemia protocol and a DM diet (7) Depression with anxiety Conclusion/Plan: Plan: Will continue her daily Paxil (8) Tobacco use Conclusion/Plan: She has wheezing on exam Plan: Will order sche and prn Xopenex Will order nicotine patch - Lab Results Fish Bones: 04/07/23 18:45 04/08/23 05:52 - Diagnostic Imaging Results Diagnostic Imaging Results: positive: Final report reviewed
[2023-04-07 18:51] LABS: BASOPHILS # (AUTO) 0.1 10^3/uL (0.0-0.1); BASOPHILS % (AUTO) 0.3 %; EOSINOPHILS % (AUTO) 0.1 %; HCT - HEMATOCRIT 38.7 % (37.0-47.0); HGB - HEMOGLOBIN 13.5 g/dL (12.0-16.0); LYMPHOCYTES # (AUTO) 0.2 10^3/uL (1.5-3.5); LYMPHOCYTES % (AUTO) 0.9 %; MEAN CORPUSCULAR HEMOGLOBIN 34.2 pg (27.0-31.0); MEAN CORPUSCULAR HGB CONC 34.9 g/dL (32.0-36.0); MEAN PLATELET VOLUME 11.6 fL (7.9-10.8); MONOCYTES # (AUTO) 0.8 10^3/uL (0.0-1.0); MONOCYTES % (AUTO) 3.9 %; NEUTROPHILS # (AUTO) 18.2 10^3/uL (1.5-6.6); NEUTROPHILS % (AUTO) 94.3 %; PLT - PLATELET COUNT 237 10^3/uL (130-450); RED BLOOD COUNT 3.95 10^6/uL (4.20-5.40); RED CELL DISTRIBUTION WIDTH 13.2 % (12.0-15.0); WHITE BLOOD COUNT 19.2 x10^3/uL (4.8-10.8)
[2023-04-07] MEDS ORDERED: FOLIC ACID 5 MG/1 ML 10ML MDV ONE (19:06)
[2023-04-07] MEDS ORDERED: LEVALBUTEROL 1.25 MG/3 ML NEB INH PRN (19:40)
[2023-04-07] MEDS: APIXABAN 5 MG TABLET PO SCH (21:38)
[2023-04-07] MEDS: FAMOTIDINE 20 MG TABLET PO SCH (21:38)
[2023-04-07] MEDS: chlordiazePOXIDE 5 MG CAPSULE PO SCH (21:39)
[2023-04-07] MEDS: LEVALBUTEROL 1.25 MG/3 ML NEB INH SCH (23:18)
[2023-04-07] MEDS: SODIUM CHLORIDE FLUSH 0.9% 10 ML SYRINGE IVP SCH (23:50)
[2023-04-08] MEDS: PANTOPRAZOLE 40 MG TABLET PO SCH (06:24)
[2023-04-08] MEDS: chlordiazePOXIDE 5 MG CAPSULE PO SCH ×2 (06:24→16:58)
[2023-04-08] MEDS: IBUPROFEN 600 MG TABLET PO PRN ×2 (06:24→20:49)
[2023-04-08] MEDS: LEVALBUTEROL 1.25 MG/3 ML NEB INH SCH ×3 (06:35→19:15)
[2023-04-08 06:44] LABS: ALBUMIN 2.5 g/dL (3.2-5.5); CALCIUM 8.1 mg/dL (8.5-10.3); CREATININE 0.9 mg/dL (0.6-1.3); MAGNESIUM 1.4 mg/dL (1.7-2.3); PHOSPHORUS 4.2 mg/dL (2.5-5.0); POTASSIUM 4.6 mmol/L (3.5-4.5)
[2023-04-08 07:15] LABS: THYROID STIMULATING HORMONE 1.65 uIU/mL (0.34-5.60)
[2023-04-08] MEDS: NITROFURANTOIN MACRO 100 MG CAPSULE PO SCH ×2 (08:12→20:50)
[2023-04-08] MEDS: THIAMINE 100 MG TABLET PO SCH (08:12)
[2023-04-08] MEDS: FAMOTIDINE 20 MG TABLET PO SCH ×2 (08:12→20:50)
[2023-04-08] MEDS: PARoxetine 10 MG TABLET PO SCH (08:13)
[2023-04-08] MEDS: diltiaZEM CD 120 MG CAPSULE PO SCH (08:13)
[2023-04-08] MEDS: APIXABAN 5 MG TABLET PO SCH ×2 (08:14→20:49)
[2023-04-08] MEDS: MAGNESIUM OXIDE 400 MG TABLET PO SCH (08:14)
[2023-04-08] MEDS: SODIUM CHLORIDE FLUSH 0.9% 10 ML SYRINGE IVP SCH ×2 (08:14→15:55)
[2023-04-08] MEDS: NICOTINE 14 MG PATCH TOP SCH (08:15)
[2023-04-08] MEDS: INSULIN LISPRO 300 UNIT/3 ML PEN SUBQ SCH ×4 (08:39→20:50)
[2023-04-08] MEDS: FOLIC ACID 1 MG TABLET PO SCH (08:39)
[2023-04-08] MEDS ORDERED: DILTIAZEM HCL 120 MG PO SCH (09:00)
[2023-04-08 09:12] LABS: ESTIMATED AVERAGE GLUCOSE 146 mg/dL (70-100); HEMOGLOBIN A1c% 6.7 % (4.27-6.07)
[2023-04-08] MEDS ORDERED: SODIUM CHLORIDE 0.9% 500 ML IV ONE (11:13)
--- NOTE | 2023-04-08 11:23 | PROVIDER PROGRESS NOTE ---
Assessment/Plan - Problem List (1) Orthostatic hypotension Assessment/Plan: Due to complaint of frequent falls, orthostatic vital signs were checked today, and she was very orthostatic despite getting many liters of fluid yesterday (all VS were reviewed) Plan: I will admit her from Observation to Inpatient status Continue giving IV fluids with NS Monitor orthostatic vital signs every shift (2) Frequent falls Conclusion/Plan: Likely from intoxication plus volume depletion causing orthostasis. Head CT was done while in ER and showed no bleed or other trauma Plan: iv fluids Will adjust meds and fluids based on orthostatic VS checks If not for the finding of PE, we may have not used Eliquis (for Afib stroke prevention) Will order PT eval, poss she has ataxia from her alcohol abuse (today is Sunday and we have no PT here today, PT is back on Sunday) (3) N/V Conclusion/Plan: This morning she threw up her breakfast and needed Zofran. Later in the morning she again needed Zofran for nausea. She says this is "not new for her". Plan: Continue with as needed antiemetics I will de-escalate her diet (4) Diarrhea Conclusion/Plan: Patient has had 2 liquidy BMs here today. RN told me that in the ER she had 4 liquidy BMs, but I was not given this report by the ER provider at adm This could be why she is orthostatic and having nausea and vomiting, she may have a viral gastroenteritis Plan: Will obtain CT abdomen Will obtain stool for C. difficile>> it came back (+) If negative for C. difficile, will give Imodium as needed (5) C. diff diarrhea Conclusion/Plan: Plan: Isolation po Vano will be started (6) Urinary tract infection Conclusion/Plan: Her U/A is abnormal and she was first put on Macrobid po, in anticipation of DCh from ER. Then she was started on iv Ceftriaxone, while still in ER. If there had been diarrhea at home, this may have been the cause of the current UTI Plan: Cont empiric iv Ceftriaxone daily Await urine cx results to tailor antibx (7) Acute pulmonary embolism Conclusion/Plan: Patient became tachypneic after presenting to the ER. Her D-dimer was then checked and returned very elevated and she underwent CT angiogram of the chest. This did reveal the presence of a small burden of pulmonary emboli Plan: Patient was to be taking Eliquis for A-fib, but says that she was only on a ASA daily. We started Eliquis dose 10 mg po BID for 1 week for proper management of a PE, then down to 5 mg po BID Monitor O2 sats, target sat 88% and above in a patient who is a smoker and COPD- er. Will search for a provoked reason for PE>> In close inspection of her workup, she does have a lung mass (8) Atrial fibrillation with RVR Conclusion/Plan: She is in paroxysmal Afib on telem in ER with brief HRs up to 140-150 when she is in distress and when standing. I suspect that she was not taking her meds, which used to include Cardizem and a B-silvana, now just Cardizem Plan: Since part of the tachycardia is from volume depletion, will continue iv fluids Will give po Cardizem and iv Cardizem pushes for rate control Monitor on telemetry Await med list to be reconciled and resume meds Will check her TSH to R/O hyperthyroidism (9) DM type 2 (diabetes mellitus, type 2) Conclusion/Plan: She uses Insulin and another agent Plan: Will order ss Insulin, fingferstick checks, A1c w/ a.m. labs, hypoglycemia protocol and a DM diet (10) Alcohol abuse Conclusion/Plan: As per Hx. She started heavy use 16 mos ago after her sister's . She went thru withdrawal admitted here in August of this year. She presented to the ER last night and was intoxicated. Today her serum alcohol level is not measurable, so at risk of withdrawal. her CIWA score in ER was 5-8. Plan: Start iv fluids using a Banana bag Eventual po Thiamine daily CIWA protocol and prn Ativan ordered Cont scheduled Librium po BID to prevent withdrawal. SW to see re: alcohol abuse (we have no SW in the building today) (11) Lung mass Conclusion/Plan: Her chest CT imaging was read as having many lung nodules: in the RUL 4 mm- similar to previous. RLL 11 X 8 mm-new. RML 4 mm-improved. RATNA 11 X 6 mm- stable. Another RATNA 6 mm-stable. Plan: Smoking cessation was discussed with the patient She will need outpatient workup for this to see if they are malignant, and these could be the cause of being hypercoagulable and having a PE (12) Tobacco use Conclusion/Plan: She still has wheezing on exam Cont scheduled TID and prn Xopenex Cont nicotine patch (13) Depression with anxiety Conclusion/Plan: Plan: Will continue her daily Paxil - Current Meds Current Meds: Current Medications Generic Name Dose Route Start Last Admin Trade Name Luz PRN Reason Stop Dose Admin Apixaban 10 mg 04/07/23 21:00 04/08/23 08:14 Apixaban 5 Mg Tablet PO 10 mg BID GENET Administration Diltiazem HCl 120 mg 04/08/23 09:00 04/08/23 08:13 Diltiazem Cd 120 Mg Capsule PO 120 mg DAILY GENET Administration Famotidine 20 mg 04/07/23 21:00 04/08/23 08:12 Famotidine 20 Mg Tablet PO 20 mg BID GENET Administration Folic Acid 1 mg 04/08/23 09:00 04/08/23 08:39 Folic Acid 1 Mg Tablet PO 1 mg DAILY GENET Administration Ibuprofen 600 mg 04/07/23 19:37 04/08/23 06:24 Ibuprofen 600 Mg Tablet PO 600 mg Q6HR PRN Administration HEADACHE Insulin Human Lispro 1 - 5 unit 04/08/23 08:00 04/08/23 08:39 Insulin Lispro 300 Unit/3 Ml Pen SUBQ 4 unit 0800,1200,1700,2100 GENET Administration Protocol Levalbuterol HCl 1.25 mg 04/07/23 22:00 04/08/23 06:35 Levalbuterol 1.25 Mg/3 Ml Neb INH 1.25 mg TID GENET Administration Magnesium Oxide 400 mg 04/08/23 08:00 04/08/23 08:14 Magnesium Oxide 400 Mg Tablet PO 400 mg DAILYWM GENET Administration Nicotine 1 patch 04/08/23 09:00 04/08/23 08:15 Nicotine 14 Mg Patch TOP 1 patch DAILY GENET Administration Nitrofurantoin 100 mg 04/07/23 09:00 04/08/23 08:12 Nitrofurantoin Macro 100 Mg Capsule PO 04/12/23 08:59 100 mg BID GENET Administration Pantoprazole Sodium 40 mg 04/08/23 07:00 04/08/23 06:24 Pantoprazole 40 Mg Tablet PO 40 mg QDAC GENET Administration Paroxetine HCl 10 mg 04/08/23 09:00 04/08/23 08:13 Paroxetine 10 Mg Tablet PO 10 mg DAILY GENET Administration Sodium Chloride 10 ml 04/07/23 18:13 04/07/23 20:17 Sodium Chloride Flush 0.9% 10 Ml Syringe IVP 10 ml PRN PRN Administration NEEDED PER PROVIDER ORDERS Sodium Chloride 10 ml 04/08/23 01:00 04/08/23 08:14 Sodium Chloride Flush 0.9% 10 Ml Syringe IVP 10 ml 0100,0900,1700 GENET Administration Thiamine HCl 100 mg 04/08/23 09:00 04/08/23 08:12 Thiamine 100 Mg Tablet PO 100 mg DAILY GENET Administration - Lab Result Fish Bone Diagrams: 04/07/23 18:45 04/08/23 05:52 - Additional Planning My Orders: My Active Orders 04/07/23 18:13 Activity Orders [RC] Q2HR IO [RC] IOSHIFT Incentive Spirometry - RT [RC] TID Initiate Bowel Care Protocol [RC] .protocol Initiate Line Care Protocol [RC] QSHIFT Initiate Personal Care Protoco [RC] .protocol Oxygen Therapy [RC] .PRN Telemetry (24 Hour) [RC] Q4HR Vital Signs [RC] Q4HR Acetaminophen [Tylenol] 650 mg PO Q4HR PRN Ondansetron Inj [Zofran Inj] 4 mg IVP Q6HR PRN Sodium Chloride Flush 0.9% [Normal Saline Flush 0.9%] 10 ml IVP PRN PRN Code Status [OTHERS] Routine Condition of Patient [OTHERS] Routine DVT Prophylaxis [OTHERS] Routine 04/07/23 18:15 Daily Weight [RC] 0600 IV Insert [RC] .ONCE 04/07/23 18:17 CIWA - AR Score Card [RC] Q4HR LORazepam INJ [Ativan Inj (Vial)] 2 mg IVP Q30M PRN 04/07/23 19:37 Ibuprofen [Motrin] 600 mg PO Q6HR PRN 04/07/23 19:40 Levalbuterol [Xopenex] 1.25 mg INH Q4H PRN 04/07/23 19:41 Resp Teach Nebulizer/MDI [RC] .ONCE 04/07/23 21:00 Apixaban [Eliquis] 10 mg PO BID Famotidine [Pepcid] 20 mg PO BID 04/07/23 22:00 Levalbuterol [Xopenex] 1.25 mg INH TID 04/08/23 01:00 Sodium Chloride Flush 0.9% [Normal Saline Flush 0.9%] 10 ml IVP 0100,0900,1700 04/08/23 Breakfast Carb-controlled Diet [DIET] 04/08/23 06:35 RT [Nebulizer/MDI Tx.] [] QID 04/08/23 07:36 Blood Glucose Checks - Eating [] 0800,1200,1700,2100 Initiate Hypoglycemia Protocol [] .protocol 04/08/23 07:37 Orthostatic [Vital Signs - Orthostatic] [] QSHIFT 04/08/23 08:00 Insulin Lispro [Humalog Kwikpen U-100] 1 - 5 unit SUBQ 0800,1200,1700,2100 Magnesium Oxide [Mag Ox] 400 mg PO DAILYWM 04/08/23 09:00 Folic Acid 1 mg PO DAILY Nicotine 14 mg Patch [Nicoderm] 1 patch TOP DAILY PARoxetine [Paxil] 10 mg PO DAILY diltiaZEM CD [Cardizem Cd] 120 mg PO DAILY 04/08/23 11:13 0.9% NS 500ML BOLUS X1 Sodium Chloride 0.9% [Normal Saline 0.9%] 500 ml IV ONCE 04/08/23 12:00 Banana Bag (MVI,THIAMINE,MAG, FOLIC ACID IN NS) Multivitamin [Infuvite] 10 ml Thiamine Inj [Vitamin B-1 Inj] 100 mg Magnesium Sulfate 2 gm Folic Acid Inj [Folic Acid] 1 mg Sodium Chloride 0.9% [Normal Saline 0.9%] 1,000 ml IV DAILY 04/08/23 15:00 cefTRIAXone [Rocephin] 1 gm Sodium Chloride 0.9% Minibag [Normal Saline 0.9% Minibag] 100 ml IV 1500 04/08/23 17:00 chlordiazePOXIDE [Librium] 5 mg PO 0800,1700 04/08/23 23:00 Sodium Chloride 0.9% [Normal Saline 0.9%] 1,000 ml IV 100 mls/hr Subjective - Subjective Patient Reports: Diarrhea, Nausea (Has headach. No chills) Objective Vital Signs: Vital Signs - 24 hr 04/07/23 04/07/23 04/07/23 11:41 12:00 12:30 Temperature Heart Rate 119 H 127 H 109 H Heart Rate [ Monitoring electrodes] Respiratory 24 18 21 Rate Blood Pressure 133/112 H 133/112 H Blood Pressure [Right Brachial artery] O2 Saturation 96 98 97 04/07/23 04/07/23 04/07/23 13:00 13:48 14:00 Temperature Heart Rate 96 85 98 Heart Rate [ Monitoring electrodes] Respiratory 22 24 22 Rate Blood Pressure 140/86 H 160/104 H 160/104 H Blood Pressure [Right Brachial artery] O2 Saturation 96 95 94 04/07/23 04/07/23 04/07/23 14:30 14:53 15:14 Temperature Heart Rate 98 112 H 116 H Heart Rate [ Monitoring electrodes] Respiratory 20 18 29 H Rate Blood Pressure 160/104 H 140/107 H 168/111 H Blood Pressure [Right Brachial artery] O2 Saturation 98 96 97 04/07/23 04/07/23 04/07/23 15:19 15:24 15:40 Temperature Heart Rate 108 H 101 H 122 H Heart Rate [ Monitoring electrodes] Respiratory 32 H 28 H 28 H Rate Blood Pressure 118/75 130/83 H 165/102 H Blood Pressure [Right Brachial artery] O2 Saturation 99 98 95 04/07/23 04/07/23 04/07/23 16:00 16:30 16:35 Temperature Heart Rate 108 H 139 H 155 H Heart Rate [ Monitoring electrodes] Respiratory 23 29 H Rate Blood Pressure 148/88 H 150/86 H Blood Pressure [Right Brachial artery] O2 Saturation 95 93 04/07/23 04/07/23 04/07/23 17:00 17:30 18:00 Temperature Heart Rate 111 H 96 105 H Heart Rate [ Monitoring electrodes] Respiratory 25 H 22 27 H Rate Blood Pressure 133/86 H 119/84 H 116/80 Blood Pressure [Right Brachial artery] O2 Saturation 95 98 96 04/07/23 04/07/23 04/07/23 18:30 19:12 20:14 Temperature 36.7 C Heart Rate 118 H Heart Rate [ 110 H Monitoring electrodes] Respiratory 27 H 28 H Rate Blood Pressure 122/66 120/76 Blood Pressure 120/76 [Right Brachial artery] O2 Saturation 95 95 04/07/23 04/07/23 04/08/23 21:00 23:47 01:35 Temperature 36.7 C 36.5 C Heart Rate Heart Rate [ 103 H 100 98 Monitoring electrodes] Respiratory 28 H 18 18 Rate Blood Pressure Blood Pressure 130/76 143/85 H 130/81 H [Right Brachial artery] O2 Saturation 94 94 96 04/08/23 04/08/23 04/08/23 04:42 06:35 08:16 Temperature 36.8 C 37.0 C Heart Rate 81 Heart Rate [ 96 96 Monitoring electrodes] Respiratory 18 16 18 Rate Blood Pressure Blood Pressure 142/93 H 129/84 H [Right Brachial artery] O2 Saturation 97 97 Oxygen O2 Source Room air I&O (Last 24 Hrs): Intake and Output Totals x24h 04/06/23 04/07/23 04/08/23 23:59 23:59 23:59 Intake Total 2601.2 120 Output Total 50 Balance 2601.2 70 General: Mild distress (from headache and nausea) HEENT: Mucous membr. moist/pink, Other (disheveled) Neuro: Alert, Non Focal, Other (No tremor) Cardiovascular: No murmurs Respiratory: No respiratory distress Abdomen: Normal bowel sounds, Soft, No tenderness (no guarding) Extremities: No clubbing, No edema, No tenderness/swelling - Results Results: Laboratory Results WBC 19.2 x10^3/uL (4.8-10.8) H 04/07/23 18:45 RBC 3.95 10^6/uL (4.20-5.40) L 04/07/23 18:45 Hgb 13.5 g/dL (12.0-16.0) 04/07/23 18:45 Hct 38.7 % (37.0-47.0) 04/07/23 18:45 MCV 98.0 fL (81.0-99.0) 04/07/23 18:45 MCH 34.2 pg (27.0-31.0) H 04/07/23 18:45 MCHC 34.9 g/dL (32.0-36.0) 04/07/23 18:45 RDW 13.2 % (12.0-15.0) 04/07/23 18:45 Plt Count 237 10^3/uL (130-450) 04/07/23 18:45 MPV 11.6 fL (7.9-10.8) H 04/07/23 18:45 Neut # (Auto) 18.2 10^3/uL (1.5-6.6) H 04/07/23 18:45 Lymph # (Auto) 0.2 10^3/uL (1.5-3.5) L 04/07/23 18:45 [place] # (Auto) 0.8 10^3/uL (0.0-1.0) 04/07/23 18:45 Eos # (Auto) 0.0 10^3/uL (0.0-0.7) 04/07/23 18:45 Baso # (Auto) 0.1 10^3/uL (0.0-0.1) 04/07/23 18:45 Absolute Nucleated RBC 0.00 x10^3/uL 04/07/23 18:45 Nucleated RBC % 0.0 /100WBC 04/07/23 18:45 PT 11.6 secs (9.9-12.6) 04/06/23 23:24 INR 1.1 (0.8-1.2) 04/06/23 23:24 D-Dimer 1046.5 ng/mL (200.0-255.0) H 04/07/23 15:13 VBG pH 7.406 (7.31-7.41) 04/06/23 23:48 VBG pCO2 40.2 mmHg (41-51) L 04/06/23 23:48 VBG pO2 40.9 mmHg (25-47) 04/06/23 23:48 VBG HCO3 24.7 mmol/L (23-28) 04/06/23 23:48 VBG Total CO2 25.9 mmol/L (24-29) 04/06/23 23:48 VBG O2 Saturation 74.0 % (60-80) 04/06/23 23:48 VBG Base Excess 0.0 mmol/L (-2 - +2) 04/06/23 23:48 Sodium 134 mmol/L (135-145) L 04/08/23 05:52 Potassium 4.6 mmol/L (3.5-4.5) H 04/08/23 05:52 Chloride 102 mmol/L (101-111) 04/08/23 05:52 Carbon Dioxide 24 mmol/L (21-32) 04/08/23 05:52 Anion Gap 8.0 (6-13) 04/08/23 05:52 BUN 11 mg/dL (6-20) 04/08/23 05:52 Creatinine 0.9 mg/dL (0.6-1.3) 04/08/23 05:52 Estimated GFR (MDRD) 61 (>89) L 04/08/23 05:52 Glucose 266 mg/dL (74-104) H 04/08/23 05:52 POC Whole Bld Glucose 276 mg/dL (70 - 100) H 04/08/23 08:13 Estimat Average Glucose 146 mg/dL (70-100) H 04/08/23 05:52 Hemoglobin A1c % 6.7 % (4.27-6.07) H 04/08/23 05:52 Lactic Acid 2.3 mmol/L (0.5-2.2) H 04/07/23 13:57 Calcium 8.1 mg/dL (8.5-10.3) L 04/08/23 05:52 Phosphorus 4.2 mg/dL (2.5-5.0) 04/08/23 05:52 Magnesium 1.4 mg/dL (1.7-2.3) L 04/08/23 05:52 Total Bilirubin 1.0 mg/dL (0.2-1.0) 04/08/23 05:52 AST 96 IU/L (10-42) H 04/08/23 05:52 ALT 43 IU/L (10-60) 04/08/23 05:52 Alkaline Phosphatase 153 IU/L (42-121) H 04/08/23 05:52 Total Creatine Kinase 33 IU/L (30-223) 04/06/23 23:24 Troponin I High Sens 24.4 ng/L (2.3-14.8) H* 04/07/23 02:37 Total Protein 5.0 g/dL (6.4-8.9) L 04/08/23 05:52 Albumin 2.5 g/dL (3.2-5.5) L 04/08/23 05:52 Globulin 2.5 g/dL (2.1-4.2) 04/08/23 05:52 Albumin/Globulin Ratio 1.0 (1.0-2.2) 04/08/23 05:52 Lipase 14 U/L (11-82) 04/06/23 23:24 TSH 1.65 uIU/mL (0.34-5.60) 04/08/23 05:52 Urine Color YELLOW 04/07/23 01:14 Urine Clarity CLEAR (CLEAR) 04/07/23 01:14 Urine pH 5.5 PH (5.0-7.5) 04/07/23 01:14 Ur Specific [place] <=1.005 (1.002-1.030) 04/07/23 01:14 Urine Protein NEGATIVE mg/dL (NEGATIVE) 04/07/23 01:14 Urine Glucose (UA) NEGATIVE mg/dL (NEGATIVE) 04/07/23 01:14 Urine Ketones NEGATIVE mg/dL (NEGATIVE) 04/07/23 01:14 Urine Occult Blood SMALL (NEGATIVE) H 04/07/23 01:14 Urine Nitrite NEGATIVE (NEGATIVE) 04/07/23 01:14 Urine Bilirubin NEGATIVE (NEGATIVE) 04/07/23 01:14 Urine Urobilinogen 0.2 (NORMAL) E.U./dL (NORMAL) 04/07/23 01:14 Ur Leukocyte Esterase LARGE (NEGATIVE) H 04/07/23 01:14 Urine RBC 0-5 /HPF (0-5) 04/07/23 01:14 Urine WBC 11-25 /HPF (0-5) H 04/07/23 01:14 Ur Squamous Epith Cells FEW Squamous (<= Few) 04/07/23 01:14 Urine Bacteria Many /HPF (None Seen) H 04/07/23 01:14 Ur Microscopic Review INDICATED 04/07/23 01:14 Urine Culture Comments INDICATED 04/07/23 01:14 Nasal Adenovirus (PCR) NOT DETECTED 04/06/23 23:24 Nasal B. parapertussis DNA (PCR) NOT DETECTED 04/06/23 23:24 Nasal Coronavir 229E PCR NOT DETECTED 04/06/23 23:24 Nasal Coronavir HKU1 PCR NOT DETECTED 04/06/23 23:24 Nasal Coronavir NL63 PCR NOT DETECTED 04/06/23 23:24 Nasal Coronavir OC43 PCR NOT DETECTED 04/06/23 23:24 Nasal Enterovir/Rhinovir PCR NOT DETECTED 04/06/23 23:24 Nasal Influenza B PCR NOT DETECTED 04/06/23 23:24 Nasal Influenza A PCR NOT DETECTED 04/06/23 23:24 Nasal Parainfluen 1 PCR NOT DETECTED 04/06/23 23:24 Nasal Parainfluen 2 PCR NOT DETECTED 04/06/23 23:24 Nasal Parainfluen 3 PCR NOT DETECTED 04/06/23 23:24 Nasal Parainfluen 4 PCR NOT DETECTED 04/06/23 23:24 Nasal RSV (PCR) NOT DETECTED 04/06/23 23:24 Nasal B.pertussis DNA PCR NOT DETECTED 04/06/23 23:24 Nasal C.pneumoniae (PCR) NOT DETECTED 04/06/23 23:24 [place] Human Metapneumo PCR NOT DETECTED 04/06/23 23:24 Nasal M.pneumoniae (PCR) NOT DETECTED 04/06/23 23:24 Nasal SARS-CoV-2 (PCR) NOT DETECTED 04/06/23 23:24 Urine Opiates Screen NEGATIVE (NEGATIVE) 04/07/23 01:14 Ur Buprenorphine Scrn NEGATIVE (NEGATIVE) 04/07/23 01:14 Ur Oxycodone Screen POSITIVE (NEGATIVE) H 04/07/23 01:14 Urine Methadone Screen NEGATIVE (NEGATIVE) 04/07/23 01:14 Ur Barbiturates Screen NEGATIVE (NEGATIVE) 04/07/23 01:14 Ur Tricyclics Screen NEGATIVE (NEGATIVE) 04/07/23 01:14 Ur Phencyclidine Scrn NEGATIVE (NEGATIVE) 04/07/23 01:14 Ur Amphetamine Screen NEGATIVE (NEGATIVE) 04/07/23 01:14 U Methamphetamines Scrn NEGATIVE (NEGATIVE) 04/07/23 01:14 U Benzodiazepines Scrn NEGATIVE (NEGATIVE) 04/07/23 01:14 Urine Cocaine Screen NEGATIVE (NEGATIVE) 04/07/23 01:14 U Cannabinoids Screen NEGATIVE (NEGATIVE) 04/07/23 01:14 Ur Drug Screen Comment CUTOFF CONC BELOW: 04/07/23 01:14 Ethyl Alcohol < 10.0 mg/dL 04/07/23 13:57 Serum Ketones NEGATIVE (NEGATIVE) 04/06/23 23:24 Blood Type A POSITIVE 04/06/23 23:48 Blood Type Recheck A POSITIVE 04/07/23 00:46 Antibody Screen NEGATIVE 04/06/23 23:48
[2023-04-08] MEDS ORDERED: PROCHLORPERAZINE 10 MG/2 ML VIAL IVP PRN (11:35)
[2023-04-08] MEDS ORDERED: MULTIVITAMIN 10 ML, THIAMINE INJ 100 MG, MAGNESIUM SULFATE 2 GM, FOLIC ACID INJ 1 MG in... IV ONE ×5 (12:00)
--- NOTE | 2023-04-08 14:41 | CT Report ---
PROCEDURE: ABDOMEN/PELVIS WO INDICATIONS: N/V/D TECHNIQUE: A CT scan of the abdomen and pelvis was performed without the use of intravenous contrast. Images we re recorded and evaluated at appropriate window settings. Reformats: coronal and sagittal. For radiat ion dose reduction, the following was used: automated exposure control, adjustment of mA and/or kV ac cording to patient size. COMPARISON: 09/06/2021. Correlation is also made with the overlapping portions of chest CT, 3 FINDINGS: Image quality: Motion artifact is noted. Lung bases and heart: Mild dependent atelectasis can be seen at the right lung base. Liver: No solid mass. Gallbladder and biliary tree: There is vicarious excretion of contrast within the gallbladder, withou t additional gallbladder abnormality seen by CT. Spleen: No splenomegaly. Pancreas: No pancreatic ductal dilation. Adrenals: No adrenal nodule. Kidneys and ureters: No hydronephrosis. No renal cystic lesion which requires follow up. No solid mas s. There is degenerative excreting contrast within the renal collecting systems. At the inferior pole of the right kidney, there is a 4 mm nonobstructing kidney stone. Bowel and peritoneum: No bowel distension. No pathologic free fluid. Diverticulosis can be seen, with out coty findings of active diverticulitis. Lymph nodes: No central or retroperitoneal adenopathy. Vessels: No infrarenal aortic aneurysm. Atherosclerotic calcification is seen. PELVIS Reproductive organs: Hysterectomy Bladder: No wall thickness, accounting for underdistention. Pelvic lymph nodes: No pelvic adenopathy by size criteria. Bones: No aggressive osseous abnormality. Other: No significant ventral or inguinal hernia. IMPRESSION: No dilated loops of small bowel are seen. No significant bowel abnormality is seen. Additional findings: Excreting contrast within the gallbladder and the renal collecting systems 4 mm nonobstructing right-sided kidney stone Diverticulosis, without findings of active diverticulitis. Hysterectomy Reviewed by: William Lopez MD on 04/08/2023 1:40 PM [place] Approved by: William Lopez MD on 04/08/2023 1:[address] [facility] Station ID: [id number]
--- NOTE | 2023-04-08 14:49 | PHARMACY PROGRESS NOTE ---
- Best Possible Medication History Admit Date and Time: 04/08/23 1107 Processed by: Pharmacy Medication History completed: Yes Patient Interview: Completed Secondary Source(s): Physician records, Insurance records As the person ultimately responsible for medication therapy, providers are able to order a medication from an existing home medication list in [facility] via the "Reconcile Routine" prior to Confirmation of that medication by applications support specialist. Such practice is discouraged except when the physician, in their clinical judgment, deems that a medical need exists for a medication without regard to previous use.
[2023-04-08] MEDS: cefTRIAXone 1 GM in SODIUM CHLORIDE 0.9% MINIBAG 100 ML IV SCH (15:55)
[2023-04-08] MEDS: ACETAMINOPHEN 325 MG TABLET PO PRN (15:56)
[2023-04-08] MEDS: VANCOMYCIN 125 MG CAPSULE PO SCH ×2 (16:58→20:49)
[2023-04-09] MEDS: SODIUM CHLORIDE 0.9% 1,000 ML IV SCH ×3 (02:30→18:08)
[2023-04-09] MEDS: SODIUM CHLORIDE FLUSH 0.9% 10 ML SYRINGE IVP SCH ×4 (02:36→23:58)
[2023-04-09] MEDS: ACETAMINOPHEN 325 MG TABLET PO PRN ×2 (04:51→09:29)
[2023-04-09 06:25] LABS: BASOPHILS % (AUTO) 0.3 %; EOSINOPHILS # (AUTO) 0.3 10^3/uL (0.0-0.7); EOSINOPHILS % (AUTO) 2.8 %; HCT - HEMATOCRIT 37.2 % (37.0-47.0); HGB - HEMOGLOBIN 12.1 g/dL (12.0-16.0); LYMPHOCYTES # (AUTO) 0.4 10^3/uL (1.5-3.5); LYMPHOCYTES % (AUTO) 4.5 %; MEAN CORPUSCULAR HEMOGLOBIN 34.1 pg (27.0-31.0); MEAN CORPUSCULAR HGB CONC 32.5 g/dL (32.0-36.0); MEAN CORPUSCULAR VOLUME 104.8 fL (81.0-99.0); MEAN PLATELET VOLUME 12.6 fL (7.9-10.8); MONOCYTES # (AUTO) 0.5 10^3/uL (0.0-1.0); MONOCYTES % (AUTO) 4.8 %; NEUTROPHILS # (AUTO) 8.4 10^3/uL (1.5-6.6); NEUTROPHILS % (AUTO) 87.3 %; PLT - PLATELET COUNT 167 10^3/uL (130-450); RED BLOOD COUNT 3.55 10^6/uL (4.20-5.40); RED CELL DISTRIBUTION WIDTH 13.8 % (12.0-15.0); WHITE BLOOD COUNT 9.6 x10^3/uL (4.8-10.8)
[2023-04-09] MEDS: LEVALBUTEROL 1.25 MG/3 ML NEB INH SCH ×2 (06:57→21:30)
[2023-04-09 07:04] LABS: CREATININE 0.9 mg/dL (0.6-1.3); POTASSIUM 3.9 mmol/L (3.5-4.5)
[2023-04-09] MEDS: PANTOPRAZOLE 40 MG TABLET PO SCH (07:21)
[2023-04-09] MEDS: diltiaZEM CD 120 MG CAPSULE PO SCH (09:04)
[2023-04-09] MEDS: FAMOTIDINE 20 MG TABLET PO SCH ×2 (09:05→22:13)
[2023-04-09] MEDS: chlordiazePOXIDE 5 MG CAPSULE PO SCH ×3 (09:05→22:11)
[2023-04-09] MEDS: PARoxetine 10 MG TABLET PO SCH (09:05)
[2023-04-09] MEDS: FOLIC ACID 1 MG TABLET PO SCH (09:05)
[2023-04-09] MEDS: APIXABAN 5 MG TABLET PO SCH ×2 (09:05→22:12)
[2023-04-09] MEDS: NITROFURANTOIN MACRO 100 MG CAPSULE PO SCH ×2 (09:05→22:11)
[2023-04-09] MEDS: MAGNESIUM OXIDE 400 MG TABLET PO SCH (09:05)
[2023-04-09] MEDS: NICOTINE 14 MG PATCH TOP SCH (09:06)
[2023-04-09] MEDS: INSULIN LISPRO 300 UNIT/3 ML PEN SUBQ SCH ×4 (09:06→22:09)
[2023-04-09] MEDS: THIAMINE 100 MG TABLET PO SCH (09:06)
[2023-04-09] MEDS: VANCOMYCIN 125 MG CAPSULE PO SCH ×4 (09:06→22:13)
[2023-04-09] MEDS ORDERED: DIPHENOX/ATROPINE 2.5/0.025 MG TABLET PO PRN (12:32)
--- NOTE | 2023-04-09 13:01 | PROVIDER PROGRESS NOTE ---
Assessment/Plan - Problem List (1) C. difficile diarrhea Assessment/Plan: Patient has had 2 liquidy BMs yesterday 04/08 after having N/V. She actually had 4 liquidy BMs while still in ER, but I was not given report of that by the ER provider at admission. Fluid losses from diarrhea may have added to ortho stasis, which was found after admission. Isolation was ordered and she was started on Vanco 125 mg po QID yesterday 04/08. Plan: Cont po Vanco Add prn Lomotil Follow BMP and Mg daily (2) N/V Conclusion/Plan: IMPROVED on clear liquid diet On 04/08, she threw up her breakfast and needed Zofran. Later in the morning she again needed Zofran for nausea. She said nausea is "not new for her". This may be from C diff. I de-escalated her solid food to clear liquids yesterday. Plan: Continue with as needed antiemetics Cont clear liquid diet (3) Orthostatic hypotension Assessment/Plan: Due to complaint of frequent falls, orthostatic vital signs were checked today, and she was very orthostatic despite getting many liters of fluid yesterday (all VS were reviewed) Plan: Continue giving IV fluids using NS Monitor orthostatic vital signs daily (4) Frequent falls Conclusion/Plan: Likely from intoxication plus volume depletion causing orthostasis. Head CT was done while in ER and showed no bleed or other trauma Plan: iv fluids Will adjust meds and fluids based on orthostatic VS checks If not for the finding of PE, we may have not used Eliquis (for Afib stroke prevention), because of her freq falls Will order PT eval, poss she has ataxia from her alcohol abuse (5) Alcohol abuse with withdrawal - F10.139 Conclusion/Plan: As per Hx. She started heavy use 16 mos ago after her sister's . She went thru withdrawal, was admitted here in August of this year. When she presented to the ER she was intoxicated. She was in ER many hours, so was then at risk of withdrawal. Her CIWA score in ER was 5-8. Today her CIWA is 7. She got 1 day of a Banana Bag iv Plan: Cont iv fluids Start po Thiamine daily Cont CIWA protocol and prn Ativan ordered Cont scheduled Librium to prevent withdrawal, will increase from BID to TID, since she is scoring 7 on CIWA protocol Follow LFTs intermittently SW to see when cleared re: alcohol abuse (6) Urinary tract infection Conclusion/Plan: Her U/A was abnormal and she was first put on Macrobid po, in anticipation of DCh from ER. Then she was started on iv Ceftriaxone, while still in ER. If there had been diarrhea at home, this may have been the cause of the current UTI Plan: Cont empiric iv Ceftriaxone daily Await urine cx results to tailor antibx (7) Acute pulmonary embolism Conclusion/Plan: Patient became tachypneic after presenting to the ER. Her D-dimer was then checked and returned very elevated and she underwent CT angiogram of the chest. This did reveal the presence of a small burden of pulmonary emboli. 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 We started Eliquis dose 10 mg po BID for 1 week for proper management of a PE, then down to 5 mg po BID Monitor O2 sats, target sat 88% and above in a patient who is a smoker and COPD- er. She does have lung masses which could be malignant and these need outpt W/U (8) Atrial fibrillation with RVR Conclusion/Plan: She is in paroxysmal Afib on telem in ER with brief HRs up to 140-150 when she is in distress and when standing. I suspect that she was not taking her home meds, which used to include Cardizem and a B-silvana, now just Cardizem Her TSH was checked to R/O hyperthyroidism and came back WNL at 1.65 (all labs were reviewed). Plan: Since part of the tachycardia was from volume depletion, and now she has fluid loss in diarrhea, will continue iv fluids Cont her po Toprol XL and her po Cardizem and we can use prn iv Cardizem pushes for rate control Monitor on telemetry (9) DM type 2 (diabetes mellitus, type 2) Conclusion/Plan: She uses Insulin Plan: Cont ss Insulin, fingferstick checks, A1c w/ a.m. labs, hypoglycemia protocol and a DM diet (10) Lung mass Conclusion/Plan: Her chest CT imaging was read as having many lung nodules: in the RUL 4 mm- similar to previous. RLL 11 X 8 mm-is NEW. RML 4 mm-improved. RATNA 11 X 6 mm-stable. Another RATNA 6 mm-stable. Plan: Smoking cessation was discussed with the patient She will need outpatient workup for this to see if they are malignant, and these could be the cause of being hypercoagulable and having a PE (11) Tobacco use Conclusion/Plan: She still has wheezing on exam Plan: Cont scheduled TID and prn Xopenex Cont nicotine patch (12) Depression with anxiety Conclusion/Plan: Plan: Will continue her daily Paxil - Current Meds Current Meds: Current Medications Generic Name Dose Route Start Last Admin Trade Name Freq PRN Reason Stop Dose Admin Acetaminophen 650 mg 04/07/23 18:13 04/09/23 09:29 Acetaminophen 325 Mg Tablet PO 650 mg Q4HR PRN Administration Pain 1 to 4, or Fever Apixaban 10 mg 04/07/23 21:00 04/09/23 09:05 Apixaban 5 Mg Tablet PO 10 mg BID GENET Administration Chlordiazepoxide HCl 5 mg 04/08/23 17:00 04/09/23 09:05 Chlordiazepoxide 5 Mg Capsule PO 5 mg 0800,1700 GENET Administration Diltiazem HCl 120 mg 04/08/23 09:00 04/09/23 09:04 Diltiazem Cd 120 Mg Capsule PO 120 mg DAILY GENET Administration Famotidine 20 mg 04/07/23 21:00 04/09/23 09:05 Famotidine 20 Mg Tablet PO 20 mg BID GENET Administration Folic Acid 1 mg 04/08/23 09:00 04/09/23 09:05 Folic Acid 1 Mg Tablet PO 1 mg DAILY GENET Administration Ceftriaxone Sodium 1 gm/ 100 mls @ 200 mls/hr 04/08/23 15:00 04/08/23 18:04 Sodium Chloride IV Infused 1500 GENET Infusion Sodium Chloride 1,000 mls @ 100 mls/hr 04/08/23 23:00 04/09/23 02:30 Normal Saline 0.9% IV 100 mls/hr .Q10H GENET Administration Ibuprofen 600 mg 04/07/23 19:37 04/08/23 20:49 Ibuprofen 600 Mg Tablet PO 600 mg Q6HR PRN Administration HEADACHE Insulin Human Lispro 1 - 5 unit 04/08/23 08:00 04/09/23 12:13 Insulin Lispro 300 Unit/3 Ml Pen SUBQ 3 unit 0800,1200,1700,2100 GENET Administration Protocol Levalbuterol HCl 1.25 mg 04/07/23 22:00 04/09/23 06:57 Levalbuterol 1.25 Mg/3 Ml Neb INH 1.25 mg TID GENET Administration Lorazepam 2 mg 04/07/23 18:17 04/08/23 20:50 Lorazepam 2 Mg/Ml Vial IVP 2 mg Q30M PRN Administration CIWA >8 Protocol Magnesium Oxide 400 mg 04/08/23 08:00 04/09/23 09:05 Magnesium Oxide 400 Mg Tablet PO 400 mg DAILYWM GENET Administration Nicotine 1 patch 04/08/23 09:00 04/09/23 09:06 Nicotine 14 Mg Patch TOP 1 patch DAILY GENET Administration Nitrofurantoin 100 mg 04/07/23 09:00 04/09/23 09:05 Nitrofurantoin Macro 100 Mg Capsule PO 04/12/23 08:59 100 mg BID GENET Administration Pantoprazole Sodium 40 mg 04/08/23 07:00 04/09/23 07:21 Pantoprazole 40 Mg Tablet PO 40 mg QDAC GENET Administration Paroxetine HCl 10 mg 04/08/23 09:00 04/09/23 09:05 Paroxetine 10 Mg Tablet PO 10 mg DAILY GENET Administration Sodium Chloride 10 ml 04/07/23 18:13 04/07/23 20:17 Sodium Chloride Flush 0.9% 10 Ml Syringe IVP 10 ml PRN PRN Administration NEEDED PER PROVIDER ORDERS Sodium Chloride 10 ml 04/08/23 01:00 04/09/23 09:06 Sodium Chloride Flush 0.9% 10 Ml Syringe IVP Not Given 0100,0900,1700 GENET Thiamine HCl 100 mg 04/08/23 09:00 04/09/23 09:06 Thiamine 100 Mg Tablet PO 100 mg DAILY GENET Administration Vancomycin HCl 125 mg 04/08/23 17:00 04/09/23 09:06 Vancomycin 125 Mg Capsule PO 125 mg QID GENET Administration - Lab Result Fish Bone Diagrams: 04/10/23 05:50 04/10/23 05:50 - Additional Planning My Orders: My Active Orders 04/08/23 12:32 Cod Liver Oil/Zinc Oxide [Desitin] 113 gm TOP PRN PRN 04/08/23 14:52 Isolation [Infection Precautions] [RC] QSHIFT 04/08/23 15:00 cefTRIAXone [Rocephin] 1 gm Sodium Chloride 0.9% Minibag [Normal Saline 0.9% Minibag] 100 ml IV 1500 04/08/23 17:00 Vancomycin [Vancocin] 125 mg PO QID chlordiazePOXIDE [Librium] 5 mg PO 0800,1700 04/08/23 19:08 Telemetry- [RC] Q4HR 04/08/23 23:00 Sodium Chloride 0.9% [Normal Saline 0.9%] 1,000 ml IV 100 mls/hr 04/09/23 12:32 Diphenoxylate/Atropine [Lomotil] 1 tab PO QID PRN Subjective - Subjective Patient Reports: Feeling Better, Resting Comfortably Nursing Reports: Other (She is asking RN for extra Ativan) Objective Vital Signs: Vital Signs - 24 hr 04/08/23 04/08/23 04/08/23 13:00 16:25 16:46 Temperature 36.5 C 36.7 C Heart Rate 100 Heart Rate [ Brachial] Heart Rate [ 66 86 Monitoring electrodes] Respiratory 18 20 20 Rate Blood Pressure 113/82 H 118/71 [Right Brachial artery] O2 Saturation 93 94 04/08/23 04/08/23 04/09/23 19:15 20:36 00:05 Temperature 36.7 C 36.4 C L Heart Rate 80 Heart Rate [ 104 H Brachial] Heart Rate [ 95 Monitoring electrodes] Respiratory 20 20 24 Rate Blood Pressure 99/63 105/65 [Right Brachial artery] O2 Saturation 94 94 04/09/23 04/09/23 04/09/23 04:44 07:01 07:55 Temperature 36.5 C 36.2 C L Heart Rate 88 Heart Rate [ 91 92 Brachial] Heart Rate [ Monitoring electrodes] Respiratory 24 17 20 Rate Blood Pressure 131/77 H 120/76 [Right Brachial artery] O2 Saturation 99 92 04/09/23 11:45 Temperature 36.6 C Heart Rate Heart Rate [ 94 Brachial] Heart Rate [ Monitoring electrodes] Respiratory 20 Rate Blood Pressure 126/81 H [Right Brachial artery] O2 Saturation 96 Oxygen O2 Source Room air I&O (Last 24 Hrs): Intake and Output Totals x24h 04/07/23 04/08/23 04/09/23 23:59 23:59 23:59 Intake Total 2601.2 1270 480 Output Total 50 350 Balance 2601.2 1220 130 General: Other (Lethargic) HEENT: Mucous membr. moist/pink, Other (Disheveled) Neck: Supple Neuro: Alert, Other (Lethargic. No tremor) Cardiovascular: No murmurs Respiratory: No respiratory distress Abdomen: Soft, No tenderness Extremities: No clubbing, No edema, No tenderness/swelling - Results Results: Laboratory Results WBC 9.6 x10^3/uL (4.8-10.8) 04/09/23 05:54 RBC 3.55 10^6/uL (4.20-5.40) L 04/09/23 05:54 Hgb 12.1 g/dL (12.0-16.0) 04/09/23 05:54 Hct 37.2 % (37.0-47.0) 04/09/23 05:54 MCV 104.8 fL (81.0-99.0) H 04/09/23 05:54 MCH 34.1 pg (27.0-31.0) H 04/09/23 05:54 MCHC 32.5 g/dL (32.0-36.0) 04/09/23 05:54 RDW 13.8 % (12.0-15.0) 04/09/23 05:54 Plt Count 167 10^3/uL (130-450) 04/09/23 05:54 MPV 12.6 fL (7.9-10.8) H 04/09/23 05:54 Neut # (Auto) 8.4 10^3/uL (1.5-6.6) H 04/09/23 05:54 Lymph # (Auto) 0.4 10^3/uL (1.5-3.5) L 04/09/23 05:54 [place] # (Auto) 0.5 10^3/uL (0.0-1.0) 04/09/23 05:54 Eos # (Auto) 0.3 10^3/uL (0.0-0.7) 04/09/23 05:54 Baso # (Auto) 0.0 10^3/uL (0.0-0.1) 04/09/23 05:54 Absolute Nucleated RBC 0.00 x10^3/uL 04/09/23 05:54 Nucleated RBC % 0.0 /100WBC 04/09/23 05:54 PT 11.6 secs (9.9-12.6) 04/06/23 23:24 INR 1.1 (0.8-1.2) 04/06/23 23:24 D-Dimer 1046.5 ng/mL (200.0-255.0) H 04/07/23 15:13 VBG pH 7.406 (7.31-7.41) 04/06/23 23:48 VBG pCO2 40.2 mmHg (41-51) L 04/06/23 23:48 VBG pO2 40.9 mmHg (25-47) 04/06/23 23:48 VBG HCO3 24.7 mmol/L (23-28) 04/06/23 23:48 VBG Total CO2 25.9 mmol/L (24-29) 04/06/23 23:48 VBG O2 Saturation 74.0 % (60-80) 04/06/23 23:48 VBG Base Excess 0.0 mmol/L (-2 - +2) 04/06/23 23:48 Sodium 135 mmol/L (135-145) 04/09/23 05:54 Potassium 3.9 mmol/L (3.5-4.5) 04/09/23 05:54 Chloride 105 mmol/L (101-111) 04/09/23 05:54 Carbon Dioxide 22 mmol/L (21-32) 04/09/23 05:54 Anion Gap 8.0 (6-13) 04/09/23 05:54 BUN 13 mg/dL (6-20) 04/09/23 05:54 Creatinine 0.9 mg/dL (0.6-1.3) 04/09/23 05:54 Estimated GFR (MDRD) 61 (>89) L 04/09/23 05:54 Glucose 260 mg/dL (74-104) H 04/09/23 05:54 POC Whole Bld Glucose 257 mg/dL (70 - 100) H 04/09/23 11:21 Estimat Average Glucose 146 mg/dL (70-100) H 04/08/23 05:52 Hemoglobin A1c % 6.7 % (4.27-6.07) H 04/08/23 05:52 Lactic Acid 2.3 mmol/L (0.5-2.2) H 04/07/23 13:57 Calcium 8.0 mg/dL (8.5-10.3) L 04/09/23 05:54 Phosphorus 4.2 mg/dL (2.5-5.0) 04/08/23 05:52 Magnesium 2.0 mg/dL (1.7-2.3) 04/09/23 05:54 Total Bilirubin 1.0 mg/dL (0.2-1.0) 04/08/23 05:52 AST 96 IU/L (10-42) H 04/08/23 05:52 ALT 43 IU/L (10-60) 04/08/23 05:52 Alkaline Phosphatase 153 IU/L (42-121) H 04/08/23 05:52 Total Creatine Kinase 33 IU/L (30-223) 04/06/23 23:24 Troponin I High Sens 24.4 ng/L (2.3-14.8) H* 04/07/23 02:37 Total Protein 5.0 g/dL (6.4-8.9) L 04/08/23 05:52 Albumin 2.5 g/dL (3.2-5.5) L 04/08/23 05:52 Globulin 2.5 g/dL (2.1-4.2) 04/08/23 05:52 Albumin/Globulin Ratio 1.0 (1.0-2.2) 04/08/23 05:52 Lipase 14 U/L (11-82) 04/06/23 23:24 TSH 1.65 uIU/mL (0.34-5.60) 04/08/23 05:52 Urine Color YELLOW 04/07/23 01:14 Urine Clarity CLEAR (CLEAR) 04/07/23 01:14 Urine pH 5.5 PH (5.0-7.5) 04/07/23 01:14 Ur Specific [place] <=1.005 (1.002-1.030) 04/07/23 01:14 Urine Protein NEGATIVE mg/dL (NEGATIVE) 04/07/23 01:14 Urine Glucose (UA) NEGATIVE mg/dL (NEGATIVE) 04/07/23 01:14 Urine Ketones NEGATIVE mg/dL (NEGATIVE) 04/07/23 01:14 Urine Occult Blood SMALL (NEGATIVE) H 04/07/23 01:14 Urine Nitrite NEGATIVE (NEGATIVE) 04/07/23 01:14 Urine Bilirubin NEGATIVE (NEGATIVE) 04/07/23 01:14 Urine Urobilinogen 0.2 (NORMAL) E.U./dL (NORMAL) 04/07/23 01:14 Ur Leukocyte Esterase LARGE (NEGATIVE) H 04/07/23 01:14 Urine RBC 0-5 /HPF (0-5) 04/07/23 01:14 Urine WBC 11-25 /HPF (0-5) H 04/07/23 01:14 Ur Squamous Epith Cells FEW Squamous (<= Few) 04/07/23 01:14 Urine Bacteria Many /HPF (None Seen) H 04/07/23 01:14 Ur Microscopic Review INDICATED 04/07/23 01:14 Urine Culture Comments INDICATED 04/07/23 01:14 Nasal Adenovirus (PCR) NOT DETECTED 04/06/23 23:24 Nasal B. parapertussis DNA (PCR) NOT DETECTED 04/06/23 23:24 Nasal Coronavir 229E PCR NOT DETECTED 04/06/23 23:24 Nasal Coronavir HKU1 PCR NOT DETECTED 04/06/23 23:24 Nasal Coronavir NL63 PCR NOT DETECTED 04/06/23 23:24 Nasal Coronavir OC43 PCR NOT DETECTED 04/06/23 23:24 Nasal Enterovir/Rhinovir PCR NOT DETECTED 04/06/23 23:24 Nasal Influenza B PCR NOT DETECTED 04/06/23 23:24 Nasal Influenza A PCR NOT DETECTED 04/06/23 23:24 Nasal Parainfluen 1 PCR NOT DETECTED 04/06/23 23:24 Nasal Parainfluen 2 PCR NOT DETECTED 04/06/23 23:24 Nasal Parainfluen 3 PCR NOT DETECTED 04/06/23 23:24 Nasal Parainfluen 4 PCR NOT DETECTED 04/06/23 23:24 Nasal RSV (PCR) NOT DETECTED 04/06/23 23:24 Nasal B.pertussis DNA PCR NOT DETECTED 04/06/23 23:24 Nasal C.pneumoniae (PCR) NOT DETECTED 04/06/23 23:24 [place] Human Metapneumo PCR NOT DETECTED 04/06/23 23:24 Nasal M.pneumoniae (PCR) NOT DETECTED 04/06/23 23:24 Nasal SARS-CoV-2 (PCR) NOT DETECTED 04/06/23 23:24 Stl C. diff Tox B Gene POSITIVE (NEGATIVE) A* 04/08/23 12:15 Urine Opiates Screen NEGATIVE (NEGATIVE) 04/07/23 01:14 Ur Buprenorphine Scrn NEGATIVE (NEGATIVE) 04/07/23 01:14 Ur Oxycodone Screen POSITIVE (NEGATIVE) H 04/07/23 01:14 Urine Methadone Screen NEGATIVE (NEGATIVE) 04/07/23 01:14 Ur Barbiturates Screen NEGATIVE (NEGATIVE) 04/07/23 01:14 Ur Tricyclics Screen NEGATIVE (NEGATIVE) 04/07/23 01:14 Ur Phencyclidine Scrn NEGATIVE (NEGATIVE) 04/07/23 01:14 Ur Amphetamine Screen NEGATIVE (NEGATIVE) 04/07/23 01:14 U Methamphetamines Scrn NEGATIVE (NEGATIVE) 04/07/23 01:14 U Benzodiazepines Scrn NEGATIVE (NEGATIVE) 04/07/23 01:14 Urine Cocaine Screen NEGATIVE (NEGATIVE) 04/07/23 01:14 U Cannabinoids Screen NEGATIVE (NEGATIVE) 04/07/23 01:14 Ur Drug Screen Comment CUTOFF CONC BELOW: 04/07/23 01:14 Ethyl Alcohol < 10.0 mg/dL 04/07/23 13:57 Serum Ketones NEGATIVE (NEGATIVE) 04/06/23 23:24 Blood Type A POSITIVE 04/06/23 23:48 Blood Type Recheck A POSITIVE 04/07/23 00:46 Antibody Screen NEGATIVE 04/06/23 23:48
[2023-04-09] MEDS ORDERED: LORazepam 2 MG/ML VIAL IVP ONE (13:13)
[2023-04-09] MEDS: GABAPENTIN 300 MG CAPSULE PO SCH ×2 (14:29→22:12)
[2023-04-09] MEDS ORDERED: LORazepam 1 MG TABLET PO ONE (15:33)
[2023-04-09] MEDS: cefTRIAXone 1 GM in SODIUM CHLORIDE 0.9% MINIBAG 100 ML IV SCH (15:43)
[2023-04-09] MEDS: LOSARTAN 50 MG TABLET PO SCH (15:56)
[2023-04-09] MEDS: IBUPROFEN 600 MG TABLET PO PRN (22:19)
[2023-04-09] MEDS ORDERED: METOPROLOL 5 MG/5 ML VIAL IVP PRN (23:11)
[2023-04-10] MEDS: SODIUM CHLORIDE 0.9% 1,000 ML IV SCH ×2 (04:38→17:45)
[2023-04-10] MEDS ORDERED: SODIUM CHLORIDE 0.9% 1,000 ML IV ONE (05:50)
[2023-04-10] MEDS: chlordiazePOXIDE 5 MG CAPSULE PO SCH ×3 (06:12→21:53)
[2023-04-10] MEDS: PANTOPRAZOLE 40 MG TABLET PO SCH (06:12)
[2023-04-10] MEDS: GABAPENTIN 300 MG CAPSULE PO SCH ×3 (06:12→21:53)
[2023-04-10 06:24] LABS: BASOPHILS % (AUTO) 0.3 %; EOSINOPHILS # (AUTO) 0.4 10^3/uL (0.0-0.7); EOSINOPHILS % (AUTO) 4.4 %; HCT - HEMATOCRIT 35.2 % (37.0-47.0); HGB - HEMOGLOBIN 11.6 g/dL (12.0-16.0); LYMPHOCYTES # (AUTO) 0.4 10^3/uL (1.5-3.5); LYMPHOCYTES % (AUTO) 4.3 %; MEAN CORPUSCULAR HEMOGLOBIN 33.5 pg (27.0-31.0); MEAN CORPUSCULAR VOLUME 101.7 fL (81.0-99.0); MEAN PLATELET VOLUME 12.5 fL (7.9-10.8); MONOCYTES # (AUTO) 0.5 10^3/uL (0.0-1.0); MONOCYTES % (AUTO) 5.4 %; NEUTROPHILS # (AUTO) 8.5 10^3/uL (1.5-6.6); NEUTROPHILS % (AUTO) 85.3 %; PLT - PLATELET COUNT 185 10^3/uL (130-450); RED BLOOD COUNT 3.46 10^6/uL (4.20-5.40); RED CELL DISTRIBUTION WIDTH 13.4 % (12.0-15.0)
[2023-04-10 06:50] LABS: ALBUMIN 2.1 g/dL (3.2-5.5); BILIRUBIN,DIRECT 0.28 mg/dL (0.03-0.18); BILIRUBIN,TOTAL 0.8 mg/dL (0.2-1.0); CALCIUM 7.7 mg/dL (8.5-10.3); CREATININE 0.8 mg/dL (0.6-1.3); MAGNESIUM 1.6 mg/dL (1.7-2.3); POTASSIUM 3.3 mmol/L (3.5-4.5); TOTAL PROTEIN 4.5 g/dL (6.4-8.9)
[2023-04-10] MEDS: LEVALBUTEROL 1.25 MG/3 ML NEB INH SCH ×4 (07:27→19:45)
[2023-04-10] MEDS: APIXABAN 5 MG TABLET PO SCH ×2 (08:35→21:53)
[2023-04-10] MEDS: NITROFURANTOIN MACRO 100 MG CAPSULE PO SCH (08:35)
[2023-04-10] MEDS: THIAMINE 100 MG TABLET PO SCH (08:35)
[2023-04-10] MEDS: FOLIC ACID 1 MG TABLET PO SCH (08:35)
[2023-04-10] MEDS: FAMOTIDINE 20 MG TABLET PO SCH (08:35)
[2023-04-10] MEDS: diltiaZEM CD 120 MG CAPSULE PO SCH (08:35)
[2023-04-10] MEDS: MULTIVITAMIN TABLET PO SCH (08:35)
[2023-04-10] MEDS: VANCOMYCIN 125 MG CAPSULE PO SCH ×4 (08:35→21:53)
[2023-04-10] MEDS: PARoxetine 10 MG TABLET PO SCH (08:35)
[2023-04-10] MEDS: MAGNESIUM OXIDE 400 MG TABLET PO SCH (08:35)
[2023-04-10] MEDS: METOPROLOL SUCCINATE 25 MG TABLET PO SCH (08:35)
[2023-04-10] MEDS: NICOTINE 14 MG PATCH TOP SCH (08:35)
[2023-04-10] MEDS ORDERED: POTASSIUM CHLORIDE 20 MEQ TABLET PO ONE (10:40)
[2023-04-10] MEDS ORDERED: MAGNESIUM SULFATE 2 GRAM 2 GM/50 ML BAG IV ONE (10:40)
[2023-04-10] MEDS: INSULIN LISPRO 300 UNIT/3 ML PEN SUBQ SCH ×4 (12:22→21:50)
[2023-04-10] MEDS: SODIUM CHLORIDE FLUSH 0.9% 10 ML SYRINGE IVP SCH ×2 (12:23→16:10)
--- NOTE | 2023-04-10 13:57 | PROVIDER PROGRESS NOTE ---
Assessment/Plan - Problem List (1) Alcohol abuse Assessment/Plan: 1) C. difficile diarrhea Assessment/Plan: -- Continue oral vancomycin 125 mg 4 times daily for 10 days. Started on 04/08. (2) N/V Conclusion/Plan: -- Continue with antiemetics and clear liquid diet. Will advance once her nausea improved. (3) Orthostatic hypotension Assessment/Plan: --Continue IV fluids due to orthostatic hypotension. --She is having significant losses in her stool. (4) Frequent falls Conclusion/Plan: -- Likely due to intoxication and volume depletion causing orthostasis. --CT head showing no evidence of bleeding. --Possibly related to her PE however burden is quite small. (5) Alcohol abuse with withdrawal - F10.139 Conclusion/Plan: -- Continue CIWA protocol with Ativan. --Continue scheduled Librium. --Continue daily thiamine. (6) Urinary tract infection Conclusion/Plan: -- Continue IV ceftriaxone for an additional dose making 3 doses. -- Urine culture is currently pending. (7) Acute pulmonary embolism Conclusion/Plan: CTA showing evidence of--a small burden of pulmonary emboli. Has been initiated on Eliquis at 10 mg p.o. twice daily for 1 week followed by 5 mg p.o. twice daily thereafter. Patient does have evidence of a lung mass which may be malignant. This requires outpatient follow-up. (8) Atrial fibrillation with RVR Conclusion/Plan: -- Episode of A-fib with RVR this morning. Given diltiazem p.o. which improved her heart rate. --Continue Eliquis for stroke prophylaxis. -- TTE is pending. (9) DM type 2 (diabetes mellitus, type 2) Conclusion/Plan: --Continue SSI. (10) Lung mass Conclusion/Plan: Her chest CT imaging was read as having many lung nodules: in the RUL 4 mm- similar to previous. RLL 11 X 8 mm-NEW. RML 4 mm-improved. RATNA 11 X 6 mm- stable. Another RATNA 6 mm-stable. Plan: Smoking cessation was discussed with the patient She will need outpatient workup for this to see if they are malignant, and these could be the cause of being hypercoagulable and having a PE (11) Tobacco use Conclusion/Plan: She still has wheezing on exam Plan: Cont scheduled TID and prn Xopenex Cont nicotine patch (12) Depression with anxiety Conclusion/Plan: Plan: Will continue her daily Paxil - Current Meds Current Meds: Current Medications Generic Name Dose Route Start Last Admin Trade Name Luz PRN Reason Stop Dose Admin Acetaminophen 650 mg 04/07/23 18:13 04/09/23 09:29 Acetaminophen 325 Mg Tablet PO 650 mg Q4HR PRN Administration Pain 1 to 4, or Fever Apixaban 10 mg 04/07/23 21:00 04/10/23 08:35 Apixaban 5 Mg Tablet PO 10 mg BID GENET Administration Chlordiazepoxide HCl 5 mg 04/09/23 14:00 04/10/23 06:12 Chlordiazepoxide 5 Mg Capsule PO 5 mg TID GENET Administration Diltiazem HCl 120 mg 04/08/23 09:00 04/10/23 08:35 Diltiazem Cd 120 Mg Capsule PO 120 mg DAILY GENET Administration Folic Acid 1 mg 04/08/23 09:00 04/10/23 08:35 Folic Acid 1 Mg Tablet PO 1 mg DAILY GENET Administration Gabapentin 300 mg 04/09/23 14:00 04/10/23 06:12 Gabapentin 300 Mg Capsule PO 300 mg TID GENET Administration Ceftriaxone Sodium 1 gm/ 100 mls @ 200 mls/hr 04/08/23 15:00 04/09/23 16:15 Sodium Chloride IV 04/11/23 15:29 Infused 1500 GENET Infusion Sodium Chloride 1,000 mls @ 100 mls/hr 04/08/23 23:00 04/10/23 04:38 Normal Saline 0.9% IV 100 mls/hr .Q10H GENET Administration Ibuprofen 600 mg 04/07/23 19:37 04/09/23 22:19 Ibuprofen 600 Mg Tablet PO 600 mg Q6HR PRN Administration HEADACHE Insulin Human Lispro 1 - 5 unit 04/08/23 08:00 04/10/23 12:32 Insulin Lispro 300 Unit/3 Ml Pen SUBQ 1 unit 0800,1200,1700,2100 GENET Administration Protocol Levalbuterol HCl 1.25 mg 04/07/23 22:00 04/10/23 12:56 Levalbuterol 1.25 Mg/3 Ml Neb INH 1.25 mg TID GENET Administration Lorazepam 2 mg 04/07/23 18:17 04/08/23 20:50 Lorazepam 2 Mg/Ml Vial IVP 2 mg Q30M PRN Administration CIWA >8 Protocol Losartan Potassium 50 mg 04/09/23 16:00 04/09/23 15:56 Losartan 50 Mg Tablet PO 50 mg 1600 GENET Administration Magnesium Oxide 400 mg 04/08/23 08:00 04/10/23 08:35 Magnesium Oxide 400 Mg Tablet PO 400 mg DAILYWM GENET Administration Metoprolol Succinate 25 mg 04/10/23 09:00 04/10/23 08:35 Metoprolol Succinate 25 Mg Tablet PO 25 mg DAILY GENET Administration Metoprolol Tartrate 5 mg 04/09/23 23:11 04/09/23 23:52 Metoprolol 5 Mg/5 Ml Vial IVP 04/10/23 23:10 5 mg ONCE PRN Administration Tachycardia Multivitamins 1 tab 04/10/23 08:00 04/10/23 08:35 Multivitamin Tablet PO 1 tab DAILYWM GENET Administration Nicotine 1 patch 04/08/23 09:00 04/10/23 08:35 Nicotine 14 Mg Patch TOP 1 patch DAILY GENET Administration Paroxetine HCl 10 mg 04/08/23 09:00 04/10/23 08:35 Paroxetine 10 Mg Tablet PO 10 mg DAILY GENET Administration Sodium Chloride 10 ml 04/07/23 18:13 04/07/23 20:17 Sodium Chloride Flush 0.9% 10 Ml Syringe IVP 10 ml PRN PRN Administration NEEDED PER PROVIDER ORDERS Sodium Chloride 10 ml 04/08/23 01:00 04/10/23 12:23 Sodium Chloride Flush 0.9% 10 Ml Syringe IVP 10 ml 0100,0900,1700 GENET Administration Thiamine HCl 100 mg 04/08/23 09:00 04/10/23 08:35 Thiamine 100 Mg Tablet PO 100 mg DAILY GENET Administration Vancomycin HCl 125 mg 04/08/23 17:00 04/10/23 12:32 Vancomycin 125 Mg Capsule PO 125 mg QID GENET Administration - Lab Result Fish Bone Diagrams: 04/10/23 05:50 04/10/23 05:50 - Additional Planning My Orders: My Active Orders 04/10/23 07:47 Echo Transthoracic Complete [ECHO] Routine Subjective - Subjective Patient Reports: Diarrhea Objective Vital Signs: Vital Signs - 24 hr 04/09/23 04/09/23 04/09/23 15:52 20:39 21:30 Temperature 36.6 C 36.5 C Heart Rate 106 H Heart Rate [ 79 106 H Brachial] Respiratory 16 20 24 Rate Blood Pressure Blood Pressure 130/78 157/88 H [Right Brachial artery] O2 Saturation 92 94 04/09/23 04/09/23 04/09/23 23:49 23:52 23:59 Temperature 36.6 C Heart Rate Heart Rate [ 120 H 119 H Brachial] Respiratory 18 Rate Blood Pressure 145/106 H Blood Pressure 93/62 130/103 H [Right Brachial artery] O2 Saturation 96 04/10/23 04/10/23 04/10/23 00:04 00:19 00:22 Temperature Heart Rate Heart Rate [ 110 H 80 Brachial] Respiratory Rate Blood Pressure 90/56 L Blood Pressure 112/78 96/60 [Right Brachial artery] O2 Saturation 04/10/23 04/10/23 04/10/23 00:34 00:50 04:56 Temperature 36.5 C Heart Rate Heart Rate [ 80 75 80 Brachial] Respiratory 20 Rate Blood Pressure Blood Pressure 88/56 L 90/56 L 103/57 L [Right Brachial artery] O2 Saturation 96 04/10/23 04/10/23 04/10/23 07:28 08:06 11:13 Temperature 36.4 C L 36.6 C Heart Rate 88 Heart Rate [ 104 H 81 Brachial] Respiratory 18 18 18 Rate Blood Pressure Blood Pressure 121/66 102/66 [Right Brachial artery] O2 Saturation 92 95 04/10/23 12:57 Temperature Heart Rate 80 Heart Rate [ Brachial] Respiratory 18 Rate Blood Pressure Blood Pressure [Right Brachial artery] O2 Saturation Oxygen O2 Source Room air I&O (Last 24 Hrs): Intake and Output Totals x24h 04/08/23 04/09/23 04/10/23 23:59 23:59 23:59 Intake Total 1270 2270 1480 Output Total 50 700 400 Balance 1220 1570 1080 General: Alert, Oriented x3, No acute distress Neuro: Alert Cardiovascular: Other (Irregularly irregular) Respiratory: Chest non-tender, No respiratory distress Abdomen: Normal bowel sounds, Soft - Results Results: Laboratory Results WBC 10.0 x10^3/uL (4.8-10.8) 04/10/23 05:50 RBC 3.46 10^6/uL (4.20-5.40) L 04/10/23 05:50 Hgb 11.6 g/dL (12.0-16.0) L 04/10/23 05:50 Hct 35.2 % (37.0-47.0) L 04/10/23 05:50 MCV 101.7 fL (81.0-99.0) H 04/10/23 05:50 MCH 33.5 pg (27.0-31.0) H 04/10/23 05:50 MCHC 33.0 g/dL (32.0-36.0) 04/10/23 05:50 RDW 13.4 % (12.0-15.0) 04/10/23 05:50 Plt Count 185 10^3/uL (130-450) 04/10/23 05:50 MPV 12.5 fL (7.9-10.8) H 04/10/23 05:50 Neut # (Auto) 8.5 10^3/uL (1.5-6.6) H 04/10/23 05:50 Lymph # (Auto) 0.4 10^3/uL (1.5-3.5) L 04/10/23 05:50 [place] # (Auto) 0.5 10^3/uL (0.0-1.0) 04/10/23 05:50 Eos # (Auto) 0.4 10^3/uL (0.0-0.7) 04/10/23 05:50 Baso # (Auto) 0.0 10^3/uL (0.0-0.1) 04/10/23 05:50 Absolute Nucleated RBC 0.00 x10^3/uL 04/10/23 05:50 Nucleated RBC % 0.0 /100WBC 04/10/23 05:50 PT 11.6 secs (9.9-12.6) 04/06/23 23:24 INR 1.1 (0.8-1.2) 04/06/23 23:24 D-Dimer 1046.5 ng/mL (200.0-255.0) H 04/07/23 15:13 VBG pH 7.406 (7.31-7.41) 04/06/23 23:48 VBG pCO2 40.2 mmHg (41-51) L 04/06/23 23:48 VBG pO2 40.9 mmHg (25-47) 04/06/23 23:48 VBG HCO3 24.7 mmol/L (23-28) 04/06/23 23:48 VBG Total CO2 25.9 mmol/L (24-29) 04/06/23 23:48 VBG O2 Saturation 74.0 % (60-80) 04/06/23 23:48 VBG Base Excess 0.0 mmol/L (-2 - +2) 04/06/23 23:48 Sodium 135 mmol/L (135-145) 04/10/23 05:50 Potassium 3.3 mmol/L (3.5-4.5) L 04/10/23 05:50 Chloride 106 mmol/L (101-111) 04/10/23 05:50 Carbon Dioxide 23 mmol/L (21-32) 04/10/23 05:50 Anion Gap 6.0 (6-13) 04/10/23 05:50 BUN 9 mg/dL (6-20) 04/10/23 05:50 Creatinine 0.8 mg/dL (0.6-1.3) 04/10/23 05:50 Estimated GFR (MDRD) 70 (>89) L 04/10/23 05:50 Glucose 98 mg/dL (74-104) 04/10/23 05:50 POC Whole Bld Glucose 154 mg/dL (70 - 100) H 04/10/23 11:06 Estimat Average Glucose 146 mg/dL (70-100) H 04/08/23 05:52 Hemoglobin A1c % 6.7 % (4.27-6.07) H 04/08/23 05:52 Lactic Acid 2.3 mmol/L (0.5-2.2) H 04/07/23 13:57 Calcium 7.7 mg/dL (8.5-10.3) L 04/10/23 05:50 Phosphorus 4.2 mg/dL (2.5-5.0) 04/08/23 05:52 Magnesium 1.6 mg/dL (1.7-2.3) L 04/10/23 05:50 Total Bilirubin 0.8 mg/dL (0.2-1.0) 04/10/23 05:50 Direct Bilirubin 0.28 mg/dL (0.03-0.18) H 04/10/23 05:50 AST 59 IU/L (10-42) H 04/10/23 05:50 ALT 30 IU/L (10-60) 04/10/23 05:50 Alkaline Phosphatase 147 IU/L (42-121) H 04/10/23 05:50 Total Creatine Kinase 33 IU/L (30-223) 04/06/23 23:24 Troponin I High Sens 24.4 ng/L (2.3-14.8) H* 04/07/23 02:37 Total Protein 4.5 g/dL (6.4-8.9) L 04/10/23 05:50 Albumin 2.1 g/dL (3.2-5.5) L 04/10/23 05:50 Globulin 2.4 g/dL (2.1-4.2) 04/10/23 05:50 Albumin/Globulin Ratio 1.0 (1.0-2.2) 04/08/23 05:52 Lipase 14 U/L (11-82) 04/06/23 23:24 TSH 1.65 uIU/mL (0.34-5.60) 04/08/23 05:52 Urine Color YELLOW 04/07/23 01:14 Urine Clarity CLEAR (CLEAR) 04/07/23 01:14 Urine pH 5.5 PH (5.0-7.5) 04/07/23 01:14 Ur Specific [place] <=1.005 (1.002-1.030) 04/07/23 01:14 Urine Protein NEGATIVE mg/dL (NEGATIVE) 04/07/23 01:14 Urine Glucose (UA) NEGATIVE mg/dL (NEGATIVE) 04/07/23 01:14 Urine Ketones NEGATIVE mg/dL (NEGATIVE) 04/07/23 01:14 Urine Occult Blood SMALL (NEGATIVE) H 04/07/23 01:14 Urine Nitrite NEGATIVE (NEGATIVE) 04/07/23 01:14 Urine Bilirubin NEGATIVE (NEGATIVE) 04/07/23 01:14 Urine Urobilinogen 0.2 (NORMAL) E.U./dL (NORMAL) 04/07/23 01:14 Ur Leukocyte Esterase LARGE (NEGATIVE) H 04/07/23 01:14 Urine RBC 0-5 /HPF (0-5) 04/07/23 01:14 Urine WBC 11-25 /HPF (0-5) H 04/07/23 01:14 Ur Squamous Epith Cells FEW Squamous (<= Few) 04/07/23 01:14 Urine Bacteria Many /HPF (None Seen) H 04/07/23 01:14 Ur Microscopic Review INDICATED 04/07/23 01:14 Urine Culture Comments INDICATED 04/07/23 01:14 Nasal Adenovirus (PCR) NOT DETECTED 04/06/23 23:24 Nasal B. parapertussis DNA (PCR) NOT DETECTED 04/06/23 23:24 Nasal Coronavir 229E PCR NOT DETECTED 04/06/23 23:24 Nasal Coronavir HKU1 PCR NOT DETECTED 04/06/23 23:24 Nasal Coronavir NL63 PCR NOT DETECTED 04/06/23 23:24 Nasal Coronavir OC43 PCR NOT DETECTED 04/06/23 23:24 Nasal Enterovir/Rhinovir PCR NOT DETECTED 04/06/23 23:24 Nasal Influenza B PCR NOT DETECTED 04/06/23 23:24 Nasal Influenza A PCR NOT DETECTED 04/06/23 23:24 Nasal Parainfluen 1 PCR NOT DETECTED 04/06/23 23:24 Nasal Parainfluen 2 PCR NOT DETECTED 04/06/23 23:24 Nasal Parainfluen 3 PCR NOT DETECTED 04/06/23 23:24 Nasal Parainfluen 4 PCR NOT DETECTED 04/06/23 23:24 Nasal RSV (PCR) NOT DETECTED 04/06/23 23:24 Nasal B.pertussis DNA PCR NOT DETECTED 04/06/23 23:24 Nasal C.pneumoniae (PCR) NOT DETECTED 04/06/23 23:24 [place] Human Metapneumo PCR NOT DETECTED 04/06/23 23:24 Nasal M.pneumoniae (PCR) NOT DETECTED 04/06/23 23:24 Nasal SARS-CoV-2 (PCR) NOT DETECTED 04/06/23 23:24 Stl C. diff Tox B Gene POSITIVE (NEGATIVE) A* 04/08/23 12:15 Urine Opiates Screen NEGATIVE (NEGATIVE) 04/07/23 01:14 Ur Buprenorphine Scrn NEGATIVE (NEGATIVE) 04/07/23 01:14 Ur Oxycodone Screen POSITIVE (NEGATIVE) H 04/07/23 01:14 Urine Methadone Screen NEGATIVE (NEGATIVE) 04/07/23 01:14 Ur Barbiturates Screen NEGATIVE (NEGATIVE) 04/07/23 01:14 Ur Tricyclics Screen NEGATIVE (NEGATIVE) 04/07/23 01:14 Ur Phencyclidine Scrn NEGATIVE (NEGATIVE) 04/07/23 01:14 Ur Amphetamine Screen NEGATIVE (NEGATIVE) 04/07/23 01:14 U Methamphetamines Scrn NEGATIVE (NEGATIVE) 04/07/23 01:14 U Benzodiazepines Scrn NEGATIVE (NEGATIVE) 04/07/23 01:14 Urine Cocaine Screen NEGATIVE (NEGATIVE) 04/07/23 01:14 U Cannabinoids Screen NEGATIVE (NEGATIVE) 04/07/23 01:14 Ur Drug Screen Comment CUTOFF CONC BELOW: 04/07/23 01:14 Ethyl Alcohol < 10.0 mg/dL 04/07/23 13:57 Serum Ketones NEGATIVE (NEGATIVE) 04/06/23 23:24 Blood Type A POSITIVE 04/06/23 23:48 Blood Type Recheck A POSITIVE 04/07/23 00:46 Antibody Screen NEGATIVE 04/06/23 23:48 Current Medications - Current Medications Current Medications: Active Medications Generic Name Dose Route Start Last Admin Trade Name Freq PRN Reason Stop Dose Admin Acetaminophen 650 mg 04/07/23 18:13 04/09/23 09:29 Acetaminophen 325 Mg Tablet PO 650 mg Q4HR PRN Administration Pain 1 to 4, or Fever Apixaban 10 mg 04/07/23 21:00 04/10/23 08:35 Apixaban 5 Mg Tablet PO 10 mg BID GENET Administration Chlordiazepoxide HCl 5 mg 04/09/23 14:00 04/10/23 06:12 Chlordiazepoxide 5 Mg Capsule PO 5 mg TID GENET Administration Diltiazem HCl 120 mg 04/08/23 09:00 04/10/23 08:35 Diltiazem Cd 120 Mg Capsule PO 120 mg DAILY GENET Administration Diphenoxylate HCl/Atropine 1 tab 04/09/23 12:32 Diphenox/Atropine 2.5/0.025 Mg Tablet PO QID PRN Diarrhea Folic Acid 1 mg 04/08/23 09:00 04/10/23 08:35 Folic Acid 1 Mg Tablet PO 1 mg DAILY GENET Administration Gabapentin 300 mg 04/09/23 14:00 04/10/23 06:12 Gabapentin 300 Mg Capsule PO 300 mg TID GENET Administration Ceftriaxone Sodium 1 gm/ 100 mls @ 200 mls/hr 04/08/23 15:00 04/09/23 16:15 Sodium Chloride IV 04/11/23 15:29 Infused 1500 GENET Infusion Sodium Chloride 1,000 mls @ 100 mls/hr 04/08/23 23:00 04/10/23 04:38 Normal Saline 0.9% IV 100 mls/hr .Q10H GENET Administration Ibuprofen 600 mg 04/07/23 19:37 04/09/23 22:19 Ibuprofen 600 Mg Tablet PO 600 mg Q6HR PRN Administration HEADACHE Insulin Human Lispro 1 - 5 unit 04/08/23 08:00 04/10/23 12:32 Insulin Lispro 300 Unit/3 Ml Pen SUBQ 1 unit 0800,1200,1700,2100 GENET Administration Protocol Levalbuterol HCl 1.25 mg 04/07/23 19:40 Levalbuterol 1.25 Mg/3 Ml Neb INH Q4H PRN Shortness of Air/Wheezing Levalbuterol HCl 1.25 mg 04/07/23 22:00 04/10/23 12:56 Levalbuterol 1.25 Mg/3 Ml Neb INH 1.25 mg TID GENET Administration Lorazepam 2 mg 04/07/23 18:17 04/08/23 20:50 Lorazepam 2 Mg/Ml Vial IVP 2 mg Q30M PRN Administration CIWA >8 Protocol Losartan Potassium 50 mg 04/09/23 16:00 04/09/23 15:56 Losartan 50 Mg Tablet PO 50 mg 1600 GENET Administration Magnesium Oxide 400 mg 04/08/23 08:00 04/10/23 08:35 Magnesium Oxide 400 Mg Tablet PO 400 mg DAILYWM GENET Administration Metoprolol Succinate 25 mg 04/10/23 09:00 04/10/23 08:35 Metoprolol Succinate 25 Mg Tablet PO 25 mg DAILY GENET Administration Metoprolol Tartrate 5 mg 04/09/23 23:11 04/09/23 23:52 Metoprolol 5 Mg/5 Ml Vial IVP 04/10/23 23:10 5 mg ONCE PRN Administration Tachycardia Multivitamins 1 tab 04/10/23 08:00 04/10/23 08:35 Multivitamin Tablet PO 1 tab DAILYWM GENET Administration Nicotine 1 patch 04/08/23 09:00 04/10/23 08:35 Nicotine 14 Mg Patch TOP 1 patch DAILY GENET Administration Ondansetron HCl 4 mg 04/07/23 18:13 Ondansetron 4 Mg/2 Ml Vial IVP Q6HR PRN Nausea / Vomiting Paroxetine HCl 10 mg 04/08/23 09:00 04/10/23 08:35 Paroxetine 10 Mg Tablet PO 10 mg DAILY GENET Administration Prochlorperazine Edisylate 10 mg 04/08/23 11:35 Prochlorperazine 10 Mg/2 Ml Vial IVP Q6HR PRN Nausea / Vomiting Sodium Chloride 10 ml 04/07/23 18:13 04/07/23 20:17 Sodium Chloride Flush 0.9% 10 Ml Syringe IVP 10 ml PRN PRN Administration NEEDED PER PROVIDER ORDERS Sodium Chloride 10 ml 04/08/23 01:00 04/10/23 12:23 Sodium Chloride Flush 0.9% 10 Ml Syringe IVP 10 ml 0100,0900,1700 GENET Administration Thiamine HCl 100 mg 04/08/23 09:00 04/10/23 08:35 Thiamine 100 Mg Tablet PO 100 mg DAILY GENET Administration Vancomycin HCl 125 mg 04/08/23 17:00 04/10/23 12:32 Vancomycin 125 Mg Capsule PO 125 mg QID GENET Administration Zinc Oxide 113 gm 04/08/23 12:32 Cod Liver Oil/Zinc Oxide 113 Gm Tube TOP PRN PRN Skin Care Atorvastatin [Lipitor] 20 mg PO 1600 08/26/20 Insulin Lispro [Humalog] 5 - 10 unit SQ TIDWM 08/26/20 Insulin Degludec [Tresiba Flextouch U-100] 8 unit SUBQ 1200 09/06/22 Losartan [Cozaar] 50 mg PO 1600 04/07/23 dilTIAZem HCL [Diltiazem 24Hr ER] 120 mg PO DAILY 04/07/23 Lactobacillus Combination No.4 [Probiotic] 1 cap PO DAILY 04/08/23 Metoprolol Succinate [Toprol Xl] 25 mg PO DAILY PRN 04/08/23 Multivitamin 1 tab PO DAILY 04/08/23
[2023-04-10] MEDS: cefTRIAXone 1 GM in SODIUM CHLORIDE 0.9% MINIBAG 100 ML IV SCH (15:33)
[2023-04-10] MEDS: LOSARTAN 50 MG TABLET PO SCH (16:10)
[2023-04-11] MEDS: SODIUM CHLORIDE FLUSH 0.9% 10 ML SYRINGE IVP SCH ×3 (00:47→16:42)
[2023-04-11] MEDS: SODIUM CHLORIDE 0.9% 1,000 ML IV SCH (03:38)
[2023-04-11 06:14] LABS: BASOPHILS % (AUTO) 0.3 %; EOSINOPHILS # (AUTO) 0.4 10^3/uL (0.0-0.7); EOSINOPHILS % (AUTO) 4.7 %; HCT - HEMATOCRIT 34.1 % (37.0-47.0); HGB - HEMOGLOBIN 11.4 g/dL (12.0-16.0); LYMPHOCYTES # (AUTO) 0.4 10^3/uL (1.5-3.5); LYMPHOCYTES % (AUTO) 4.7 %; MEAN CORPUSCULAR HEMOGLOBIN 33.8 pg (27.0-31.0); MEAN CORPUSCULAR HGB CONC 33.4 g/dL (32.0-36.0); MEAN CORPUSCULAR VOLUME 101.2 fL (81.0-99.0); MEAN PLATELET VOLUME 11.8 fL (7.9-10.8); MONOCYTES # (AUTO) 0.6 10^3/uL (0.0-1.0); MONOCYTES % (AUTO) 7.4 %; NEUTROPHILS # (AUTO) 6.5 10^3/uL (1.5-6.6); NEUTROPHILS % (AUTO) 82.4 %; PLT - PLATELET COUNT 199 10^3/uL (130-450); RED BLOOD COUNT 3.37 10^6/uL (4.20-5.40); RED CELL DISTRIBUTION WIDTH 13.6 % (12.0-15.0); WHITE BLOOD COUNT 7.8 x10^3/uL (4.8-10.8)
[2023-04-11 06:29] LABS: CALCIUM 7.8 mg/dL (8.5-10.3); CREATININE 0.8 mg/dL (0.6-1.3); POTASSIUM 3.9 mmol/L (3.5-4.5)
[2023-04-11] MEDS: chlordiazePOXIDE 5 MG CAPSULE PO SCH (06:38)
[2023-04-11] MEDS: GABAPENTIN 300 MG CAPSULE PO SCH ×3 (06:38→21:10)
[2023-04-11] MEDS: LEVALBUTEROL 1.25 MG/3 ML NEB INH SCH ×3 (07:17→23:25)
[2023-04-11] MEDS: INSULIN LISPRO 300 UNIT/3 ML PEN SUBQ SCH ×4 (09:01→21:21)
[2023-04-11] MEDS: IBUPROFEN 600 MG TABLET PO PRN (09:02)
[2023-04-11] MEDS: APIXABAN 5 MG TABLET PO SCH ×2 (09:03→21:10)
[2023-04-11] MEDS: METOPROLOL SUCCINATE 25 MG TABLET PO SCH (09:03)
[2023-04-11] MEDS: FOLIC ACID 1 MG TABLET PO SCH (09:03)
[2023-04-11] MEDS: diltiaZEM CD 120 MG CAPSULE PO SCH (09:03)
[2023-04-11] MEDS: MULTIVITAMIN TABLET PO SCH (09:03)
[2023-04-11] MEDS: MAGNESIUM OXIDE 400 MG TABLET PO SCH (09:03)
[2023-04-11] MEDS: THIAMINE 100 MG TABLET PO SCH (09:03)
[2023-04-11] MEDS: VANCOMYCIN 125 MG CAPSULE PO SCH ×4 (09:03→21:10)
[2023-04-11] MEDS: NICOTINE 14 MG PATCH TOP SCH (09:06)
[2023-04-11] MEDS: PARoxetine 10 MG TABLET PO SCH (10:47)
--- NOTE | 2023-04-11 11:15 | XRAY Report ---
PROCEDURE: Chest 1 View X-Ray INDICATIONS: Hypoxia, CHF TECHNIQUE: One view of the chest was acquired. COMPARISON: None FINDINGS: Surgical changes and devices: Previous resection of the distal right clavicle. Lungs and pleura: Heart size enlarged. Mild vascular congestion present. Blunting the right costophr enic angle. Mediastinum: Mediastinal contours appear normal. Atherosclerotic vascular calcification noted in th e aortic arch. Bones and chest wall: Multiple left-sided rib fractures in various stages of healing. Fracture of th e distal left clavicle noted as well. IMPRESSION: Cardiomegaly and mild vascular congestion. Resection of the right clavicle. Fracture of the distal left clavicle versus prior surgical intervent ion. Multiple left-sided rib fractures in various stages of healing. Reviewed by: Preston Corea MD on 04/11/2023 10:14 AM [facility] Approved by: Preston Corea MD on 04/11/2023 10:14 AM [facility] Station ID: [id number]
[2023-04-11] MEDS ORDERED: INSULIN GLARGINE-YFGN 300 UNIT/3 ML PEN SUBQ SCH (12:00)
[2023-04-11] MEDS ORDERED: INSULN SUBQ SCH (12:00)
[2023-04-11] MEDS ORDERED: INSULIN DEGLUDEC 100 UNIT/ML SUBQ SCH (12:00)
[2023-04-11] MEDS: INSULIN GLARGINE-YFGN 300 UNIT/3 ML PEN SUBQ SCH (12:43)
--- NOTE | 2023-04-11 13:46 | PROVIDER PROGRESS NOTE ---
Assessment/Plan - Problem List (1) Alcohol abuse Assessment/Plan: 1) C. difficile diarrhea Assessment/Plan: -- Continue oral vancomycin 125 mg 4 times daily for 10 days. Started on 04/08. (2) N/V Conclusion/Plan: -- Continue with antiemetics and clear liquid diet. Will advance once her nausea improved. (3) Orthostatic hypotension Assessment/Plan: --Continue IV fluids due to orthostatic hypotension. --She is having significant losses in her stool. (4) Frequent falls Conclusion/Plan: -- Likely due to intoxication and volume depletion causing orthostasis. --CT head showing no evidence of bleeding. --Possibly related to her PE however burden is quite small. (5) Alcohol abuse with withdrawal - F10.139 Conclusion/Plan: -- Continue CIWA protocol with Ativan. --Continue daily thiamine. (6) Urinary tract infection Conclusion/Plan: -- Continue IV ceftriaxone for an additional dose making 3 doses. -- Urine culture is currently pending. (7) Acute pulmonary embolism Conclusion/Plan: CTA showing evidence of--a small burden of pulmonary emboli. Has been initiated on Eliquis at 10 mg p.o. twice daily for 1 week followed by 5 mg p.o. twice daily thereafter. Patient does have evidence of a lung mass which may be malignant. This requires outpatient follow-up. (8) Atrial fibrillation with RVR Conclusion/Plan: -- Episode of A-fib with RVR this morning. Given diltiazem p.o. which improved her heart rate. --Continue Eliquis for stroke prophylaxis. -- TTE is pending. (9) DM type 2 (diabetes mellitus, type 2) Conclusion/Plan: --Continue SSI. (10) Lung mass Conclusion/Plan: Her chest CT imaging was read as having many lung nodules: in the RUL 4 mm- similar to previous. RLL 11 X 8 mm-NEW. RML 4 mm-improved. RATNA 11 X 6 mm- stable. Another RATNA 6 mm-stable. Plan: Smoking cessation was discussed with the patient She will need outpatient workup for this to see if they are malignant, and these could be the cause of being hypercoagulable and having a PE (11) Tobacco use Conclusion/Plan: She still has wheezing on exam Plan: Cont scheduled TID and prn Xopenex Cont nicotine patch (12) Depression with anxiety Conclusion/Plan: Plan: Will continue her daily Paxil (4) Sinus pause Assessment/Plan: --Multiple pauses throughout the day. Have discontinued her diltiazem given her HFrEF. --Continued on metoprolol 25 mg daily. --Continue hospital monitor. --She is currently in rate controlled Afib. (5) Deformity, clavicle Assessment/Plan: --Prior fracture of distal clavicle per patient. - Current Meds Current Meds: Current Medications Generic Name Dose Route Start Last Admin Trade Name Freq PRN Reason Stop Dose Admin Acetaminophen 650 mg 04/07/23 18:13 04/09/23 09:29 Acetaminophen 325 Mg Tablet PO 650 mg Q4HR PRN Administration Pain 1 to 4, or Fever Apixaban 10 mg 04/07/23 21:00 04/11/23 09:03 Apixaban 5 Mg Tablet PO 10 mg BID GENET Administration Chlordiazepoxide HCl 5 mg 04/09/23 14:00 04/11/23 06:38 Chlordiazepoxide 5 Mg Capsule PO 5 mg TID GENET Administration Diltiazem HCl 120 mg 04/08/23 09:00 04/11/23 09:03 Diltiazem Cd 120 Mg Capsule PO Not Given DAILY GENET Folic Acid 1 mg 04/08/23 09:00 04/11/23 09:03 Folic Acid 1 Mg Tablet PO 1 mg DAILY GENET Administration Gabapentin 300 mg 04/09/23 14:00 04/11/23 06:38 Gabapentin 300 Mg Capsule PO 300 mg TID GENET Administration Ceftriaxone Sodium 1 gm/ 100 mls @ 200 mls/hr 04/08/23 15:00 04/10/23 16:05 Sodium Chloride IV 04/11/23 15:29 Infused 1500 GENET Infusion Ibuprofen 600 mg 04/07/23 19:37 04/11/23 09:02 Ibuprofen 600 Mg Tablet PO 600 mg Q6HR PRN Administration HEADACHE Insulin Glargine-yfgn 6 unit 04/11/23 12:00 04/11/23 12:43 Insulin Glargine-Yfgn 300 Unit/3 Ml Pen SUBQ 6 unit 1200 GENET Administration Insulin Human Lispro 1 - 9 unit 04/10/23 21:00 04/11/23 12:43 Insulin Lispro 300 Unit/3 Ml Pen SUBQ 3 unit 0800,1200,1700,2100 GENET Administration Protocol Levalbuterol HCl 1.25 mg 04/07/23 22:00 04/11/23 13:30 Levalbuterol 1.25 Mg/3 Ml Neb INH 1.25 mg TID GENET Administration Lorazepam 2 mg 04/07/23 18:17 04/08/23 20:50 Lorazepam 2 Mg/Ml Vial IVP 2 mg Q30M PRN Administration CIWA >8 Protocol Losartan Potassium 50 mg 04/09/23 16:00 04/10/23 16:10 Losartan 50 Mg Tablet PO 50 mg 1600 GENET Administration Magnesium Oxide 400 mg 04/08/23 08:00 04/11/23 09:03 Magnesium Oxide 400 Mg Tablet PO 400 mg DAILYWM GENET Administration Metoprolol Succinate 25 mg 04/10/23 09:00 04/11/23 09:03 Metoprolol Succinate 25 Mg Tablet PO 25 mg DAILY GENET Administration Multivitamins 1 tab 04/10/23 08:00 04/11/23 09:03 Multivitamin Tablet PO 1 tab DAILYWM GENET Administration Nicotine 1 patch 04/08/23 09:00 04/11/23 09:06 Nicotine 14 Mg Patch TOP 1 patch DAILY GENET Administration Paroxetine HCl 10 mg 04/08/23 09:00 04/11/23 10:47 Paroxetine 10 Mg Tablet PO 10 mg DAILY GENET Administration Sodium Chloride 10 ml 04/07/23 18:13 04/07/23 20:17 Sodium Chloride Flush 0.9% 10 Ml Syringe IVP 10 ml PRN PRN Administration NEEDED PER PROVIDER ORDERS Sodium Chloride 10 ml 04/08/23 01:00 04/11/23 09:07 Sodium Chloride Flush 0.9% 10 Ml Syringe IVP Not Given 0100,0900,1700 [facility] Thiamine HCl 100 mg 04/08/23 09:00 04/11/23 09:03 Thiamine 100 Mg Tablet PO 100 mg DAILY GENET Administration Vancomycin HCl 125 mg 04/08/23 17:00 04/11/23 09:03 Vancomycin 125 Mg Capsule PO 125 mg QID GENET Administration - Lab Result Fish Bone Diagrams: 04/11/23 06:08 04/11/23 06:08 - Additional Planning My Orders: My Active Orders 04/11/23 12:00 Insulin Glargine-Yfgn [[place]] 6 unit SUBQ 1200 Subjective - Subjective Patient Reports: Feeling Better (Only 1 bout of diarrhea.) Objective Vital Signs: Vital Signs - 24 hr 04/10/23 04/10/23 04/10/23 16:02 19:45 21:00 Temperature 36.4 C L 36.5 C Heart Rate 87 Heart Rate [ 88 81 Brachial] Respiratory 20 24 20 Rate Blood Pressure 109/63 109/62 [Right Brachial artery] O2 Saturation 98 93 If not protocol : Oxygen Flow, liters/minute 04/11/23 04/11/23 04/11/23 00:20 06:50 07:18 Temperature 37.2 C 37.2 C Heart Rate 84 Heart Rate [ 82 82 Brachial] Respiratory 20 20 20 Rate Blood Pressure 120/72 120/72 [Right Brachial artery] O2 Saturation 96 96 If not protocol : Oxygen Flow, liters/minute 04/11/23 04/11/23 04/11/23 09:00 09:20 09:33 Temperature 36.6 C Heart Rate Heart Rate [ 83 Brachial] Respiratory 20 Rate Blood Pressure 97/58 L [Right Brachial artery] O2 Saturation 94 87 L 93 If not protocol 2 : Oxygen Flow, liters/minute 04/11/23 13:31 Temperature Heart Rate 78 Heart Rate [ Brachial] Respiratory 20 Rate Blood Pressure [Right Brachial artery] O2 Saturation If not protocol 2 : Oxygen Flow, liters/minute Oxygen O2 Source Nasal cannula I&O (Last 24 Hrs): Intake and Output Totals x24h 04/09/23 04/10/23 04/11/23 23:59 23:59 23:59 Intake Total 2270 4248.333 570 Output Total 700 700 25 Balance 1570 3548.333 545 General: Alert, Oriented x3, Cooperative, No acute distress Cardiovascular: Regular rate, Normal S1, Normal S2, No murmurs Respiratory: Chest non-tender, No respiratory distress, Breath sounds nml Abdomen: Normal bowel sounds, Soft, No tenderness, No hepatospenomegaly, No masses - Results Results: Laboratory Results WBC 7.8 x10^3/uL (4.8-10.8) 04/11/23 06:08 RBC 3.37 10^6/uL (4.20-5.40) L 04/11/23 06:08 Hgb 11.4 g/dL (12.0-16.0) L 04/11/23 06:08 Hct 34.1 % (37.0-47.0) L 04/11/23 06:08 MCV 101.2 fL (81.0-99.0) H 04/11/23 06:08 MCH 33.8 pg (27.0-31.0) H 04/11/23 06:08 MCHC 33.4 g/dL (32.0-36.0) 04/11/23 06:08 RDW 13.6 % (12.0-15.0) 04/11/23 06:08 Plt Count 199 10^3/uL (130-450) 04/11/23 06:08 MPV 11.8 fL (7.9-10.8) H 04/11/23 06:08 Neut # (Auto) 6.5 10^3/uL (1.5-6.6) 04/11/23 06:08 Lymph # (Auto) 0.4 10^3/uL (1.5-3.5) L 04/11/23 06:08 [place] # (Auto) 0.6 10^3/uL (0.0-1.0) 04/11/23 06:08 Eos # (Auto) 0.4 10^3/uL (0.0-0.7) 04/11/23 06:08 Baso # (Auto) 0.0 10^3/uL (0.0-0.1) 04/11/23 06:08 Absolute Nucleated RBC 0.00 x10^3/uL 04/11/23 06:08 Nucleated RBC % 0.0 /100WBC 04/11/23 06:08 PT 11.6 secs (9.9-12.6) 04/06/23 23:24 INR 1.1 (0.8-1.2) 04/06/23 23:24 D-Dimer 1046.5 ng/mL (200.0-255.0) H 04/07/23 15:13 VBG pH 7.406 (7.31-7.41) 04/06/23 23:48 VBG pCO2 40.2 mmHg (41-51) L 04/06/23 23:48 VBG pO2 40.9 mmHg (25-47) 04/06/23 23:48 VBG HCO3 24.7 mmol/L (23-28) 04/06/23 23:48 VBG Total CO2 25.9 mmol/L (24-29) 04/06/23 23:48 VBG O2 Saturation 74.0 % (60-80) 04/06/23 23:48 VBG Base Excess 0.0 mmol/L (-2 - +2) 04/06/23 23:48 Sodium 136 mmol/L (135-145) 04/11/23 06:08 Potassium 3.9 mmol/L (3.5-4.5) 04/11/23 06:08 Chloride 111 mmol/L (101-111) 04/11/23 06:08 Carbon Dioxide 21 mmol/L (21-32) 04/11/23 06:08 Anion Gap 4.0 (6-13) L 04/11/23 06:08 BUN 9 mg/dL (6-20) 04/11/23 06:08 Creatinine 0.8 mg/dL (0.6-1.3) 04/11/23 06:08 Estimated GFR (MDRD) 70 (>89) L 04/11/23 06:08 Glucose 166 mg/dL (74-104) H 04/11/23 06:08 POC Whole Bld Glucose 210 mg/dL (70 - 100) H 04/11/23 11:56 Estimat Average Glucose 146 mg/dL (70-100) H 04/08/23 05:52 Hemoglobin A1c % 6.7 % (4.27-6.07) H 04/08/23 05:52 Lactic Acid 2.3 mmol/L (0.5-2.2) H 04/07/23 13:57 Calcium 7.8 mg/dL (8.5-10.3) L 04/11/23 06:08 Phosphorus 4.2 mg/dL (2.5-5.0) 04/08/23 05:52 Magnesium 1.6 mg/dL (1.7-2.3) L 04/10/23 05:50 Total Bilirubin 0.8 mg/dL (0.2-1.0) 04/10/23 05:50 Direct Bilirubin 0.28 mg/dL (0.03-0.18) H 04/10/23 05:50 AST 59 IU/L (10-42) H 04/10/23 05:50 ALT 30 IU/L (10-60) 04/10/23 05:50 Alkaline Phosphatase 147 IU/L (42-121) H 04/10/23 05:50 Total Creatine Kinase 33 IU/L (30-223) 04/06/23 23:24 Troponin I High Sens 24.4 ng/L (2.3-14.8) H* 04/07/23 02:37 Total Protein 4.5 g/dL (6.4-8.9) L 04/10/23 05:50 Albumin 2.1 g/dL (3.2-5.5) L 04/10/23 05:50 Globulin 2.4 g/dL (2.1-4.2) 04/10/23 05:50 Albumin/Globulin Ratio 1.0 (1.0-2.2) 04/08/23 05:52 Lipase 14 U/L (11-82) 04/06/23 23:24 TSH 1.65 uIU/mL (0.34-5.60) 04/08/23 05:52 Urine Color YELLOW 04/07/23 01:14 Urine Clarity CLEAR (CLEAR) 04/07/23 01:14 Urine pH 5.5 PH (5.0-7.5) 04/07/23 01:14 Ur Specific [place] <=1.005 (1.002-1.030) 04/07/23 01:14 Urine Protein NEGATIVE mg/dL (NEGATIVE) 04/07/23 01:14 Urine Glucose (UA) NEGATIVE mg/dL (NEGATIVE) 04/07/23 01:14 Urine Ketones NEGATIVE mg/dL (NEGATIVE) 04/07/23 01:14 Urine Occult Blood SMALL (NEGATIVE) H 04/07/23 01:14 Urine Nitrite NEGATIVE (NEGATIVE) 04/07/23 01:14 Urine Bilirubin NEGATIVE (NEGATIVE) 04/07/23 01:14 Urine Urobilinogen 0.2 (NORMAL) E.U./dL (NORMAL) 04/07/23 01:14 Ur Leukocyte Esterase LARGE (NEGATIVE) H 04/07/23 01:14 Urine RBC 0-5 /HPF (0-5) 04/07/23 01:14 Urine WBC 11-25 /HPF (0-5) H 04/07/23 01:14 Ur Squamous Epith Cells FEW Squamous (<= Few) 04/07/23 01:14 Urine Bacteria Many /HPF (None Seen) H 04/07/23 01:14 Ur Microscopic Review INDICATED 04/07/23 01:14 Urine Culture Comments INDICATED 04/07/23 01:14 Nasal Adenovirus (PCR) NOT DETECTED 04/06/23 23:24 Nasal B. parapertussis DNA (PCR) NOT DETECTED 04/06/23 23:24 Nasal Coronavir 229E PCR NOT DETECTED 04/06/23 23:24 Nasal Coronavir HKU1 PCR NOT DETECTED 04/06/23 23:24 Nasal Coronavir NL63 PCR NOT DETECTED 04/06/23 23:24 Nasal Coronavir OC43 PCR NOT DETECTED 04/06/23 23:24 Nasal Enterovir/Rhinovir PCR NOT DETECTED 04/06/23 23:24 Nasal Influenza B PCR NOT DETECTED 04/06/23 23:24 Nasal Influenza A PCR NOT DETECTED 04/06/23 23:24 Nasal Parainfluen 1 PCR NOT DETECTED 04/06/23 23:24 Nasal Parainfluen 2 PCR NOT DETECTED 04/06/23 23:24 Nasal Parainfluen 3 PCR NOT DETECTED 04/06/23 23:24 Nasal Parainfluen 4 PCR NOT DETECTED 04/06/23 23:24 Nasal RSV (PCR) NOT DETECTED 04/06/23 23:24 Nasal B.pertussis DNA PCR NOT DETECTED 04/06/23 23:24 Nasal C.pneumoniae (PCR) NOT DETECTED 04/06/23 23:24 Jayson Human Metapneumo PCR NOT DETECTED 04/06/23 23:24 Nasal M.pneumoniae (PCR) NOT DETECTED 04/06/23 23:24 Nasal SARS-CoV-2 (PCR) NOT DETECTED 04/06/23 23:24 Stl C. diff Tox B Gene POSITIVE (NEGATIVE) A* 04/08/23 12:15 Urine Opiates Screen NEGATIVE (NEGATIVE) 04/07/23 01:14 Ur Buprenorphine Scrn NEGATIVE (NEGATIVE) 04/07/23 01:14 Ur Oxycodone Screen POSITIVE (NEGATIVE) H 04/07/23 01:14 Urine Methadone Screen NEGATIVE (NEGATIVE) 04/07/23 01:14 Ur Barbiturates Screen NEGATIVE (NEGATIVE) 04/07/23 01:14 Ur Tricyclics Screen NEGATIVE (NEGATIVE) 04/07/23 01:14 Ur Phencyclidine Scrn NEGATIVE (NEGATIVE) 04/07/23 01:14 Ur Amphetamine Screen NEGATIVE (NEGATIVE) 04/07/23 01:14 U Methamphetamines Scrn NEGATIVE (NEGATIVE) 04/07/23 01:14 U Benzodiazepines Scrn NEGATIVE (NEGATIVE) 04/07/23 01:14 Urine Cocaine Screen NEGATIVE (NEGATIVE) 04/07/23 01:14 U Cannabinoids Screen NEGATIVE (NEGATIVE) 04/07/23 01:14 Ur Drug Screen Comment CUTOFF CONC BELOW: 04/07/23 01:14 Ethyl Alcohol < 10.0 mg/dL 04/07/23 13:57 Serum Ketones NEGATIVE (NEGATIVE) 04/06/23 23:24 Blood Type A POSITIVE 04/06/23 23:48 Blood Type Recheck A POSITIVE 04/07/23 00:46 Antibody Screen NEGATIVE 04/06/23 23:48 Current Medications - Current Medications Current Medications: Active Medications Generic Name Dose Route Start Last Admin Trade Name Freq PRN Reason Stop Dose Admin Acetaminophen 650 mg 04/07/23 18:13 04/09/23 09:29 Acetaminophen 325 Mg Tablet PO 650 mg Q4HR PRN Administration Pain 1 to 4, or Fever Apixaban 10 mg 04/07/23 21:00 04/11/23 09:03 Apixaban 5 Mg Tablet PO 10 mg BID GENET Administration Diltiazem HCl 120 mg 04/08/23 09:00 04/11/23 09:03 Diltiazem Cd 120 Mg Capsule PO Not Given DAILY GENET Diphenoxylate HCl/Atropine 1 tab 04/09/23 12:32 Diphenox/Atropine 2.5/0.025 Mg Tablet PO QID PRN Diarrhea Folic Acid 1 mg 04/08/23 09:00 04/11/23 09:03 Folic Acid 1 Mg Tablet PO 1 mg DAILY GENET Administration Gabapentin 300 mg 04/09/23 14:00 04/11/23 06:38 Gabapentin 300 Mg Capsule PO 300 mg TID GENET Administration Ceftriaxone Sodium 1 gm/ 100 mls @ 200 mls/hr 04/08/23 15:00 04/10/23 16:05 Sodium Chloride IV 04/11/23 15:29 Infused 1500 GENET Infusion Ibuprofen 600 mg 04/07/23 19:37 04/11/23 09:02 Ibuprofen 600 Mg Tablet PO 600 mg Q6HR PRN Administration HEADACHE Insulin Glargine-yfgn 6 unit 04/11/23 12:00 04/11/23 12:43 Insulin Glargine-Yfgn 300 Unit/3 Ml Pen SUBQ 6 unit 1200 GENET Administration Insulin Human Lispro 1 - 9 unit 04/10/23 21:00 04/11/23 12:43 Insulin Lispro 300 Unit/3 Ml Pen SUBQ 3 unit 0800,1200,1700,2100 GENET Administration Protocol Levalbuterol HCl 1.25 mg 04/07/23 19:40 Levalbuterol 1.25 Mg/3 Ml Neb INH Q4H PRN Shortness of Air/Wheezing Levalbuterol HCl 1.25 mg 04/07/23 22:00 04/11/23 13:30 Levalbuterol 1.25 Mg/3 Ml Neb INH 1.25 mg TID GENET Administration Lorazepam 2 mg 04/07/23 18:17 04/08/23 20:50 Lorazepam 2 Mg/Ml Vial IVP 2 mg Q30M PRN Administration CIWA >8 Protocol Losartan Potassium 50 mg 04/09/23 16:00 04/10/23 16:10 Losartan 50 Mg Tablet PO 50 mg 1600 GENET Administration Magnesium Oxide 400 mg 04/08/23 08:00 04/11/23 09:03 Magnesium Oxide 400 Mg Tablet PO 400 mg DAILYWM GENET Administration Metoprolol Succinate 25 mg 04/10/23 09:00 04/11/23 09:03 Metoprolol Succinate 25 Mg Tablet PO 25 mg DAILY GENET Administration Multivitamins 1 tab 04/10/23 08:00 04/11/23 09:03 Multivitamin Tablet PO 1 tab DAILYWM GENET Administration Nicotine 1 patch 04/08/23 09:00 04/11/23 09:06 Nicotine 14 Mg Patch TOP 1 patch DAILY GENET Administration Ondansetron HCl 4 mg 04/07/23 18:13 Ondansetron 4 Mg/2 Ml Vial IVP Q6HR PRN Nausea / Vomiting Paroxetine HCl 10 mg 04/08/23 09:00 04/11/23 10:47 Paroxetine 10 Mg Tablet PO 10 mg DAILY GENET Administration Prochlorperazine Edisylate 10 mg 04/08/23 11:35 Prochlorperazine 10 Mg/2 Ml Vial IVP Q6HR PRN Nausea / Vomiting Sodium Chloride 10 ml 04/07/23 18:13 04/07/23 20:17 Sodium Chloride Flush 0.9% 10 Ml Syringe IVP 10 ml PRN PRN Administration NEEDED PER PROVIDER ORDERS Sodium Chloride 10 ml 04/08/23 01:00 04/11/23 09:07 Sodium Chloride Flush 0.9% 10 Ml Syringe IVP Not Given 0100,0900,1700 [facility] Thiamine HCl 100 mg 04/08/23 09:00 04/11/23 09:03 Thiamine 100 Mg Tablet PO 100 mg DAILY GENET Administration Vancomycin HCl 125 mg 04/08/23 17:00 04/11/23 09:03 Vancomycin 125 Mg Capsule PO 125 mg QID GENET Administration Zinc Oxide 113 gm 04/08/23 12:32 Cod Liver Oil/Zinc Oxide 113 Gm Tube TOP PRN PRN Skin Care Atorvastatin [Lipitor] 20 mg PO 1600 08/26/20 Insulin Lispro [Humalog] 5 - 10 unit SQ TIDWM 08/26/20 Insulin Degludec [Tresiba Flextouch U-100] 8 unit SUBQ 1200 09/06/22 Losartan [Cozaar] 50 mg PO 1600 04/07/23 dilTIAZem HCL [Diltiazem 24Hr ER] 120 mg PO DAILY 04/07/23 Lactobacillus Combination No.4 [Probiotic] 1 cap PO DAILY 04/08/23 Metoprolol Succinate [Toprol Xl] 25 mg PO DAILY PRN 04/08/23 Multivitamin 1 tab PO DAILY 04/08/23
[2023-04-11] MEDS: cefTRIAXone 1 GM in SODIUM CHLORIDE 0.9% MINIBAG 100 ML IV SCH (14:25)
[2023-04-11] MEDS: LOSARTAN 50 MG TABLET PO SCH (16:41)
[2023-04-11] MEDS: ACETAMINOPHEN 325 MG TABLET PO PRN (16:41)
[2023-04-11] MEDS: COD LIVER OIL/ZINC OXIDE 113 GM TUBE TOP PRN (21:10)
[2023-04-12] MEDS: SODIUM CHLORIDE FLUSH 0.9% 10 ML SYRINGE IVP SCH ×3 (03:40→16:26)
[2023-04-12 05:30] LABS: BASOPHILS % (AUTO) 0.4 %; EOSINOPHILS # (AUTO) 0.5 10^3/uL (0.0-0.7); HCT - HEMATOCRIT 35.8 % (37.0-47.0); HGB - HEMOGLOBIN 11.5 g/dL (12.0-16.0); LYMPHOCYTES # (AUTO) 0.8 10^3/uL (1.5-3.5); LYMPHOCYTES % (AUTO) 11.4 %; MEAN CORPUSCULAR HEMOGLOBIN 33.9 pg (27.0-31.0); MEAN CORPUSCULAR HGB CONC 32.1 g/dL (32.0-36.0); MEAN CORPUSCULAR VOLUME 105.6 fL (81.0-99.0); MONOCYTES # (AUTO) 0.7 10^3/uL (0.0-1.0); MONOCYTES % (AUTO) 10.4 %; NEUTROPHILS # (AUTO) 4.9 10^3/uL (1.5-6.6); NEUTROPHILS % (AUTO) 70.2 %; PLT - PLATELET COUNT 213 10^3/uL (130-450); RED BLOOD COUNT 3.39 10^6/uL (4.20-5.40); RED CELL DISTRIBUTION WIDTH 14.2 % (12.0-15.0)
[2023-04-12 05:49] LABS: CALCIUM 8.2 mg/dL (8.5-10.3); CREATININE 0.9 mg/dL (0.6-1.3); POTASSIUM 3.9 mmol/L (3.5-4.5)
[2023-04-12] MEDS: LEVALBUTEROL 1.25 MG/3 ML NEB INH SCH ×3 (06:00→23:45)
[2023-04-12] MEDS: GABAPENTIN 300 MG CAPSULE PO SCH ×3 (06:39→21:43)
[2023-04-12] MEDS: METOPROLOL SUCCINATE 25 MG TABLET PO SCH (08:46)
[2023-04-12] MEDS: PARoxetine 10 MG TABLET PO SCH (08:46)
[2023-04-12] MEDS: APIXABAN 5 MG TABLET PO SCH ×2 (08:46→21:00)
[2023-04-12] MEDS: diltiaZEM CD 120 MG CAPSULE PO SCH (08:46)
[2023-04-12] MEDS: THIAMINE 100 MG TABLET PO SCH (08:46)
[2023-04-12] MEDS: VANCOMYCIN 125 MG CAPSULE PO SCH ×4 (08:46→21:00)
[2023-04-12] MEDS: MAGNESIUM OXIDE 400 MG TABLET PO SCH (08:46)
[2023-04-12] MEDS: MULTIVITAMIN TABLET PO SCH (08:46)
[2023-04-12] MEDS: FOLIC ACID 1 MG TABLET PO SCH (08:47)
[2023-04-12] MEDS: NICOTINE 14 MG PATCH TOP SCH (08:47)
[2023-04-12] MEDS: INSULIN LISPRO 300 UNIT/3 ML PEN SUBQ SCH ×4 (08:50→21:43)
[2023-04-12] MEDS: SACCHAROMYCES BOULARDII 250 MG CAPSULE PO SCH ×2 (12:26→16:26)
[2023-04-12] MEDS: NEOMYCIN/POLYMYX/DEXAMETH OPHTH DROPS 5 ML EACHEYE SCH ×3 (12:26→21:00)
[2023-04-12] MEDS: COD LIVER OIL/ZINC OXIDE 113 GM TUBE TOP PRN ×2 (12:27→16:36)
[2023-04-12] MEDS: INSULIN GLARGINE-YFGN 300 UNIT/3 ML PEN SUBQ SCH (12:28)
[2023-04-12] MEDS: LOSARTAN 50 MG TABLET PO SCH (16:26)
--- NOTE | 2023-04-12 16:50 | PROVIDER PROGRESS NOTE ---
Assessment/Plan - Problem List (1) Alcohol abuse Assessment/Plan: 1) C. difficile diarrhea Assessment/Plan: -- Continue oral vancomycin 125 mg 4 times daily for 10 days. Started on 04/08. (2) N/V Conclusion/Plan: -- Continue with antiemetics and clear liquid diet. Will advance once her nausea improved. (3) Orthostatic hypotension Assessment/Plan: --IV fluids have been discontinued due to history of HFrEF. (4) Frequent falls Conclusion/Plan: -- Likely due to intoxication and volume depletion causing orthostasis. --CT head showing no evidence of bleeding. --Possibly related to her PE however burden is quite small. (5) Alcohol abuse with withdrawal - F10.139 Conclusion/Plan: -- Continue CIWA protocol with Ativan. --Continue daily thiamine. (6) Urinary tract infection Conclusion/Plan: -- Continue IV ceftriaxone for an additional dose making 3 doses. -- Urine culture is currently pending. (7) Acute pulmonary embolism Conclusion/Plan: CTA showing evidence of--a small burden of pulmonary emboli. Has been initiated on Eliquis at 10 mg p.o. twice daily for 1 week followed by 5 mg p.o. twice daily thereafter. Patient does have evidence of a lung mass which may be malignant. This requires outpatient follow-up. (8) Atrial fibrillation with RVR Conclusion/Plan: -- Episode of A-fib with RVR this morning. Given diltiazem p.o. which improved her heart rate. --Continue Eliquis for stroke prophylaxis. -- TTE is pending. (9) DM type 2 (diabetes mellitus, type 2) Conclusion/Plan: --Continue SSI. (10) Lung mass Conclusion/Plan: Her chest CT imaging was read as having many lung nodules: in the RUL 4 mm- similar to previous. RLL 11 X 8 mm-NEW. RML 4 mm-improved. RATNA 11 X 6 mm- stable. Another RATNA 6 mm-stable. Plan: Smoking cessation was discussed with the patient She will need outpatient workup for this to see if they are malignant, and these could be the cause of being hypercoagulable and having a PE (11) Tobacco use Conclusion/Plan: She still has wheezing on exam Plan: Cont scheduled TID and prn Xopenex Cont nicotine patch (12) Depression with anxiety Conclusion/Plan: Plan: Will continue her daily Paxil (4) Sinus pause Assessment/Plan: --Multiple pauses throughout the day. Have discontinued her diltiazem given her HFrEF. --Continued on metoprolol 25 mg daily. 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 --She is currently in rate controlled Afib. (5) Deformity, clavicle Assessment/Plan: --Prior fracture of distal clavicle per patient. - Current Meds Current Meds: Current Medications Generic Name Dose Route Start Last Admin Trade Name Freq PRN Reason Stop Dose Admin Acetaminophen 650 mg 04/07/23 18:13 04/11/23 16:41 Acetaminophen 325 Mg Tablet PO 650 mg Q4HR PRN Administration Pain 1 to 4, or Fever Apixaban 10 mg 04/07/23 21:00 04/12/23 08:46 Apixaban 5 Mg Tablet PO 04/14/23 09:01 10 mg BID GENET Administration Folic Acid 1 mg 04/08/23 09:00 04/12/23 08:47 Folic Acid 1 Mg Tablet PO 1 mg DAILY GENET Administration Gabapentin 300 mg 04/09/23 14:00 04/12/23 13:45 Gabapentin 300 Mg Capsule PO 300 mg TID GENET Administration Ibuprofen 600 mg 04/07/23 19:37 04/11/23 09:02 Ibuprofen 600 Mg Tablet PO 600 mg Q6HR PRN Administration HEADACHE Insulin Glargine-yfgn 6 unit 04/11/23 12:00 04/12/23 12:28 Insulin Glargine-Yfgn 300 Unit/3 Ml Pen SUBQ 6 unit 1200 GENET Administration Insulin Human Lispro 1 - 9 unit 04/10/23 21:00 04/12/23 16:37 Insulin Lispro 300 Unit/3 Ml Pen SUBQ 5 unit 0800,1200,1700,2100 GENET Administration Protocol Levalbuterol HCl 1.25 mg 04/07/23 22:00 04/12/23 13:34 Levalbuterol 1.25 Mg/3 Ml Neb INH 1.25 mg TID GENET Administration Lorazepam 2 mg 04/07/23 18:17 04/08/23 20:50 Lorazepam 2 Mg/Ml Vial IVP 2 mg Q30M PRN Administration CIWA >8 Protocol Losartan Potassium 50 mg 04/09/23 16:00 04/12/23 16:26 Losartan 50 Mg Tablet PO 50 mg 1600 GENET Administration Magnesium Oxide 400 mg 04/08/23 08:00 04/12/23 08:46 Magnesium Oxide 400 Mg Tablet PO 400 mg DAILYWM GENET Administration Metoprolol Succinate 25 mg 04/10/23 09:00 04/12/23 08:46 Metoprolol Succinate 25 Mg Tablet PO 25 mg DAILY GENET Administration Multivitamins 1 tab 04/10/23 08:00 04/12/23 08:46 Multivitamin Tablet PO 1 tab DAILYWM GENET Administration Neomycin/Polymyxin/Dexamethasone 1 drops 04/12/23 13:00 04/12/23 16:27 Neomycin/Polymyx/Dexameth Ophth Drops 5 Ml EACHEYE 04/19/23 12:59 1 drops QID GENET Administration Nicotine 1 patch 04/08/23 09:00 04/12/23 08:47 Nicotine 14 Mg Patch TOP 1 patch DAILY GENET Administration Paroxetine HCl 10 mg 04/08/23 09:00 04/12/23 08:46 Paroxetine 10 Mg Tablet PO 10 mg DAILY GENET Administration Saccharomyces Boulardii 500 mg 04/12/23 09:30 04/12/23 16:26 Saccharomyces Boulardii 250 Mg Capsule PO 500 mg BIDWM GENET Administration Sodium Chloride 10 ml 04/07/23 18:13 04/07/23 20:17 Sodium Chloride Flush 0.9% 10 Ml Syringe IVP 10 ml PRN PRN Administration NEEDED PER PROVIDER ORDERS Sodium Chloride 10 ml 04/08/23 01:00 04/12/23 16:26 Sodium Chloride Flush 0.9% 10 Ml Syringe IVP 10 ml 0100,0900,1700 GENET Administration Thiamine HCl 100 mg 04/08/23 09:00 04/12/23 08:46 Thiamine 100 Mg Tablet PO 100 mg DAILY GENET Administration Vancomycin HCl 125 mg 04/08/23 17:00 04/12/23 16:26 Vancomycin 125 Mg Capsule PO 04/18/23 13:01 125 mg QID GENET Administration Zinc Oxide 113 gm 04/08/23 12:32 04/12/23 16:36 Cod Liver Oil/Zinc Oxide 113 Gm Tube TOP 1 applic PRN PRN Administration Skin Care - Lab Result Fish Bone Diagrams: 04/12/23 04:56 04/12/23 04:56 - Additional Planning My Orders: My Active Orders 04/12/23 09:30 Saccharomyces Boulardii [Florastor] 500 mg PO BIDWM 04/12/23 13:00 Neomycin/Poly/Dex Ophth Drops [Maxitrol Ophth Drops] 1 drops EACHEYE QID 04/14/23 21:00 Apixaban [Eliquis] 5 mg PO BID Subjective - Subjective Patient Reports: Feeling Better (Diarrhea has improved. No sinus pause since yesterday. Will continue to hold diltiazem.), Resting Comfortably, No Complaints Objective Vital Signs: Vital Signs - 24 hr 04/11/23 04/11/23 04/12/23 21:00 23:25 00:09 Temperature 36.5 C 36.5 C Heart Rate Heart Rate [ 70 67 Brachial] Respiratory 20 21 Rate Blood Pressure 133/88 H 122/73 [Right Brachial artery] O2 Saturation 99 99 If not protocol 2 2 3 : Oxygen Flow, liters/minute 04/12/23 04/12/23 04/12/23 04:52 06:00 08:43 Temperature 36.3 C L 36.6 C Heart Rate 72 Heart Rate [ 72 115 H Brachial] Respiratory 18 16 20 Rate Blood Pressure 141/86 H 127/92 H [Right Brachial artery] O2 Saturation 98 96 If not protocol 3 2 2 : Oxygen Flow, liters/minute 04/12/23 04/12/23 04/12/23 13:00 13:35 16:23 Temperature 36.6 C 36.6 C Heart Rate 72 Heart Rate [ 77 73 Brachial] Respiratory 20 17 20 Rate Blood Pressure 122/73 126/76 [Right Brachial artery] O2 Saturation 98 97 If not protocol 2 2 2 : Oxygen Flow, liters/minute 04/12/23 16:25 Temperature Heart Rate Heart Rate [ Brachial] Respiratory Rate Blood Pressure [Right Brachial artery] O2 Saturation 96 If not protocol : Oxygen Flow, liters/minute Oxygen O2 Source Room air I&O (Last 24 Hrs): Intake and Output Totals x24h 04/10/23 04/11/23 04/12/23 23:59 23:59 23:59 Intake Total 4248.333 2680 180 Output Total 700 25 Balance 3548.333 2655 180 General: Alert, Oriented x3 Neuro: Alert Cardiovascular: Regular rate, Normal S1, Normal S2 Respiratory: Chest non-tender, No respiratory distress, Breath sounds nml Abdomen: Normal bowel sounds, Soft, No tenderness - Results Results: Laboratory Results WBC 7.0 x10^3/uL (4.8-10.8) 04/12/23 04:56 RBC 3.39 10^6/uL (4.20-5.40) L 04/12/23 04:56 Hgb 11.5 g/dL (12.0-16.0) L 04/12/23 04:56 Hct 35.8 % (37.0-47.0) L 04/12/23 04:56 MCV 105.6 fL (81.0-99.0) H 04/12/23 04:56 MCH 33.9 pg (27.0-31.0) H 04/12/23 04:56 MCHC 32.1 g/dL (32.0-36.0) 04/12/23 04:56 RDW 14.2 % (12.0-15.0) 04/12/23 04:56 Plt Count 213 10^3/uL (130-450) 04/12/23 04:56 MPV 12.0 fL (7.9-10.8) H 04/12/23 04:56 Neut # (Auto) 4.9 10^3/uL (1.5-6.6) 04/12/23 04:56 Lymph # (Auto) 0.8 10^3/uL (1.5-3.5) L 04/12/23 04:56 [place] # (Auto) 0.7 10^3/uL (0.0-1.0) 04/12/23 04:56 Eos # (Auto) 0.5 10^3/uL (0.0-0.7) 04/12/23 04:56 Baso # (Auto) 0.0 10^3/uL (0.0-0.1) 04/12/23 04:56 Absolute Nucleated RBC 0.00 x10^3/uL 04/12/23 04:56 Nucleated RBC % 0.0 /100WBC 04/12/23 04:56 PT 11.6 secs (9.9-12.6) 04/06/23 23:24 INR 1.1 (0.8-1.2) 04/06/23 23:24 D-Dimer 1046.5 ng/mL (200.0-255.0) H 04/07/23 15:13 VBG pH 7.406 (7.31-7.41) 04/06/23 23:48 VBG pCO2 40.2 mmHg (41-51) L 04/06/23 23:48 VBG pO2 40.9 mmHg (25-47) 04/06/23 23:48 VBG HCO3 24.7 mmol/L (23-28) 04/06/23 23:48 VBG Total CO2 25.9 mmol/L (24-29) 04/06/23 23:48 VBG O2 Saturation 74.0 % (60-80) 04/06/23 23:48 VBG Base Excess 0.0 mmol/L (-2 - +2) 04/06/23 23:48 Sodium 138 mmol/L (135-145) 04/12/23 04:56 Potassium 3.9 mmol/L (3.5-4.5) 04/12/23 04:56 Chloride 110 mmol/L (101-111) 04/12/23 04:56 Carbon Dioxide 24 mmol/L (21-32) 04/12/23 04:56 Anion Gap 4.0 (6-13) L 04/12/23 04:56 BUN 10 mg/dL (6-20) 04/12/23 04:56 Creatinine 0.9 mg/dL (0.6-1.3) 04/12/23 04:56 Estimated GFR (MDRD) 61 (>89) L 04/12/23 04:56 Glucose 104 mg/dL (74-104) 04/12/23 04:56 POC Whole Bld Glucose 243 mg/dL (70 - 100) H 04/12/23 16:25 Estimat Average Glucose 146 mg/dL (70-100) H 04/08/23 05:52 Hemoglobin A1c % 6.7 % (4.27-6.07) H 04/08/23 05:52 Lactic Acid 2.3 mmol/L (0.5-2.2) H 04/07/23 13:57 Calcium 8.2 mg/dL (8.5-10.3) L 04/12/23 04:56 Phosphorus 4.2 mg/dL (2.5-5.0) 04/08/23 05:52 Magnesium 1.6 mg/dL (1.7-2.3) L 04/10/23 05:50 Total Bilirubin 0.8 mg/dL (0.2-1.0) 04/10/23 05:50 Direct Bilirubin 0.28 mg/dL (0.03-0.18) H 04/10/23 05:50 AST 59 IU/L (10-42) H 04/10/23 05:50 ALT 30 IU/L (10-60) 04/10/23 05:50 Alkaline Phosphatase 147 IU/L (42-121) H 04/10/23 05:50 Total Creatine Kinase 33 IU/L (30-223) 04/06/23 23:24 Troponin I High Sens 24.4 ng/L (2.3-14.8) H* 04/07/23 02:37 Total Protein 4.5 g/dL (6.4-8.9) L 04/10/23 05:50 Albumin 2.1 g/dL (3.2-5.5) L 04/10/23 05:50 Globulin 2.4 g/dL (2.1-4.2) 04/10/23 05:50 Albumin/Globulin Ratio 1.0 (1.0-2.2) 04/08/23 05:52 Lipase 14 U/L (11-82) 04/06/23 23:24 TSH 1.65 uIU/mL (0.34-5.60) 04/08/23 05:52 Urine Color YELLOW 04/07/23 01:14 Urine Clarity CLEAR (CLEAR) 04/07/23 01:14 Urine pH 5.5 PH (5.0-7.5) 04/07/23 01:14 Ur Specific [place] <=1.005 (1.002-1.030) 04/07/23 01:14 Urine Protein NEGATIVE mg/dL (NEGATIVE) 04/07/23 01:14 Urine Glucose (UA) NEGATIVE mg/dL (NEGATIVE) 04/07/23 01:14 Urine Ketones NEGATIVE mg/dL (NEGATIVE) 04/07/23 01:14 Urine Occult Blood SMALL (NEGATIVE) H 04/07/23 01:14 Urine Nitrite NEGATIVE (NEGATIVE) 04/07/23 01:14 Urine Bilirubin NEGATIVE (NEGATIVE) 04/07/23 01:14 Urine Urobilinogen 0.2 (NORMAL) E.U./dL (NORMAL) 04/07/23 01:14 Ur Leukocyte Esterase LARGE (NEGATIVE) H 04/07/23 01:14 Urine RBC 0-5 /HPF (0-5) 04/07/23 01:14 Urine WBC 11-25 /HPF (0-5) H 04/07/23 01:14 Ur Squamous Epith Cells FEW Squamous (<= Few) 04/07/23 01:14 Urine Bacteria Many /HPF (None Seen) H 04/07/23 01:14 Ur Microscopic Review INDICATED 04/07/23 01:14 Urine Culture Comments INDICATED 04/07/23 01:14 Nasal Adenovirus (PCR) NOT DETECTED 04/06/23 23:24 Nasal B. parapertussis DNA (PCR) NOT DETECTED 04/06/23 23:24 Nasal Coronavir 229E PCR NOT DETECTED 04/06/23 23:24 Nasal Coronavir HKU1 PCR NOT DETECTED 04/06/23 23:24 Nasal Coronavir NL63 PCR NOT DETECTED 04/06/23 23:24 Nasal Coronavir OC43 PCR NOT DETECTED 04/06/23 23:24 Nasal Enterovir/Rhinovir PCR NOT DETECTED 04/06/23 23:24 Nasal Influenza B PCR NOT DETECTED 04/06/23 23:24 Nasal Influenza A PCR NOT DETECTED 04/06/23 23:24 Nasal Parainfluen 1 PCR NOT DETECTED 04/06/23 23:24 Nasal Parainfluen 2 PCR NOT DETECTED 04/06/23 23:24 Nasal Parainfluen 3 PCR NOT DETECTED 04/06/23 23:24 Nasal Parainfluen 4 PCR NOT DETECTED 04/06/23 23:24 Nasal RSV (PCR) NOT DETECTED 04/06/23 23:24 Nasal B.pertussis DNA PCR NOT DETECTED 04/06/23 23:24 Nasal C.pneumoniae (PCR) NOT DETECTED 04/06/23 23:24 Jayson Human Metapneumo PCR NOT DETECTED 04/06/23 23:24 Nasal M.pneumoniae (PCR) NOT DETECTED 04/06/23 23:24 Nasal SARS-CoV-2 (PCR) NOT DETECTED 04/06/23 23:24 Stl C. diff Tox B Gene POSITIVE (NEGATIVE) A* 04/08/23 12:15 Urine Opiates Screen NEGATIVE (NEGATIVE) 04/07/23 01:14 Ur Buprenorphine Scrn NEGATIVE (NEGATIVE) 04/07/23 01:14 Ur Oxycodone Screen POSITIVE (NEGATIVE) H 04/07/23 01:14 Urine Methadone Screen NEGATIVE (NEGATIVE) 04/07/23 01:14 Ur Barbiturates Screen NEGATIVE (NEGATIVE) 04/07/23 01:14 Ur Tricyclics Screen NEGATIVE (NEGATIVE) 04/07/23 01:14 Ur Phencyclidine Scrn NEGATIVE (NEGATIVE) 04/07/23 01:14 Ur Amphetamine Screen NEGATIVE (NEGATIVE) 04/07/23 01:14 U Methamphetamines Scrn NEGATIVE (NEGATIVE) 04/07/23 01:14 U Benzodiazepines Scrn NEGATIVE (NEGATIVE) 04/07/23 01:14 Urine Cocaine Screen NEGATIVE (NEGATIVE) 04/07/23 01:14 U Cannabinoids Screen NEGATIVE (NEGATIVE) 04/07/23 01:14 Ur Drug Screen Comment CUTOFF CONC BELOW: 04/07/23 01:14 Ethyl Alcohol < 10.0 mg/dL 04/07/23 13:57 Serum Ketones NEGATIVE (NEGATIVE) 04/06/23 23:24 Blood Type A POSITIVE 04/06/23 23:48 Blood Type Recheck A POSITIVE 04/07/23 00:46 Antibody Screen NEGATIVE 04/06/23 23:48 ABX Reporting Has patient been on IV antibiotics over the past 48 hours?: No Current Medications - Current Medications Current Medications: Active Medications Generic Name Dose Route Start Last Admin Trade Name Freq PRN Reason Stop Dose Admin Acetaminophen 650 mg 04/07/23 18:13 04/11/23 16:41 Acetaminophen 325 Mg Tablet PO 650 mg Q4HR PRN Administration Pain 1 to 4, or Fever Apixaban 10 mg 04/07/23 21:00 04/12/23 08:46 Apixaban 5 Mg Tablet PO 04/14/23 09:01 10 mg BID GENET Administration Apixaban 5 mg 04/14/23 21:00 Apixaban 5 Mg Tablet PO BID GENET Diphenoxylate HCl/Atropine 1 tab 04/09/23 12:32 Diphenox/Atropine 2.5/0.025 Mg Tablet PO QID PRN Diarrhea Folic Acid 1 mg 04/08/23 09:00 04/12/23 08:47 Folic Acid 1 Mg Tablet PO 1 mg DAILY GENET Administration Gabapentin 300 mg 04/09/23 14:00 04/12/23 13:45 Gabapentin 300 Mg Capsule PO 300 mg TID GENET Administration Ibuprofen 600 mg 04/07/23 19:37 04/12/23 16:53 Ibuprofen 600 Mg Tablet PO 600 mg Q6HR PRN Administration HEADACHE Insulin Glargine-yfgn 6 unit 04/11/23 12:00 04/12/23 12:28 Insulin Glargine-Yfgn 300 Unit/3 Ml Pen SUBQ 6 unit 1200 GENET Administration Insulin Human Lispro 1 - 9 unit 04/10/23 21:00 04/12/23 16:37 Insulin Lispro 300 Unit/3 Ml Pen SUBQ 5 unit 0800,1200,1700,2100 GENET Administration Protocol Levalbuterol HCl 1.25 mg 04/07/23 19:40 Levalbuterol 1.25 Mg/3 Ml Neb INH Q4H PRN Shortness of Air/Wheezing Levalbuterol HCl 1.25 mg 04/07/23 22:00 04/12/23 13:34 Levalbuterol 1.25 Mg/3 Ml Neb INH 1.25 mg TID GENET Administration Lorazepam 2 mg 04/07/23 18:17 04/08/23 20:50 Lorazepam 2 Mg/Ml Vial IVP 2 mg Q30M PRN Administration CIWA >8 Protocol Losartan Potassium 50 mg 04/09/23 16:00 04/12/23 16:26 Losartan 50 Mg Tablet PO 50 mg 1600 GENET Administration Magnesium Oxide 400 mg 04/08/23 08:00 04/12/23 08:46 Magnesium Oxide 400 Mg Tablet PO 400 mg DAILYWM GENET Administration Metoprolol Succinate 25 mg 04/10/23 09:00 04/12/23 08:46 Metoprolol Succinate 25 Mg Tablet PO 25 mg DAILY GENET Administration Multivitamins 1 tab 04/10/23 08:00 04/12/23 08:46 Multivitamin Tablet PO 1 tab DAILYWM GENET Administration Neomycin/Polymyxin/Dexamethasone 1 drops 04/12/23 13:00 04/12/23 16:27 Neomycin/Polymyx/Dexameth Ophth Drops 5 Ml EACHEYE 04/19/23 12:59 1 drops QID GENET Administration Nicotine 1 patch 04/08/23 09:00 04/12/23 08:47 Nicotine 14 Mg Patch TOP 1 patch DAILY GENET Administration Ondansetron HCl 4 mg 04/07/23 18:13 Ondansetron 4 Mg/2 Ml Vial IVP Q6HR PRN Nausea / Vomiting Paroxetine HCl 10 mg 04/08/23 09:00 04/12/23 08:46 Paroxetine 10 Mg Tablet PO 10 mg DAILY GENET Administration Prochlorperazine Edisylate 10 mg 04/08/23 11:35 Prochlorperazine 10 Mg/2 Ml Vial IVP Q6HR PRN Nausea / Vomiting Saccharomyces Boulardii 500 mg 04/12/23 09:30 04/12/23 16:26 Saccharomyces Boulardii 250 Mg Capsule PO 500 mg BIDWM GENET Administration Sodium Chloride 10 ml 04/07/23 18:13 04/07/23 20:17 Sodium Chloride Flush 0.9% 10 Ml Syringe IVP 10 ml PRN PRN Administration NEEDED PER PROVIDER ORDERS Sodium Chloride 10 ml 04/08/23 01:00 04/12/23 16:26 Sodium Chloride Flush 0.9% 10 Ml Syringe IVP 10 ml 0100,0900,1700 GENET Administration Thiamine HCl 100 mg 04/08/23 09:00 04/12/23 08:46 Thiamine 100 Mg Tablet PO 100 mg DAILY GENET Administration Vancomycin HCl 125 mg 04/08/23 17:00 04/12/23 16:26 Vancomycin 125 Mg Capsule PO 04/18/23 13:01 125 mg QID GENET Administration Zinc Oxide 113 gm 04/08/23 12:32 04/12/23 16:36 Cod Liver Oil/Zinc Oxide 113 Gm Tube TOP 1 applic PRN PRN Administration Skin Care Atorvastatin [Lipitor] 20 mg PO 1600 08/26/20 Insulin Lispro [Humalog] 5 - 10 unit SQ TIDWM 08/26/20 Insulin Degludec [Tresiba Flextouch U-100] 8 unit SUBQ 1200 09/06/22 Losartan [Cozaar] 50 mg PO 1600 04/07/23 dilTIAZem HCL [Diltiazem 24Hr ER] 120 mg PO DAILY 04/07/23 Lactobacillus Combination No.4 [Probiotic] 1 cap PO DAILY 04/08/23 Metoprolol Succinate [Toprol Xl] 25 mg PO DAILY PRN 04/08/23 Multivitamin 1 tab PO DAILY 04/08/23
[2023-04-12] MEDS: IBUPROFEN 600 MG TABLET PO PRN (16:53)
[2023-04-12] MEDS: ONDANSETRON 4 MG/2 ML VIAL IVP PRN (21:55)
[2023-04-13] MEDS: SODIUM CHLORIDE FLUSH 0.9% 10 ML SYRINGE IVP SCH ×2 (01:31→08:17)
[2023-04-13] MEDS: GABAPENTIN 300 MG CAPSULE PO SCH (05:47)
[2023-04-13] MEDS: NICOTINE 14 MG PATCH TOP SCH (08:17)
[2023-04-13] MEDS: MULTIVITAMIN TABLET PO SCH (08:17)
[2023-04-13] MEDS: METOPROLOL SUCCINATE 25 MG TABLET PO SCH (08:18)
[2023-04-13] MEDS: SACCHAROMYCES BOULARDII 250 MG CAPSULE PO SCH (08:18)
[2023-04-13] MEDS: VANCOMYCIN 125 MG CAPSULE PO SCH ×2 (08:19→12:26)
[2023-04-13] MEDS: NEOMYCIN/POLYMYX/DEXAMETH OPHTH DROPS 5 ML EACHEYE SCH ×2 (08:19→12:25)
[2023-04-13] MEDS: APIXABAN 5 MG TABLET PO SCH (08:19)
[2023-04-13] MEDS: PARoxetine 10 MG TABLET PO SCH (08:19)
[2023-04-13] MEDS: THIAMINE 100 MG TABLET PO SCH (08:19)
[2023-04-13] MEDS: FOLIC ACID 1 MG TABLET PO SCH (08:19)
[2023-04-13] MEDS: MAGNESIUM OXIDE 400 MG TABLET PO SCH (08:19)
[2023-04-13] MEDS: INSULIN LISPRO 300 UNIT/3 ML PEN SUBQ SCH ×2 (08:20→12:26)
[2023-04-13] MEDS: ONDANSETRON 4 MG/2 ML VIAL IVP PRN (08:42)
[2023-04-13] MEDS: LEVALBUTEROL 1.25 MG/3 ML NEB INH SCH (09:57)
--- NOTE | 2023-04-13 11:21 | Discharge Plan ---
"Discharge Plan for SNF / [facility] - Discharge Plan And Transition Orders Problem Reviewed?: Yes Disposition: 03 SNF DC/Xfer Condition: Good Allergies and Adverse Reactions: Allergies Allergy/AdvReac Type Severity Reaction Status Date / Time Penicillins Allergy Unknown Verified 04/06/23 23:20 Sulfa (Sulfonamide Allergy Unknown Verified 04/06/23 23:20 Antibiotics) lisinopril AdvReac Unknown Verified 04/06/23 23:20 - SNF / [facility] Transition Orders Admit to (Facility): [facility] Discharge Diagnosis: C diff infection Pulmonary embolus Lung nodules - follow up required with non contrast CT UTI Atrial fibrillation Medicare Certification Statement: I certify that Post Hospital residential care is medically necessary on a continuing basis for any of the conditions for which she/he is receiving care during hospitalization. Notify PCP of admission and forward orders to primary provider for signature. Weight on admission and: Weekly Call PCP immediately if weight increases by: 5 kg Other Notification Orders: Call PCP immediately if patient develops dyspnea, chest pain/tightness or edema. House Bowel Program: Yes Additional Bowel Program Orders: If no BM after 2 days, nurse may give M.O.M. 30ml PO PRN and/or ducolax Supp 1 MS and/or SIXTO 250mg P.O., and/or senna 1-2 tabs PO. On day 3 nurse may give repeat above order until residents constipation is resolved. Annual Influenza Vaccine (between Dec 22 and July 21): Yes Two-step PPD per [facility] [phone] or approved exception documents: Yes Treatments & Other Orders: --Continue Eliquis 10 mg BID for another day followed by Eliquis 5 mg BID thereafter. --Patient requires repeat non-contrast CT chest for follow-up regarding findings on her most recent CT chest. --Evidence of sinus pauses on telemetry. Subsided after discontinuation of diltiazem. Recommend holding diltiazem and having cardiology consultation. Oxygen Orders: Maintain O2 greater than 90% Medication Orders: PLEASE REFER TO THE DISCHARGE MEDICATION LIST. Insulin Orders?: Yes - Medications New Prescriptions: Apixaban [Eliquis] 10 mg PO BID 1 Days #4 tab Apixaban [Eliquis] 5 mg PO BID 90 Days #180 tab Insulin Glargine-Yfgn [Semglee] 8 unit SUBQ 1200 #10 ml Vancomycin [Vancocin] 125 mg PO QID 4 Days #16 cap - Diet Type: Geriatric Texture: Regular Liquids: Thin May have monthly special meal: Yes - Therapies | Activity Therapy: Evaluation | Treat if indicated: PT, OT Rehabilitation Potential: Maximize functional status, Return to independent living Activity: No Restrictions Weight Bearing: Full Weight Follow Up: Follow-up with Jennifer Stevenson in 3-5 days. Follow-up with Cardiology in 1 week. Insulin Orders - SNF Basal | Correction | Custom Orders: Diagnosis: Diabetes Initiate hypo and hyperglycemia protocols for BG <70 and BG >375. May check BG PRN for signs/symptoms of dysglycemia. Frequency of BG checks: [AC/Meal/HS] Basal Insulin: [X] Lantus 100 units / ml inject subq as follows: [Lantus 8 units subQ at 1200] [] Other: [] Correction Insulin: - Select the type of insulin below [Choose: Novolog/Humalog]100 units /ml insulin inject subq per orders indicate below [X] LOW DOSE [] MODERATE DOSE [] MODERATE/HIGH DOSE [] HIGH DOSE GB UNITS GB UNITS GB UNITS GB UNITS 61-140 0 UNITS 61-140 0 UNITS 61-140 0 UNITS 61-140 0 UNITS 141-175 1 UNITS 141-175 1 UNITS 141-175 2 UNITS 141-175 3 UNITS 176-225 2 UNITS 176-225 3 UNITS 176-225 4 UNITS 176-225 5 UNITS 226-275 3 UNITS 226-275 5 UNITS 226-275 6 UNITS 226-275 7 UNITS 276-325 4 UNITS 276-325 7 UNITS 276-325 8 UNITS 276-325 9 UNITS 326-375 5 UNITS 326-375 9 UNITS 326-375 10 UNITS 326-375 11 UNITS >375 CONTACT MD >375 CONTACT MD >375 CONTACT MD >375 CONTACT MD Custom Dosing: [Choose: Novolog/Humalog] 100 units/ml Insulin inject subq as follows: GB Units 61-140 [] Units 141-175 [] Units 176-225 [] Units 226-275 [] Units 276-325 []Units 326-375 [] Units >375 Contact MD"
--- NOTE | 2023-04-13 11:38 | DISCHARGE SUMMARY ---
Discharge Summary Discharge Date: 04/13/23 Discharging Provider: Erika Condition at Discharge: Good Discharge Disposition: SNF DC/Xfer - DIAGNOSES Discharge Diagnoses with Status of Each Condition: C diff infection-continue oral vancomycin. Pulmonary embolus-currently on Eliquis 10 mg twice daily for an additional day. She will require Eliquis 5 mg twice daily for 3 to 6 months. Lung nodules - follow up required with non contrast CT UTI-resolved after IV ceftriaxone. Atrial fibrillation-oral diltiazem was held on discharge due to sinus pauses. She would benefit from a cardiology follow-up. - HPI History of Present Illness: This is a 73-year-old female with a history of DM, paroxysmal Afib not on anticoagulants, and has alcohol abuse. She has been admitted here in Mat 2022 with alcohol withdrawal and rapid A-fib. She presented to the ER last night, brought in by EMS, after she fell several times and was intoxicated with a blood alcohol level of 259, AST 115, ALT 48, INR 1.1. She reported she "cannot stand". In the ER she was thought to be dehydrated and received several units of IV crystalloids. Despite that she had heart rates that were intermittently as high as 120, with standing 150. A repeat alcohol level was not measurable. After 3 L of saline she also complained of shortness of breath. Labs showed and elevated D-dimer and a lactic acid level of 3.5, on repeat down to 2.7 after IV fluids. Normal WBC but Urinalysis was very abnormal and she received Macrobid orally with plan to discharge her. She underwent a CTA after the D-dimer returned elevated. The CTA chest does show small clot burden in the pulmonary artery. She was given iv Ceftriaxone for her UTI and the ED provider spoke to me about this patient to bring her into the hospital. On CIWA score in the ER she was 28 and did not yet need Ativan. Her only complaint to me is that she has a headache. - HOSPITAL COURSE Hospital Course: Patient is a 73-year-old female who presented to the ED after sustaining a fall at home due to alcohol intoxication. Upon presentation she was noted to be severely septic from presumed urinary tract infection and was started on IV ceftriaxone. CTA of her chest was performed which revealed evidence of small pulmonary embolus involving the proximal segmental right lower lobe of the pulmonary arteries. There were also multiple pulmonary nodules seen and a new nodule in the superior segment of the right lower lobe. Radiology did recommend short- term follow-up noncontrast chest CT. Patient was admitted to the floor and continued on IV antibiotics with ceftriaxone and started on anticoagulation with Eliquis. Shortly after she was noted to have a positive test for C. difficile and was started on oral vancomycin for 10 days. Her hospital course was complicated by episodes of sinus pauses which were asymptomatic. Her diltiazem was discontinued during her hospitalization and her sinus pauses ceased. She was eval by physical therapy and Occupational Therapy who recommended fdc facility. She is subsequently discharged to [facility] for additional therapies. - ALLERGIES Allergies/Adverse Reactions: Allergies Allergy/AdvReac Type Severity Reaction Status Date / Time Penicillins Allergy Unknown Verified 04/06/23 23:20 Sulfa (Sulfonamide Allergy Unknown Verified 04/06/23 23:20 Antibiotics) lisinopril AdvReac Unknown Verified 04/06/23 23:20 - MEDICATIONS Home Medications: Ambulatory Orders Medication Instructions Recorded Confirmed Atorvastatin [Lipitor] 20 mg PO 1600 08/26/20 04/08/23 Gabapentin [Neurontin] 300 mg PO TID #0 09/13/22 04/07/23 PARoxetine [Paxil] 10 mg PO DAILY #0 09/13/22 04/07/23 Losartan [Cozaar] 50 mg PO 1600 04/07/23 04/08/23 Lactobacillus Combination No.4 1 cap PO DAILY 04/08/23 04/08/23 [Probiotic] Metoprolol Succinate [Toprol Xl] 25 mg PO DAILY PRN 04/08/23 04/08/23 Multivitamin 1 tab PO DAILY 04/08/23 04/08/23 Apixaban [Eliquis] 5 mg PO BID 90 Days #180 tab 04/13/23 Apixaban [Eliquis] 10 mg PO BID 1 Days #4 tab 04/13/23 Insulin Glargine-Yfgn [Semglee] 8 unit SUBQ 1200 #10 ml 04/13/23 Saccharomyces Boulardii [Florastor] 500 mg PO BIDWM #30 cap 04/13/23 Thiamine [Vitamin B-1] 100 mg PO DAILY #30 tab 04/13/23 Vancomycin [Vancocin] 125 mg PO QID 4 Days #16 cap 04/13/23 - PHYSICAL EXAM AT DISCHARGE General Appearance: positive: No acute distress, Alert Eyes Bilateral: positive: Normal inspection, PERRL, EOMI Respiratory: positive: No respiratory distress, Breath sounds nml Cardiovascular: positive: Regular rate & rhythm, No murmur, No gallop Abdomen: positive: Non-tender, No organomegaly, Nml bowel sounds, No distention Extremities: positive: Non-tender, Full ROM, Nml appearance - LABS Result Diagrams: 04/12/23 04:56 04/12/23 04:56 - FOLLOW UP Follow Up: Follow up with PCP. Recommend follow up with Cardiology. - TIME SPENT Time Spent in Discharge (Minutes): 35
--- NOTE | 2023-04-13 11:43 | Discharge Plan ---
Discharge Plan for SNF / [facility] - Discharge Plan And Transition Orders Problem Reviewed?: Yes Disposition: 03 SNF DC/Xfer Condition: Good Allergies and Adverse Reactions: Allergies Allergy/AdvReac Type Severity Reaction Status Date / Time Penicillins Allergy Unknown Verified 04/06/23 23:20 Sulfa (Sulfonamide Allergy Unknown Verified 04/06/23 23:20 Antibiotics) lisinopril AdvReac Unknown Verified 04/06/23 23:20 - SNF / GROUP HOME Transition Orders Medicare Certification Statement: I certify that Post Hospital assisted care is medically necessary on a continuing basis for any of the conditions for which she/he is receiving care during hospitalization. Notify PCP of admission and forward orders to primary provider for signature. Other Notification Orders: Call PCP immediately if patient develops dyspnea, chest pain/tightness or edema. Additional Bowel Program Orders: If no BM after 2 days, nurse may give M.O.M. 30ml PO PRN and/or ducolax Supp 1 WI and/or SIXTO 250mg P.O., and/or senna 1-2 tabs PO. On day 3 nurse may give repeat above order until residents constipation is resolved. Treatments & Other Orders: Left sided clavicular fracture noted on CXR. Unclear if this is chronic or new. She is not having any symptoms. Follow-up with orthopedic surgery. Unfortunately we did not have orthopedic here in the hospital during her stay. Medication Orders: PLEASE REFER TO THE DISCHARGE MEDICATION LIST. - Medications New Prescriptions: Apixaban [Eliquis] 10 mg PO BID 1 Days #4 tab Apixaban [Eliquis] 5 mg PO BID 90 Days #180 tab Insulin Glargine-Yfgn [Semglee] 8 unit SUBQ 1200 #10 ml Vancomycin [Vancocin] 125 mg PO QID 4 Days #16 cap - Diet Type: Geriatric
[2023-04-13] MEDS: INSULIN GLARGINE-YFGN 300 UNIT/3 ML PEN SUBQ SCH (12:25)
[2023-04-13 13:29] VITALS: BP 102/64; O2SAT 93
[2023-04-14] MEDS ORDERED: APIXABAN 5 MG TABLET PO SCH (21:00)
== END 2023-04-13 14:40 | DRG 871 ==
LOC: EDUNIT# → ED 23:15 → MS2 04-07 18:13 → OBSVTOIN 04-08 11:07 → MS2 04-13 10:13
PROVIDERS: ADMIT Internal Medicine; ATTEND Family Medicine
DX: A41.9 Sepsis, unspecified organism (principal); I26.99 Other pulmonary embolism without acute cor pulmonale; N30.00 Acute cystitis without hematuria; R53.1 Weakness; A04.72 Enterocolitis due to Clostridium difficile, not specified as recurrent; F10.239 Alcohol dependence with withdrawal, unspecified; I50.22 Chronic systolic (congestive) heart failure; R32 Unspecified urinary incontinence; R91.8 Other nonspecific abnormal finding of lung field; I50.9 Heart failure, unspecified; E11.9 Type 2 diabetes mellitus without complications; I48.0 Paroxysmal atrial fibrillation; R94.31 Abnormal electrocardiogram [ECG] [EKG]; R79.89 Other specified abnormal findings of blood chemistry; I11.0 Hypertensive heart disease with heart failure; E78.00 Pure hypercholesterolemia, unspecified; J44.9 Chronic obstructive pulmonary disease, unspecified; E87.6 Hypokalemia; R00.0 Tachycardia, unspecified; E86.0 Dehydration; F17.200 Nicotine dependence, unspecified, uncomplicated; Z11.52 Encounter for screening for COVID-19; F10.229 Alcohol dependence with intoxication, unspecified; F32.A Depression, unspecified; F41.9 Anxiety disorder, unspecified; M19.90 Unspecified osteoarthritis, unspecified site; H91.90 Unspecified hearing loss, unspecified ear; R11.2 Nausea with vomiting, unspecified; I95.1 Orthostatic hypotension; I49.5 Sick sinus syndrome; S42.009S Fracture of unspecified part of unspecified clavicle, sequela; X58.XXXS Exposure to other specified factors, sequela; M95.8 Other specified acquired deformities of musculoskeletal system; Z63.4 Disappearance and death of family member; Z79.01 Long term (current) use of anticoagulants; Z79.4 Long term (current) use of insulin; Z79.899 Other long term (current) drug therapy; Z88.0 Allergy status to penicillin; Z88.2 Allergy status to sulfonamides; Z88.8 Allergy status to other drugs, medicaments and biological substances; Z91.81 History of falling
CPT/HCPCS: 36415; 70450; 71045; 71275; 74176; 80048; 80053; 80076; 80306; 81001; 82009; 82550; 82803; 83036; 83605; 83690; 83735; 84100; 84443; 84484; 85025; 85379; 85610; 86850; 86900; 86901; 87077; 87086; 87181; 87493; 87633; 93005; 93306; 94640; 96361; 96365; 96366; 96368; 96375; 96376; 97162; 97166; 97530; 97535; 99285; A9270; G0378; G0480; J1815; J2060; J3411; J3490; J8499; Q9967; 80320; 81003

== ENCOUNTER 2023-04-13 13:40 | Outpatient (CLI) | payer MEDICARE, OTHER | END 2023-04-13 13:41 | LOC: EMS 13:40 | PROVIDERS: ATTEND Family Medicine | DX: I95.1 Orthostatic hypotension (principal); R29.6 Repeated falls; B96.89 Other specified bacterial agents as the cause of diseases classified elsewhere; S42.002D Fracture of unspecified part of left clavicle, subsequent encounter for fracture with routine healing; F10.21 Alcohol dependence, in remission; I26.99 Other pulmonary embolism without acute cor pulmonale | CPT/HCPCS: A0425; A0428 ==

== ENCOUNTER 2023-05-02 16:43 | Outpatient (CLI) | payer MEDICARE, OTHER | END 2023-05-02 23:59 | disposition critical access hospital (66) | LOC: EMS 16:43 | DX: R06.02 Shortness of breath (principal); I49.9 Cardiac arrhythmia, unspecified | CPT/HCPCS: A0425; A0429 ==

== ENCOUNTER 2023-05-02 16:59 | Emergency (ER) | payer MEDICARE, OTHER ==
[2023-05-02 17:30] LABS: BASOPHILS % (AUTO) 0.6 %; EOSINOPHILS # (AUTO) 0.1 10^3/uL (0.0-0.7); EOSINOPHILS % (AUTO) 2.2 %; HGB - HEMOGLOBIN 10.2 g/dL (12.0-16.0); LYMPHOCYTES # (AUTO) 0.9 10^3/uL (1.5-3.5); LYMPHOCYTES % (AUTO) 13.1 %; MEAN CORPUSCULAR HEMOGLOBIN 31.9 pg (27.0-31.0); MEAN CORPUSCULAR HGB CONC 30.9 g/dL (32.0-36.0); MEAN CORPUSCULAR VOLUME 103.1 fL (81.0-99.0); MEAN PLATELET VOLUME 11.8 fL (7.9-10.8); MONOCYTES # (AUTO) 0.6 10^3/uL (0.0-1.0); MONOCYTES % (AUTO) 9.7 %; NEUTROPHILS # (AUTO) 4.8 10^3/uL (1.5-6.6); NEUTROPHILS % (AUTO) 73.9 %; PLT - PLATELET COUNT 251 10^3/uL (130-450); RED CELL DISTRIBUTION WIDTH 13.9 % (12.0-15.0); WHITE BLOOD COUNT 6.5 x10^3/uL (4.8-10.8)
--- NOTE | 2023-05-02 17:32 | ED Physician Documentation ---
PD HPI DYSPNEA - Stated complaint Stated Complaint: AFIB - Chief complaint Chief Complaint: Cardiac - Additional information Additional information: 73-year-old female with history of type 2 diabetes, paroxysmal atrial fibrillation, alcohol dependence. She was recently admitted here for alcohol withdrawal, hypotension, C. difficile and was discharged to [facility] for physical therapy. Patient reports last drink was about 3 weeks ago prior to hospital admission. During last hospitalization CTA of her chest was completed after she was found to have an elevated D-dimer which revealed a small pulmonary embolism. She was started on Eliquis prior to discharge to senior care facility, [facility] and reports that she thinks that she has been getting her medications every day as [facility] nursing manages it. She was also recently found to be C. difficile positive and was started on oral vancomycin for total of 10 days, antibiotics are complete for this. During hospitalization she was found to have multiple sinus pauses which were overall asymptomatic which led the hospitalist to discontinue her diltiazem. Patient reports over the last week or so she has been having increased dyspnea on exertion and heart palpitations in her chest. She denies any chest pain. She says at home she used to be on metoprolol but she does not think she is taking this medication anymore but unsure given the fact that [facility] now manages her medications. PD PAST MEDICAL HISTORY - Past Medical History Past Medical History: Yes Cardiovascular: Congestive heart failure, Hypertension, High cholesterol, Arrhythmia Respiratory: COPD, Shortness of breath Neuro: None Endocrine/Autoimmune: Type 2 diabetes GI: Other SKIMMER: None : None HEENT: Other Psych: Depression, Anxiety, Other Musculoskeletal: Osteoarthritis Derm: None - Past Surgical History Past Surgical History: Yes /SKIMMER: Hysterectomy - Present Medications Home Medications: Ambulatory Orders Medication Instructions Recorded Confirmed Atorvastatin [Lipitor] 20 mg PO 1600 08/26/20 05/02/23 Gabapentin [Neurontin] 300 mg PO TID #0 09/13/22 05/02/23 PARoxetine [Paxil] 10 mg PO DAILY #0 09/13/22 05/02/23 Losartan [Cozaar] 50 mg PO 1600 04/07/23 05/02/23 Lactobacillus Combination No.4 1 cap PO DAILY 04/08/23 05/02/23 [Probiotic] Metoprolol Succinate [Toprol Xl] 25 mg PO DAILY PRN 04/08/23 05/02/23 Multivitamin 1 tab PO DAILY 04/08/23 05/02/23 Apixaban [Eliquis] 5 mg PO BID 90 Days #180 tab 04/13/23 05/02/23 Insulin Glargine-Yfgn [Semglee] 8 unit SUBQ 1200 #10 ml 04/13/23 05/02/23 Saccharomyces Boulardii [Florastor] 500 mg PO BIDWM #30 cap 04/13/23 05/02/23 Thiamine [Vitamin B-1] 100 mg PO DAILY #30 tab 04/13/23 05/02/23 - Allergies Allergies/Adverse Reactions: Allergies Allergy/AdvReac Type Severity Reaction Status Date / Time Penicillins Allergy Unknown Verified 05/02/23 17:05 Sulfa (Sulfonamide Allergy Unknown Verified 05/02/23 17:05 Antibiotics) lisinopril AdvReac Unknown Verified 05/02/23 17:05 - Social History Does the pt smoke?: Yes Smoking Status: Current every day smoker Does the pt drink ETOH?: Yes Does the pt have substance abuse?: No - Immunizations Immunizations are current?: No - POLST Patient has POLST: No PD ED PE NORMAL - Vitals Vital signs reviewed: Yes - General General: Alert 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 - HEENT HEENT: Atraumatic - Cardiac Cardiac: Other (Irregularly irregular) - Respiratory Respiratory: No respiratory distress, Other (diminished bilaterally) - Abdomen Abdomen: Normal bowel sounds, Non tender - Derm Derm: Normal color - Extremities Extremities: No calf tenderness / cord, Other (1 plus BLE pitting edema) - Neuro Neuro: Alert 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, 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 Eye Opening: Spontaneous Motor: Obeys Commands Verbal: Oriented GCS Score: 15 Results - Vitals Vitals: Vital Signs - 24 hr 05/02/23 05/02/23 05/02/23 16:59 17:30 17:42 Temperature 36.0 C L Heart Rate 118 H 100 Respiratory 20 22 Rate Blood Pressure 140/105 H 129/86 H Blood Pressure 128/98 H [Right] O2 Saturation 97 98 If not protocol 2 : Oxygen Flow, liters/minute 05/02/23 05/02/23 05/02/23 17:43 17:45 17:50 Temperature Heart Rate 106 H 93 93 Respiratory 18 22 Rate Blood Pressure 128/98 H 122/88 H 122/88 H Blood Pressure [Right] O2 Saturation 96 97 If not protocol 2 2 : Oxygen Flow, liters/minute 05/02/23 05/02/23 05/02/23 17:55 18:10 18:25 Temperature Heart Rate 100 99 94 Respiratory 20 22 Rate Blood Pressure 124/83 H 134/84 H 141/91 H Blood Pressure [Right] O2 Saturation 97 99 If not protocol 2 2 : Oxygen Flow, liters/minute 05/02/23 05/02/23 05/02/23 18:40 18:55 19:44 Temperature Heart Rate 90 102 H 92 Respiratory 20 Rate Blood Pressure 135/86 H 134/75 H 131/93 H Blood Pressure [Right] O2 Saturation 97 If not protocol : Oxygen Flow, liters/minute 05/02/23 05/02/23 05/02/23 21:00 21:45 22:10 Temperature Heart Rate 98 92 90 Respiratory 21 23 20 Rate Blood Pressure 140/96 H 137/104 H 143/91 H Blood Pressure [Right] O2 Saturation 98 91 L 94 If not protocol 1 : Oxygen Flow, liters/minute 05/02/23 22:57 Temperature Heart Rate 91 Respiratory 21 Rate Blood Pressure 136/95 H Blood Pressure [Right] O2 Saturation 97 If not protocol 1 : Oxygen Flow, liters/minute Oxygen O2 Source Nasal cannula - EKG (time done) 1651 EKG releavant findings:: EKG personally interpreted by author of this note. Relevant findings are: Rate: Rate (enter#) (96) Rhythm: Atrial fibrillation [place]: Normal Ischemia: Normal ST segments Computer interpretation: Disagree with computer 2058 EKG releavant findings:: EKG personally interpreted by author of this note. Relevant findings are: Rate: Rate (enter#) (98) Rhythm: NSR, Other (multiple PACs) [place]: RAD Intervals: Normal NC, Prolonged QT, QRS normal Ischemia: T wave inversion - Labs Labs: Laboratory Tests 05/02/23 05/02/23 05/02/23 17:15 17:15 17:15 WBC 6.5 RBC 3.20 L Hgb 10.2 L Hct 33.0 L MCV 103.1 H MCH 31.9 H MCHC 30.9 L RDW 13.9 Plt Count 251 MPV 11.8 H Neut # (Auto) 4.8 Lymph # (Auto) 0.9 L [place] # (Auto) 0.6 Eos # (Auto) 0.1 Baso # (Auto) 0.0 Absolute Nucleated RBC 0.00 Nucleated RBC % 0.0 Sodium 140 Potassium 3.3 L Chloride 100 L Carbon Dioxide 33 H Anion Gap 7.0 BUN 15 Creatinine 0.6 Estimated GFR (MDRD) 98 Glucose 328 H Calcium 8.2 L Magnesium 1.4 L Total Bilirubin 0.5 AST 33 ALT 10 Alkaline Phosphatase 80 B-Natriuretic Peptide 1949 H Total Protein 5.4 L Albumin 2.5 L Globulin 2.9 Albumin/Globulin Ratio 0.9 L - Rads (name of study) chest Xray Relevant Findings:: Final report received, EMP independent interpretation of test (Low lung volumes, interstitial thickening, small right pleural effusion, bibasilar opacities) PD Medical Decision Making - ED course ED course: 73yo female here for A-fib And increased shortness of breath Labs are complete, CBC does not reveal any leukocytosis mild anemia, hemoglobin 10.2. Chemistry shows that potassium is 3.3 and magnesium 1.4 slightly low which could be contributing to her A-fib. 40 mEq of potassium and 400 mg of magnesium oxide administered for electrolyte replacement After 1 dose of IV 10 mg Cardizem patient was able to convert back to normal sinus rhythm with multiple PACs. Patient continues to complain of mild dyspnea as well as ongoing cough. Chest x-ray was reviewed and reveals cardiomegaly, as well as low lung volumes and interstitial thickening suggestive of edema versus atypical infection. There is also a small right pleural effusion. I considered pneumonia but patient does not have any recent fevers or chills, no phlegm with cough, and overall does not exactly meet criteria for this being related to pneumonia. She is also recently recovering from a C. difficile infection. Given patient's CHF history as well as mild pitting edema to BLE and BNP 1,959 I decided to give patient a low-dose IV Lasix to help with diuresis. 2 sets of blood cultures were collected to make sure that she does not have pneumonia leading to sepsis although does not necessarily meet sepsis criteria this out of an abundance of caution. Patient was given very strict return precaution she is able to demonstrate adequate teach back she also informs me that she has a new cardiology appointment at the end of this month. At this time she is safe for discharge back to senior care facility, [facility]. Departure - Departure Disposition: 01 Home, Self Care Clinical Impression: Paroxysmal A-fib CHF exacerbation Qualifiers: Heart failure type: unspecified Qualified Code(s): I50.9 - Heart failure, unspecified Condition: Fair Instructions: Atrial Fibrillation Dc Comments: Thank you for trusting us with your care after receiving 1 dose of IV Cardizem you are able to convert back into normal sinus rhythm. It appears that you were recently discontinued from this medication from your previous hospital stay because you are having some pauses. I recommend following up with your primary care provider and die setter for further evaluation as to whether you need to be back onto this medication or not. If you start to develop any chest pain, worsening shortness of breath, nausea vomiting or any other concerning symptoms please report back to the emergency department immediately. We have given you a small dose of IV Lasix to help with possible fluid volume overload we also sent 2 sets of blood cultures for further evaluation. These take 2 to 3 days if it does grow anything we will call you to come back to the hospital. Forms: PCP List Discharge Date/Time: 05/02/23 23:10
[2023-05-02] MEDS: diltiaZEM INJ 5 MG/ML VIAL IVP STA ×2 (17:38→19:54)
[2023-05-02 17:43] LABS: ALBUMIN 2.5 g/dL (3.2-5.5); ALBUMIN/GLOBULIN RATIO 0.9 (1.0-2.2); BILIRUBIN,TOTAL 0.5 mg/dL (0.2-1.0); CALCIUM 8.2 mg/dL (8.5-10.3); CREATININE 0.6 mg/dL (0.6-1.3); MAGNESIUM 1.4 mg/dL (1.7-2.3); POTASSIUM 3.3 mmol/L (3.5-4.5); TOTAL PROTEIN 5.4 g/dL (6.4-8.9)
[2023-05-02] MEDS: POTASSIUM CHLORIDE 20 MEQ TABLET PO STA ×3 (19:47→20:03)
[2023-05-02] MEDS: MAGNESIUM OXIDE 400 MG TABLET PO STA ×2 (19:47→20:02)
--- NOTE | 2023-05-02 20:20 | XRAY Report ---
PROCEDURE: Chest 1V INDICATIONS: SOB TECHNIQUE: One view of the chest was acquired. COMPARISON: 04/11/2023 FINDINGS: Surgical changes and devices: None. Lungs and pleura: Low lung volumes and elevation of the right hemidiaphragm. Mild to moderate inters titial thickening. Possible small right pleural effusion. Bibasilar opacities are also seen. Mediastinum: Cardiomegaly Bones and chest wall: Partially seen left clavicle nonunited fracture or osteotomy. IMPRESSION: Low lung volumes. Interstitial thickening suggestive of edema or atypical infection. There may be a s mall right pleural effusion. Bibasilar opacities likely represent atelectasis versus additional compo nent of infection. Consider future imaging surveillance to assess for resolution. Cardiomegaly Reviewed by: Matt Jones MD on 05/02/2023 8:19 PM PST Approved by: Matt Jones MD on 05/02/2023 8:19 PM PST Station ID: [id number]
[2023-05-02] MEDS: FUROSEMIDE 20 MG/2 ML VIAL IVP STA (22:10)
[2023-05-02 23:05] VITALS: BP 136/95; O2SAT 97
== END 2023-05-02 23:10 | disposition home or self-care (01) ==
LOC: ED 16:59
DX: I48.0 Paroxysmal atrial fibrillation (principal); I11.0 Hypertensive heart disease with heart failure; I50.9 Heart failure, unspecified; E78.00 Pure hypercholesterolemia, unspecified; J44.9 Chronic obstructive pulmonary disease, unspecified; E11.9 Type 2 diabetes mellitus without complications; F17.200 Nicotine dependence, unspecified, uncomplicated; Z79.01 Long term (current) use of anticoagulants; Z79.899 Other long term (current) drug therapy
CPT/HCPCS: 36415; 71045; 80053; 83735; 83880; 85025; 87040; 93005; 96374; 96375; 99284; A9270

== ENCOUNTER 2023-05-02 23:07 | Outpatient (CLI) | payer MEDICARE, OTHER | END 2023-05-02 23:08 | disposition home or self-care (01) | LOC: EMS 23:07 | PROVIDERS: ATTEND Nurse Practitioner | DX: I50.9 Heart failure, unspecified (principal); I48.91 Unspecified atrial fibrillation; Z74.01 Bed confinement status | CPT/HCPCS: A0425; A0428 ==

== ENCOUNTER 2023-05-17 09:24 | Outpatient (CLI) | payer MEDICARE, OTHER | END 2023-05-17 23:59 | disposition critical access hospital (66) | LOC: EMS 09:24 | DX: I48.91 Unspecified atrial fibrillation (principal); R05.9 Cough, unspecified | CPT/HCPCS: A0425; A0429 ==

== ENCOUNTER 2023-05-17 09:29 | Emergency (ER) | payer MEDICARE, OTHER ==
--- NOTE | 2023-05-17 10:01 | XRAY Report ---
PROCEDURE: Chest 1V INDICATIONS: cough/SOA TECHNIQUE: One view of the chest was acquired. COMPARISON: 05/02/2023. FINDINGS: Surgical changes and devices: None. Lungs and pleura: Interstitial pulmonary edema, moderate posteriorly layering right pleural effusion . Mediastinum: Mediastinal contours appear normal. Mild cardiomegaly. Bones and chest wall: No suspicious bony lesions. Overlying soft tissues appear unremarkable. IMPRESSION: Congestive heart failure exacerbation. Reviewed by: Jaun Garcia MD on 05/17/2023 9:59 AM PST Approved by: Jaun Garcia MD on 05/17/2023 9:59 AM PST Station ID: [id number]
[2023-05-17 10:14] LABS: BASOPHILS % (AUTO) 0.6 %; EOSINOPHILS # (AUTO) 0.2 10^3/uL (0.0-0.7); EOSINOPHILS % (AUTO) 3.1 %; HCT - HEMATOCRIT 34.7 % (37.0-47.0); HGB - HEMOGLOBIN 10.7 g/dL (12.0-16.0); LYMPHOCYTES % (AUTO) 14.5 %; MEAN CORPUSCULAR HEMOGLOBIN 31.2 pg (27.0-31.0); MEAN CORPUSCULAR HGB CONC 30.8 g/dL (32.0-36.0); MEAN CORPUSCULAR VOLUME 101.2 fL (81.0-99.0); MEAN PLATELET VOLUME 11.7 fL (7.9-10.8); MONOCYTES # (AUTO) 0.7 10^3/uL (0.0-1.0); MONOCYTES % (AUTO) 9.3 %; NEUTROPHILS # (AUTO) 5.1 10^3/uL (1.5-6.6); NEUTROPHILS % (AUTO) 72.1 %; PLT - PLATELET COUNT 286 10^3/uL (130-450); RED BLOOD COUNT 3.43 10^6/uL (4.20-5.40); RED CELL DISTRIBUTION WIDTH 13.7 % (12.0-15.0)
[2023-05-17 10:33] LABS: ALBUMIN 2.4 g/dL (3.2-5.5); ALBUMIN/GLOBULIN RATIO 0.8 (1.0-2.2); BILIRUBIN,TOTAL 0.4 mg/dL (0.2-1.0); CALCIUM 8.1 mg/dL (8.5-10.3); CREATININE 0.6 mg/dL (0.6-1.3); POTASSIUM 2.6 mmol/L (3.5-4.5); TOTAL PROTEIN 5.5 g/dL (6.4-8.9)
[2023-05-17] MEDS ORDERED: POTASSIUM CHLORIDE 20 MEQ TABLET PO ONE (10:41)
[2023-05-17 10:57] LABS: B. PARAPERTUSSIS- RESP PCR PAN NOT DETECTED; CORONAVIRUS 229E-RESP PCR NOT DETECTED; CORONAVIRUS HKU1-RESP PCR NOT DETECTED; CORONAVIRUS NL63-RESP PCR NOT DETECTED; CORONAVIRUS OC43-RESP PCR NOT DETECTED; HUMAN METAPNEUMOVIRUS NOT DETECTED; INFLUENZA A- RESP PCR PANEL NOT DETECTED; INFLUENZA B - RESP PCR PANEL NOT DETECTED; PARAINFLUENZA VIRUS 1 NOT DETECTED; PARAINFLUENZA VIRUS 2 NOT DETECTED; PARAINFLUENZA VIRUS 3 NOT DETECTED; PARAINFLUENZA VIRUS 4 NOT DETECTED; RHINOVIRUS/ENTEROVIRUS NOT DETECTED; RSV- RESP PCR PANEL NOT DETECTED; SARS-CoV-2 -RESP PCR PANEL NOT DETECTED
[2023-05-17 10:58] LABS: B. PERTUSSIS- RESP PCR PANEL NOT DETECTED; C. PNEUMONIAE- RESP PCR PANEL NOT DETECTED; M. PNEUMONIAE- RESP PCR PANEL NOT DETECTED
[2023-05-17 10:59] LABS: VBG PCO2 62.8 mmHg (41-51); VBG PH 7.415 (7.31-7.41)
[2023-05-17 11:00] LABS: VBG BASE EXCESS 12.6 mmol/L (-2 - +2); VBG HCO3 39.4 mmol/L (23-28); VBG OXYGEN SATURATION 28.4 % (60-80); VBG TOTAL CO2 41.3 mmol/L (24-29)
[2023-05-17] MEDS: POTASSIUM CHLOR 10 MEQ/100 ML 10 MEQ/100 ML BAG IV SCH ×2 (11:04→12:02)
[2023-05-17 11:06] LABS: VBG PO2 < 19.0 mmHg (25-47)
--- NOTE | 2023-05-17 11:45 | ED Physician Documentation ---
History of Present Illness - Stated complaint Stated Complaint: COUGH - Chief complaint Chief Complaint: Resp - History obtained from History obtained from: Patient - Additonal information Additional information: Patient is a 73-year-old female with a history of paroxysmal A-fib on Eliquis, congestive heart failure, COPD who is chronically on oxygen presenting for evaluation of cough that is worsened this morning. Patient is currently residing at [facility]. She is rehabbing due to generalized weakness. Per EMS they were called this morning because patient had increased cough this morning. Patient denies fever. No shortness of air from her baseline. No chest pain. No leg swelling. She is not on a diuretic.Per EMS she has not required increased oxygen for them and has otherwise had stable vital signs. 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 : None HEENT: Other Psych: Depression, Anxiety, Other Musculoskeletal: Osteoarthritis Derm: None - Past Surgical History Past Surgical History: Yes /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 - Present Medications Home Medications: Ambulatory Orders Medication Instructions Recorded Confirmed Atorvastatin [Lipitor] 20 mg PO 1600 08/26/20 05/17/23 Gabapentin [Neurontin] 300 mg PO TID #0 09/13/22 05/17/23 PARoxetine [Paxil] 10 mg PO DAILY #0 09/13/22 05/17/23 Losartan [Cozaar] 50 mg PO 1600 04/07/23 05/17/23 Lactobacillus Combination No.4 1 cap PO DAILY 04/08/23 05/17/23 [Probiotic] Metoprolol Succinate [Toprol Xl] 25 mg PO DAILY PRN 04/08/23 05/17/23 Multivitamin 1 tab PO DAILY 04/08/23 05/17/23 Apixaban [Eliquis] 5 mg PO BID 90 Days #180 tab 04/13/23 05/17/23 Insulin Glargine-Yfgn [Semglee] 8 unit SUBQ 1200 #10 ml 04/13/23 05/17/23 Saccharomyces Boulardii [Florastor] 500 mg PO BIDWM #30 cap 04/13/23 05/17/23 Thiamine [Vitamin B-1] 100 mg PO DAILY #30 tab 04/13/23 05/17/23 Furosemide [Lasix] 20 mg PO DAILY #3 tablet 05/17/23 Potassium Chloride [K-Dur] 40 meq PO DAILY 3 Days #6 tablet 05/17/23 - Allergies Allergies/Adverse Reactions: Allergies Allergy/AdvReac Type Severity Reaction Status Date / Time Penicillins Allergy Unknown Verified 05/17/23 09:47 Sulfa (Sulfonamide Allergy Unknown Verified 05/17/23 09:47 Antibiotics) lisinopril AdvReac Unknown Verified 05/17/23 09:47 - Social History Does the pt smoke?: Yes Smoking Status: Current every day smoker Does the pt drink ETOH?: Yes Does the pt have substance abuse?: No - Immunizations Immunizations are current?: No - POLST Patient has POLST: No PD ED PE NORMAL - General General: Alert 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, No acute distress, Other (Frail, chronically ill-appearing) - HEENT HEENT: Atraumatic, Moist mucous membranes, Pharynx benign - Neck Neck: Supple, no meningeal sign - Cardiac Cardiac: Strong equal pulses, Other (Irregular rhythm, regular rate) - Respiratory Respiratory: No respiratory distress, Other (Fine rales, right greater than left) - Abdomen Abdomen: Soft, Non tender, Non distended - Derm Derm: Warm and dry - Extremities Extremities: No edema - Neuro Neuro: Normal speech Results - Vitals Vitals: Vital Signs - 24 hr 05/17/23 05/17/23 05/17/23 09:40 11:51 13:14 Temperature 35.7 C L 36.1 C L 36.1 C L Heart Rate 77 72 73 Respiratory 18 18 23 Rate Blood Pressure 130/80 126/75 137/90 H O2 Saturation 95 100 95 If not protocol 3 : Oxygen Flow, liters/minute Oxygen O2 Source Nasal cannula Oxygen Flow Rate 3 - Labs Labs: Laboratory Tests 05/17/23 05/17/23 05/17/23 09:55 10:09 10:09 WBC 7.0 RBC 3.43 L Hgb 10.7 L Hct 34.7 L MCV 101.2 H MCH 31.2 H MCHC 30.8 L RDW 13.7 Plt Count 286 MPV 11.7 H Neut # (Auto) 5.1 Lymph # (Auto) 1.0 L [place] # (Auto) 0.7 Eos # (Auto) 0.2 Baso # (Auto) 0.0 Absolute Nucleated RBC 0.00 Nucleated RBC % 0.0 VBG pH VBG pCO2 VBG pO2 VBG HCO3 VBG Total CO2 VBG O2 Saturation VBG Base Excess Sodium 142 Potassium 2.6 L Chloride 98 L Carbon Dioxide 41 H* Anion Gap 3.0 L BUN 9 Creatinine 0.6 Estimated GFR (MDRD) 98 Glucose 171 H Calcium 8.1 L Total Bilirubin 0.4 AST 19 ALT 6 L Alkaline Phosphatase 59 B-Natriuretic Peptide Total Protein 5.5 L Albumin 2.4 L Globulin 3.1 Albumin/Globulin Ratio 0.8 L Nasal Adenovirus (PCR) NOT DETECTED Nasal B. parapertussis DNA (PCR) NOT DETECTED Nasal Coronavir 229E PCR NOT DETECTED Nasal Coronavir HKU1 PCR NOT DETECTED Nasal Coronavir NL63 PCR NOT DETECTED Nasal Coronavir OC43 PCR NOT DETECTED Nasal Enterovir/Rhinovir PCR NOT DETECTED Nasal Influenza B PCR NOT DETECTED Nasal Influenza A PCR NOT DETECTED Nasal Parainfluen 1 PCR NOT DETECTED Nasal Parainfluen 2 PCR NOT DETECTED Nasal Parainfluen 3 PCR NOT DETECTED Nasal Parainfluen 4 PCR NOT DETECTED Nasal RSV (PCR) NOT DETECTED Nasal B.pertussis DNA PCR NOT DETECTED Nasal C.pneumoniae (PCR) NOT DETECTED Jayson Human Metapneumo PCR NOT DETECTED Nasal M.pneumoniae (PCR) NOT DETECTED Nasal SARS-CoV-2 (PCR) NOT DETECTED 05/17/23 05/17/23 10:09 10:55 WBC RBC Hgb Hct MCV MCH MCHC RDW Plt Count MPV Neut # (Auto) Lymph # (Auto) [place] # (Auto) Eos # (Auto) Baso # (Auto) Absolute Nucleated RBC Nucleated RBC % VBG pH 7.415 H VBG pCO2 62.8 H VBG pO2 < 19.0 L VBG HCO3 39.4 H VBG Total CO2 41.3 H VBG O2 Saturation 28.4 L VBG Base Excess 12.6 H Sodium Potassium Chloride Carbon Dioxide Anion Gap BUN Creatinine Estimated GFR (MDRD) Glucose Calcium Total Bilirubin AST ALT Alkaline Phosphatase B-Natriuretic Peptide 1487 H Total Protein Albumin Globulin Albumin/Globulin Ratio Nasal Adenovirus (PCR) Nasal B. parapertussis DNA (PCR) Nasal Coronavir 229E PCR Nasal Coronavir HKU1 PCR Nasal Coronavir NL63 PCR Nasal Coronavir OC43 PCR Nasal Enterovir/Rhinovir PCR Nasal Influenza B PCR Nasal Influenza A PCR Nasal Parainfluen 1 PCR Nasal Parainfluen 2 PCR Nasal Parainfluen 3 PCR Nasal Parainfluen 4 PCR Nasal RSV (PCR) Nasal B.pertussis DNA PCR Nasal C.pneumoniae (PCR) Jayson Human Metapneumo PCR Nasal M.pneumoniae (PCR) Nasal SARS-CoV-2 (PCR) PD Medical Decision Making - ED course Complexity details: reviewed results, re-evaluated patient, d/w patient ED course: Patient is a 73-year-old female with a history of COPD, congestive heart failure presenting for evaluation of cough that was worse this morning. Has a history of A-fib and is on Eliquis. Here her vital signs appear stable. She is on her usual oxygen requirements. She does have some Rales on exam. No lower extremity edema. Labs including CBC, chemistry, BNP, respiratory swab were obtained and reviewed. Chest x-ray shows a right-sided pleural effusion. Her labs are significant for potassium of 2.6. I did obtain a venous blood gas as her CO2 on her serum labs was slightly elevated. She does appear to be compensated for this on her VBG. Suspect this is related to her chronic COPD. Patient was given potassium replacement both IV and p.o. Her increased cough could be related to the pleural effusion and congestive heart failure. During h er recent admission she had an echo that showed an EF of 30 to 35%. At this time I will recommend a short course of a diuretic along with potassium replacement and need for close follow-up with primary care.Patient to be transferred back to [facility]. At this time does not meet criteria for admission as she is not requiring additional oxygen and tolerating p.o. Patient counseled on concerning symptoms to return for. Departure - Departure Disposition: 01 Home, Self Care Clinical Impression: Cough, Hypokalemia, Congestive heart failure, Pleural effusion, right Condition: Stable Instructions: ED CHF General, ED Potassium Deficiency Follow-Up: Rosa Stevenson ARNP [Primary Care Provider] - Prescriptions: Potassium Chloride [K-Dur] 40 meq PO DAILY 3 Days #6 tablet Furosemide [Lasix] 20 mg PO DAILY #3 tablet Comments: You were evaluated for a cough. Your respiratory swab is negative for tested viruses such as COVID, RSV and influenza. Your chest x-ray shows that you do have fluid buildup in your right lung called a pleural effusion. This could be related to congestive heart failure. I am going to start you on a small water pill for the next 3 days to help get rid of fluid to see if this helps. However this water pill can also lower your potassium level and your potassium level was also already low today at 2.6. We have given you oral and IV potassium rep lacement and I am also sending a prescription for potassium replacement for the next 3 days while you are taking the water pill. You do need close follow-up with your primary care provider both in regards to your cough, pleural effusion, low potassium. Return to the ER with any worsening symptoms. Your prescriptions were sent to [email or web address] in [place]. Forms: PCP List Discharge Date/Time: 05/17/23 13:37
[2023-05-17 13:24] VITALS: BP 137/90; O2SAT 95
== END 2023-05-17 13:37 | disposition home or self-care (01) ==
LOC: EDUNIT# → ED 09:29
DX: I50.9 Heart failure, unspecified (principal); J90 Pleural effusion, not elsewhere classified; E87.6 Hypokalemia; Z99.81 Dependence on supplemental oxygen; F17.200 Nicotine dependence, unspecified, uncomplicated
CPT/HCPCS: 36415; 71045; 80053; 82803; 83880; 85025; 87633; 93005; 96365; 96366; 99284; A9270

== ENCOUNTER 2023-05-17 13:21 | Outpatient (CLI) | payer MEDICARE, OTHER | END 2023-05-17 23:59 | LOC: EMS 13:21 | PROVIDERS: ATTEND Emergency Medicine | DX: E87.6 Hypokalemia (principal); J44.9 Chronic obstructive pulmonary disease, unspecified; Z99.81 Dependence on supplemental oxygen; Z74.01 Bed confinement status | CPT/HCPCS: A0425; A0428 ==

== ENCOUNTER 2023-05-18 07:21 | Outpatient (CLI) | payer MEDICARE, OTHER ==
[2023-05-18 07:58] LABS: ALBUMIN 2.4 g/dL (3.2-5.5); ALBUMIN/GLOBULIN RATIO 0.8 (1.0-2.2); ALKALINE PHOSPHATASE 57 IU/L (42-121); ALT ALANINE AMINOTRANSFERASE 8 IU/L (10-60); AST ASPARTATE AMINOTRANSFERASE 20 IU/L (10-42); BILIRUBIN,TOTAL 0.4 mg/dL (0.2-1.0); BUN - BLOOD UREA NITROGEN 13 mg/dL (6-20); CALCIUM 8.2 mg/dL (8.5-10.3); CARBON DIOXIDE - CO2 34 mmol/L (21-32); CHLORIDE 98 mmol/L (101-111); CHOL/HDL RATIO 2.5 (<4.4); CHOLESTEROL 119 mg/dL; CREATININE 0.6 mg/dL (0.6-1.3); GFR - MDRD 98 (>89); GLUCOSE 233 mg/dL (74-104); HDL CHOLESTEROL 48 mg/dL; LDL CHOLESTEROL,CALCULATED 51 mg/dL; LDL/HDL RATIO 1.1 (<4.4); POTASSIUM 3.4 mmol/L (3.5-4.5); SODIUM 141 mmol/L (135-145); TOTAL PROTEIN 5.4 g/dL (6.4-8.9); TRIGLYCERIDES 101 mg/dL (48-352); VLDL CHOLESTEROL 20 mg/dL
[2023-05-18 10:18] LABS: ESTIMATED AVERAGE GLUCOSE 160 mg/dL (70-100); HEMOGLOBIN A1c% 7.2 % (4.27-6.07)
== END 2023-05-18 07:22 | disposition home or self-care (01) ==
LOC: LAB.R 07:21
PROVIDERS: ATTEND Registered Nurse
DX: I11.0 Hypertensive heart disease with heart failure (principal); I50.9 Heart failure, unspecified; E78.5 Hyperlipidemia, unspecified; E11.42 Type 2 diabetes mellitus with diabetic polyneuropathy; J44.9 Chronic obstructive pulmonary disease, unspecified; I48.0 Paroxysmal atrial fibrillation
CPT/HCPCS: 80053; 80061; 82306; 83036; 83721; 84436; 84443

== ENCOUNTER 2023-05-19 23:06 | Outpatient (CLI) | payer MEDICARE, OTHER | END 2023-05-19 23:59 | disposition critical access hospital (66) | LOC: EMS 23:06 | DX: I95.9 Hypotension, unspecified (principal); I48.0 Paroxysmal atrial fibrillation; R06.02 Shortness of breath; Z99.81 Dependence on supplemental oxygen ==

== ENCOUNTER 2023-05-19 23:38 | Emergency (ER) | payer MEDICARE, OTHER ==
[2023-05-19] MEDS ORDERED: METOPROLOL 5 MG/5 ML VIAL IVP STA (23:47)
--- NOTE | 2023-05-19 23:57 | ED Physician Documentation ---
History of Present Illness - Stated complaint Stated Complaint: RAPID HR/SOA - Chief complaint Chief Complaint: Cardiac - History obtained from History obtained from: Patient, EMS - Additonal information Additional information: .73-year-old female with history of HFrEF (EF 30-35%), paroxysmal atrial fibrillation on Eliquis,detention resident presents from her [facility] by EMS for shortness of breath and rapid heart rate. Patient noted to have elevated heart rate this during evening vitals. Patient states she becomes short of breath when she exerts herself but it is "no worse than usual". Wears 2 to 4 L nightly at baseline. Review of Systems Constitutional: denies: Fever, Chills Cardiac: denies: Chest pain / pressure, Palpitations, Calf pain Respiratory: reports: Dyspnea. 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 : None HEENT: Other Psych: Depression, Anxiety, Other Musculoskeletal: Osteoarthritis Derm: None - Past Surgical History Past Surgical History: Yes /HOT KNIFE FOXING CUTTER: Hysterectomy - Present Medications Home Medications: Ambulatory Orders Medication Instructions Recorded Confirmed Atorvastatin [Lipitor] 20 mg PO 1600 08/26/20 05/20/23 Gabapentin [Neurontin] 300 mg PO TID #0 09/13/22 05/20/23 PARoxetine [Paxil] 10 mg PO DAILY #0 09/13/22 05/20/23 Losartan [Cozaar] 50 mg PO 1600 04/07/23 05/20/23 Lactobacillus Combination No.4 1 cap PO DAILY 04/08/23 05/17/23 [Probiotic] Metoprolol Succinate [Toprol Xl] 25 mg PO DAILY PRN 04/08/23 05/20/23 Multivitamin 1 tab PO DAILY 04/08/23 05/20/23 Apixaban [Eliquis] 5 mg PO BID 90 Days #180 tab 04/13/23 05/20/23 Insulin Glargine-Yfgn [Semglee] 8 unit SUBQ 1200 #10 ml 04/13/23 05/20/23 Saccharomyces Boulardii [Florastor] 500 mg PO BIDWM #30 cap 04/13/23 05/20/23 Thiamine [Vitamin B-1] 100 mg PO DAILY #30 tab 04/13/23 05/20/23 Furosemide [Lasix] 20 mg PO DAILY #3 tablet 05/17/23 05/20/23 Potassium Chloride [K-Dur] 40 meq PO DAILY 3 Days #6 tablet 05/17/23 05/20/23 Albuterol Sulfate [Proair 90 mcg IH Q4H PRN 05/20/23 05/20/23 Digihaler] Azithromycin [Zithromax] 0 mg PO DAILY #6 tablet 05/20/23 Ciproflox/Dexameth Otic Drops 1 drops EACHEYE Q4H 05/20/23 05/20/23 [Ciprodex Otic Drops] Insulin Lispro [Humalog] 2 units SUBQ DAILYWM 05/20/23 05/20/23 guaiFENesin LIQUID [Robitussin 400 mg PO Q6H 05/20/23 05/20/23 Liquid] - Allergies Allergies/Adverse Reactions: Allergies Allergy/AdvReac Type Severity Reaction Status Date / Time Penicillins Allergy Unknown Verified 05/17/23 09:47 Sulfa (Sulfonamide Allergy Unknown Verified 05/17/23 09:47 Antibiotics) lisinopril AdvReac Unknown Verified 05/17/23 09:47 - Social History Does the pt smoke?: Yes Smoking Status: Current every day smoker Does the pt drink ETOH?: Yes Does the pt have substance abuse?: No - Immunizations Immunizations are current?: No - POLST Patient has POLST: No PD ED PE NORMAL - Vitals Vital signs reviewed: Yes - General General: Alert 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, Other (debilitated, frail, appears chronically older than stated age) - Cardiac Cardiac: Other (tachycardia, irregularly irregular) - Respiratory Respiratory: No respiratory distress, Other (on supplemental nasal cannula) - Abdomen Abdomen: Soft, Non tender, Non distended - Derm Derm: Other (pale, poor skin turgor) - Extremities Extremities: No deformity, No tenderness to palpate, Normal ROM s pain - Neuro Neuro: Alert 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, oncology nurse 2-12 intact, No motor deficit, Normal speech Results - Vitals Vitals: Vital Signs - 24 hr 01/27/24 01/28/24 01/28/24 23:46 00:08 00:22 Temperature 36.4 C L Heart Rate 127 H 159 H 153 H Respiratory 14 18 15 Rate Blood Pressure 110/62 102/76 104/85 H O2 Saturation 100 100 98 If not protocol 4 4 : Oxygen Flow, liters/minute 05/20/23 05/20/23 05/20/23 00:30 01:00 01:07 Temperature Heart Rate 130 H 167 H 145 H Respiratory 15 19 18 Rate Blood Pressure 103/88 H 119/77 O2 Saturation 98 96 98 If not protocol 4 4 2 : Oxygen Flow, liters/minute 05/20/23 05/20/23 05/20/23 01:29 01:30 01:33 Temperature Heart Rate 124 H 153 H 136 H Respiratory 18 16 Rate Blood Pressure 98/72 98/72 O2 Saturation 98 If not protocol 2 : Oxygen Flow, liters/minute 05/20/23 05/20/23 05/20/23 01:39 01:40 01:45 Temperature Heart Rate 104 H 102 H 105 H Respiratory 19 19 19 Rate Blood Pressure 77/50 L 59/48 L 71/53 L O2 Saturation 97 97 97 If not protocol 4 4 4 : Oxygen Flow, liters/minute 05/20/23 05/20/23 05/20/23 01:50 01:55 02:00 Temperature 36.4 C L Heart Rate 108 H 102 H 113 H Respiratory 17 16 19 Rate Blood Pressure 70/48 L 89/64 L 97/63 O2 Saturation 97 100 94 If not protocol 4 4 4 : Oxygen Flow, liters/minute 05/20/23 05/20/23 05/20/23 02:03 02:07 02:11 Temperature 36.6 C Heart Rate 111 H 117 H 110 H Respiratory 23 23 23 Rate Blood Pressure 100/78 96/67 88/70 L O2 Saturation 96 97 94 If not protocol 4 4 4 : Oxygen Flow, liters/minute 05/20/23 05/20/23 05/20/23 02:19 02:28 02:34 Temperature 36.3 C L 37.5 C Heart Rate 125 H 125 H 128 H Respiratory 19 19 21 Rate Blood Pressure 103/75 98/78 104/75 O2 Saturation 94 94 96 If not protocol 4 4 4 : Oxygen Flow, liters/minute 05/20/23 05/20/23 05/20/23 02:55 03:00 03:07 Temperature 36.8 C Heart Rate 119 H 114 H 118 H Respiratory 15 16 18 Rate Blood Pressure 100/72 96/72 88/65 L O2 Saturation 93 96 98 If not protocol 4 4 4 : Oxygen Flow, liters/minute 05/20/23 05/20/23 05/20/23 03:12 03:26 03:41 Temperature 37.2 C 36.7 C Heart Rate 119 H 133 H 121 H Respiratory 23 17 19 Rate Blood Pressure 106/79 95/73 113/87 H O2 Saturation 96 97 100 If not protocol 4 4 4 : Oxygen Flow, liters/minute 05/20/23 05/20/23 05/20/23 04:00 04:24 04:47 Temperature 36.6 C 36.7 C Heart Rate 112 H 119 H 64 Respiratory 21 21 22 Rate Blood Pressure 91/52 L 91/65 104/66 O2 Saturation 97 94 100 If not protocol 4 4 4 : Oxygen Flow, liters/minute 05/20/23 05/20/23 05/20/23 05:02 05:23 06:12 Temperature 36.8 C 36.9 C Heart Rate 64 4 L 64 Respiratory 18 20 20 Rate Blood Pressure 102/70 136/67 H 123/77 O2 Saturation 98 99 100 If not protocol 4 4 4 : Oxygen Flow, liters/minute 05/20/23 05/20/23 05/20/23 06:43 07:46 08:00 Temperature 36.5 C 36.7 C Heart Rate 66 86 67 Respiratory 20 20 22 Rate Blood Pressure 131/94 H 121/82 H 154/89 H O2 Saturation 97 96 98 If not protocol 4 4 4 : Oxygen Flow, liters/minute 05/20/23 05/20/23 08:30 09:00 Temperature Heart Rate 69 69 Respiratory 22 18 Rate Blood Pressure 143/89 H 147/69 H O2 Saturation 98 98 If not protocol 4 2 : Oxygen Flow, liters/minute Oxygen O2 Source Nasal cannula Oxygen Flow Rate 4 - EKG (time done) 2343 EKG releavant findings:: EKG personally interpreted by author of this note. Relevant findings are: Rate: Rate (enter#) (130), Tachy Rhythm: Atrial fibrillation [place]: Normal Ischemia: T wave inversion, Other (similar to previous) - Labs Labs: Laboratory Tests 05/19/23 05/19/23 05/19/23 23:40 23:40 23:40 WBC 9.5 RBC 3.48 L Hgb 10.8 L Hct 35.6 L MCV 102.3 H MCH 31.0 MCHC 30.3 L RDW 13.9 Plt Count 320 MPV 12.0 H Neut # (Auto) 7.5 H Lymph # (Auto) 1.0 L [place] # (Auto) 0.8 Eos # (Auto) 0.0 Baso # (Auto) 0.0 Absolute Nucleated RBC 0.00 Nucleated RBC % 0.0 PT INR Bld Gas Analysis Time Sample Site ABG pH ABG pCO2 ABG pO2 ABG HCO3 ABG Total CO2 ABG O2 Saturation ABG Base Excess Cornel Test O2 Delivery Device O2 Liters/Min Sodium 137 Potassium 3.4 L Chloride 93 L Carbon Dioxide 39 H* Anion Gap 5.0 L BUN 10 Creatinine 0.6 Estimated GFR (MDRD) 98 Glucose 168 H Lactic Acid Calcium 8.6 Magnesium 1.3 L Total Bilirubin 0.5 AST 20 ALT 8 L Alkaline Phosphatase 61 Troponin I High Sens 44.2 H* B-Natriuretic Peptide 2731 H Total Protein 6.3 L Albumin 2.8 L Globulin 3.5 Albumin/Globulin Ratio 0.8 L TSH 1.71 Nasal Adenovirus (PCR) Nasal B. parapertussis DNA (PCR) Nasal Coronavir 229E PCR Nasal Coronavir HKU1 PCR Nasal Coronavir NL63 PCR Nasal Coronavir OC43 PCR Nasal Enterovir/Rhinovir PCR Nasal Influenza B PCR Nasal Influenza A PCR Nasal Parainfluen 1 PCR Nasal Parainfluen 2 PCR Nasal Parainfluen 3 PCR Nasal Parainfluen 4 PCR Nasal RSV (PCR) Nasal B.pertussis DNA PCR Nasal C.pneumoniae (PCR) Jayson Human Metapneumo PCR Nasal M.pneumoniae (PCR) Nasal SARS-CoV-2 (PCR) 05/19/23 05/20/23 05/20/23 23:59 01:10 01:29 WBC RBC Hgb Hct MCV MCH MCHC RDW Plt Count MPV Neut # (Auto) Lymph # (Auto) [place] # (Auto) Eos # (Auto) Baso # (Auto) Absolute Nucleated RBC Nucleated RBC % PT 17.5 H INR 1.6 H Bld Gas Analysis Time Sample Site ABG pH ABG pCO2 ABG pO2 ABG HCO3 ABG Total CO2 ABG O2 Saturation ABG Base Excess Cornel Test O2 Delivery Device O2 Liters/Min Sodium Potassium Chloride Carbon Dioxide Anion Gap BUN Creatinine Estimated GFR (MDRD) Glucose Lactic Acid 1.0 Calcium Magnesium Total Bilirubin AST ALT Alkaline Phosphatase Troponin I High Sens B-Natriuretic Peptide Total Protein Albumin Globulin Albumin/Globulin Ratio TSH Nasal Adenovirus (PCR) NOT DETECTED Nasal B. parapertussis DNA (PCR) NOT DETECTED Nasal Coronavir 229E PCR NOT DETECTED Nasal Coronavir HKU1 PCR NOT DETECTED Nasal Coronavir NL63 PCR NOT DETECTED Nasal Coronavir OC43 PCR NOT DETECTED Nasal Enterovir/Rhinovir PCR NOT DETECTED Nasal Influenza B PCR NOT DETECTED Nasal Influenza A PCR NOT DETECTED Nasal Parainfluen 1 PCR NOT DETECTED Nasal Parainfluen 2 PCR NOT DETECTED Nasal Parainfluen 3 PCR NOT DETECTED Nasal Parainfluen 4 PCR NOT DETECTED Nasal RSV (PCR) NOT DETECTED Nasal B.pertussis DNA PCR NOT DETECTED Nasal C.pneumoniae (PCR) NOT DETECTED Jayson Human Metapneumo PCR NOT DETECTED Nasal M.pneumoniae (PCR) NOT DETECTED Nasal SARS-CoV-2 (PCR) NOT DETECTED 05/20/23 05/20/23 01:37 07:44 WBC RBC Hgb Hct MCV MCH MCHC RDW Plt Count MPV Neut # (Auto) Lymph # (Auto) [place] # (Auto) Eos # (Auto) Baso # (Auto) Absolute Nucleated RBC Nucleated RBC % PT INR Bld Gas Analysis Time 0143 Sample Site RIGHT RADIAL ABG pH 7.42 ABG pCO2 61 H* ABG pO2 74 L ABG HCO3 38.3 H ABG Total CO2 40.2 H* ABG O2 Saturation 95 ABG Base Excess 11.8 H Cornel Test POSITIVE O2 Delivery Device NASAL CANNULA O2 Liters/Min 46.00 Sodium Potassium Chloride Carbon Dioxide Anion Gap BUN Creatinine Estimated GFR (MDRD) Glucose Lactic Acid Calcium Magnesium Total Bilirubin AST ALT Alkaline Phosphatase Troponin I High Sens 34.0 H* B-Natriuretic Peptide Total Protein Albumin Globulin Albumin/Globulin Ratio TSH Nasal Adenovirus (PCR) Nasal B. parapertussis DNA (PCR) Nasal Coronavir 229E PCR Nasal Coronavir HKU1 PCR Nasal Coronavir NL63 PCR Nasal Coronavir OC43 PCR Nasal Enterovir/Rhinovir PCR Nasal Influenza B PCR Nasal Influenza A PCR Nasal Parainfluen 1 PCR Nasal Parainfluen 2 PCR Nasal Parainfluen 3 PCR Nasal Parainfluen 4 PCR Nasal RSV (PCR) Nasal B.pertussis DNA PCR Nasal C.pneumoniae (PCR) J[place] Human Metapneumo PCR Nasal M.pneumoniae (PCR) Nasal SARS-CoV-2 (PCR) Procedures - Procedural sedation Sedation prep: Informed consent, Time out completed, Last meal, PE performed, ASA 4 - very severe dz Sedation Medications: propofol Mallampati classification: II Patient status during sedation: Unresponsive, Vitals remained stable, Maintained airway, Recovered uneventfully Sedation recovery: Back to baseline Time in sedation (Minutes): 15 - Cardioversion - Major Attempt 1 Indication: Tachyarrhythmia, Hypotension Risks, benefits, alternatives explained to: Pt Prep: IV, O2, auditor appraiser, Pulse ox, Airway equip CS via: Pads, Anterolateral Sync: Monophasic, 100j, 150j, 200j Post cardioversion rhythm: A-fib Complications: Other (none) Performed by: ED MD GUY Medical Decision Making - ED course Complexity details: reviewed old records, reviewed results, re-evaluated patient, considered differential, d/w patient ED course: A-fib with RVR in patient with history of paroxysmal atrial fibrillation. Patient is on metoprolol and Eliquis. Patient has variable heart rate between 120 and 150 bpm, does appear to be in atrial fibrillation with RVR. Oxygen saturation stable on 3 to 4 L nasal cannula. Laboratory work shows hemoglobin 10.8, chronic. CO2 elevated, however ABG shows pH of 7.42, CO2 61, O2 74. Patient is well compensated and is likely a chronic CO2 retainer. Potassium 3.4, magnesium 1.5, will order repletion. Mild elevation in troponin, 44.2 high-sensitivity, however patient denies chest pain, EKG shows T wave inversions in lateral leads which is unchanged from priors. This is likely demand from tachycardia. Respiratory panel negative for common viral agents. Attempted to decrease heart rate with metoprolol since patient is already on bet a-blockers, however there is no response after metoprolol 5 mg IV x 3. Patient continues to be in atrial fibrillation with RVR, blood pressure dropped slightly, patient resting comfortably bed and is at baseline mental status, which is oriented x 3. Patient consented to electrocardioversion, however even after 3 subsequent shocks at synchronized 100, 150, 200 J there was conversion to sinus rhythm or decrease in heart rate. Plan to order amiodarone bolus and drip. Unable to admit patient to ICU due to lack of available beds. Patient was able to be weaned off of amiodarone and converted to normal sinus rhythm at approximately 5 AM. Paged telemetry hospitalist service, however they deferred admission to daytime team. Based on initial vitals PORT/PSI score 93 Care of patient signed to morning doctor at 0700. - Critical Care Time(min): 51 Time Includes: Direct patient care, Review records, Reassess patient, Document c are, Coordinate care, See progress note Data interpretation: Labs, Pulse ox, ABG, CXR, Prior EKG, Cardiac output Procedures included in critical care time: See progress note Procedures excluded from critical care time: EKG Departure - Departure Disposition: Home, Self Care Clinical Impression: Atrial fibrillation with rapid ventricular response, Pleural effusion, right Pneumonia Qualifiers: Pneumonia type: due to unspecified organism Laterality: right Lung location: lower lobe of lung Qualified Code(s): J18.9 - Pneumonia, unspecified organism Condition: Stable Instructions: ED Afib, ED Pneumonia Adult Prescriptions: Azithromycin [Zithromax] 0 mg PO DAILY #6 tablet Comments: You came to the emergency department in atrial fibrillation with rapid ventricular response. You were treated with medications and electricity for this and your heart has been back in a regular rhythm for some hours now. Your atrial fibrillation is something that has come and gone chronically, and you are already on medications for this. You should continue your home medications as usual. You have had some ongoing issues in your right lung which have at various times been felt to be either your congestive heart failure or pneumonia. You do not have a fever today, nor do you have an elevated white blood cell count, but since the radiologist has raised the possibility of a small area of pneumonia in your right lower lung on x-ray, we have treated you today with antibiotics to address any possibility of this. A prescription for the rest of your antibiotics has been electronically transmitted to [facility] here in [place], so that they can be picked up today. You will need to take your next dose of antibiotics tomorrow morning. You have also had chronic development of some fluid within the chest cavity on the right side. This does not need to be emergently removed today, as your oxygen levels are very good on your baseline supplemental oxygen. However, you will need to follow-up with your primary doctor or nurse practitioner to discuss being scheduled for drainage of the fluid as an outpatient with radiology guidance. Please have [facility] assist you in making this follow-up appointment. Forms: PCP List Discharge Date/Time: 05/20/23 09:32
[2023-05-20 00:03] LABS: BASOPHILS % (AUTO) 0.3 %; EOSINOPHILS % (AUTO) 0.3 %; HCT - HEMATOCRIT 35.6 % (37.0-47.0); HGB - HEMOGLOBIN 10.8 g/dL (12.0-16.0); LYMPHOCYTES % (AUTO) 10.8 %; MEAN CORPUSCULAR HGB CONC 30.3 g/dL (32.0-36.0); MEAN CORPUSCULAR VOLUME 102.3 fL (81.0-99.0); MONOCYTES # (AUTO) 0.8 10^3/uL (0.0-1.0); MONOCYTES % (AUTO) 8.8 %; NEUTROPHILS # (AUTO) 7.5 10^3/uL (1.5-6.6); NEUTROPHILS % (AUTO) 79.6 %; PLT - PLATELET COUNT 320 10^3/uL (130-450); RED BLOOD COUNT 3.48 10^6/uL (4.20-5.40); RED CELL DISTRIBUTION WIDTH 13.9 % (12.0-15.0); WHITE BLOOD COUNT 9.5 x10^3/uL (4.8-10.8)
[2023-05-20 00:06] LABS: MAGNESIUM 1.3 mg/dL (1.7-2.3)
[2023-05-20 00:08] LABS: ALBUMIN 2.8 g/dL (3.2-5.5); ALBUMIN/GLOBULIN RATIO 0.8 (1.0-2.2); BILIRUBIN,TOTAL 0.5 mg/dL (0.2-1.0); CALCIUM 8.6 mg/dL (8.5-10.3); CREATININE 0.6 mg/dL (0.6-1.3); POTASSIUM 3.4 mmol/L (3.5-4.5); TOTAL PROTEIN 6.3 g/dL (6.4-8.9)
[2023-05-20] MEDS ORDERED: METOPROLOL 5 MG/5 ML VIAL IVP STA (00:12)
[2023-05-20 00:15] LABS: INR 1.6 (0.8-1.2); PT - PROTHROMBIN TIME 17.5 secs (9.9-12.6)
[2023-05-20] MEDS ORDERED: FUROSEMIDE 40 MG/4 ML VIAL IVP STA (00:25)
[2023-05-20 00:36] LABS: TROPONIN I HIGH SENSITIVITY 44.2 ng/L (2.3-14.8)
--- NOTE | 2023-05-20 00:39 | XRAY Report ---
PROCEDURE: Chest 1V INDICATIONS: dyspnea, a fib rvr TECHNIQUE: One view of the chest was acquired. COMPARISON: Multiple recent prior chest plain films from March and April reviewed.. FINDINGS: Surgical changes and devices: None. Lungs and pleura: No pleural effusions or pneumothorax. Lungs are clear on the left but on the righ t there appears to be airspace consolidation and a moderately large subpulmonic right pleural effusio n. Mediastinum: Mediastinal contours appear normal. Heart size is normal. Bones and chest wall: No suspicious bony lesions. Overlying soft tissues appear unremarkable. IMPRESSION: Right lower lobe pneumonia with subpulmonic moderately large right pleural effusion. Reviewed by: Tommie Thompson MD on 05/20/2023 12:38 AM PST Approved by: Tommie Thompson MD on 05/20/2023 12:38 AM [facility] Station ID: [id number]
[2023-05-20] MEDS ORDERED: PROPOFOL 200 MG/20 ML VIAL IVP STA (01:05)
[2023-05-20] MEDS ORDERED: cefTRIAXone 1 GM in SODIUM CHLORIDE 0.9% MINIBAG 100 ML IV STA ×2 (01:12→02:51)
[2023-05-20] MEDS ORDERED: AZITHROMYCIN INJ 500 MG in SODIUM CHLORIDE 0.9% 250 ML IV STA (01:12)
[2023-05-20] MEDS ORDERED: AMIODARONE 150 MG/3 ML VIAL IVP STA (01:30)
[2023-05-20] MEDS ORDERED: AMIODARONE 360 MG/200 ML 200 ML IV ONE ×2 (01:35→01:49)
[2023-05-20 01:38] LABS: THYROID STIMULATING HORMONE 1.71 uIU/mL (0.34-5.60)
[2023-05-20 02:12] LABS: B. PARAPERTUSSIS- RESP PCR PAN NOT DETECTED; B. PERTUSSIS- RESP PCR PANEL NOT DETECTED; C. PNEUMONIAE- RESP PCR PANEL NOT DETECTED; CORONAVIRUS 229E-RESP PCR NOT DETECTED; CORONAVIRUS HKU1-RESP PCR NOT DETECTED; CORONAVIRUS NL63-RESP PCR NOT DETECTED; CORONAVIRUS OC43-RESP PCR NOT DETECTED; HUMAN METAPNEUMOVIRUS NOT DETECTED; INFLUENZA A- RESP PCR PANEL NOT DETECTED; INFLUENZA B - RESP PCR PANEL NOT DETECTED; M. PNEUMONIAE- RESP PCR PANEL NOT DETECTED; PARAINFLUENZA VIRUS 1 NOT DETECTED; PARAINFLUENZA VIRUS 2 NOT DETECTED; PARAINFLUENZA VIRUS 3 NOT DETECTED; PARAINFLUENZA VIRUS 4 NOT DETECTED; RHINOVIRUS/ENTEROVIRUS NOT DETECTED; RSV- RESP PCR PANEL NOT DETECTED; SARS-CoV-2 -RESP PCR PANEL NOT DETECTED
[2023-05-20] MEDS ORDERED: cefTRIAXone 1 GM VIAL ONE (02:53)
[2023-05-20 03:04] LABS: ABG PH 7.42 (7.35-7.45)
[2023-05-20 03:05] LABS: ABG HCO3 38.3 mmol/L (22.0-26.0); ABG PO2 74 mmHg (80-100)
[2023-05-20 03:06] LABS: ABG BASE EXCESS 11.8 mmol/L (-2.0-3.0); ABG OXYGEN SATURATION 95 % (94-98); ALLEN TEST POSITIVE
[2023-05-20 03:08] LABS: ABG PCO2 61 mmHg (34-45); ABG TCO2 40.2 MMOL/L (21.0-29.0)
[2023-05-20] MEDS ORDERED: MAGNESIUM SULFATE 2 GRAM 2 GM/50 ML BAG IV ONE (05:13)
[2023-05-20] MEDS ORDERED: POTASSIUM CHLORIDE 20 MEQ TABLET PO STA (05:13)
--- NOTE | 2023-05-20 08:46 | ED Physician Documentation ---
ED Addendum - Addendum Addendum: 05/20/23 08:35 The patient was signed out to me at change of shift by Dr. Greenberg, pending possible admission after presenting with an atrial fibrillation with rapid ventricular response and being found to have a right lower lobe infiltrate. The patient had a history of paroxysmal atrial fibrillation for which she is on metoprolol XL and Eliquis, and had taken a number of interventions including ultimately, amiodarone infusion, before finally converting to normal sinus rhythm. She had reported that her chronic shortness of breath was at baseline upon arrival. The patient has a history of end-stage COPD and uses 4 L of oxygen per nasal cannula at baseline. On reevaluation, the patient had been in normal sinus rhythm for some hours and was saturating 97 to 100% on 4 L of oxygen. She reported feeling at her normal baseline. She was afebrile with a normal white blood cell count and a normal lactic acid level. Her initial troponin while in A-fib with RVR was 44. I repeated another one this morning and this was 34. Her BNP was 2700 and on review of the patient's recent records, I found she had been placed on a course of Lasix 20 mg daily on her visit 2 days ago. The patient had received antibiotics in the emergency department because of the radiologist's reading of a right lower lobe infiltrate. She had a right pleural effusion that has been present for over a month and has remained fairly stable although possibly slightly worsening over that time. In consideration of all of these factors, while the patient does have poor health at baseline, she was actually fairly stable here and without acute complaints. Additionally, her oxygen saturation is excellent and she is afebrile with a normal white blood cell count. She does not have any evidence of sepsis at this point. As such, given that she is in a closely supervised setting, I will discharge her home. We have informed her facility that she needs close follow-up with her primary care physician for her CHF and also, for her pleural effusion, to consider scheduling elective, radiology guided th oracentesis, since this is not emergently indicated at this time. We discussed the usual indications for return. Final impression: See original note. Disposition: Home in stable and improved condition. 05/20/23 08:46
[2023-05-20 09:31] VITALS: O2SAT 98
[2023-05-20 09:40] VITALS: BP 147/69
== END 2023-05-20 09:32 | disposition home or self-care (01) ==
LOC: EDUNIT# → ED 23:38
DX: I48.0 Paroxysmal atrial fibrillation (principal); J18.9 Pneumonia, unspecified organism; J90 Pleural effusion, not elsewhere classified; J44.9 Chronic obstructive pulmonary disease, unspecified; Z99.81 Dependence on supplemental oxygen; I10 Essential (primary) hypertension; E11.9 Type 2 diabetes mellitus without complications; Z79.4 Long term (current) use of insulin; Z79.01 Long term (current) use of anticoagulants; F17.200 Nicotine dependence, unspecified, uncomplicated
CPT/HCPCS: 36415; 36600; 71045; 80053; 82803; 83605; 83735; 83880; 84443; 84484; 85025; 85610; 87040; 87633; 92960; 93005; 96365; 96366; 96367; 96368; 96375; 96376; 99152; 99291; A9270; J0282

== ENCOUNTER 2023-05-20 09:23 | Outpatient (CLI) | payer MEDICARE, OTHER | END 2023-05-20 09:24 | LOC: EMS 09:23 | PROVIDERS: ATTEND Emergency Medicine | DX: J44.9 Chronic obstructive pulmonary disease, unspecified (principal); Z99.81 Dependence on supplemental oxygen; Z74.01 Bed confinement status | CPT/HCPCS: A0425; A0428 ==

== ENCOUNTER 2023-05-21 00:55 | Outpatient (CLI) | payer MEDICARE, OTHER | END 2023-05-21 23:59 | disposition critical access hospital (66) | LOC: EMS 00:55 | DX: I48.91 Unspecified atrial fibrillation (principal) | CPT/HCPCS: A0425; A0429 ==

== ENCOUNTER 2023-05-21 01:00 | Emergency (ER) | payer MEDICARE, OTHER ==
--- NOTE | 2023-05-21 01:14 | ED Physician Documentation ---
History of Present Illness - Stated complaint Stated Complaint: RAPID HR - Chief complaint Chief Complaint: Cardiac - History obtained from History obtained from: Patient, EMS - Additonal information Additional information: 73-year-old female with history of congestive heart failure, atrial fibrillation on Eliquis, chronic O2 dependence presents by EMS from [facility] for elevated heart rate. Patient was here yesterday for same. I saw her yesterday and attempted to decrease her heart rate with metoprolol, which was unsuccessful. Electrocardioversion also unsuccessful. Patient eventually converted after being on amiodarone bolus and drip for several hours. She has pneumonia and was discharged from the ER earlier this morning with antibiotics. Patient denies complaints. She states that she has shortness of breath that is chronic and at her baseline. Denies chest pain, weakness, other complaints. Review of Systems Constitutional: denies: Fever, Chills Respiratory: reports: Dyspnea. denies: Cough, Wheezing GI: denies: Abdominal Pain, Nausea, Vomiting PD PAST MEDICAL HISTORY - Past Medical History Cardiovascular: Congestive heart failure, Hypertension, High cholesterol, Arrhythmia Respiratory: COPD, Shortness of breath Neuro: None Endocrine/Autoimmune: Type 2 diabetes GI: Other MAIL HANDLER ASSISTANT: None : None HEENT: Other Psych: Depression, Anxiety, Other Musculoskeletal: Osteoarthritis Derm: None - Past Surgical History Past Surgical History: Yes /MAIL HANDLER ASSISTANT: Hysterectomy - Present Medications Home Medications: Ambulatory Orders Medication Instructions Recorded Confirmed Atorvastatin [Lipitor] 20 mg PO 1600 08/26/20 05/21/23 Gabapentin [Neurontin] 300 mg PO TID #0 09/13/22 05/21/23 PARoxetine [Paxil] 10 mg PO DAILY #0 09/13/22 05/21/23 Losartan [Cozaar] 50 mg PO 1600 04/07/23 05/21/23 Lactobacillus Combination No.4 1 cap PO DAILY 04/08/23 05/21/23 [Probiotic] Metoprolol Succinate [Toprol Xl] 25 mg PO DAILY PRN 04/08/23 05/21/23 Multivitamin 1 tab PO DAILY 04/08/23 05/21/23 Apixaban [Eliquis] 5 mg PO BID 90 Days #180 tab 04/13/23 05/21/23 Insulin Glargine-Yfgn [Semglee] 8 unit SUBQ 1200 #10 ml 04/13/23 05/21/23 Saccharomyces Boulardii [Florastor] 500 mg PO BIDWM #30 cap 04/13/23 05/21/23 Thiamine [Vitamin B-1] 100 mg PO DAILY #30 tab 04/13/23 05/21/23 Furosemide [Lasix] 20 mg PO DAILY #3 tablet 05/17/23 05/21/23 Potassium Chloride [K-Dur] 40 meq PO DAILY 3 Days #6 tablet 05/17/23 05/21/23 Albuterol Sulfate [Proair 90 mcg IH Q4H PRN 05/20/23 05/21/23 Digihaler] Azithromycin [Zithromax] 0 mg PO DAILY #6 tablet 05/20/23 05/21/23 Ciproflox/Dexameth Otic Drops 1 drops EACHEYE Q4H 05/20/23 05/21/23 [Ciprodex Otic Drops] Insulin Lispro [Humalog] 2 units SUBQ DAILYWM 05/20/23 05/21/23 guaiFENesin LIQUID [Robitussin 400 mg PO Q6H 05/20/23 05/21/23 Liquid] dilTIAZem HCL [Diltiazem 24Hr ER] 240 mg PO DAILY #30 cap 05/21/23 - Allergies Allergies/Adverse Reactions: Allergies Allergy/AdvReac Type Severity Reaction Status Date / Time Penicillins Allergy Unknown Verified 05/21/23 01:16 Sulfa (Sulfonamide Allergy Unknown Verified 05/21/23 01:16 Antibiotics) lisinopril AdvReac Unknown Verified 05/21/23 01:16 - Social History Does the pt smoke?: Yes Smoking Status: Current every day smoker Does the pt drink ETOH?: Yes Does the pt have substance abuse?: No - Immunizations Immunizations are current?: No - POLST Patient has POLST: No PD ED PE NORMAL - Vitals Vital signs reviewed: Yes - General General: Alert 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, No acute distress, Other (debilitated, frail, appears chronically unwell) - Cardiac Cardiac: Other (tachycardia, irregularly irregular) - Derm Derm: Warm and dry, No rash, Other (poor skin turgor) - Extremities Extremities: No deformity, No tenderness to palpate, Normal ROM s pain - Neuro Neuro: Alert 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, road roller operator 2-12 intact, No motor deficit, Normal speech Results - Vitals Vitals: Vital Signs - 24 hr 05/21/23 05/21/23 05/21/23 01:00 01:20 01:25 Temperature 36.9 C Heart Rate 180 H 135 H 126 H Respiratory 21 21 21 Rate Blood Pressure 115/86 H 108/68 114/72 O2 Saturation 98 95 98 If not protocol : Oxygen Flow, liters/minute 05/21/23 05/21/23 05/21/23 01:30 01:45 02:00 Temperature Heart Rate 138 H 131 H 138 H Respiratory 24 21 24 Rate Blood Pressure 113/67 116/74 103/74 O2 Saturation 99 98 98 If not protocol 3 3 : Oxygen Flow, liters/minute 05/21/23 05/21/23 05/21/23 02:15 02:24 02:30 Temperature Heart Rate 71 74 76 Respiratory 22 23 23 Rate Blood Pressure 119/66 118/72 132/60 H O2 Saturation 98 98 96 If not protocol 2 2 2 : Oxygen Flow, liters/minute 05/21/23 05/21/23 05/21/23 03:00 03:15 03:30 Temperature Heart Rate 77 79 78 Respiratory 21 20 20 Rate Blood Pressure 130/94 H 118/94 H 126/76 O2 Saturation 96 97 97 If not protocol 2 2 2 : Oxygen Flow, liters/minute Oxygen O2 Source Nasal cannula Oxygen Flow Rate 3 - Labs Labs: Laboratory Tests 05/21/23 05/21/23 05/21/23 01:54 01:54 01:54 WBC 8.3 RBC 3.32 L Hgb 10.2 L Hct 33.8 L MCV 101.8 H MCH 30.7 MCHC 30.2 L RDW 13.8 Plt Count 304 MPV 12.2 H Neut # (Auto) 6.7 H Lymph # (Auto) 0.7 L Sutton # (Auto) 0.8 Eos # (Auto) 0.1 Baso # (Auto) 0.0 Absolute Nucleated RBC 0.00 Nucleated RBC % 0.0 PT 16.1 H INR 1.5 H Sodium 138 Potassium 3.2 L Chloride 94 L Carbon Dioxide 39 H* Anion Gap 5.0 L BUN 11 Creatinine 0.6 Estimated GFR (MDRD) 98 Glucose 204 H Calcium 8.3 L Magnesium 1.7 Total Bilirubin 0.4 AST 21 ALT 8 L Alkaline Phosphatase 52 Total Protein 5.8 L Albumin 2.7 L Globulin 3.1 Albumin/Globulin Ratio 0.9 L PD Medical Decision Making - ED course Complexity details: reviewed old records, reviewed results, re-evaluated patient, considered differential, d/w patient ED course: Patient presenting for atrial fibrillation with rapid ventricular response. Patient seen here yesterday for same, not responsive to metoprolol or electrocardioversion, however she did seem to convert after a while with amiodarone. Patient placed on calibration laboratory technician, given a single dose of diltiazem with improvement in rate and subsequently patient converted to normal sinus rhythm at a rate of approximately 70 bpm. Laboratory work reviewed, no significant change from prior. Potassium 3.2, magnesium 1.7, given oral repletion. Will change patient's metoprolol to diltiazem. She was strongly advised that she needs to follow-up as soon as possible with cardiology to get a better handle on her atrial fibrillation with both rate and rhythm control. Departure - Departure Disposition: 01 Home, Self Care Clinical Impression: Atrial fibrillation Qualifiers: Atrial fibrillation type: paroxysmal Qualified Code(s): I48.0 - Paroxysmal atrial fibrillation Condition: Stable Instructions: Atrial Fibrillation Dc, ED Paroxysmal Atrial Flutter Prescriptions: dilTIAZem HCL [Diltiazem 24Hr ER] 240 mg PO DAILY #30 cap Comments: STOP TAKING YOUR METOPROLOL AND SWITCH TO CARDIZEM. FOLLOW UP RUBEN WITH YOUR CARDIOLOGY OFFICE TO GET YOUR A FIB UNDER BETTER CONTROL. CONTINUE TAKING ELIQUIS Forms: PCP List Discharge Date/Time: 05/21/23 03:56
[2023-05-21] MEDS: diltiaZEM INJ 5 MG/ML VIAL IVP STA ×2 (01:15→02:21)
[2023-05-21 02:01] LABS: BASOPHILS % (AUTO) 0.2 %; EOSINOPHILS # (AUTO) 0.1 10^3/uL (0.0-0.7); EOSINOPHILS % (AUTO) 0.8 %; HCT - HEMATOCRIT 33.8 % (37.0-47.0); HGB - HEMOGLOBIN 10.2 g/dL (12.0-16.0); LYMPHOCYTES # (AUTO) 0.7 10^3/uL (1.5-3.5); LYMPHOCYTES % (AUTO) 8.5 %; MEAN CORPUSCULAR HEMOGLOBIN 30.7 pg (27.0-31.0); MEAN CORPUSCULAR HGB CONC 30.2 g/dL (32.0-36.0); MEAN CORPUSCULAR VOLUME 101.8 fL (81.0-99.0); MEAN PLATELET VOLUME 12.2 fL (7.9-10.8); MONOCYTES # (AUTO) 0.8 10^3/uL (0.0-1.0); MONOCYTES % (AUTO) 9.6 %; NEUTROPHILS # (AUTO) 6.7 10^3/uL (1.5-6.6); NEUTROPHILS % (AUTO) 80.7 %; PLT - PLATELET COUNT 304 10^3/uL (130-450); RED BLOOD COUNT 3.32 10^6/uL (4.20-5.40); RED CELL DISTRIBUTION WIDTH 13.8 % (12.0-15.0); WHITE BLOOD COUNT 8.3 x10^3/uL (4.8-10.8)
[2023-05-21 02:06] LABS: INR 1.5 (0.8-1.2); PT - PROTHROMBIN TIME 16.1 secs (9.9-12.6)
[2023-05-21] MEDS ORDERED: diltiaZEM INJ 5 MG/ML VIAL IVP STA (02:09)
[2023-05-21] MEDS ORDERED: diltiaZEM CD 120 MG CAPSULE PO STA (02:23)
[2023-05-21 02:24] LABS: MAGNESIUM 1.7 mg/dL (1.7-2.3)
[2023-05-21 02:36] LABS: ALBUMIN 2.7 g/dL (3.2-5.5); ALBUMIN/GLOBULIN RATIO 0.9 (1.0-2.2); BILIRUBIN,TOTAL 0.4 mg/dL (0.2-1.0); CALCIUM 8.3 mg/dL (8.5-10.3); CREATININE 0.6 mg/dL (0.6-1.3); POTASSIUM 3.2 mmol/L (3.5-4.5); TOTAL PROTEIN 5.8 g/dL (6.4-8.9)
[2023-05-21] MEDS ORDERED: POTASSIUM CHLORIDE 20 MEQ TABLET PO STA (03:00)
[2023-05-21] MEDS ORDERED: MAGNESIUM OXIDE 400 MG TABLET PO ONE (03:01)
[2023-05-21 03:33] VITALS: O2SAT 97
[2023-05-21 03:52] VITALS: BP 126/76
== END 2023-05-21 03:56 | disposition home or self-care (01) ==
LOC: EDUNIT# → ED 01:00
DX: I48.0 Paroxysmal atrial fibrillation (principal); Z79.01 Long term (current) use of anticoagulants; Z99.81 Dependence on supplemental oxygen; E11.9 Type 2 diabetes mellitus without complications; Z79.4 Long term (current) use of insulin; F17.200 Nicotine dependence, unspecified, uncomplicated
CPT/HCPCS: 36415; 80053; 83735; 85025; 85610; 93005; 96374; 99283; 99285; A9270

== ENCOUNTER 2023-05-21 03:52 | Outpatient (CLI) | payer MEDICARE, OTHER | END 2023-05-21 23:58 | LOC: EMS 03:52 | PROVIDERS: ATTEND Emergency Medicine | DX: I48.91 Unspecified atrial fibrillation (principal); Z74.01 Bed confinement status | CPT/HCPCS: A0425; A0428 ==

== ENCOUNTER 2023-05-26 18:49 | Outpatient (CLI) | payer MEDICARE, OTHER | END 2023-05-26 23:59 | disposition home or self-care (01) | LOC: EMS 18:49 | DX: I46.9 Cardiac arrest, cause unspecified (principal) | CPT/HCPCS: A0425; A0428 ==